=== PATIENT | female | born 1955 | race Hispanic/Latino ===

== ENCOUNTER 2018-05-09 08:03 | Inpatient (IN) | payer OTHER ==
[2018-05-03 10:22] LABS: Potassium 4.2 mmol/L (3.5-5.1)
[2018-05-03 10:31] LABS: Absolute Lymphocytes (CBC) 1.8 K/uL (0.7-4.9); Absolute Monocytes 0.5 K/uL (0.1-1.3); Absolute Neutrophil 4.8 K/uL (1.8-8.0); Basophils % 0.3 % (0-1.3); Eosinophils % 1.6 % (0-4.4); Hematocrit 31.9 % (36.0-45.0); Lymphocytes % 25.1 % (15.3-44.8); MPV 8.4 fL (7.6-11.3); Monocytes % 6.6 % (3.3-12.3); RBC Red Blood Cell Count 4.03 M/uL (3.86-4.86)
[2018-05-03 10:35] LABS: Protime INR 0.99
[2018-05-09] MEDS ORDERED: BUPIVACA 0.5%/EPI 0.0005%/PF 10 ML VIAL ONE ×2 (08:31→08:32)
[2018-05-09] MEDS ORDERED: CEFAZOLIN/SWI 2gm 2 GM/20 ML SYR ONE (08:40)
[2018-05-09] MEDS ORDERED: NA CHLORIDE 0.9% 1,000 ML ONE ×2 (08:40→10:52)
[2018-05-09] MEDS ORDERED: MIDAZOLAM HCL 2 MG/2 ML INJ ONE (09:44)
[2018-05-09] MEDS ORDERED: DEXAMETHASONE 4 MG/ML VIAL ONE (09:44)
[2018-05-09] MEDS ORDERED: ROPLVACAINE HCL 20 ML ONE (09:45)
[2018-05-09] MEDS ORDERED: FENTANYL CITR 250 MCG/5 ML ONE (09:45)
[2018-05-09] MEDS ORDERED: TRANEXAMIC ACID 1,000 MG in NA CHLORIDE 0.9% 50 ML IV ONE (10:00)
[2018-05-09] MEDS ORDERED: PROPOFOL 200 MG/20 ML VIAL IV ONE (10:31)
[2018-05-09] MEDS ORDERED: LIDOCAINE 2% MPF 5 ML VIAL ONE (10:32)
[2018-05-09] MEDS ORDERED: GLYCOPYRROLATE 0.2 MG/ML SYR ONE (11:45)
[2018-05-09] MEDS ORDERED: HOME MED 1 EA UNK (Meclizine Hcl [Meclizine Hcl] 25 MG) PO PRN (13:15)
--- NOTE | 2018-05-09 13:15 | P.BOP ---
Preoperative diagnosis: left knee osteoarthritis Postoperative diagnosis: same Primary procedure: left total knee arthroplasty [employer]: NONE,NONE Estimated blood loss: 20 cc Specimen: left knee bone remnants Findings: see dictation Anesthesia: General Complications: None Drain(s): Urinary catheter Implants: Biomet 62.5 CR femur, 71 Tibia, 10 mm CR E-poly, 34 patella Fluids & blood products: per anesthesia; TT: 71 mins @ 300 mmHg Transferred to: Recovery Room Condition: Good
[2018-05-09] MEDS ORDERED: HYDROCODONE/APAP 7.5/325 MG TAB PO PRN (13:21)
[2018-05-09] MEDS ORDERED: DOCUSATE NA 100 MG CAP PO PRN (13:21)
[2018-05-09] MEDS: HYDROMORPHONE HCL 1 MG/ML INJ ONE ×2 (13:39→13:54)
[2018-05-09 13:45] LABS: Hematocrit 30.9 % (36.0-45.0)
[2018-05-09] MEDS ORDERED: PROMETHAZINE 25 MG/ML VIAL ONE ×2 (13:50→13:52)
[2018-05-09] MEDS ORDERED: HYDROMORPHONE HCL 1 MG/ML INJ ONE (14:10)
[2018-05-09] MEDS ORDERED: ESZOPICLONE 1 MG TAB PO PRN (14:18)
--- NOTE | 2018-05-09 14:22 | RAD REPORT ---
EXAM DESCRIPTION: RAD - Knee Left 2 View - 05/09/2018 2:09 pm CLINICAL HISTORY: Post Op Left knee TKA COMPARISON: Knee Left 3 View dated 12/12/2017 FINDINGS: Left total knee arthroplasty has been performed. Hardware is in expected positioning and a lignment. No unexpected finding. No joint effusion is evident.
[2018-05-09] MEDS ORDERED: CEFAZOLIN/SWI 1gm 1 GM/10 ML SYR IVP SCH (17:00)
[2018-05-09] MEDS ORDERED: CEFAZOLIN 1GM (PREMIX IV) 1 GM/50 ML BAG IV SCH (17:00)
[2018-05-09] MEDS ORDERED: ALBUTEROL INHALER 60 PUFF/8 GM IH SCH (17:00)
[2018-05-09] MEDS: MORPHINE 4 MG/ML SYR IV PRN (17:13)
[2018-05-09] MEDS ORDERED: DIPHENHYDRAMINE 50 MG/ML VIAL IV ONE (17:41)
[2018-05-09 20:11] VITALS: BMI 34.7
--- NOTE | 2018-05-09 20:26 | P.OP ---
Preoperative diagnosis: left knee osteoarthritis Postoperative diagnosis: same Primary procedure: left total knee arthroplasty Secondary procedure: none Anesthesia: General Estimated blood loss: 20 cc Specimen: left knee bone remnants Findings: see dictation Operative Technique: Indication For Procedure: Rosangela is a 63-year-old female, who presented to my clinic with left knee pain due to left knee osteoarthritis. The patient failed conservative treatment measures including home exercises, corticosteroid injections and viscosupplementation injections. She reported continued pain that affect his activities of daily living. She was recommended total knee arthoplasty. Description Of Procedure: After informed consent was obtained, the patient was identified in preop holding area. The left lower extremity was marked. The patient underwent a femoral nerve block performed by Anesthesia. She was then taken back to the operative room and transferred to the operating table in supine fashion and placed under general LMA anesthesia. The left lower extremity was then prepped and draped in usual sterile fashion. A time-out was initiated. Correct patient and procedure were confirmed and identified. The patient had received preoperative prophylactic antibiotics. The left lower extremity was exsanguinated and the tourniquet was inflated to 300 mmHg. Approximately, a 15 cm longitudinal incision was made over the anterior aspect of the knee centered over the patella. A standard median parapatellar approach was taken. The dissection was taken to the extensor mechanism. A median parapatellar arthrotomy was then performed. The patella was then everted and the fat pad and medial and lateral meniscus were excised. A lateral release was performed of the patella and osteophytes were removed using a rongeur. There was significant cartilage wear on the undersurface of the patella and it was decided to resurface the patella. Next, attention was taken to the femur, retractors were placed within the knee and the knee was held in flexion. A partial synovectomy was performed over the anterior aspect of the distal femur. A cutting block has been created preoperatively using MRI imaging and the block was then placed over the distal femur and then positioned and was stacked into place and pins were placed within the guide hole in the block. The distal femoral cutting guide was then placed over the pre-placed guide pin and the distal femur was cut after proper confirming using an Zeke wing. After this was performed, the anterior-posterior distal femoral cuts were made as well as the chamfer cut without complication. MCL and lateral remnants were resected as well as patellar tendon with knee retractors. Both remnants were then removed and sent to Pathology. Next attention was taken to the proximal tibia. The soft tissue medially was then elevated off the proximal tibia directly off bone using Bovie electrocautery. Pre-made cutting block was placed over the proximal tibia and once locked into position, pin were placed as well as the alignment migdalia was used to ensure proper placement of the cutting guide. There was overall good alignment and position of the cutting guide. Pins were then placed. The cutting block was removed. The cutting guide was placed on the proximal tibia and again the zeke wing was then used to ensure proper depth of the cut. An osteotome then used to make cuts around the PCL and the saw was used to cut the proximal tibia and the proximal tibial cut was then removed with the meniscal grasper. Bone fragments were then removed and meniscectomies were completed. Next, the knee was held in 90 degrees of flexion and forward extension and a 10-mm guide was then selected and there was good overall fit and stability in flexion and extension. Next, the trials were placed, size 62.5 CR femur was placed and a size 71 tibia with a 10 mm poly. The knee was then ranged and had good stability, both in forward flexion and extension and had full range of motion. The patella was then prepared. A size 34 patella was selected. A caliper was used to measure the thickness of the patella and a planar was then used to prepare the patella. It was drilled and a trial size 34 button was placed. There was good tracking of the patella with ROM. The knee was ranged and there was good stability of the patella as well as the rest of the knee. The tibia was marked with the Bovie electrocautery. The femur was drilled and once in proper position and the tibia was punched. Trial implants were then removed. The knee was then irrigated thoroughly with pulsed lavage normal saline. A 0.5% Marcaine with epinephrine was then used 20 cc for local anesthetic and to aid with postoperative pain control. The cement was prepared as well as the implant. Size 71 tibia was then placed followed by the size 62.5 CR femur. Excess cement was then removed using Lacrosse elevator. A 10-mm trial poly was then placed and the knee was held in full extension as the cement hardened. Cement was placed on the undersurface of the patella and the final patella button was placed. Excess cement was removed. Once the cement was completely hardened, the knee was ranged with good overall stability as well as good flexion and extension. Trial poly ethylene liner was removed and a final 10 mm CR-E poly was placed and locked in position. The knee was again irrigated thoroughly with normal saline. The tourniquet was let down. Hemostasis was achieved with Bovie electrocautery. The extensor mechanism was closed with #1 Vicryl in an interrupted fashion followed by #1 Vicryl in a running fashion. Fascia was then approximated using 0 Vicryl. Subcutaneous tissue was approximated used 2- 0 Vicryl and the skin was approximated using 3-0 nylon. Sterile dressings were applied. The patient was awakened and transferred to PACU in stable condition. Postoperative Plan: She will be weightbearing as tolerated. Physical therapy will aide with mobilization and pain management. CPM machine will be placed in the PACU postoperatively. She has history of hypertension and diabetes mellitus. She will admitted as an inpatient for pain management and medical monitoring. She will be in the hospital for at least 2 midnights. Complications: None Drain(s): Urinary catheter Implants: Biomet 62.5 CR femur, 71 Tibia, 10 mm CR E-poly, 34 pateall Fluids & blood products: per anesthesia; TT: 71 mins @ 300 mmHg Transferred to: Recovery Room Condition: Good
[2018-05-09] MEDS ORDERED: METFORMIN HCL PO SCH (21:00)
[2018-05-09] MEDS ORDERED: SITAGLIPTIN PHOS PO SCH (21:00)
[2018-05-09] MEDS ORDERED: BIMATOPROST OPHTH DROPS/2.5 ML BTL OPTH SCH (21:00)
[2018-05-09] MEDS ORDERED: HOME MED 1 EA UNK (Eszopiclone [Lunesta] 3 MG) PO SCH (21:00)
[2018-05-09] MEDS: ATORVASTATIN 40 MG TAB PO SCH (21:03)
[2018-05-09] MEDS: OXYCODONE *CR* 10 MG TAB PO SCH (21:03)
[2018-05-09] MEDS: ONDANSETRON 4 MG/2 ML VIAL IV PRN (23:08)
[2018-05-10] MEDS: CLINDAMYCIN INJ 600 MG in NA CHLORIDE 0.9% 50 ML IV SCH ×2 (00:13→08:23)
[2018-05-10] MEDS: MORPHINE 4 MG/ML SYR IV PRN (03:51)
[2018-05-10] MEDS: LOSARTAN/HCTZ 50-12.5 PO SCH (05:48)
[2018-05-10] MEDS: ENOXAPARIN 30 MG/0.3 ML SQ SCH ×3 (05:49→21:17)
[2018-05-10] MEDS ORDERED: HOME MED 1 EA UNK (Losartan/Hydrochlorothiazide [Losartan-Hctz 100-25 Mg Tab] 1 EACH) PO SCH (06:00)
[2018-05-10 06:01] LABS: Absolute Lymphocytes (CBC) 1.7 K/uL (0.7-4.9); Absolute Monocytes 1.2 K/uL (0.1-1.3); Absolute Neutrophil 11.7 K/uL (1.8-8.0); Basophils % 0.1 % (0-1.3); Eosinophils % 0.1 % (0-4.4); Hematocrit 31.2 % (36.0-45.0); Lymphocytes % 11.9 % (15.3-44.8); MPV 8.3 fL (7.6-11.3)
[2018-05-10 06:04] LABS: Potassium 3.7 mmol/L (3.5-5.1)
[2018-05-10] MEDS: ONDANSETRON 4 MG/2 ML VIAL IV PRN ×3 (06:48→20:43)
--- NOTE | 2018-05-10 07:53 | P.PN ---
Subjective Date of Service: 05/10/18 Chief Complaint: s/p L TKA pain controlled; some nausea with pain medication; improves with zofran Physical Examination - Vital Signs Temperature: 98.0 F Blood Pressure: 138/65 Pulse: 68 Respirations: 18 Pulse Ox (%): 96 - Physical Exam General: Alert, In no apparent distress Musculoskeletal: Other (LLE: dressing c/d/i; +EHL/FHL/GSC/TA; sensation grossly intact distally) - Studies Laboratory Data (last 24 hrs) 05/10/18 05:22: Sodium 135 L, Potassium 3.7, BUN 17, Creatinine 0.90, Glucose 120 H 05/10/18 05:22: WBC 14.6 H D, Hgb 10.2 L, Hct 31.2 L, Plt Count 350 05/09/18 13:33: Hgb 10.4 L, Hct 30.9 L Assessment And Plan - Plan Rosangela is a 63 yo female s/p L TKA -PT to mobilize; WBAT LLE -h/h stable -lovenox for dvt prophylaxis -d/c mandy
[2018-05-10] MEDS: MONTELUKAST 10 MG TAB PO SCH (08:21)
[2018-05-10] MEDS: PANTOPRAZOLE 40MG TABLET PO SCH (08:21)
[2018-05-10] MEDS: FERROUS SULFATE 325 MG TAB PO SCH (08:22)
[2018-05-10] MEDS: CELECOXIB 100 MG CAPSULE PO SCH (08:22)
[2018-05-10] MEDS: DULOXETINE 30 MG CAP PO SCH (08:22)
[2018-05-10] MEDS: OXYCODONE *CR* 10 MG TAB PO SCH ×2 (08:25→21:00)
[2018-05-10] MEDS ORDERED: HOME MED 1 EA UNK (Duloxetine Hcl [Duloxetine Hcl] 60 MG) PO SCH (09:00)
[2018-05-10] MEDS ORDERED: FLUTICASONE PROPIONATE IH SCH (09:00)
[2018-05-10] MEDS ORDERED: AZELASTINE NASAL SPRAY 30 ML NAS SCH (09:00)
[2018-05-10] MEDS ORDERED: HOME MED 1 EA UNK (Fluticasone/Vilanterol [Breo Ellipta 200-25 Mcg Inh] 1 EACH) IH SCH (09:00)
[2018-05-10] MEDS ORDERED: HOME MED 1 EA UNK (Brimonidine Tartrate/Timolol [Combigan 0.2%-0.5% Eye Drops] 1 GTT) EACH EYE SCH (09:00)
[2018-05-10] MEDS: MECLIZINE HCL 12.5 MG TAB PO PRN ×2 (11:04→21:17)
[2018-05-10] MEDS ORDERED: POTASSIUM CL SA 10 MEQ TAB PO ONE (15:00)
[2018-05-10] MEDS: TRAMADOL HCL 50 MG TAB PO PRN (18:21)
[2018-05-10] MEDS: ATORVASTATIN 40 MG TAB PO SCH (21:16)
[2018-05-10] MEDS ORDERED: HYDRALAZINE HCL 20 MG/ML VIAL IV PRN (21:55)
[2018-05-10] MEDS: METHOCARBAMOL 500 MG TAB PO PRN (22:31)
[2018-05-11] MEDS ORDERED: HYDROMORPHONE HCL 0.5 MG/0.5 ML INJ IV ONE (00:53)
[2018-05-11] MEDS ORDERED: OXYCODONE *CR* 10 MG TAB PO SCH (01:00)
[2018-05-11] MEDS: ONDANSETRON 4 MG/2 ML VIAL IV PRN ×2 (02:47→14:20)
[2018-05-11 06:08] LABS: Absolute Lymphocytes (CBC) 1.3 K/uL (0.7-4.9); Absolute Monocytes 1.8 K/uL (0.1-1.3); Basophils % 0.1 % (0-1.3); Hematocrit 30.3 % (36.0-45.0); MPV 8.2 fL (7.6-11.3); Monocytes % 10.9 % (3.3-12.3); RBC Red Blood Cell Count 3.99 M/uL (3.86-4.86)
[2018-05-11] MEDS: LOSARTAN/HCTZ 50-12.5 PO SCH (06:15)
[2018-05-11 06:37] LABS: Albumin 3.2 g/dL (3.4-5.0); Bilirubin Total 1.1 mg/dL (0.2-1.0); Magnesium 1.6 mg/dL (1.8-2.4); Potassium 3.6 mmol/L (3.5-5.1); Protein, Total 7.2 g/dL (6.4-8.2); Thyroid Stimulating Hormone 0.916 uIU/mL (0.360-3.740)
[2018-05-11] MEDS: FERROUS SULFATE 325 MG TAB PO SCH (09:14)
[2018-05-11] MEDS: CELECOXIB 100 MG CAPSULE PO SCH (09:14)
[2018-05-11] MEDS: MONTELUKAST 10 MG TAB PO SCH (09:14)
[2018-05-11] MEDS: DULOXETINE 30 MG CAP PO SCH (09:14)
[2018-05-11] MEDS: PANTOPRAZOLE 40MG TABLET PO SCH (09:15)
[2018-05-11] MEDS: ENOXAPARIN 30 MG/0.3 ML SQ SCH ×2 (09:15→21:30)
[2018-05-11 10:06] LABS: Potassium 3.8 mmol/L (3.5-5.1)
--- NOTE | 2018-05-11 10:08 | P.PN ---
Subjective Date of Service: 05/11/18 Chief Complaint: s/p L TKA Subjective: Working w/ PT pain controlled; nausea and dizziness yesterday; could not ambulate with PT secondary to her nausea; increased blood pressure last night; hospitalist consulted for medical management; nausea improved this AM Physical Examination - Vital Signs Temperature: 97.0 F Blood Pressure: 166/73 Pulse: 74 Respirations: 18 Pulse Ox (%): 96 - Physical Exam General: Alert, In no apparent distress Musculoskeletal: Other (LLE: dressing c/d/i; +EHL/FHL/GSC/TA; sensation grossly intact distally) - Studies Laboratory Data (last 24 hrs) 05/11/18 05:44: Sodium 125 L, Potassium 3.6, BUN 14, Creatinine 0.70, Glucose 140 H, Phosphorus 3.0, Magnesium 1.6 L, Total Bilirubin 1.1 H, AST 15, ALT 17, Alkaline Phosphatase 102 05/11/18 05:44: WBC 16.1 H, Hgb 10.4 L, Hct 30.3 L, Plt Count 357 Assessment And Plan - Plan Rosangela is a 63 yo female s/p L TKA -PT to mobilize; WBAT LLE -h/h stable -hyponatremia; will recheck BMP this AM; discussed with Dr. Champagne and she will follow -ricky for dvt prophylaxis -will continue to work with PT today and monitor BP and Na; possible d/c in AM if stable
--- NOTE | 2018-05-11 10:17 | P.CNS ---
Date of Consult: 05/11/18 Reason for Consult: Medical management/hypertension Requesting Physician: Mariano Feliciano Chief Complaint: s/p L TKA History of Present Illness: Patient is a 63-year-old female came into the hospital for a left total knee replacement. Patient has been doing well but her pain is been poorly controlled. She has not been participating with physical therapy since her surgery. Her blood pressure is also been elevated. She has been having some nausea but this is improving. Patient was given hydralazine and her blood pressure is improved. She has some hyponatremia which was related to the hydrochlorothiazide. Will give gentle fluids with saline and will hold off on the hydrochlorothiazide. Will reassess her labs in the morning. Monitor blood pressure closely. Patient will need further workup and strict blood pressure control. Recheck labs in the am. Allergies cefazolin [From Ancef] Allergy (Intermediate, Verified 05/09/18 17:40) Hives/Rash pregabalin [From Lyrica] Adverse Reaction (Verified 05/03/18 08:28) memory problems Home Medications: Albuterol Sulfate [Ventolin Hfa] 18 gm IH QID 05/03/18 Aspirin [Aspirin EC 81 MG] 81 mg PO DAILY 05/03/18 Atorvastatin Calcium [Lipitor] 40 mg PO BEDTIME 05/03/18 Azelastine HCl [Astepro] 2 sprays NS DAILY 05/03/18 Bimatoprost [Lumigan Opthalmic Drops] 1 gtt EACH EYE BEDTIME 05/03/18 Brimonidine Tartrate/Timolol [Combigan 0.2%-0.5% Eye Drops] 1 gtt EACH EYE DAILY 05/03/18 Cholecalciferol (Vitamin D3) [Vitamin D 5,000 Iu Cap] 5,000 unit PO DAILY Diclofenac Sodium [Voltaren] 100 gm TP BID 05/03/18 Duloxetine HCl 60 mg PO DAILY 05/03/18 Eszopiclone [Lunesta] 3 mg PO BEDTIME 05/03/18 Ferrous Sulfate [Iron] 325 mg PO DAILY 05/03/18 Fluticasone Propionate [Flovent Hfa] 2 sprays IH DAILY 05/03/18 Fluticasone/Vilanterol [Breo Ellipta 200-25 Mcg INH] 1 each IH DAILY 05/03/18 LORazepam [Ativan] 0.5 mg PO DAILY 05/03/18 Losartan/Hydrochlorothiazide [Losartan-Hctz 100-25 mg Tab] 1 each PO [id number] Meclizine HCl 25 mg PO TIDP PRN 05/03/18 Meloxicam 15 mg PO DAILY 05/03/18 Montelukast [Singulair] 10 mg PO DAILY 05/03/18 Pantoprazole [Protonix Tab] 40 mg PO DAILY 05/03/18 Rifaximin [Xifaxan] 550 mg PO TIDP PRN 05/03/18 Sitagliptin Phos/Metformin HCl [Janumet 50-1,000 mg Tablet] 0.5 tab PO BID 05/03 Tramadol HCl [Ultram] 50 mg PO Q6HP PRN 05/03/18 - Past Medical/Surgical History Diabetic: Yes -: diabetes -: hypertension -: asthma -: tonsillectomy 1974 -: appy 1992 -: vein stripping right leg -: hysterectomy 1990 -: tubal ligation 1981 -: reversal of tubal 1987 -: vag repair 1991 -: cateract left 1996, right 1997 - Family History Mother Medical History: Heart disease, Hypertension, Diabetes - Social History Alcohol use: No CD- Drugs: No Caffeine use: Yes Place of Residence: Home Review of Systems 10-point ROS is otherwise unremarkable Physical Examination Temp Pulse Resp BP Pulse Ox 97.0 F 74 18 166/73 H 96 05/11/18 10:08 05/11/18 10:08 05/11/18 10:08 05/11/18 10:08 05/11/18 10:08 General: Alert, In no apparent distress, Oriented x3 HEENT: Atraumatic, PERRLA, Mucous membr. moist/pink, EOMI, Sclerae nonicteric Neck: Supple, 2+ carotid pulse no bruit, No LAD, Without JVD or thyroid abnormality Respiratory: Clear to auscultation bilaterally, Normal air movement Cardiovascular: Regular rate/rhythm, Normal S1 S2, No gallops Gastrointestinal: Normal bowel sounds, Soft and benign, Non-distended, No tenderness, No masses, No rebound, No guarding Musculoskeletal: No clubbing, No swelling, No tenderness Integumentary: No rashes Neurological: Normal gait, Normal speech, Normal strength at 5/5 x4 extr, Normal tone, Sensation intact, Cranial nerves 3-12 intact, Normal affect Lymphatics: No axilla or inguinal lymphadenopathy Laboratory Data (last 24 hrs) 05/11/18 08:53: Sodium 123 L, Potassium 3.8, BUN 14, Creatinine 0.76, Glucose 166 H 05/11/18 05:44: Sodium 125 L, Potassium 3.6, BUN 14, Creatinine 0.70, Glucose 140 H, Phosphorus 3.0, Magnesium 1.6 L, Total Bilirubin 1.1 H, AST 15, ALT 17, Alkaline Phosphatase 102 05/11/18 05:44: WBC 16.1 H, Hgb 10.4 L, Hct 30.3 L, Plt Count 357 - Problems (1) Hx of total knee arthroplasty Current Visit: Yes Status: Acute (2) Hypertension Current Visit: Yes Status: Acute (3) BONIFACIO (acute kidney injury) Current Visit: Yes Status: Acute (4) Hyponatremia Current Visit: Yes Status: Acute Conclusions/ Impression: Plan: 1. IV hydration with saline gently 2. Dc hydrochlorothiazide and any additional diuretic 3. Recheck electrolytes in the morning 4. Physical therapy evaluation 5. Strict blood pressure control-continue losartan and hydralazine daily 6. GI and DVT prophylax Critical Care: No Time Spent Managing Pts care (In Minutes): 50
[2018-05-11] MEDS ORDERED: NA CHLORIDE 0.9% 1,000 ML IV SCH (11:00)
[2018-05-11 11:47] LABS: Urine Appearance CLEAR; Urine Bilirubin NEGATIVE (NEG); Urine Blood NEGATIVE (NEG); Urine Color YELLOW; Urine Glucose NEGATIVE (NEG); Urine Protein TRACE (NEG); Urine Specific Gravity 1.025 (1.005-1.030); Urine pH 6.5 (5.0-7.0)
[2018-05-11] MEDS ORDERED: POTASSIUM CL SA 10 MEQ TAB PO ONE (12:00)
[2018-05-11] MEDS ORDERED: MAGNESIUM SULFATE 1 gm IVPB 1 GM/100 ML BAG IV ONE (12:00)
[2018-05-11 12:13] LABS: Urine Bacteria <20 /HPF (<20); Urine Culture Reflex Order NOT NEEDED; Urine RBC NONE SEEN /HPF (NONE SEEN)
[2018-05-11] MEDS: TRAMADOL HCL 50 MG TAB PO PRN (21:29)
[2018-05-11] MEDS: ATORVASTATIN 40 MG TAB PO SCH (21:30)
[2018-05-12 06:29] LABS: Potassium 3.6 mmol/L (3.5-5.1)
[2018-05-12] MEDS: PANTOPRAZOLE 40MG TABLET PO SCH (07:45)
[2018-05-12] MEDS ORDERED: POTASSIUM CL SA 10 MEQ TAB PO ONE ×2 (08:00→09:00)
[2018-05-12] MEDS: ENOXAPARIN 30 MG/0.3 ML SQ SCH ×2 (09:39→21:39)
[2018-05-12] MEDS: DULOXETINE 30 MG CAP PO SCH (09:39)
[2018-05-12] MEDS: FERROUS SULFATE 325 MG TAB PO SCH (09:40)
[2018-05-12] MEDS: CELECOXIB 100 MG CAPSULE PO SCH (09:40)
[2018-05-12] MEDS: MONTELUKAST 10 MG TAB PO SCH (09:40)
[2018-05-12] MEDS: ONDANSETRON 4 MG/2 ML VIAL IV PRN (09:40)
[2018-05-12] MEDS: LOSARTAN POTASSIUM 50 MG TABLET PO SCH (09:40)
--- NOTE | 2018-05-12 10:35 | P.PN ---
Subjective Date of Service: 05/12/18 Chief Complaint: s/p L TKA Subjective: Working w/ PT pain improving; reports continued nausea; able to get out of bed to bedside commode; ambulated with PT yesterday Physical Examination - Vital Signs Temperature: 97.9 F Blood Pressure: 119/62 Pulse: 86 Respirations: 17 Pulse Ox (%): 97 - Physical Exam General: Alert, In no apparent distress Musculoskeletal: Other (LLE: incision with old sanguionous drainage over inferior aspect of incision; no active bleeding; mild ecchymoses around incision ; no erythema; NVI distally) - Studies Laboratory Data (last 24 hrs) 05/12/18 05:11: Sodium 125 L, Potassium 3.6, BUN 16, Creatinine 0.70, Glucose 126 H, Magnesium 2.0 Assessment And Plan - Plan Rosangela is a 63 yo female s/p L TKA POD #3 -PT to mobilize; WBAT LLE -hyponatremia; Na increased today; will recheck in AM -nausea; will increase zofran to 8 mg -lovenox for dvt prophylaxis -Dr. Champagne for medical management -will continue to work with PT today and monitor BP and Na
[2018-05-12] MEDS ORDERED: ONDANSETRON 4 MG/2 ML VIAL IV PRN (10:40)
[2018-05-12] MEDS: TRAMADOL HCL 50 MG TAB PO PRN ×2 (12:03→21:41)
[2018-05-12] MEDS: METHOCARBAMOL 500 MG TAB PO PRN (17:25)
--- NOTE | 2018-05-12 19:12 | P.PN ---
Subjective Date of Service: 05/13/18 Chief Complaint: s/p L TKA Subjective: No new changes, No C/O voiced, Improving Patient seen and examined at bedside. No family at bedside. Chart reviewed and case discussed with nursing staff. Review of Systems 10-point ROS is otherwise unremarkable Physical Examination - Vital Signs Temperature: 96.8 F Blood Pressure: 128/58 Pulse: 69 Respirations: 17 Pulse Ox (%): 97 - Physical Exam General: Alert, In no apparent distress, Oriented x3 HEENT: Atraumatic, PERRLA, EOMI Neck: Supple, JVD not distended Respiratory: Clear to auscultation bilaterally, Normal air movement Cardiovascular: Regular rate/rhythm, Normal S1 S2 Gastrointestinal: Normal bowel sounds, No tenderness Musculoskeletal: Tenderness Integumentary: No rashes Neurological: Normal speech, Normal tone, Normal affect - Studies Laboratory Data (last 24 hrs) 05/12/18 05:11: Sodium 125 L, Potassium 3.6, BUN 16, Creatinine 0.70, Glucose 126 H, Magnesium 2.0 Assessment And Plan - Plan (1) Hx of total knee arthroplasty Current Visit: Yes Status: Acute (2) Hypertension Current Visit: Yes Status: Acute (3) BONIFACIO (acute kidney injury) Current Visit: Yes Status: Acute (4) Hyponatremia Current Visit: Yes Status: Acute Conclusions/ Impression: Plan: 1. IV hydration with saline gently 2. Dc hydrochlorothiazide and any additional diuretic. Continue losartan and hydralazine 3. Recheck electrolytes in the morning 4. Physical therapy evaluation 5. Strict blood pressure control-continue losartan and hydralazine daily 6. GI and DVT prophylax
[2018-05-12] MEDS: ATORVASTATIN 40 MG TAB PO SCH (21:39)
[2018-05-13 00:54] VITALS: O2SAT 95
[2018-05-13] MEDS: TRAMADOL HCL 50 MG TAB PO PRN (04:15)
[2018-05-13 05:34] LABS: Potassium 4.3 mmol/L (3.5-5.1)
[2018-05-13] MEDS: METHOCARBAMOL 500 MG TAB PO PRN (06:21)
[2018-05-13] MEDS: PANTOPRAZOLE 40MG TABLET PO SCH (08:38)
[2018-05-13] MEDS: CELECOXIB 100 MG CAPSULE PO SCH (08:38)
[2018-05-13] MEDS: FERROUS SULFATE 325 MG TAB PO SCH (08:39)
[2018-05-13] MEDS: DULOXETINE 30 MG CAP PO SCH (08:39)
[2018-05-13] MEDS: MONTELUKAST 10 MG TAB PO SCH (08:39)
[2018-05-13] MEDS: ENOXAPARIN 30 MG/0.3 ML SQ SCH (08:40)
[2018-05-13] MEDS: LOSARTAN POTASSIUM 50 MG TABLET PO SCH (09:00)
--- NOTE | 2018-05-13 10:06 | P.PN ---
Subjective Date of Service: 05/13/18 Chief Complaint: s/p L TKA Subjective: Improving, Working w/ PT pain improving; nausea improving; ambulated around nursing station this AM Physical Examination - Vital Signs Temperature: 96.5 F Blood Pressure: 114/53 Pulse: 71 Respirations: 18 Pulse Ox (%): 94 - Physical Exam General: Alert, In no apparent distress Musculoskeletal: Other (LLE: dressing with minimal sanguinous drainage over inferior aspect of the bandage; NVI distally) - Studies Laboratory Data (last 24 hrs) 05/13/18 05:00: Sodium 129 L, Potassium 4.3, BUN 25 H, Creatinine 0.90, Glucose 116 H Assessment And Plan - Plan Rosangela is a 63 yo female s/p L TKA POD #4 -PT to mobilize; WBAT LLE -hyponatremia; Na trending up; will recheck with PCP this week -nausea improved -lovenox for dvt prophylaxis; will take Xarelto at home -Dr. Champagne for medical management and will change BP med given hyponatremia -d/c home today
--- NOTE | 2018-05-13 10:10 | P.DS ---
Admission Date: 05/09/18 Discharge Date: 05/13/18 Disposition: DC HOME/HOME HEALTH CARE Discharge Condition: GOOD Reason for Admission: s/p L TKA Consultations: Internal Medicine Procedures: left total knee arthroplasty 05/09/2018 Brief History of Present Illness: Rosangela is a 63 yo female w/ h/o DM, HTN, and left knee osteoarthritis that underwent L TKA on 05/09 without complication. Hospital Course: Rosangela was admitted to the floor postop in stable condition. While on the floor she was noted to have elevated blood pressure and hyponatremia. Internal medicine was consulted to aid with medical management. Her blood pressure medication was changed and she was started on low rate normal saline. Her Na increased over the last 2 days of her hospital stay and her nausea and vomiting improved. She was discharged in stable condition on 05/13/2018. She will followup with her PCP to recheck her sodium and will followup with me for wound check on . Vital Signs/Physical Exam: Temp Pulse Resp BP Pulse Ox 96.5 F L 71 18 114/53 L 94 05/13/18 10:06 05/13/18 10:06 05/13/18 10:06 05/13/18 10:06 05/13/18 10:06 Laboratory Data at Discharge: WBC 16.1 K/uL (4.3-10.9) H 05/11/18 05:44 Hgb 10.4 g/dL (12.0-15.0) L 05/11/18 05:44 Hct 30.3 % (36.0-45.0) L 05/11/18 05:44 Plt Count 357 K/uL (152-406) 05/11/18 05:44 PT 11.7 SECONDS (9.5-12.5) 05/03/18 08:40 INR 0.99 05/03/18 08:40 APTT 32.9 SECONDS (24.3-36.9) 05/03/18 08:40 Sodium 129 mmol/L (136-145) L 05/13/18 05:00 Potassium 4.3 mmol/L (3.5-5.1) 05/13/18 05:00 BUN 25 mg/dL (7-18) H 05/13/18 05:00 Creatinine 0.90 mg/dL (0.55-1.3) 05/13/18 05:00 Glucose 116 mg/dL (74-106) H 05/13/18 05:00 Phosphorus 3.0 mg/dL (2.5-4.9) 05/11/18 05:44 Magnesium 2.0 mg/dL (1.8-2.4) 05/12/18 05:11 Total Bilirubin 1.1 mg/dL (0.2-1.0) H 05/11/18 05:44 AST 15 U/L (15-37) 05/11/18 05:44 ALT 17 U/L (12-78) 05/11/18 05:44 Alkaline Phosphatase 102 U/L (45-117) 05/11/18 05:44 Home Medications: Albuterol Sulfate [Ventolin Hfa] 18 gm IH QID 05/03/18 Aspirin [Aspirin EC 81 MG] 81 mg PO DAILY 05/03/18 Atorvastatin Calcium [Lipitor] 40 mg PO BEDTIME 05/03/18 Azelastine HCl [Astepro] 2 sprays NS DAILY 05/03/18 Bimatoprost [Lumigan Opthalmic Drops] 1 gtt EACH EYE BEDTIME 05/03/18 Brimonidine Tartrate/Timolol [Combigan 0.2%-0.5% Eye Drops] 1 gtt EACH EYE DAILY 05/03/18 Cholecalciferol (Vitamin D3) [Vitamin D 5,000 Iu Cap] 5,000 unit PO DAILY Diclofenac Sodium [Voltaren] 100 gm TP BID 05/03/18 Duloxetine HCl 60 mg PO DAILY 05/03/18 Eszopiclone [Lunesta] 3 mg PO BEDTIME 05/03/18 Ferrous Sulfate [Iron] 325 mg PO DAILY 05/03/18 Fluticasone Propionate [Flovent Hfa] 2 sprays IH DAILY 05/03/18 Fluticasone/Vilanterol [Breo Ellipta 200-25 Mcg INH] 1 each IH DAILY 05/03/18 LORazepam [Ativan] 0.5 mg PO DAILY 05/03/18 Losartan/Hydrochlorothiazide [Losartan-Hctz 100-25 mg Tab] 1 each PO [id number] Meclizine HCl 25 mg PO TIDP PRN 05/03/18 Meloxicam 15 mg PO DAILY 05/03/18 Montelukast [Singulair] 10 mg PO DAILY 05/03/18 Pantoprazole [Protonix Tab] 40 mg PO DAILY 05/03/18 Rifaximin [Xifaxan] 550 mg PO TIDP PRN 05/03/18 Sitagliptin Phos/Metformin HCl [Janumet 50-1,000 mg Tablet] 0.5 tab PO BID 05/03 Tramadol HCl [Ultram] 50 mg PO Q6HP PRN 05/03/18
--- NOTE | 2018-05-13 10:35 | P.PN ---
Subjective Date of Service: 05/13/18 Chief Complaint: s/p L TKA Subjective: No new changes, No C/O voiced, Improving, Working w/ PT Patient seen and examined at bedside. No family at bedside. Chart reviewed and case discussed with nursing staff. Review of Systems 10-point ROS is otherwise unremarkable Physical Examination - Vital Signs Temperature: 96.8 F Blood Pressure: 128/58 Pulse: 69 Respirations: 17 Pulse Ox (%): 97 - Physical Exam General: Alert, In no apparent distress, Oriented x3 HEENT: Atraumatic, PERRLA, EOMI Neck: Supple, JVD not distended Respiratory: Clear to auscultation bilaterally, Normal air movement Cardiovascular: Regular rate/rhythm, Normal S1 S2 Gastrointestinal: Normal bowel sounds, No tenderness Musculoskeletal: No tenderness Integumentary: No rashes Neurological: Normal speech, Normal tone, Normal affect Lymphatics: No axilla or inguinal lymphadenopathy - Studies Laboratory Data (last 24 hrs) 05/13/18 05:00: Sodium 129 L, Potassium 4.3, BUN 25 H, Creatinine 0.90, Glucose 116 H Assessment And Plan - Plan (1) Hx of total knee arthroplasty Current Visit: Yes Status: Acute (2) Hypertension Current Visit: Yes Status: Acute (3) BONIFACIO (acute kidney injury) Current Visit: Yes Status: Acute (4) Hyponatremia Current Visit: Yes Status: Acute Conclusions/ Impression: Plan: 1. IV hydration with saline gently 2. Dc hydrochlorothiazide and any additional diuretic. Continue losartan and hydralazine 3. Recheck electrolytes in the morning 4. Physical therapy evaluation 5. Strict blood pressure control-continue losartan and hydralazine daily 6. GI and DVT prophylax Cleared for discharge. Discontinue hydrochlorothiazide upon discharge, continue losartan and hydralazine. Follow up with primary care physician in a few days for blood work
[2018-05-13 13:01] VITALS: BP 114/56; TEMP 97.8
== END 2018-05-13 12:16 | disposition home health service (06) | DRG 470 ==
LOC: OR 08:03 → 2ND 13:22
PROVIDERS: ADMIT Orthopaedic Surgery Sports Medicine; ATTEND Orthopaedic Surgery Sports Medicine
PROC: 0SRD0J9 Replacement of Left Knee Joint with Synthetic Substitute, Cemented, Open Approach (ICD-10-PCS; principal; 2018-05-09 09:30)
DX: M17.12 Unilateral primary osteoarthritis, left knee (principal); E87.1 Hypo-osmolality and hyponatremia; N17.9 Acute kidney failure, unspecified; E78.00 Pure hypercholesterolemia, unspecified; I10 Essential (primary) hypertension; K21.9 Gastro-esophageal reflux disease without esophagitis; F32.9 Major depressive disorder, single episode, unspecified; F41.9 Anxiety disorder, unspecified; E11.9 Type 2 diabetes mellitus without complications; Z79.84 Long term (current) use of oral hypoglycemic drugs; R11.0 Nausea
CPT/HCPCS: 36415; 80048; 80053; 81001; 82962; 83735; 83880; 83930; 83935; 84100; 84439; 84443; 85014; 85018; 85025; 85610; 85730; 88304; 88305; 88311; 97116; 97139; 97163; 97530; J0360; J0690; J1170; J1650; J2250; J2405; J2550; J2704; J2795; J3010; J3475; J7030

== ENCOUNTER 2018-07-08 12:15 | Emergency (ER) | payer OTHER ==
--- OUTSIDE RECORDS SUMMARY | 2018-07-08 12:16 | XMS REPORT ---
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 Problem Reflux K21.9 Active Problem Presence of left artificial knee Z96.652 Active joint Problem Pain in left knee M25.562 Active Problem Asthma, unspecified asthma J45.909 Active severity, unspecified whether complicated, unspecified whether persistent Problem Primary osteoarthritis of left knee M17.12 Active Problem Pain in right knee M25.561 Active Problem Anxiety F41.9 Active Problem Diabetes E11.9 Active Problem Osteopenia M85.80 Active Problem Depression F32.9 Active Problem Other chronic pain G89.29 Active Problem Gastroesophageal reflux disease, K21.9 Active esophagitis presence not specified Problem High cholesterol E78.00 Active Problem High blood pressure I10 Active Problem Sinus problem J34.9 Active Problem Hyperlipidemia, unspecified E78.5 Active hyperlipidemia type Medications No Known Medications Results No Known Results Summary Purpose eClinicalWorks Submission
--- OUTSIDE RECORDS SUMMARY | 2018-07-08 12:17 | XMS REPORT ---
:1955 Author Organization [employer] Care Team Providers Name Role Phone Harmony De La O Provider Role Unavailable Allergies No Known Allergies [...]
--- OUTSIDE RECORDS SUMMARY | 2018-07-08 12:17 | XMS REPORT ---
:1955 [facility] Team Providers Name Role Phone Jaylyn Harmony Provider Role Unavailable Allergies, Adverse Reactions, Alerts Substance Reaction Event Type Lyrica memory loss Drug Allergy Problems Problem Type Condition Code Onset Dates Condition Status Assessment Depression with anxiety F41.8 Active Assessment Gastroesophageal reflux disease, K21.9 Active esophagitis presence not specified Assessment Allergic rhinitis, unspecified J30.9 Active seasonality, unspecified trigger Assessment Hyperlipidemia, unspecified E78.5 Active hyperlipidemia type Assessment Asthma, unspecified asthma J45.909 Active severity, unspecified whether complicated, unspecified whether persistent Assessment Uncontrolled type 2 diabetes E11.65 Active mellitus without complication, without long-term current use of insulin Assessment Presence of left artificial knee Z96.652 Active joint Assessment Other chronic pain G89.29 Active Problem High blood pressure I10 Active Assessment Pain in left knee M25.562 Active Problem Hyperlipidemia, unspecified E78.5 Active hyperlipidemia type Assessment Hypertension, unspecified type I10 Active Problem Hypertension, unspecified type I10 Active Problem Urinary incontinence, unspecified R32 Active type Problem Uncontrolled type 2 diabetes E11.65 Active mellitus without complication, without long-term current use of insulin Problem Allergic rhinitis, unspecified J30.9 Active seasonality, unspecified trigger Problem 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 Problem Depression with anxiety F41.8 Active Problem Reflux K21.9 Active Problem Presence of [...] specified Problem High cholesterol E78.00 Active Problem Sinus problem J34.9 Active Medications Medication Code Code Instructions Start End Status Dosage System Date Date Azelastine HCl [facility] 96473502973 137 MCG/SPRAY Active 2 squirts in Nasally Once a each nostril day Lorazepam ND 0 Orally as Active 1 tablet directed as needed for anxiety Losartan [facility] 44827638702 100-25 MG Active 1 tablet Potassium-HCTZ Orally Once a day Mirtazapine ND 37791293597 15 MG Orally Active 1 tablet at Once a day bedtime Meloxicam [facility] 95749245342 15 MG Orally October 04August Active / to 1 Once a day 2017, tablet as 2018 needed for pain Xarelto ND 15442846348 10 MG Orally May 01, Active 1 tablet Once a day 2017 with food Tramadol HCl ND 83981047305 50 MG Orally Active 1 tablet as every 6 hrs needed Breo Ellipta [facility] [address]-33 Inhalation Active 1 puff Once a day Ventolin HFA [facility] 72838581777 108 (90 Base) Active 2 puffs as MCG/ACT needed Inhalation every 4-6 hrs Diclofenac Sodium [facility] 93182693767 1 % Active not defined Transdermal One Touch Verio NDC 0 n/s finger Mar 19May Active one strip Flex prick once a 2017 One Touch Verio NDC 0 30 gauge Mar 19May Active one strip Flex lancets finger prick 2017, once a day 2019 One Touch Glucose NDC 0 N/S n/s n/s Mar 19, Active as advised Monitor 2017 One Touch Ultra [facility] 834746315714 1 In Vitro Mar 29Jun Active as directed Test Strips check BS twice 2017 daily 2019 Fluticasone [facility] 73794874708 50 MCG/ACT Active 1 spray in Propionate Nasally Once a each nostril day Atorvastatin ND 08239209215 40 MG Orally Active 1 tablet in Calcium Once a day evening Ranitidine HCl ND 45003086228 150 MG Orally Active 1 capsule at Once a day bedtime Cyclobenzaprine [facility] 70926300801 10 MG Active TAKE 1 HCl TABLET BY MOUTH 3 TIMES DAILY NEEDED FOR MUSCLE SPASMS OneTouch Ultra 2 [facility] 82024379066 w/Device Mar 29, Active as directed 2017 Duloxetine HCl [facility] 99116999131 60 MG Orally Active 1 capsule Once a day [facility] 08031942592 50-1000 MG November Active 1/2 tablet Orally Twice a 23, with meals day 2017 Ventolin HFA [facility] 91089536405 108 (90 Base) Active 2 puffs as MCG/ACT needed Inhalation every 4-6 hrs. as needed Lunesta [facility] [address]-20 Orally Once a Active 1 tablet day as needed immediately for sleep before bedtime Ranitidine NDC 0 Orally Once Active 150 mg--1 daily at tablet bedtime Latanoprost [facility] 98899271259 0.005 % Active 1 drop into Ophthalmic affected eye twice a day in the evening Singulair [facility] 57666488510 10 MG Orally Active 1 tablet Once a day Motrin IB [facility] 81795310296 200 MG Orally Active 1 tablet Three times a with food or day milk as needed Lidocaine NDC 0 2 % Externally Active not defined Aspirin Adult Low [facility] 35989394747 81 MG Orally Active 1 tablet Strength Once a day Antacid [facility] 08000486575 500 MG Orally Active 1 tablet PRN Results No Known Results Summary Purpose eClinicalWorks Submission
--- OUTSIDE RECORDS SUMMARY | 2018-07-08 12:17 | XMS REPORT ---
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 Problem Sinus problem J34.9 Active Problem Hyperlipidemia, unspecified E78.5 Active hyperlipidemia type Medications Medication Code Code Instructions Start End Status Dosage System Date Date OneTouch Ultra 2 [facility] 66484203256 w/Device Mar 29, Active as directed 2017 Cyclobenzaprine [facility] 95389377096 10 MG Active TAKE 1 HCl TABLET BY MOUTH 3 TIMES DAILY NEEDED FOR MUSCLE SPASMS Antacid ND 62981910598 500 MG Orally Active 1 tablet PRN Meloxicam [facility] 96110087001 15 MG Orally October 04August Active 1/2 to 1 Once a day 2017, tablet as 2019 needed for pain Duloxetine HCl ND 02516155611 60 MG Orally Active 1 capsule Once a day Ranitidine HCl ND 50976655935 150 MG Orally Active 1 capsule at Once a day bedtime Atorvastatin ND 63624904439 40 MG Orally Active 1 tablet in Calcium Once a day evening One Touch Ultra [facility] 039788997885 1 In Vitro Mar 29Jun Active as directed Test Strips check BS twice 2017 daily 2019 One Touch Verio NDC 0 30 gauge Mar 19May Active one strip Flex lancets finger prick 2017, once a day 2019 [place] [facility] 64766358651 7.5-325 MG Active 1 tablet as Orally every 6 needed hrs Mirtazapine ND 97922679247 15 MG Orally Active 1 tablet at Once a day bedtime Ventolin HFA [facility] 43248671561 108 (90 Base) Active 2 puffs as MCG/ACT needed Inhalation every 4-6 hrs Azelastine HCl [facility] 10529937663 137 MCG/SPRAY Active 2 squirts in Nasally Once a each nostril day Lorazepam ND 0 Orally as Active 1 tablet directed as needed for anxiety Latanoprost [facility] 20916549466 0.005 % Active 1 drop into Ophthalmic affected eye twice a day in the evening Tramadol HCl ND 99144157015 50 MG Orally Active 1 tablet as every 6 hrs needed Xarelto ND 79109464828 10 MG Orally May 01, Active 1 tablet Once a day 2017 with food Aspirin Adult Low ND 82447257597 81 MG Orally Active 1 tablet Strength Once a day Lunesta [facility] [address]-15 Orally Once a Active 1 tablet day as needed immediately for sleep before bedtime Breo Ellipta [facility] [address]-09 Inhalation Active 1 puff Once a day One Touch Glucose NDC 0 N/S n/s n/s Mar 19, Active as advised Monitor 2017 One Touch Verio NDC 0 n/s finger Mar 19May Active one strip Flex prick once a 2017 Lidocaine NDC 0 2 % Externally Active not defined Singulair ND 80867674766 10 MG Orally Active 1 tablet Once a day Diclofenac Sodium ND 62834900843 1 % Active not defined Transdermal Fluticasone ND 72571981678 50 MCG/ACT Active 1 spray in Propionate Nasally Once a each nostril day Motrin IB [facility] 70189395641 200 MG Orally Active 1 tablet Three times a with food or day milk as needed Losartan [facility] 55155366968 100-25 MG Active 1 tablet Potassium-HCTZ Orally Once a day Ventolin HFA [facility] 29159480601 108 (90 Base) Active 2 puffs as MCG/ACT needed Inhalation every 4-6 hrs. as needed Ranitidine ND 0 Orally Once Active 150 mg--1 daily at tablet bedtime [facility] 57973934797 50-1000 MG November Active 1/2 tablet Orally Twice a 23, with meals 2017 Results No Known Results Summary Purpose eClinicalWorks Submission
--- OUTSIDE RECORDS SUMMARY | 2018-07-08 12:17 | XMS REPORT ---
[...] K21.9 Active esophagitis presence not specified Assessment Primary osteoarthritis of left knee M17.12 Active Problem High cholesterol E78.00 Active Problem High blood pressure I10 Active Assessment Pain, joint, knee, left M25.562 Active Problem Sinus problem J34.9 Active Problem Hyperlipidemia, unspecified E78.5 Active hyperlipidemia type Medications Medication Code Code Instructions Start End Date Status Dosage System Date Latanoprost ND 82767408840 0.005 % Active 1 drop Ophthalmic into twice a day affected eye in the evening Motrin IB ND 62877581875 200 MG Orally Active 1 tablet Three times a with food day or milk as needed [place] ND 06442248696 7.5-325 MG May 01, May 11, Active 1-2 tablet Orally every 2017 as needed hrs Atorvastatin ND 90482624050 40 MG Orally Active 1 tablet Calcium Once a day in evening Meloxicam [facility] 31466442924 15 MG Orally October 04August Active 1/2 to 1 Once a day 2017 tablet as needed for pain One Touch Verio NDC 0 30 gauge finger Mar 19Jun 12, Active one strip Flex lancets prick once a 2017 2019 day Mirtazapine ND 79259729998 15 MG Orally Active 1 tablet Once a day at bedtime Diclofenac [facility] 05599024716 1 % Transdermal Active not Sodium defined Lidocaine NDC 0 2 % Externally Active not defined One Touch Verio NDC 0 n/s finger Mar 19Jun 12, Active one strip Flex prick once a 20172019 Losartan [facility] 98972656954 100-25 MG Active 1 tablet Potassium-HCTZ Orally Once a day One Touch Ultra [facility] 636856091159 1 In Vitro Mar 29, Jun 22, Active as Test Strips check BS twice 2017 2019 directed daily One Touch NDC 0 N/S n/s n/s Mar 19, Active as advised Glucose Monitor [address] [facility] 79602979604 60 MG Orally Active 1 capsule Once a day Tramadol HCl [facility] 67799097638 50 MG Orally Active 1 tablet every 6 hrs as needed Xarelto [facility] 97761297771 10 MG Orally May 01, Active 1 tablet Once a day 2017 with food Aspirin Adult [facility] 94577172573 81 MG Orally Active 1 tablet Low Strength Once a day Azelastine HCl [facility] 25425729282 137 MCG/SPRAY Active 2 squirts Nasally Once a in each day nostril OneTouch Ultra [facility] 83956939491 w/Device Mar 29, Active as 2 2017 directed Antacid ND 92441212352 500 MG Orally Active 1 tablet PRN Fluticasone ND 91669295263 50 MCG/ACT Active 1 spray in Propionate Nasally Once a each day nostril Janumet ND 12254111370 50-1000 MG December 11, Active 1/2 tablet Orally Twice a 2017 with meals day Singulair ND 89012288320 10 MG Orally Active 1 tablet Once a day Results No Known Results Summary Purpose eClinicalWorks Submission
--- OUTSIDE RECORDS SUMMARY | 2018-07-08 12:18 | XMS REPORT ---
[...] Start End Status Dosage System Date Date Lidocaine NDC 0 2 % Externally Active not defined Diclofenac Sodium ND 48290442606 1 % Active not defined Transdermal Jan[place] ND 26122635340 50-1000 MG November Active 1/2 tablet Orally Twice a 23, with meals day 2017 Azelastine HCl ND 68661605683 137 MCG/SPRAY Active 2 squirts in Nasally Once a each nostril day One Touch Ultra ND 953325178789 1 In Vitro Mar 29Jun Active as directed Test Strips check BS twice 2017 05, daily 2019 Cyclobenzaprine [facility] 94982700546 10 MG Active TAKE 1 HCl TABLET BY MOUTH 3 TIMES DAILY NEEDED FOR MUSCLE SPASMS Ventolin HFA ND 30679387778 108 (90 Base) Active 2 puffs as MCG/ACT needed Inhalation every 4-6 hrs. as needed Latanoprost [facility] 22900905870 0.005 % Active 1 drop into Ophthalmic affected eye twice a day in the evening Atorvastatin ND 15280595737 40 MG Orally Active 1 tablet in Calcium Once a day evening Motrin IB ND 70974968771 200 MG Orally Active 1 tablet Three times a with food or day milk as needed One Touch Verio NDC 0 30 gauge Mar 19May one strip Flex lancets finger prick 2017, once a day 2019 OneTouch Ultra 2 [facility] 46594006707 w/Device Mar 29, Active as directed 2017 Tramadol HCl ND 66812344663 50 MG Orally Active 1 tablet as every 6 hrs needed Tramadol HCl ND 46660684724 50 MG Orally Jun 07, Active 1 tablet as every 6 hrs 2018 needed Losartan [facility] 29483992699 100-25 MG Active 1 tablet Potassium-HCTZ Orally Once a day Lorazepam ND 0 Orally as Active 1 tablet directed as needed for anxiety Lunesta [facility] [address]-96 Orally Once a Active 1 tablet day as needed immediately for sleep before bedtime Singulair [facility] 12203893315 10 MG Orally Active 1 tablet Once a day Fluticasone ND 86181080645 50 MCG/ACT Active 1 spray in Propionate Nasally Once a each nostril day Ranitidine NDC 0 Orally Once Active 150 mg--1 daily at tablet bedtime Breo Ellipta [facility] [address]-87 Inhalation Active 1 puff Once a day Ranitidine HCl [facility] 36274354144 150 MG Orally Active 1 capsule at Once a day bedtime Cyclobenzaprine ND 67083573874 5 MG Orally Jun 07, Active 1 tablet as HCl Three times a 2019 needed day Ventolin HFA [facility] 54868427472 108 (90 Base) Active 2 puffs as MCG/ACT needed Inhalation every 4-6 hrs Antacid ND 50353361261 500 MG Orally Active 1 tablet PRN Mirtazapine ND 46387641556 15 MG Orally Active 1 tablet at Once a day bedtime Aspirin Adult Low [facility] 78729378544 81 MG Orally Active 1 tablet Strength Once a day [place] [facility] 97643937161 7.5-325 MG Active 1 tablet as Orally every 6 needed hrs Duloxetine HCl [facility] 30641150800 60 MG Orally Active 1 capsule Once a day Xarelto [facility] 70729348503 10 MG Orally May 01, Active 1 tablet Once a day 2017 with food Meloxicam [facility] 89867287333 15 MG Orally October 04August Active /2 to 1 Once a day 2017 19, tablet as 2019 needed for pain One Touch Verio NDC 0 n/s finger Mar 19May Active one strip Flex prick once a 2017 One Touch Glucose NDC 0 N/S n/s n/s Mar 19, Active as advised Monitor 2018 Results Name Result Date Reference Range Unit Abnormality Flag Physical Therapy Summary Purpose eClinicalWorks Submission
--- OUTSIDE RECORDS SUMMARY | 2018-07-08 12:18 | XMS REPORT ---
:1955 Author Organization eClinicalWorks Care Team Providers Name Role Phone Mariano Feliciano Provider Role Unavailable Allergies, Adverse Reactions, Alerts Substance Reaction Event Type Pregabalin Info Not Available Drug Allergy Lyrica memory loss Drug Allergy Cefazolin Sodium Info Not Available Drug Allergy Problems Problem Type Condition Code Onset Dates Condition Status Assessment Pain, joint, knee, left M25.562 Active Problem High blood pressure I10 Active Assessment Primary osteoarthritis of left knee M17.12 Active Problem Hyperlipidemia, unspecified E78.5 Active hyperlipidemia type Assessment 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 Problem Hypertension, unspecified type I10 Active Problem [...] Instructions Start End Status [place] [address]-94 Orally Once a Active 1 tablet day as needed immediately for sleep before bedtime Lorazepam NDC 0 Orally as Active 1 tablet directed as needed for anxiety Losartan ND 74401866090 100-25 MG Active 1 tablet Potassium-HCTZ Orally Once a day Ranitidine HCl ND 47952722411 150 MG Orally Active 1 capsule at Once a day bedtime Cyclobenzaprine [facility] 61123684908 10 MG Active TAKE 1 HCl TABLET BY MOUTH 3 TIMES DAILY NEEDED FOR MUSCLE SPASMS Cyclobenzaprine ND 52742385860 5 MG Orally Jun 26, Active 1 tablet as HCl Three times a 2018 needed day Singulair ND 27863013604 10 MG Orally Active 1 tablet Once a day Latanoprost ND 24696882104 0.005 % Active 1 drop into Ophthalmic affected eye twice a day in the evening Breo Ellipta [facility] [address]-96 Inhalation Active 1 puff Once a day One Touch Glucose ND 0 N/S n/s n/s Mar 19, Active as advised Monitor 2017 Funky Moves Ultra 2 [facility] 76821650788 w/Device Mar 29, Active as directed 2017 Ranitidine ND 0 Orally Once Active 150 mg--1 daily at tablet bedtime Tramadol HCl ND 94225901533 50 MG Orally Jun 07, Active 1 tablet as every 6 hrs 2018 needed Xarelto ND 68856425720 10 MG Orally May 01, Active 1 tablet Once a day 2017 with food Aspirin Adult Low ND 32959898251 81 MG Orally Active 1 tablet Strength Once a day Azelastine HCl [facility] 42670253481 137 MCG/SPRAY Active 2 squirts in Nasally Once a each nostril day Mirtazapine ND 34082910359 15 MG Orally Active 1 tablet at Once a day bedtime Fluticasone ND 80416795045 50 MCG/ACT Active 1 spray in Propionate Nasally Once a each nostril day ND 27308132466 50-1000 MG November Active 1/2 tablet Orally Twice a 23, with meals day 2017 Atorvastatin ND 88246332594 40 MG Orally Active 1 tablet in Calcium Once a day evening Duloxetine HCl ND 80179849904 60 MG Orally Active 1 capsule Once a day Motrin IB ND 79365338516 200 MG Orally Active 1 tablet Three times a with food or day milk as needed One Touch Verio NDC 0 30 gauge Mar 19May Active one strip Flex lancets finger prick 2017, once a day 2019 Ventolin HFA ND 80463916539 108 (90 Base) Active 2 puffs as MCG/ACT needed Inhalation every 4-6 hrs Ventolin HFA NDC 82063758251 108 (90 Base) Active 2 puffs as MCG/ACT needed Inhalation every 4-6 hrs. as needed Antacid NDC 46151050302 500 MG Orally Active 1 tablet PRN One Touch Verio NDC 0 n/s finger Mar 19May Active one strip Flex prick once a 2017 day 2019 One Touch Ultra [facility] 304061691495 1 In Vitro Mar 29Jun Active as directed Test Strips check BS twice 2017 05, daily 2019 Results No Known Results Summary Purpose eClinicalWorks Submission
--- NOTE | 2018-07-08 14:37 | RAD REPORT ---
EXAM DESCRIPTION: USExtrem Venous W Compress Bil07/08/2018 2:10 pm CLINICAL HISTORY: Bilateral leg pain COMPARISON: none FINDINGS: The common femoral, superficial femoral, popliteal and posterior tibial veins bilaterally are compressible and demonstrate augmentation. Doppler demonstrates good flow. IMPRESSION: No evidence of deep venous thrombosis involving either lower extremity.
--- NOTE | 2018-07-08 15:48 | RAD REPORT ---
EXAM DESCRIPTION: RAD - Knee Left 3 View - 07/08/2018 2:50 pm CLINICAL HISTORY: Left knee pain FINDINGS: A left knee arthroplasty There is no evidence of loosening of the prosthesis. No fracture or dislocation noted. No bony destructive lesions seen
--- NOTE | 2018-07-08 16:17 | ER ---
Nurse's Notes [facility] Name: Rosangela Whaley Age: 63 yrs Sex: Female : 1955 Arrival Date: 07/08/2018 Time: 12:19 Bed 24 Private MD: Harmony De La O Diagnosis: Pain in left leg;Pain in left lower leg;Pain in right lower leg Presentation: 07/08 12:25 Presenting complaint: Patient states: I had total knee sx on the left knee 8 weeks [address] Feliciano, I started having left calf pain since Monday and right calf pain since Monday evening. Presenting complaint:. Transition of care: patient was not received from another setting of care. Onset of symptoms was July 08, 2018. Risk Assessment: Do you want to hurt yourself or someone else? Patient reports no desire to harm self or others. Initial Sepsis Screen: Does the patient meet any 2 criteria? No. Patient's initial sepsis screen is negative. Does the patient have a suspected source of infection? No. Patient's initial sepsis screen is negative. Care prior to arrival: None. 12:25 Method Of Arrival: Ambulatory la1 12:25 Acuity: ALBA 3 la1 Historical: - Allergies: 12:24 Lyrica; la1 12:24 Cefazolin; la1 - PMHx: 12:24 Diabetes - NIDDM; Hypertension; OA; Glaucoma; GERD; la1 - Immunization history:: Adult Immunizations up to date. - Social history:: Smoking status: Patient/guardian denies using tobacco. - Ebola Screening: : No symptoms or risks identified at this time. Screenin:30 Abuse screen: Denies threats or abuse. Nutritional screening: No deficits noted. tl3 Tuberculosis screening: No symptoms or risk factors identified. Fall Risk Ambulatory Aid- Crutches/Cane/Walker (15 pts). Assessment: 13:30 General: Appears uncomfortable, well groomed, well developed, well nourished, Behavior tl3 is calm, cooperative, appropriate for age. Pain: Complains of pain in bilateral lower leg pain. Neuro: Level of Consciousness is awake, alert, obeys commands, Oriented to person, place, time, situation, Appropriate for age. Cardiovascular: Patient's skin is warm and dry. Respiratory: Airway is patent Respiratory effort is even, unlabored, Respiratory pattern is regular, symmetrical. GI: No signs and/or symptoms were reported involving the gastrointestinal system. : No signs and/or symptoms were reported regarding the genitourinary system. EENT: No signs and/or symptoms were reported regarding the EENT system. Derm: No signs and/or symptoms reported regarding the dermatologic system. Musculoskeletal: Swelling present in bilateral lower legs mild swelling noted. 14:45 Reassessment: Patient appears in no apparent distress at this time. No changes from tl3 previously documented assessment. Patient and/or family updated on plan of care and expected duration. Pain level reassessed. Patient is alert, oriented x 3, equal unlabored respirations, skin warm/dry/pink. no needs at this time, coffee given. 15:52 Reassessment: Patient appears in no apparent distress at this time. No changes from tl3 previously documented assessment. Patient and/or family updated on plan of care and expected duration. Pain level reassessed. Patient is alert, oriented x 3, equal unlabored respirations, skin warm/dry/pink. no needs at this time, friend at bedside. 16:24 Reassessment: pt being discharged. tl3 Vital Signs: 12:26 Pulse 61; Resp 16; Temp 98.0; Pulse Ox 100% on R/A; Weight 95.25 kg; Height 5 ft. 4 in. la1 (162.56 cm); 12:28 BP 167 / 62; la1 13:30 BP 160 / 82; Pulse 59; Resp 18; Pulse Ox 100% on R/A; tl3 14:45 BP 159 / 76; Pulse 62; Resp 18; Pulse Ox 100% on R/A; tl3 15:52 BP 165 / 84; Pulse 60; Resp 18; Pulse Ox 97% on R/A; tl3 12:26 Body Mass Index 36.05 (95.25 kg, 162.56 cm) la1 ED Course: 12:19 Patient arrived in ED. mr 12:19 Harmony De La O MD is Private Physician. mr 12:26 Triage completed. la1 12:26 Arm band placed on left wrist. la1 12:57 William Riley PA is PHCP. jmm 12:58 Kayden Banegas MD is Attending Physician. jmm 13:00 [place], Sangeetha, RN is Primary Nurse. tl3 13:30 Patient has correct armband on for positive identification. Bed in low position. Call tl3 light in reach. Side rails up X 1. Pulse ox on. NIBP on. 13:30 No provider procedures requiring assistance completed. tl3 14:11 US Extremity Venous W Compression Yuan In Process Unspecified. EDMS 14:50 Knee Left 3 View XRAY In Process Unspecified. EDMS 16:17 Mariano Feliciano MD is Referral Physician. jmm 16:24 Patient did not have IV access during this emergency room visit. tl3 Administered Medications: No medications were administered Outcome: 16:17 Discharge ordered by . jmm 16:24 Discharged to home ambulatory. tl3 16:24 Condition: stable 16:24 Discharge instructions given to patient, Instructed on discharge instructions, follow up and referral plans. Demonstrated understanding of instructions, follow-up care. 16:25 Patient left the ED. tl3 Signatures: Dispatcher [employer] EDIA William Riley PA PA jmm Rivera, Mary mr Waqar Pop, RN RN la1 Sangeetha Goyal, SLIME RN tl3
--- NOTE | 2018-07-08 16:17 | EDPHYS ---
Physician Documentation [facility] Name: Rosangela Whaley Age: 63 yrs Sex: Female : 1955 Arrival Date: 07/08/2018 Time: 12:19 Bed 24 Private MD: Harmony De La O ED Physician Kayden Banegas HPI: 07/08 13:14 This 63 yrs old Female presents to ER via Ambulatory with complaints of Leg jmm Pain. 13:14 The patient presents with pain. Onset: The symptoms/episode began/occurred gradually. jmm Patient complains of lower extremely pain beginning 4 days ago. beginning in the left lower leg. patient also complains of ongoing anterior and medial left knee pain since tkr in April. Denies fever, chills. . 13:14 Modifying factors: The symptoms are alleviated by nothing. the symptoms are aggravated jmm by nothing. Historical: - Allergies: 12:24 Lyrica; la1 12:24 Cefazolin; la1 - PMHx: 12:24 Diabetes - NIDDM; Hypertension; OA; Glaucoma; GERD; la1 - Immunization history:: Adult Immunizations up to date. - Social history:: Smoking status: Patient/guardian denies using tobacco. - Ebola Screening: : No symptoms or risks identified at this time. ROS: 13:14 Constitutional: Negative for fever, chills, and weight loss, Eyes: Negative for injury, jmm pain, redness, and discharge, Cardiovascular: Negative for chest pain, palpitations, and edema, Respiratory: Negative for shortness of breath, cough, wheezing, and pleuritic chest pain. 13:14 MS/extremity: Positive for pain. 13:14 All other systems are negative. Exam: 13:14 Constitutional: This is a well developed, well nourished patient who is awake, alert, jmm and in no acute distress. Head/Face: atraumatic. Eyes: EOMI, no conjunctival erythema appreciated ENT: Moist Mucus Membranes Neck: Trachea midline, Supple Chest/axilla: Normal chest wall appearance and motion. Cardiovascular: Regular rate and rhythm. No edema appreciated Respiratory: Normal respirations, no respiratory distress appreciated Abdomen/GI: Non distended, soft Skin: General appearance color normal 13:14 Musculoskeletal/extremity: FROM appreciated to the left knee. pain on palpation of the anterior knee and medial knee, compartments are soft nvi. 13:14 Skin: Appearance: Color: normal in color. 13:14 Neuro: Orientation: is normal, Mentation: is normal, Memory: is normal. 13:14 Psych: Behavior/mood is pleasant, cooperative. Vital Signs: 12:26 Pulse 61; Resp 16; Temp 98.0; Pulse Ox 100% on R/A; Weight 95.25 kg; Height 5 ft. 4 in. la1 (162.56 cm); 12:28 BP 167 / 62; la1 13:30 BP 160 / 82; Pulse 59; Resp 18; Pulse Ox 100% on R/A; tl3 14:45 BP 159 / 76; Pulse 62; Resp 18; Pulse Ox 100% on R/A; tl3 15:52 BP 165 / 84; Pulse 60; Resp 18; Pulse Ox 97% on R/A; tl3 12:26 Body Mass Index 36.05 (95.25 kg, 162.56 cm) la1 MDM: 13:09 Patient medically screened. [facility] 16:16 Data reviewed: vital signs, nurses notes. Counseling: I had a detailed discussion with jonh the patient and/or guardian regarding: the historical points, exam findings, and any diagnostic results supporting the discharge/admit diagnosis, radiology results, the need for outpatient follow up, to return to the emergency department if symptoms worsen or persist or if there are any questions or concerns that arise at home. ED course: Patient has full ROM of the left knee, no erythema is appreciated, patient is afebrile, i do not suspect septic joint. I discussed the patient with Dr. Feliciano whom will follow up with the patient in clinic next week. Patient is otherwise given strict return precautions. Patient understood and agrees with the plan of care. . 07/08 13:09 Order name: US Extremity Venous W Compression Yuan; Complete Time: 14:40 [facility] 07/08 13:13 Order name: Knee Left 3 View XRAY; Complete Time: 16:01 [facility] Administered Medications: No medications were administered Disposition: 17:48 Co-signature as Attending Physician, Kayden Banegas MD. Disposition: 07/08/18 16:17 Discharged to Home. Impression: Pain in left leg, Pain in left lower leg, Pain in right lower leg. - Condition is Stable. - Discharge Instructions: Musculoskeletal Pain. - Medication Reconciliation Form, Thank You Letter, Antibiotic Education, Prescription Opioid Use form. - Follow up: Mariano Feliciano MD; When: 1 - 2 days; Reason: Recheck today's complaints, Continuance of care, Re-evaluation by your physician. Signatures: Dispatcher [employer] EDWilliam Flores PA PA jmm Attema, Lee RN RN la1 Kayden Banegas MD MD Sangeetha Goyal RN RN tl3 Corrections: (The following items were deleted from the chart) 16:25 16:17 07/08/2018 16:17 Discharged to Home. Impression: Pain in left leg; Pain in left tl3 lower leg; Pain in right lower leg. Condition is Stable. Forms are Medication Reconciliation Form, Thank You Letter, Antibiotic Education, Prescription Opioid Use. Follow up: Dr. Mariano Feliciano; When: 1 - 2 days; Reason: Recheck today's complaints, Continuance of care, Re-evaluation by your physician. jonh
[2018-07-08 16:31] VITALS: TEMP 98
[2018-07-08 16:35] VITALS: BP 165/84; O2SAT 97
== END 2018-07-08 16:25 | disposition home or self-care (01) ==
LOC: ER 12:15
DX: M79.662 Pain in left lower leg (principal); M79.661 Pain in right lower leg; I10 Essential (primary) hypertension; Z88.8 Allergy status to other drugs, medicaments and biological substances
CPT/HCPCS: 93970; 99283

== ENCOUNTER 2020-05-08 06:38 | Day surgery (SDC) | payer OTHER ==
[2020-05-04 13:09] LABS: Absolute Lymphocytes (CBC) 1.7 K/uL (0.7-4.9); Basophils % 0.4 % (0-1.3); Hematocrit 37.2 % (36.0-45.0); Lymphocytes % 19.5 % (15.3-44.8); MPV 8.3 fL (7.6-11.3); RBC Red Blood Cell Count 4.59 M/uL (3.86-4.86)
[2020-05-04 13:18] LABS: Protime INR 1.04
--- NOTE | 2020-05-05 19:35 | EKG ---
Test Date: 2020-05-04 Test Time: 12:40:46 Hand Striper: TG MEASUREMENT RESULTS: Intervals: Rate: 55 AK: 138 QRSD: 76 QT: 444 QTc: 424 [place]: P: 19 AK: 138 QRS: 31 T: 52 INTERPRETIVE STATEMENTS: Sinus bradycardia Otherwise normal ECG Compared to ECG 01/17/2020 14:37:56 Sinus rhythm no longer present Electronically Signed On 05-05-20 19:32:36 [employer] by Al Gilbert
--- OUTSIDE RECORDS SUMMARY | 2020-05-08 06:40 | XMS REPORT ---
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 systemic Z79.52 Active steroids Assessment Osteopenia M85.80 Active Problem Seronegative rheumatoid arthritis M06.00 Active Problem Other spondylosis, lumbar region M47.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 Active Problem Osteopenia M85.80 Active Problem Benign essential hypertension I10 Active Problem CRP elevated R79.82 Active Problem Age related osteoporosis M81.0 Act pham Assessment Other rheumatoid arthritis with M05.89 Active rheumatoid factor of multiple sites Assessment Other spondylosis, lumbar region M47.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 04046213854 100 MG Active DOCTOR WILL ADMINISTER THROUGH IV INFUSION IN OFFICE AT WEEK 0, WEEK 2, WEEK 6, THEN EVERY 8 WEEKS. Myrbetriq ND 36032182188 50 MG Orally Active 1 tab let Once a day Aspir-Low ND 88908046546 81 MG Orally Active 1 tab let Once a day Dicyclomine HCl ND 52521013572 20 MG Orally Active 1 tablet Three times a day Methocarbamol ND 52938206144 500 mg Orally Active 1 tablet twice a day (bid) Ondansetron HCl [facility] 20502291871 4 MG Orally Active 1 tablet Once a day Diclofenac [facility] 16277056475 1 % Externally Active 1 application Sodium Once a day Xifaxan [facility] 69888541064 550 MG Orally Active 1 tabl et Twice a day Pravastatin [facility] 94414014565 10 MG Orally Active 1 t ablet Sodium Once a day Janumet [facility] 66912146342 50-1000 MG Active 1 tablet with Orally Twice a meals day Folic Acid [facility] 06161907539 1 MG Orally July Active 1 tab let Once a day [address] [facility] 79531286621 2.5 MG orally July Active 6 tablets weekly [address] [facility] 03885616454 100-25 MG Active 1 tablet Potassium-HCTZ Orally Once a day Lumigan [facility] [place] [address]-46 Active not define d Montelukast [facility] 06754693897 10 MG Orally Active 1 t ablet Sodium Once a day Solifenacin [facility] 42601857556 5 MG Orally Active 1 ta blet Succinate Once a day Restasis [facility] [address]-00 Active not defin ed Combigan [facility] 39729619558 0.2-0.5 % Active 1 drop in to Ophthalmic affected eye Twice a day Albuterol [facility] 69266371579 108 (90 Base) Active 1 pu ff as Sulfate HFA MCG/ACT needed Inhalation every [address] [facility] 13378942393 22503 UNIT Active 1 capsu le (Ergocalciferol Orally once a ) week Pantoprazole [facility] 75000585904 40 MG Orally Active 1 tablet Sodium Once a day Gabapentin [facility] 33080592017 600 MG Orally Active 1 t ablet at daily bedtime Azelastine HCl [facility] 27389827002 137 MCG/SPRAY Active 1 puff in Nasally Twice each nostr il a day Atorvastatin [facility] 20208283126 40 MG Orally Active 1 tablet Calcium Once a day Multivitamin [facility] 13247-[address]18 Active not def ined Duloxetine HCl [facility] 56909395600 30 MG Orally Inactive 1 capsule Once a day Quetiapine [facility] 46765690568 25 MG Orally Active 1 ta blet at Fumarate Once a day bedtime Ventolin HFA [facility] [address]-11 Active not d efined Duloxetine HCl [facility] 68419665614 60 MG Orally Active 1 capsule Twice a day Results No Known Results Summary Purpose eClinicalWorks Submission
--- OUTSIDE RECORDS SUMMARY | 2020-05-08 06:40 | XMS REPORT | Continuity of Care Document ---
:1955 Author Organization [facility] Care Team Providers Name Role Phone [facility] Unavailable Un available Problems Problem Status Onset Classification Date Comments Sourc e Date Reported Vitamin D deficiency Active Problem 02/19/2020 [facility] Encounter for Active Problem 02/19/[facility] immunization [facility] [place] Encounter for Active Problem 02/19/[facility] therapeutic drug of [place] level monitoring Benign essential Active Problem 02/19/2020 [facility] hypertension of [place] Age related Active Problem 02/19/[address] [facility] osteoporosis [facility] [place] Osteopenia Active Diagnosis 02/19/[address] [facility] [place] Other rheumatoid Active Diagnosis 02/19/2020 [facility] arthritis with of [facility] rheumatoid factor of multiple sites Fibromyalgia Active Problem 02/19/2020 [facility] [place] CRP elevated Active Problem 02/19/2020 [facility] Asymptomatic Active Problem 02/19/2020 [facility] age-related of [place] postmenopausal state Osteoporosis Active Problem 01/03/2019 [facility] [place] Seronegative Active Problem 02/19/2020 [facility] rheumatoid arthritis 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 Problem 02/19/2020 [facility] use of systemic of H ou steroids Pain in joint Active Diagnosis 02/19/2020 [facility] involving multiple o f [place] sites residential current Active Diagnosis 02/19/2020 [facility] use of of [place] immunosuppressive drug Other spondylosis, Active Problem 02/19/2020 [facility] lumbar region [facility] [place] Myalgia Active Diagnosis 02/19/2020 [facility] [place] Medications Medication Details Route Status Patient Ordering Order Source Instructions Provider Date Methocarbamol 1 tablet Orally Active 500 MG Orally [place] 01/16/ R heum twice a day [facility] [place] Ergocalciferol 1 capsule Orally Active 94632 UNIT [place] 08/05/ Rh eum Orally 2019 [facility] QWEEKLY [place] PredniSONE 4 tablets Orally Active 2.5 MG Orally [place] 08/04/ Rhe um Once a day 2019 [facility] [place] Folic Acid 1 tablet Orally Active 1 MG Orally [place] 08/04/ Rheum Once a day 2019 [facility] [place] Methotrexate 6 tablets orally Active 2.5 MG orally [place] 08/04/ R heum weekly 2019 [facility] [place] Alendronate 1 tablet 30 Orally Active 70 MG Orally Luda 08/04/ Rhe um Sodium minutes Once a week 2019 [facility] before the [place] first food, beverage or medicine of the day with plain water PredniSONE 1 tablet Orally Active 10 mg Orally Luda 06/24/ Rheum Once a day 2019 [facility] [place] Plaquenil 1 tablet with Orally Active 200 MG Orally [place] 01/11/ Rheum food or milk twice a day 2018 [facility] (bid) [place] Vitamin D 1 capsule Orally Active 69388 UNIT [facility] (Ergocalciferol) Orally once a C tr of week [place] Ventolin HFA not defined NA Active [facility] [place] Azelastine HCl 1 puff in Nasally Active 137 MCG/SPRAY [facility] each nostril Nasally Twice Ctr o f a day [place] Atorvastatin 1 tablet Orally Active 40 MG Orally [facility] Rhe um Calcium Once a day [facility] [place] Montelukast 1 tablet Orally Active 10 MG Orally [facility] Rhe[facility] m Sodium Once a day [facility] [place] Ranitidine HCl 1 capsule at Orally Active 150 MG Orally Vo Rheum bedtime Once a day [facility] [place] Aspir-81 not defined NA Active Vo [facility] [place] Breo Ellipta 1 puff Inhalation Active 200-25 Vo Rheum MCG/INH [facility]tr of Inhalation [place] Once a day Ondansetron HCl 1 tablet Orally Active 4 MG Orally [place] R heum Once a day [facility] [place] Losartan 1 tablet Orally Active 100-25 MG [facility] Rheum Potassium-HCTZ Orally Once a Ctr of day [place] Xifaxan 1 tablet Orally Active 550 MG Orally [facility] Twice a day [facility] [place] Linzess 1 capsule on Orally Active 72 MCG Orally Vo Rheum an empty Once a day Ctr of stomach [place] Iron 1 tablet Orally Active 325 (65 Fe) Vo Rheum MG Orally Ctr of Once a day [place] Pantoprazole 1 tablet Orally Active 40 MG Orally [facility] Rhe um Sodium Once a day [facility] [place] Duloxetine HCl 1 capsule Orally Active 60 MG Orally [facility] Twice a day [facility] [place] Combigan 1 drop into Ophthalmic Active 0.2-0.5 % [facility] Rheu m affected eye Ophthalmic [facility]tr of Twice a day [place] Systane not defined NA Active Vo [facility] [place] Gabapentin 1 tablet at Orally Active 600 MG Orally [facility] R heum bedtime daily [facility] [place] Janumet 1 tablet with Orally Active 50-1000 MG [facility] Rhe[facility] meals Orally Twice Ctr of a day [place] Duloxetine HCl 1 capsule Orally Active 30 MG Orally Vo Rh eum Twice a day [facility] [place] Multivitamin not defined NA Active Luda [facility] [place] Lumigan not defined NA Active [facility] [place] Restasis not defined NA Active [facility] [place] Quetiapine 1 tablet at Orally Active 25 MG Orally [facility] Rh eum Fumarate bedtime Once a day [facility] [place] Dicyclomine HCl 1 tablet Orally Active 20 MG Orally [facility] Three times a [facility]tr of day [place] Remicade DOCTOR WILL NA Active 100 MG [facility] Rheum ADMINISTER Ctr of THROUGH IV [place] INFUSION IN OFFICE AT WEEK 0, WEEK 2, WEEK 6, THEN EVERY 8 WEEKS. Multivitamin not defined NA Active [facility] [place] Myrbetriq 1 tablet Orally Active 50 MG Orally [facility] Once a day [facility] [place] Aspir-Low 1 tablet Orally Active 81 MG Orally [facility] Rhe[facility] Once a day [facility] [place] Methocarbamol 1 tablet Orally Active 500 mg Orally [facility] R heum twice a day [facility] of (bid) [place] Diclofenac 1 application Externally Active 1 % [facility] Rh eum Sodium Externally [facility]tr of Once a day [place] Pravastatin 1 tablet Orally Active 10 MG Orally [facility] Rheu m Sodium Once a day [facility] [place] Solifenacin 1 tablet Orally Active 5 MG Orally [facility] Succinate Once a day [facility] [place] Albuterol 1 puff as Inhalation Active 108 (90 Base) [facility] R heum Sulfate HFA needed MCG/ACT [facility]tr of Inhalation [place] every 4 hrs Duloxetine HCl 1 capsule Orally Active 30 MG Orally [facility] Once a day [facility] [place] Ibuprofen 4 tablet with Orally Active 200 MG Orally [facility] food or milk daily Ctr of in evening [place] Allergies, Adverse Reactions, Alerts Substance Category Reaction Severity Reaction Status Date Comments S ource type Reported Pregabalin Adverse hives Adverse Active Rhe um Reaction Reaction 0 [facility] [place] Lyrica Adverse memory Adverse Active Rheum Reaction loss Reaction 0 [facility] [place] Cefazolin Adverse hives Adverse Active Rheu m Sodium Reaction Reaction 0 [facility] [place] Immunizations No Data Provided for This Section Results No Data Provided for This Section Pathology Reports No Data Provided for This Section Diagnostic Reports No Data Provided for This Section Consultation Notes No Data Provided for This Section Discharge Summaries No Data Provided for This Section History and Physicals No Data Provided for This Section Vital Signs Vital Sign Value Date Comments Source Weight 208 01/17/2020 [facility] Height 64.0 01/17/2020 [facility] Temperature Oral (F) 97.0 F 01/17/2020 [facility] [place] Heart Rate 61 01/17/2020 [facility] Diastolic (mm Hg) 75 01/17/2020 [facility] [place] Systolic (mm Hg) 135 01/17/2020 [facility] [place] Weight 208 11/18/2019 [facility] Height 64.0 11/18/2019 [facility] Temperature Oral (F) 97.5 F 11/18/2019 [facility] [place] Heart Rate 63 11/18/2019 [facility] Diastolic (mm Hg) 73 11/18/2019 [facility] [place] Systolic (mm Hg) 130 11/18/2019 [facility] [place] Weight 214 10/21/2019 [facility] Height 64.0 10/21/2019 [facility] Temperature Oral (F) 96.3 F 10/21/2019 [facility] [place] Heart Rate 62 10/21/2019 [facility] Diastolic (mm Hg) 73 10/21/2019 [facility] [place] Systolic (mm Hg) 136 10/21/2019 [facility] [place] Weight 209 06/24/2019 [facility] Height 64.0 06/24/2019 [facility] Heart Rate 60 06/24/2019 [facility] Diastolic (mm Hg) 69 06/24/2019 [facility] [place] Systolic (mm Hg) 139 06/24/2019 [facility] o [facility] [place] Encounters No Data Provided for This Section Procedures No Data Provided for This Section Assessment and Plan No Data Provided for This Section Plan of Care No Data Provided for This Section Social History No Data Provided for This Section Family History No Data Provided for This Section Advance Directives No Data Provided for This Section Functional Status No Data Provided for This Section
--- OUTSIDE RECORDS SUMMARY | 2020-05-08 06:42 | XMS REPORT | Continuity of Care Document ---
:1955 Author Organization [facility] t Address [address] [place] [address] Care Team Providers Name Role Phone Unavailable Unavailable Unavailable Problems Condition Condition Condition Status Onset Resolution Last Treating Co mments Source Name Details Category Date Date Treatment Clinician Date Vitamin D Problem Active 2020-02-19 Me moria deficiency 02:45:31 l Vitamin Franklin D deficiency Active Problem 02/19/2020 [facility] Encounter Problem Active 2020-02-19 Me moria for 02:45:31 l immunizati Dwight n on Encounter for immunizati on Active Problem 0 [facility] Encounter Problem Active 2020-02-19 Me moria for 02:45:31 l therapeuti Dwight n c drug Encounter level for monitoring therapeuti c drug level monitoring Active Problem 02/19/2020 [facility] Benign Problem Active 2020-02-19 Memor ia essential 02:45:31 l hypertensi Benign Herm ximena on essential hypertensi on Active Problem 0 [facility] Age Problem Active 2020-02-19 Memor ia related 02:45:31 l osteoporos Age Dwight n is related osteoporos is Active Problem 0 [facility] Osteopenia Diagnosis Active 2020-02-19 Memoria 02:45:31 l [place] Osteopenia Active Diagnosis 02/19/2020 [facility] Other Diagnosis Active 2020-02-19 Mem oria rheumatoid 02:45:31 l arthritis Other Dwight n with rheumatoid rheumatoid arthritis factor of with multiple rheumatoid sites factor of multiple sites Active Diagnosis 02/19/2020 [facility] Fibromyalg Problem Active 2020-02-19 M emoria ia 02:45:31 l [place] Fibromyalg ia Active Problem 0 [facility] CRP Problem Active 2020-02-19 Memor ia elevated 02:45:31 l CRP Franklin elevated Active Problem 02/19/2020 [facility] Asymptomat Problem Active 2020-02-19 M emoria ic 02:45:31 l age-relate Dwight n d Asymptomat postmenopa ic usal state age-relate d postmenopa usal state Active Problem 02/19/2020 [facility] Seronegati Problem Active 2020-02-19 M emoria ve 02:45:31 l rheumatoid Dwight n arthritis Seronegati ve rheumatoid arthritis Active Problem 02/19/2020 [facility] superintendent terminal Problem Active 2020-02-19 Me moria (current) 02:45:31 l use of Long Franklin systemic term steroids (current) use of systemic steroids Active Problem 02/19/2020 [facility] Pain in Diagnosis Active 2020-02-19 Me moria joint 02:45:31 l involving Pain in Herm ximena multiple joint sites involving multiple sites Active Diagnosis 02/19/2020 [facility] superintendent terminal Diagnosis Active 2020-02-19 Memoria current 02:45:31 l use of Long Bruno immunosupp term ressive current drug use of immunosupp ressive drug Active Diagnosis 02/19/2020 [facility] Other Problem Active 2020-02-19 Memor ia spondylosi 02:45:31 l s, lumbar Other Dwight n region spondylosi s, lumbar region Active Problem 02/19/2020 [facility] Myalgia Diagnosis Active 2020-02-19 Me moria 02:45:31 l Myalgia Franklin Active Diagnosis 02/19/2020 [facility] Allergies, Adverse Reactions, Alerts Allergy Allergy Status Severity Reaction(s) Onset Inactive Treating Comm ents Source Name Type Date Date Clinician Pregabal Pregabal Active hives Memori a in in 02-17 l 00:00: [place] 00 Lyrica Lyrica Active memory loss Memor ia 02-17 l 00:00: Bruno 00 Cefazoli Cefazoli Active hives 2019-0 Memori a n Sodium n Sodium 02-17 l 00:00: Lyrica Adverse Active memory loss [facility] Cefazoli Adverse Active Info Not [facility] Sodium Reaction Available [facility] Pregabal Adverse Active Info Not [facility] Reaction Available [facility] Medications Ordered Filled Start Stop Current Ordering Indication Dosage Frequency Signature Comments Components Source Medication Medication Date Date Medication? Clinician (SIG) Name Name Vitamin D 2019-0 Yes Isrrael 1 capsule Memoria (Ergocalcif 02-18 Duran l osvaldo) 02:45: Ventolin 0 Yes Isrrael not Memor ia HFA 02-18 Duran defined l 02:45: Azelastine 0 Yes Isrrael 1 puff in Memoria HCl 02-18 Duran each l 02:45: nostril Atorvastati 0 Yes Isrrael 1 tablet Memoria n Calcium 02-18 Duran l 02:45: Montelukast 0 Yes Isrrael 1 tablet Memoria Sodium 02-18 Duran l 02:45: Ondansetron 0 Yes Isrrael 1 tablet Memoria HCl 02-18 Duran l 02:45: Losartan 2019-0 Yes Isrrael 1 tablet M emoria Potassium-H 02-18 Duran l CTZ 02:45: Xifaxan 2019-0 Yes Isrrael 1 tablet Me moria 02-18 Duran l 02:45: Pantoprazol 2019-0 Yes Isrrael 1 tablet Memoria e Sodium 02-18 Duran l 02:45: Duloxetine 2019-0 Yes Isrrael 1 capsule Memoria HCl 02-18 Duran l 02:45: Combigan 2019-0 Yes Isrrael 1 drop Mem oria 02-18 Duran into l 02:45: affected eye Gabapentin 2019-0 Yes Isrrael 1 tablet Memoria 30 Duran at bedtime l 02:45: Bruno 31 Janumet 2019-0 Yes Isrrael 1 tablet Me moria 9-30 Duran with meals l 02:45: Lumigan 2020-0 Yes Isrrael not Memori a 02-18 Duran defined l 02:45: Restasis 2020-0 Yes Isrrael not Memor ia 02-18 Duran defined l 02:45: Quetiapine 2020-0 Yes Isrrael 1 tablet Memoria Fumarate 02-18 Duran at bedtime l 02:45: Dicyclomine 2020-0 Yes Isrrael 1 tablet Memoria HCl 02-18 Duran l 02:45: Remicade 2020-0 Yes Isrrael DOCTOR Mem oria 02-18 Duran WILL l 02:45: ADMINISTER THROUGH IV INFUSION IN OFFICE AT WEEK 0, WEEK 2, WEEK 6, THEN EVERY 8 WEEKS. Multivitami 2020-0 Yes Isrrael not Me moria n 02-18 Duran defined l 02:45: Myrbetriq 2020-0 Yes Isrrael 1 tablet Memoria 02-18 Duran l 02:45: Aspir-Low 2020-0 Yes Isrrael 1 tablet Memoria 02-18 Duran l 02:45: Methocarbam 2020-0 Yes Isrrael 1 tablet Memoria ol 02-18 Duran l 02:45: Diclofenac 2020-0 Yes Isrrael 1 Mem oria Sodium 02-18 Duran applicatio l 02:45: n Pravastatin 2020-0 Yes Isrrael 1 tablet Memoria Sodium 02-18 Duran l 02:45: Solifenacin 2020-0 Yes Isrrael 1 tablet Memoria Succinate 02-18 Duran l 02:45: Albuterol 2020-0 Yes Isrrael 1 puff as Memoria Sulfate HFA 02-18 Duran needed l 02:45: Duloxetine 2020-0 Yes Isrrael 1 capsule Memoria HCl 02-18 Duran l 02:45: Ibuprofen 2020-0 Yes Isrrael 4 tablet Memoria 01-18 Duran with food l 02:45: or milk in evening Methocarbam 2020-0 Yes Isrrael 1 tablet Memoria ol 01-16 Duran l 00:00: Ranitidine 2020-0 Yes Josette 1 capsule Memoria HCl 6-30 Vo at bedtime l 02:45: Bruno 43 Aspir-81 2020-0 Yes Josette not Mem oria 6-30 Vo defined l 02:45: Bruno 43 Breo 2020-0 Yes Josette 1 puff Memor ia Ellipta 6-30 Vo l 02:45: Bruno 43 Linzess 2020-0 Yes Josette 1 capsule Memoria 6-30 Vo on an l 02:45: empty Bruno 43 stomach Iron 2020-0 Yes Josette 1 tablet Mem oria 6-30 Vo l 02:45: Bruno 43 Systane 2020-0 Yes Josette not Gordon alex 6-30 Vo defined l 02:45: Bruno 43 Duloxetine 2020-0 Yes Josette 1 capsule Memoria HCl 6-30 Vo l 02:45: Bruno 43 Methotrexat Methotrexat 2020-0 Yes Harmony as [facility] 5-14 [facility] directed [facility] PredniSONE PredniSONE 2020-0 Yes Harmony as [facility]14 [facility] directed [facility] Multivitami 2020-0 Yes Nilanjana not M emoria n 4-14 Luda defined l 02:45: Bruno 39 Pravastatin Pravastatin 2020-0 Yes Harmony [address] [facility] Sodium Sodium 4-10 Millender in evening [facility] - 00[facility] Ergocalcife 2020-0 Yes Isrrael 1 capsule Memoria rol 3-17 Duran l 00:00: PredniSONE 2020-0 Yes Isrrael 4 tablets Memoria 3-16 Duran l 00:00: Folic Acid 2020-0 Yes Isrrael 1 tablet Memoria 3-16 Duran l 00:00: Methotrexat 2020-0 Yes Isrrael 6 tablets Memoria e 3-16 Duran l 00:00: Alendronate 2020-0 Yes Nilanjana 1 tablet Memoria Sodium 3-16 Luda 30 minutes l 00:00: before the first food, beverage or medicine of the day with plain water PredniSONE 2020-0 Yes Nilanjana 1 tablet Memoria 2-03 Luda l 00:00: [place] 00 Gabapentin Gabapentin Yes Harmony [address] [facility] 1-06 [facility]ender [facility] Estradiol Estradiol 2018-05 Yes Harmony as [facility] Millender directed [facility] One Touch One Touch 2018-05 Yes Harmony one strip [facility] test strips test strips 0-28 Millender [facility] Plaquenil Yes Isrrael 1 tablet Memoria 8- Duran with food l 00:00: or milk Glucometer Glucometer 2019- No Harmony Check BS [facility] Kit Kit 6-05 08-28 Millender once a day Eulalio es - 00:00: 00:00 Memoria 00 :00 l Outpati ent Clinics Xarelto Xarelto 2017-05 Yes Harmony [address] 2[facility]11 Millender with food [facility] One Touch One Touch 2017-05 Yes Harmony as advised [facility] Glucose Glucose 0-29 Millender Luke [facility] - Monitor Monitor 00:00: Memoria 00 l [facility] ent Clinics Ventolin Ventolin Yes Harmony [address] [facility] HFA HFA Millender needed [facility] Lorazepam Lorazepam Yes Harmony [address] [facility] Millender [facility] Hydroxychlo Hydroxychlo Yes Harmony not [facility] roquine roquine Millender defined L ukes - Sulfate Sulfate Memoria l Outpati ent Clinics Xifaxan Xifaxan Yes Harmony not [facility] Millender defined [facility] Aspirin Aspirin Yes Harmony [address] [facility] Adult Low Adult Low Millender [facility] Strength Strength [facility] l [facility] ent Clinics Myrbetriq Myrbetriq Yes Harmony [address] [facility] Millender [facility] Gabapentin Gabapentin Yes Harmony [address] [facility] Millender [facility] Lumigan Lumigan Yes Harmony [address] [facility] Millender into [facility] - affected Memoria eye in the l evening Outpati ent Clinics Cyclobenzap Cyclobenzap Yes Harmony TAKE [address] [facility] rine HCl rine HCl Millender TABLET BY [facility] - MOUTH 3 Memoria TIMES A l DAY Outpati NEEDED FOR ent 10 DAYS Clinics FreeStyle FreeStyle Yes Harmony not [facility] Lite Test Lite Test Millender defined [facility] Restasis Restasis Yes Harmony [address] [facility] Millender into [facility] - affected Memoria eye l [facility]pati ent Clinics Lunesta Lunesta Yes Harmony [address] [facility] Millender immediatel Luke s - y before Memoria bedtime l Outpati ent Clinics Sulfamethox Sulfamethox Yes Harmony not [facility] azole-Trime azole-Trime Millender defined [facility] - thoprim thoprim [facility] l [facility]ics Solifenacin Solifenacin Yes Harmony [address] [facility] Succinate Succinate Millender [facility] Breo Breo Yes Harmony [address] [facility] Ellipta Ellipta Millender Luke [facility] - [facility] FreeStyle FreeStyle Yes Harmony not [facility] Lancets Lancets Millender defined L [facility]kes - [facility]oria [facility] ent Clinics Mirtazapine Mirtazapine Yes Harmony [address] [facility] Millender at bedtime Luke [facility] - [facility]oria l [facility] ent [facility]ics Ranitidine Ranitidine Yes Harmony [address] [facility] HCl HCl Millender at bedtime Luke s - [facility]oria l [facility] ent Clinics Hydrocodone Hydrocodone Yes Harmony not [facility] -Acetaminop -Acetaminop Millender defined [facility] - hen hen [facility] l [facility] ent [facility]ics Fluticasone Fluticasone Yes Harmony [address] [facility] Propionate Propionate Millender each [facility] - nostril [facility] ent Clinics Yes Harmony [address] [facility] Millender with meals Luke s - [facility]oria l [facility]pat[facility] ent Clinics Amitriptyli Amitriptyli Yes Harmony not [facility] ne HCl ne HCl Millender defined Eulalio es - Memoria l [facility]pati ent Clinics Azelastine Azelastine Yes Harmony [address] HCl HCl Millender in each [facility] - nostril [facility] ent [facility] Chlorhexidi Chlorhexidi Yes Harmony not [facility] ne ne Millender defined [facility] - Gluconate Gluconate Memor ia l Outpati ent Clinics Ciprofloxac Ciprofloxac Yes Harmony not [facility] in HCl in HCl Millender defined Eulalio es - Memoria l Outpati ent Clinics Singulair Singulair Yes Harmony [address] [facility] Millender [facility] Losartan Losartan Yes Harmony [address] Potassium-H Potassium-H Millender [facility] - CTZ CTZ Memoria l [facility]pati ent Clinics Gabapentin Gabapentin Yes Harmony [address] [facility] Millender [facility] Diclofenac Diclofenac Yes Harmony not [facility] Sodium Sodium Millender defined Eulalio es - Memoria l Outpat[facility] ent Clinics Duloxetine Duloxetine Yes Harmony [address] [facility] HCl HCl Millender (take with Luke s - duloxetine Memoria 30 mg) l Outpati ent Clinics Quetiapine Quetiapine Yes Harmony [address] [facility] Fumarate Fumarate Millender at bedtime [facility] Acetaminoph Acetaminoph Yes Harmony not [facility] en-Codeine en-Codeine Millender defined [facility] - #3 #3 [facility] l [facility] ent Clinics Denta 5000 Denta 5000 Yes Harmony not [facility] Plus Plus Millender defined [facility] Combigan Combigan Yes Harmony [address] [facility] Millender into [facility] affected [facility]oria eye l [facility] ent Clinics Latanoprost Latanoprost Yes Harmony [address] [facility] Millender into [facility] - affected Memoria eye in the l evening Outpati ent Clinics Duloxetine Duloxetine Yes Harmony [address] [facility] HCl HCl Millender (take with Luke s - duloxetine Memoria 60 mg) l Outpati ent Clinics Trelegy Trelegy Yes Harmony [address] [facility] Ellipta Ellipta Millender [facility] - [facility] ent Clinics Dicyclomine Dicyclomine Yes Harmony not [facility] HCl HCl Millender defined [facility] Immunizations Ordered Filled Immunization Date Status Comments [facility] e Immunization Name Name Flucelvax - single Flucelvax - single 2019-02-[address] [facility] - dose syringe dose syringe 00:00:00 [facility] Vital Signs Vital Name Observation Time Observation Value Comments Source Weight 2020-01-17 15:15:00 [facility] 2020-01-17 15:15:00 [facility] Temperature Oral (F) 2020-01-17 15:15:00 97.0 F [facility] Heart Rate 2020-01-17 15:15:00 [facility] [place] Diastolic (mm Hg) 2020-01-17 15:15:00 Mem orial Bruno Systolic (mm Hg) 2020-01-17 15:15:00 Gordon rial [place] Weight 2019-11-18 16:30:00 [facility] Height 2019-11-18 16:30:00 [facility] Temperature Oral (F) 2019-11-18 16:30:00 97.5 F [facility] Heart Rate 2019-11-18 16:30:00 [facility] Diastolic (mm Hg) 2019-11-18 16:30:00 Mem orial Bruno Systolic (mm Hg) 2019-11-18 16:30:00 Gordon rial Bruno Weight 2019-10-21 13:45:00 [facility] [place] Height 2019-10-21 13:45:00 [facility] Temperature Oral (F) 2019-10-21 13:45:00 96.3 F [facility] [place] Heart Rate 2019-10-21 13:45:00 [facility] [place] Diastolic (mm Hg) 2019-10-21 13:45:00 Mem orial Bruno Systolic (mm Hg) 2019-10-21 13:45:00 Gordon rial [place] Weight 2019-06-24 16:30:00 [facility] Height 2019-06-24 16:30:00 [facility] Heart Rate 2019-06-24 16:30:00 [facility] Diastolic (mm Hg) 2019-06-24 16:30:00 Mem orial [place] Systolic (mm Hg) 2019-06-24 16:30:00 Gordon rial [place] Procedures This patient has no known procedures. Encounters Start End Encounter Admission Attending Care Care Encounter Source Date/Time Date/Time Type Type Clinicians Facility Department ID 2020-04-03 2020-04-03 Outpatient [facility] [id number] [facility] 2020-04-03 2020-04-03 [facility] [id number] 2020-03-26 2020-03-26 Outpatient [facility] [id number] [facility] 20:41:00 [facility] [facility]-03-20 2020-03-20 Outpatient [facility] [id number] [facility] 09:45:00 09:45:[address] [facility] [facility] 2020-03-16 2020-03-16 [facility] [id number] [facility] 2020-03-13 2020-03-13 [facility] [id number] [facility] 2020-03-06 2020-03-06 [facility] [id number] [facility] 2020-02-18 2020-02-18 Outpatient RAHUL - RAHUL - [id number] eClinic 14:00:00 14:00:00 Rheumatol Rheumatolog alWorks ogy y [facility] 2020-01-28 2020-01-28 [facility] [id number] 08:47:00 08:47:00 [facility] 2020-01-24 2020-01-24 [facility] [id number] 08:11:00 08:11:00 [facility] ent [facility] 2020-01-21 2020-01-21 [facility] [id number] [address] 12:02:00 12:02:00 [facility] ent [facility] 2020-01-21 2020-01-21 [facility] [id number] 11:22:00 11:22:00 t [facility] 2020-01-21 2020-01-21 [facility] [id number] 08:48:00 08:48:00 [facility] 2020-01-17 2020-01-17 Outpatient RAHUL - RAHUL - [id number] eClinic 10:15:00 10:15:00 Rheumatol [facility]umatolog alWorks ogy y [facility] 2020-01-17 2020-01-17 [facility] [id number] 09:06:00 09:06:00 [facility] 2020-01-03 2020-01-03 [facility] [id number] 13:40:00 13:40:00 [facility] 2020-01-03 2020-01-03 Outpatient RAHUL - RAHUL - [id number] eClinic 11:19:00 11:19:00 Rheumatol [facility]umatolog [facility]Works ogy y [facility] 2019-12-25 2019-12-25 Outpatient RAHUL - RAHUL - [id number] eClinic 14:27:00 14:27:00 Rheumatol [facility]umatolog alWorks ogy y [facility] 2019-12-22 2019-12-22 Outpatient PRL - PRL - [id number] eClinic 23:19:00 23:19:00 Rheumatol Rheumatolog [facility]Works ogy y [facility] 2019-12-20 2019-12-20 [facility] [id number] 08:00:00 08:00:00 [facility] 2019-12-09 2019-12-09 [facility] [id number] 16:45:00 16:45:00 [facility] 2019-12-02 2019-12-02 [facility] [id number] 14:30:00 14:30:00 [facility] 2019-11-18 2019-11-18 Outpatient RAHUL KAY - [id number] eClinic 11:30:00 11:30:00 Rheumatol Rheumatolog alWorks ogy y [facility] 2019-11-15 2019-11-15 [facility] [id number] 09:48:00 09:48:00 [facility] 2019-11-14 2019-11-14 Outpatient RAHUL SOLOMONU - [id number] eClinic 10:49:00 10:49:00 Rheumatol [facility]umatolog alWorks ogy y [facility] 2019-10-21 2019-10-21 Outpatient Rheumatol Rheumatolog [id number] eClinic 08:45:00 08:45:00 ogy y [facility] 2019-10-20 2019-10-20 Outpatient RAHUL KAY - [id number] eClinic 10:18:00 10:18:00 Rheumatol [facility]umatolog [facility]Works ogy y [facility] 2019-10-06 2019-10-06 Outpatient PRL - PRL - [id number] eClinic 15:17:00 15:17:00 Rheumatol [facility]umat[facility]Works ogy y [facility] 2019-10-03 2019-10-03 [facility] [id number] [address] 10:30:00 10:30:00 [facility] ent Clinics 2019-09-25 2019-09-25 Outpatient RAHUL KAY - [id number] eClinic 16:29:00 16:29:00 Rheumatol Rheumatolog alWorks ogy y [facility] 2019-09-09 2019-09-09 [facility] [id number] 09:42:00 09:42:00 [facility] ent Clinics 2019-09-04 2019-09-04 Outpatient RAHUL KAY - [id number] eClinic 08:51:00 08:51:00 Rheumatol Rheumatolog alWorks ogy y [facility] 2019-09-02 2019-09-02 Outpatient PRL - PRL - [id number] eClinic 08:30:00 08:30:00 Rheumatol [facility]umatolog [facility]Works ogy y [facility] 2019-08-30 2019-08-30 [facility] [id number] 11:00:00 11:00:[address] [facility] [address] [facility] 2019-08-30 2019-08-30 [facility] [id number] 09:15:00 09:15:00 [facility] 2019-08-13 2019-08-13 [facility] [id number] 08:38:00 08:38:00 [facility] 2019-08-07 2019-08-07 Outpatient PRL - PRL - [id number] eClinic 10:47:00 10:47:00 Rheumatol [facility]Works ogy y [facility] 2019-08-06 2019-08-06 Outpatient RAHUL - RAHUL - [id number] eClinic 06:53:00 06:53:00 Rheumatol [facility]umatolog alWorks ogy y [facility] 2019-08-05 2019-08-05 Outpatient PRL - PRL - [id number] eClinic 10:42:00 10:42:00 Rheumatol [facility]umatolog alWorks ogy y [facility] 2019-07-22 2019-07-22 [facility] [id number] 09:01:00 09:01:00 [facility] 2019-07-08 2019-07-08 [facility] [id number] 10:15:00 10:15:00 [facility] Clinics 2019-06-24 2019-06-24 Outpatient PRL - PRL - [id number] eClinic 10:30:00 10:30:00 Rheumatol Rheumatolog alWorks ogy y [facility] 2019-06-04 2019-06-04 [facility] [id number] 10:52:00 10:52:00 [facility] 2019-05-27 2019-05-27 [facility] [id number] 11:15:00 11:15:00 t [facility] ent [facility] 2019-05-09 2019-05-09 Outpatient PRL - PRL - [id number] eClinic 22:10:00 22:10:00 Rheumatol Rheumatolog alWorks ogy y [facility] 2019-05-04 2019-05-04 Outpatient RAHUL - RAHUL - [id number] eClinic 06:53:00 06:53:00 Rheumatol Rheumatolog alWorks ogy y [facility] 2019-04-22 2019-04-22 [facility] [id number] 13:00:00 13:00:00 t Specialty/U Lesvia kes - [facility] 2019-04-17 2019-04-17 Outpatient PRL - PRL - [id number] eClinic 10:55:00 10:55:00 Rheumatol Rheumatolog alWorks ogy y [facility] 2019-03-21 2019-03-21 [facility] [id number] 12:11:00 12:11:00 [facility] Clinics 2019-03-18 2019-03-18 [facility] [id number] 10:01:00 10:01:00 t [facility] ent [facility] 2019-03-08 2019-03-08 [facility] [id number] 11:26:00 11:26:00 [facility] Clinics 2019-03-07 2019-03-07 [facility] [id number] 09:10:00 09:10:00 t [facility] 2019-03-04 2019-03-04 [facility] [id number] 10:00:00 10:00:00 [facility] ent Clinics 2019-02-25 2019-02-25 [facility] [id number] 10:20:00 10:20:00 t [facility] ent Clinics 2019-02-20 2019-02-20 [facility] [id number] 08:57:00 08:57:00 t [facility] ent Clinics 2019-01-28 2019-01-28 Out[facility] [id number] 11:10:00 11:10:00 t [facility] ent Clinics 2019-01-25 2019-01-25 Outpatient PRL - PRL - [id number] eClinic 17:14:00 17:14:00 Rheumatol Rheumatolog alWorks ogy y [facility] 2019-01-25 2019-01-25 Outpatient Larry [place] [id number] [facility] 11:00:00 11:00:00 t Specialty/U Lesvia kes - Specialty rology [facility] a /Urology Clinic l [facility] 2019-01-14 2019-01-14 Outpatient PRL - PRL - [id number] [facility] 14:51:00 14:51:00 Rheumatol Rheumatolog alWorks ogy y [facility] 2019-01-02 2019-01-02 Outpatient RAHUL SOLOMONU - [id number] [facility] 11:50:00 11:50:00 Rheumatol Rheumatolog alWorks ogy y [facility] 2018-12-27 2018-12-27 Out[place] [id number] 09:55:00 09:55:00 [facility] ent Clinics 2018-12-24 2018-12-24 [place] [facility] [place] [id number] [address] 13:08:00 13:08:00 t [facility] ent Clinics 2018-12-20 2018-12-20 [place] [place] [id number] 13:30:00 13:30:00 t Specialty/U Lesvia kes - Specialty rology Memori a /Urology Clinic l [facility] ent [facility] 2018-11-29 2018-11-29 [place] [place] [id number] 08:00:00 08:00:00 t [facility] ent [facility] 2018-11-26 2018-11-26 [place] [place] [id number] [address] 14:14:00 14:14:00 t [facility] 2018-11-23 2018-11-23 [place] [id number] 13:20:00 13:20:00 t [facility] 2018-11-08 2018-11-08 [place] [id number] 10:10:00 10:10:00 t [facility] ent [facility] 2018-11-01 2018-11-01 [place] [id number] 10:23:00 10:23:00 t [facility] ent [facility] 2018-10-23 2018-10-23 [place] [place] [id number] 15:48:00 15:48:00 t [facility] 2018-10-01 2018-10-01 [place] [place] [place] [id number] 10:30:00 10:30:00 t [facility] ent Clinics 2018-08-31 2018-08-31 [place] [id number] 08:30:00 08:30:00 t [facility] ent Clinics 2018-08-23 2018-08-23 [place] [place] [id number] 12:29:00 12:29:00 t [facility] ent Clinics 2018-08-21 2018-08-21 [place] [place] [id number] 11:38:00 11:38:00 t [facility] ent Clinics 2018-08-17 2018-08-17 [place] [place] [id number] [address] 10:00:00 10:00:00 t [facility] ent [facility] 2018-08-09 2018-08-09 [place] [place] [place] [id number] 14:30:00 14:30:00 t [facility] ent Clinics 2018-07-30 2018-07-30 [place] [place] [id number] 07:19:00 07:19:00 t [facility] ent Clinics 2018-07-24 2018-07-24 [place] [place] [id number] 11:15:00 11:15:00 t [facility] 2018-07-19 2018-07-19 [place] [id number] 14:35:00 14:35:00 t [facility] ent Clinics 2018-07-18 2018-07-18 [place] [id number] 11:30:00 11:30:00 t [facility] of [facility] ent Clinics 2018-07-17 2018-07-17 [place] [id number] 10:45:00 10:45:00 t [facility] ent Clinics 2018-07-16 2018-07-16 [place] [id number] 14:54:00 14:54:00 t [facility] ent Clinics 2018-07-10 2018-07-10 [place] [id number] 10:17:00 10:17:00 t [facility] ent [facility] 2018-07-10 2018-07-10 [place] [place] [id number] 09:30:00 09:30:00 t [facility] ent [facility] 2018-07-09 2018-07-09 [place] [place] [id number] 09:30:00 09:30:00 t [facility] ent [facility] 2018-06-26 2018-06-26 [place] [place] [id number] 11:00:00 11:00:00 t [facility] ent [facility] 2018-06-07 2018-06-07 [place] [place] [id number] 17:14:00 17:14:00 t [facility] ent [facility] 2018-06-07 2018-06-07 [place] [id number] 11:00:00 11:00:00 t [facility] ent [facility] 2018-05-31 2018-05-31 [place] [id number] 11:56:00 11:56:00 t [facility] ent Clinics 2018-05-30 2018-05-30 [place] [id number] 10:38:00 10:38:00 [facility] 2018-05-28 2018-05-28 [place] [id number] 15:54:00 15:54:00 t [facility] ent [facility] 2018-05-24 2018-05-24 [place] [id number] 15:37:00 15:37:00 t [facility] 2018-05-24 2018-05-24 [place] [id number] 10:30:00 10:30:00 t [facility] ent Clinics 2018-05-21 2018-05-21 [place] [id number] 11:30:00 11:30:00 t [facility] 2018-05-21 2018-05-21 [place] [id number] 11:08:00 11:08:00 [facility] ent [facility] 2018-05-16 2018-05-16 [place] [id number] 08:47:00 08:47:00 [facility] ent [facility] 2018-05-01 2018-05-01 [place] [id number] 15:00:00 15:00:00 [facility] ent Clinics 2018-03-01 2018-03-01 [place] [id number] 01:38:00 01:38:00 t [facility] Medicine Outpati ent Clinics 2018-02-28 2018-02-28 [place] [id number] [facility] 10:30:00 10:30:00 t [facility] Medicine Outpati ent Clinics 2018-02-26 2018-02-26 [place] [id number] 17:15:00 17:15:00 [facility] ent Clinics 2018-02-26 2018-02-26 [place] [id number] 09:09:00 09:09:00 t [facility] ent Clinics 2018-01-09 2018-01-09 [place] [id number] 15:30:00 15:30:00 [facility] ent Clinics 2017-12-13 2017-12-13 [place] [place] [id number] 12:21:00 12:21:00 t [facility] Medicine [facility] 2017-12-11 2017-12-11 [place] [id number] 11:00:00 11:00:00 t [facility] Medicine Outpati ent Clinics 2017-10-27 2017-10-27 [place] [id number] 14:19:00 14:19:00 t [facility] Medicine Outpati ent Clinics 2017-10-25 2017-10-25 [place] [id number] 16:20:00 16:20:00 [facility] Medicine Outpati ent Clinics 2017-10-23 2017-10-23 [place] [id number] 08:43:00 08:43:00 t [facility] 2017-10-11 2017-10-11 Outpatient Larry Juarezt [id number] 11:41:00 11:41:00 t [facility] 2017-10-04 2017-10-04 Outpatient Larry Krishnamurthy [id number] 10:30:00 10:30:00 t [facility] ent Clinics Results This patient has no known results.
--- OUTSIDE RECORDS SUMMARY | 2020-05-08 06:43 | XMS REPORT ---
:1955 Author Organization [facility] Address [address] [place] [address] Care Team Providers Name Role Phone Jaylyn Unavailable [phone] PROBLEMS Type Condition ICD9-CM [id number] Onset Condition SNOMED Code Notes Code Code Dates Status Problem Depression with F41.8 Active 45254261 anxiety Problem Hyperlipidemia, E78.5 Active 39375252 unspecified hyperlipidemia type Problem Other chronic pain G89.29 Active 00800135 Problem Sinus problem J34.9 Active Problem Gastroesophageal K21.9 Active 228226729 reflux disease, esophagitis presence not specified Problem Uncontrolled type 2 E11.65 Active 502660113 diabetes mellitus without complication, without long-term current use of insulin Problem Incontinence in R32 Active 80940357 female Problem Ingrown right L60.0 Active 145782141 S/p greater toenail removal of portion of right great toenail on 01/08/19. 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 3838769983112 left knee replacement Problem Aftercare following Z47.1 Active 105947023 joint replacement surgery Problem Presence of left Z96.652 Active 517619342 artificial knee joint Problem Urinary frequency R35.0 Active 076071618 Problem Hematuria, R31.9 Active 04394349 unspecified type Problem Urinary R32 Active 863645663 incontinence, unspecified type Problem Chronic pain G89.4 Active 321086454 syndrome Problem Hypercholesterolemia E78.00 Active 96482997 Problem Irritable bowel K58.0 Active 646212659 syndrome with diarrhea Problem Pain in right knee M25.561 Active 76894693 Problem Polyarthralgia M25.50 Active 96758989 Problem Pain in left knee M25.562 Active 20884829775052 2 Problem Asthma, unspecified J45.909 Active 571570434 asthma severity, unspecified whether complicated, unspecified whether persistent Problem Non-intractable R11.2 Active 69414598 vomiting with nausea, unspecified vomiting type Problem Diarrhea, R19.7 Active 78851960 unspecified type Problem Abdominal pain, R10.9 Active 51781652 unspecified abdominal location Problem 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 Active 588369499722537 pain syndrome type 1 of left lower extremity ALLERGIES Allergen (clinical Drug/Non Drug Reaction Allergy Type Onset Date S tatus drug ingredient) Allergy documented on EMR pregabalin Pregabalin([facility] Unknown Drug Allergy Active Code:[address]-48) pregabalin Lyrica([facility] memory loss Drug Allergy Active Code:[address]-76) cefazolin Cefazolin Sodium([facility] Unknown Drug Allergy Ac tive Code:[address]-67) ENCOUNTERS from 1955 to 2020-03-06 Encounter Location Date Provider Diagnosis [address] Feb, 2020 [place] [address] IMMUNIZATIONS Vaccine Route Administration Date Status Flucelvax - multidose vial IM Intramuscular Mar 09, 2018 Admi nistered Bupivicaine [place] Unknown August 30, 2019 Administered Flucelvax - single dose syringe IM Intramuscular Feb 25, 2019 Administered Solumedrol 40mg/1ml IM Intramuscular December 11, 2017 Administere d SOCIAL HISTORY Tobacco Use: Social History Observation Description Date Details (start date - stop date) Never Smoker Sex Assigned At : Social History Observation Description Sex Assigned At Unknown PHQ9 Question Answer Notes Little interest or pleasure in doing things Several days Feeling down, depressed, or hopeless Several days Trouble falling or staying asleep or sleeping too much More than half the days Feeling tired or having little energy Several days Poor appetite or overeating More than half the days Feeling bad about yourself, or that you are a failure, Sever al days or have let yourself or your family down Trouble concentrating on things, such as reading the Not at all newspaper or watching television Moving or speaking so slowly that other people could Not at all have noticed; or the opposite, being so fidgety or restless that you have been moving around a lot more than usual Total Score 8 Interpretation Mild Depression Thoughts that you would be better off or of Not at all hurting yourself in some way Alcohol Screen Question Answer Notes Did you have a drink containing alcohol in the past year? No Points 0 Interpretation Negative Tobacco Use/Smoking Question Answer Notes Are you a never smoker Additional Findings: Tobacco Non-User Current non-smoker REASON FOR REFERRAL No Information VITAL SIGNS No information MEDICATIONS Medication SIG (Take, Route, Start Date End Date Status Frequency, Duration) FreeStyle Lancets Active Methotrexate as directed Orally as September, Active directed One Touch Glucose Monitor N/S as advised n/s n/s Feb, Active Estradiol 0.1 MG/GM as directed Vaginal Apr, A ctive Two times a Week for 90 days Hydrocodone-Acetaminophen No t-Taking Janumet 50-1000 MG 1 tablet with meals Ac tive Orally Twice a day for 90 days Xifaxan Active Chlorhexidine Gluconate Acti ve Mirtazapine 15 MG 1 tablet at bedtime Not -Taking Orally Once a day Breo Ellipta 1 puff Inhalation Once Not-T aking a day Ventolin HFA 108 (90 Base) 2 puffs as needed Active MCG/ACT Inhalation every 4-6 hrs Diclofenac Sodium Not-Taking Hydroxychloroquine Sulfate A ctive Xarelto 10 MG 1 tablet with food Apr, Not-Taki ng Orally Once a day for 11 day(s) Latanoprost 0.005 % 1 drop into affected Active eye in the evening Ophthalmic twice a day Dicyclomine HCl Active One Touch test strips test one strip finger prick Feb, Active strips check bs bid for 90 days Gabapentin 600 MG 1 tablet Orally Three A ctive times daily for 30 Gabapentin 300 MG 1 capsule Orally three Not-Taking times daily for 30 Losartan Potassium-HCTZ 100-25 1 tablet Orally Once a Active MG day for 90 days Denta 5000 Plus Not-Taking Fluticasone Propionate 50 1 spray in each Active MCG/ACT nostril Nasally Once a day Solifenacin Succinate 5 MG 1 tablet Orally Once a Active day for 90 days Lorazepam 1 tablet Orally as Not-Takin g directed as needed for anxiety Myrbetriq 50 MG 1 tablet Orally Once a Ac tive day for 90 days Restasis 0.05 % 1 drop into affected Acti ve eye Ophthalmic Twice a day Ranitidine HCl 150 MG 1 capsule at bedtime Not-Taking Orally Once a day for 90 days Azelastine HCl 137 MCG/SPRAY 2 squirts in each Active nostril Nasally Once a day for 90 days Acetaminophen-Codeine #3 Not -Taking Trelegy Ellipta 100-62.5-25 1 puff Inhalation Once Active MCG/INH a day FreeStyle Lite Test Active Lunesta 1 tablet immediately Not-Juliocesar ing before bedtime Orally Once a day as needed for sleep Ciprofloxacin HCl Not-Taking Gabapentin 600 MG 1 tablet Orally Once a Active day in evening for 90 days Cyclobenzaprine HCl 5 MG TAKE 1 TABLET BY MOUTH Not-Taking 3 TIMES A DAY NEEDED FOR 10 DAYS for 10 Pravastatin Sodium 10 MG 1 tablet in evening Active Orally Once a day for high cholesterol for 90 days Singulair 10 MG 1 tablet Orally Once a Ac tive day for 90 days Amitriptyline HCl Active Sulfamethoxazole-Trimethoprim Not-Taking Aspirin Adult Low Strength 81 1 tablet Orally Once a Not-Taking MG day Duloxetine HCl 60 MG 1 capsule (take with Active duloxetine 30 mg) Orally Once a day for 90 days Duloxetine HCl 30 MG 1 capsule (take with Active duloxetine 60 mg) Orally Once a day for 90 days Quetiapine Fumarate 25 MG 1 tablet at bedtime Active Orally Once a day for 30 day(s) Lumigan 0.01 % 1 drop into affected Activ e eye in the evening Ophthalmic Once a day Combigan 0.2-0.5 % 1 drop into affected A ctive eye Ophthalmic Twice a day PredniSONE as directed Orally as September, Active directed Ventolin HFA 108 (90 Base) 2 puffs as needed Active MCG/ACT Inhalation every 4-6 hrs. as needed PROCEDURES No Information RESULTS No Results REASON FOR VISIT opthalmology referral MEDICAL (GENERAL) HISTORY Type Description Date Medical History Hypertension, unspecified type Medical History Hyperlipidemia, unspecified hyperlipidem ia type Medical History Asthma, unspecified asthma severity, uns pecified whether complicated, unspecified whether persistent Medical History Gastroesophageal reflux disease, esophag itis presence not specified Medical History Uncontrolled type 2 diabetes mellitus [facility] complication, without long-term current use of insulin Medical History Pain in left knee Medical History Status post total left knee replacement Medical History Presence of left artificial knee joint Medical History [facility] Pain in right knee Medical History Other chronic pain Medical History Primary osteoarthritis of left knee Medical History Urinary incontinence, unspecified type Medical History Allergic rhinitis, unspecified seasonali ty, unspecified trigger Medical History Sinus problem Medical History Depression with anxiety Medical History RA Surgical History Vein Stripping right leg 1974 Surgical History Tonsilectomy 1977 Surgical History Tubal Ligation 1981 Surgical History Cervical Cononization and Reversal of Tu bal Ligation 1985 Surgical History Hysterectomy 1990 Surgical History Appendectomy 1992 Surgical History A&P Vaginal Repair 1993 Surgical History Rectocele 1994 Surgical History RT Eye Cataract with Lens Implant 1996 Surgical History Left Eye Cataract with Lens Implant 1997 Surgical History Nasal Repair Surgical History 1st and 2nd Left Toe Repair and Bunionec hina Surgical History Right 1st and 2nd Toe Repair and Bunione ctomy Surgical History Bladder Repair Surgical History Rhinoplasty 1999 Surgical History Left total knee replacement 05/09/18 Hospitalization History slurred speech/facial drooping 08/08 17 Goals Section No Information Health Concerns No Information MEDICAL EQUIPMENT No Information MENTAL STATUS No Information FUNCTIONAL STATUS No Information ASSESSMENTS No Information PLAN OF TREATMENT Medication Medication Name Sig Start Date Stop Date PredniSONE as directed Orally as directed September, Ventolin HFA 108 (90 Base) 2 puffs as needed Inhalation MCG/ACT every 4-6 hrs. as needed Duloxetine HCl 30 MG 1 capsule (take with duloxetine 60 mg) Orally Once a day for 90 days Duloxetine HCl 60 MG 1 capsule (take with duloxetine 30 mg) Orally Once a day for 90 days Pravastatin Sodium 10 MG 1 tablet in evening Orally Once a day for high cholesterol for 90 days Losartan Potassium-HCTZ 100-25 1 tablet Orally Once a day for MG 90 days Gabapentin 600 MG 1 tablet Orally Once a day in evening for 90 days Trelegy Ellipta 100-62.5-25 1 puff Inhalation Once a day MCG/INH Methotrexate as directed Orally as directed September, Janumet 50-1000 MG 1 tablet with meals Orally Twice a day for 90 days Next Appt Details Provider Name:Harmony De La O, 2019-10-1 9 08:30:00 AM, [address], [place], [address], Provider Name:Harmony De La O, 2020-11-0 2 11:20:00 AM, [address], [place], [address], Insurance Providers Payer Name Payer Payer Insured Patient Coverage Coverage End Address Phone Name Relationship to Start Date Timi e Insured [employer] [phone] Sofía Whaley self [address] [facility] [id number] [place] Replace [id number]
--- OUTSIDE RECORDS SUMMARY | 2020-05-08 06:43 | XMS REPORT ---
:1955 Author Organization [facility] Address [address], [address] [place] [address] Care Team Providers Name Role Phone Tucker Unavailable [phone] PROBLEMS Type Condition ICD9-CM [id number] Onset Condition SNOMED Code Notes Code Code Dates Status Problem Hyperlipidemia, E78.5 Active 37914831 unspecified hyperlipidemia type Problem Other chronic pain G89.29 Active 04849542 Problem Sinus problem J34.9 Active Problem Uncontrolled type 2 E11.65 Active 027894803 diabetes mellitus without complication, without long-term current use of insulin Problem Depression with F41.8 Active 62702870 anxiety Problem Pain in right knee M25.561 Active 05812684 Problem Asthma, unspecified J45.909 Active 145189931 asthma severity, unspecified whether complicated, unspecified whether persistent Problem Chronic pain G89.4 Active 988271584 syndrome Problem Urinary R32 Active 669156522 incontinence, unspecified type Problem Gastroesophageal K21.9 Active 198148090 reflux disease, esophagitis presence not specified Problem Allergic rhinitis, J30.9 Active 19735445 unspecified seasonality, unspecified trigger Problem 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 Problem Hypercholesterolemia E78.00 Active 31983096 Problem Non-intractable R11.2 Active 81562880 vomiting with nausea, unspecified vomiting type Problem Diarrhea, R19.7 Active 22966649 unspecified type Problem Vitamin D deficiency E55.9 Active 64039254 Problem Primary M17.12 Active 939746757026568 osteoarthritis of left knee Problem Fibromyalgia M79.7 Active 720521698 Problem Pain in left knee M25.562 Active 65586478583337 2 Problem Essential I10 Active 75484500 hypertension Problem Abdominal pain, R10.9 Active 44371089 unspecified abdominal location Problem 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 Active 986935670099126 pain syndrome type 1 of left lower extremity Problem Irritable bowel K58.0 Active 600718538 syndrome with diarrhea Problem Polyarthralgia M25.50 Active 91430840 ALLERGIES Allergen (clinical Drug/Non Drug Reaction Allergy Type Onset Date S tatus drug ingredient) Allergy documented on EMR pregabalin Pregabalin([facility] Unknown Drug Allergy Active Code:[address]-08) pregabalin Lyrica([facility] memory loss Drug Allergy Active Code:[address]-35) cefazolin Cefazolin Sodium([facility] Unknown Drug Allergy Ac tive Code:[address]-19) ENCOUNTERS from 1955 to 2020-04-10 Encounter Location Date Provider Diagnosis [address] [facility] Mar, Leila Tucker [facility] ontrolled type 2 [facility] [address], [place] [address] without compli cation, without long-te rm current use of insulin E11.65 ; Essent ial hypertension I1 0 ; Hyperlipidemia, unspecified hyperlipidemia type E78.5 ; Asthma, unspecified ast hma severity, unspe cified whether complic ated, unspecified whe ther persistent J45. 909 ; Irritable bowel syndrome with diarrhea K 58.0 ; Chronic pain sy ndrome G89.4 ; Depress ion with anxiety F41.8 ; Vitamin D deficiency E5 5.9 ; Ingrown toenail of both feet L60.0 ; Fibromyalgia M7 9.7 ; Needs flu shot Z23 and Need for vaccin ation against Strepto coccus pneumoniae usin g pneumococcal co njugate vaccine 13 Z23 IMMUNIZATIONS Vaccine Route Administration Date Status Flucelvax - multidose vial IM Intramuscular Mar 09, 2018 Admi nistered FluAD IM Intramuscular Apr 03, 2020 Administered Bupivicaine [place] Unknown August 30, 2019 Administered Flucelvax - single dose syringe IM Intramuscular Feb 25, 2019 Administered Solumedrol 40mg/1ml IM Intramuscular December 11, 2017 Administere d Prevnar 13 (PCV13) IM Intramuscular Apr 03, 2020 Administered SOCIAL HISTORY Tobacco Use: Social History Observation [...] REASON FOR REFERRAL No Information VITAL SIGNS Height 63.75 in Mar, Weight 204.2 lbs Mar, Temperature 97.3 degrees Fahrenheit Mar, BMI 35.32 kg/m2 Mar, Oximetry 99 % Mar, Respiratory Rate 16 /min Mar, Blood pressure systolic 144 mm Hg Mar, Blood pressure diastolic 80 mm Hg Mar, MEDICATIONS Medication SIG (Take, Route, Notes Start Date End Date Status Frequency, Duration) Diclofenac Sodium Active PredniSONE as directed Orally Active as directed Janumet 50-1000 MG 1 tablet with meals Active Orally Twice a day for 90 days Aspirin Adult Low Strength 1 tablet Orally Active 81 MG Once a day Methotrexate as directed Orally Acti ve as directed Ventolin HFA 108 (90 Base) 2 puffs as needed Active MCG/ACT Inhalation every 4-6 hrs. as needed Ranitidine HCl 150 MG 1 capsule at U nknown bedtime Orally Once a day for 90 days Myrbetriq 50 MG 1 tablet Orally Acti ve Once a day for 90 days Ciprofloxacin HCl Unknown Lumigan 0.01 % 1 drop into Active affected eye in the evening Ophthalmic Once a day Restasis 0.05 % 1 drop into Active affected eye Ophthalmic Twice a day Methotrexate 2.5 MG as directed Orally Active 6 tablets weekly Trelegy Ellipta 100-62.5-25 1 puff Inhalation Active MCG/INH Once a day Acetaminophen-Codeine #3 Unknown Dicyclomine HCl 10 MG 1 tablet Orally Active twice a day Lorazepam 1 tablet Orally as Unknow n directed as needed for anxiety Diclofenac Sodium 1 % as directed Ac tive Transdermal Ergocalciferol 03024 UNIT 1 capsule Orally Mar, Jun, Active once a week for 90 days FreeStyle Lite Test Unkno wn Pantoprazole Sodium 40 MG 1 tablet Orally Active Once a day for 30 day(s) Duloxetine HCl 60 MG 1 capsule (take Active with duloxetine 30 mg) Orally Once a day for 90 days FreeStyle Lancets Unknown Chlorhexidine Gluconate U nknown Latanoprost 0.005 % 1 drop into Unkn own affected eye in the evening Ophthalmic twice a day Lunesta 1 tablet Unknown immediately before bedtime Orally Once a day as needed for sleep One Touch Glucose Monitor as advised n/s n/s Feb, Unknown N/S Mirtazapine 15 MG 1 tablet at bedtime Unknown Orally Once a day Duloxetine HCl 60 MG 1 capsule Orally Active Twice a day Duloxetine HCl 30 MG 1 capsule (take Unknown with duloxetine 60 mg) Orally Once a day for 90 days Dicyclomine HCl Unknown Breo Ellipta 1 puff Inhalation Unkno wn Once a day Xifaxan Unknown Pravastatin Sodium 40 MG 1 tablet Orally Active Once a day for 90 days Duloxetine HCl 30 MG 1 capsule Orally Active Once a day for 30 day(s) Azelastine HCl 137 2 squirts in each Active MCG/SPRAY nostril Nasally Once a day for 90 days Hydrocodone-Acetaminophen Unknown Losartan Potassium-HCTZ 1 tablet Orally Active 100-25 MG Once a day for 90 days Xifaxan 550 MG 1 tablet Orally Activ e Three times a day Singulair 10 MG 1 tablet Orally Acti ve Once a day for 90 days Combigan 0.2-0.5 % 1 drop into Activ e affected eye Ophthalmic Twice a day Folic Acid 1 MG 1 tablet Orally Acti ve Once a day for 30 day(s) Sulfamethoxazole-Trimethopr Unknown im Cyclobenzaprine HCl 5 MG TAKE 1 TABLET BY Unknown MOUTH 3 TIMES A DAY NEEDED FOR 10 DAYS for 10 Xarelto 10 MG 1 tablet with food Apr, U nknown Orally Once a day for 11 day(s) PredniSONE 2.5 MG 1 tablet Orally Ac tive Once a day for 30 day(s) Albuterol Sulfate HFA 108 1 puff as needed Active (90 Base) MCG/ACT Inhalation every 4 hrs Gabapentin 300 MG 1 capsule Orally U nknown three times daily for 30 Quetiapine Fumarate 25 MG 1 tablet at bedtime Unknown Orally Once a day for 30 day(s) Gabapentin 600 MG 1 tablet Orally Ac tive Once a day in evening for 90 days Cholestyramine 4 GM 1 packet mixed with Active water or non-carbonated drink Orally Once a day for 30 day(s) Methocarbamol 500 MG 1.5 tablets Orally Active every 4 hrs for 30 day(s) Denta 5000 Plus Unknown Trelegy Ellipta 100-62.5-25 1 puff Inhalation Active MCG/INH Once a day Hydroxychloroquine Sulfate Unknown Fluticasone Propionate 50 1 spray in each Unknown MCG/ACT nostril Nasally Once a day Ventolin HFA 108 (90 Base) 2 puffs as needed Unknown MCG/ACT Inhalation every 4-6 hrs Ondansetron HCl 4 MG 1 tablet Orally Active three times a day Gabapentin 600 MG 1 tablet Orally Feb, Active Once a day for 30 day(s) Thera Tears Eye drops 0.5 2 drops in both Active fl oz eyes eye drops every 6 hours for every day Gabapentin 600 MG 1 tablet Orally Un known Three times daily for 30 Solifenacin Succinate 5 MG 1 tablet Orally Unknown Once a day for 90 days Estradiol 0.1 MG/GM as directed Vaginal Apr, Unknown Two times a Week for 90 days Solifenacin Succinate 5 MG 1 tablet Orally Active Once a day for 30 day(s) One Touch test strips test one strip finger Feb, Unknown strips prick check bs bid for 90 days Amitriptyline HCl Unknown PROCEDURES No Information RESULTS No Results REASON FOR VISIT Re-est. care Dr. SCHMITT [phone], flu shot, need prevnar 13 pneumonia vaccine MEDICAL (GENERAL) HISTORY Type Description Date Medical History Hypertension, unspecified type Medical History Hyperlipidemia, unspecified hyperlipidem ia type Medical History Asthma, unspecified asthma severity, uns pecified whether complicated, unspecified whether persistent Medical History Gastroesophageal reflux disease, esophag itis presence not specified Medical History Uncontrolled type 2 diabetes mellitus wi thout complication, without long-term current use of insulin Medical History Pain in left knee Medical History Status post total left knee replacement Medical History Presence of left artificial knee joint Medical History Aftercare following joint replacement pelaez rgery Medical History Pain in right knee Medical [...] No Information FUNCTIONAL STATUS No Information ASSESSMENTS Encounter Date Diagnosis Assessment Notes Treatment Notes Treatm ent Clinical Notes Mar, Uncontrolled type 2 diabetes mellitus without complication, without long-term current use of insulin (ICD-10 - E11.65) Mar, Essential hypertension (ICD-10 - I10) Mar, Hyperlipidemia, Tolerating unspecified Pravastatin; hyperlipidemia type refill as listed (ICD-10 - E78.5) above. Low fat/low cholesterol diet Mar, Asthma, unspecified F/u with asthma severity, pulmonary unspecified whether Alexia per complicated, current schedule unspecified whether persistent (ICD-10 - J45.909) Mar, Irritable bowel F/u with GI DrRosemarie syndrome with Kate per diarrhea (ICD-10 - current schedule K58.0) Mar, Chronic pain syndrome (ICD-10 - G89.4) Mar, Depression with Patient no longer anxiety (ICD-10 - seeing F41.8) psychiatry; she needs a refill on Duloxetine; she has been without Duloxetine 30 mg for 3 months; she is still taking Duloxetine 60 mg Mar, Vitamin D deficiency (ICD-10 - E55.9) Mar, Ingrown toenail of both feet (ICD-10 - L60.0) Mar, Fibromyalgia (ICD-10 - M79.7) Mar, Needs flu shot Influenza (ICD-10 - Z23) vaccination given no acute reaction while in clinic. advised to massage and move arm to prevent pain and swelling. Mar, Need for vaccination Prevnar 13 against Streptococcus vaccine given pneumoniae using today in office, pneumococcal no acute reaction conjugate vaccine 13 while in clinic. (ICD-10 - Z23) advised to massage and move arm to prevent pain and swelling. -- due for pneumovax 23 vaccine in 1 year Mar, Other Refills - what's due. HgbA1c today + Order fasting labwork; to be done 1 week prior to her next appt. Refer to pain mgmt. Dr. Cruz Alfonso Aware PLAN OF TREATMENT Medication Medication Name Sig Start Date Stop Date Gabapentin 600 MG 1 tablet Orally Once a day in evening for 90 days Ergocalciferol 51704 UNIT 1 capsule Orally once a Mar, Jun, week for 90 days Pravastatin Sodium 40 MG 1 tablet Orally Once a day for 90 days Trelegy Ellipta 100-62.5-25 1 puff Inhalation Once a MCG/INH day Ventolin HFA 108 (90 Base) 2 puffs as needed MCG/ACT Inhalation every 4-6 hrs. as needed Janumet 50-1000 MG 1 tablet with meals Orally Twice a day for 90 days Duloxetine HCl 60 MG 1 capsule (take with duloxetine 30 mg) Orally Once a day for 90 days Losartan Potassium-HCTZ 100-25 1 tablet Orally Once a day MG for 90 days Methotrexate as directed Orally as directed PredniSONE as directed Orally as directed Treatment Notes Assessment Notes Clinical Notes Hyperlipidemia, unspecified Tolerating Pravastatin; refill a s hyperlipidemia type listed above. Low fat/low cholesterol diet Asthma, unspecified asthma severity, F/u with pulmonary Dr. Hale unspecified whether complicated, per current schedule unspecified whether persistent Irritable bowel syndrome with F/u with GI Dr. Kate per diarrhea current schedule Depression with anxiety Patient no longer seeing psychiatry; she needs a refill on Duloxetine; she has been without Duloxetine 30 mg for 3 months; she is still taking Duloxetine 60 mg Needs flu shot Influenza vaccination given no acute reaction while in clinic. advised to massage and move arm to prevent pain and swelling. Need for vaccination against Prevnar 13 vaccine given today in Streptococcus pneumoniae using office, no acute reaction whi le pneumococcal conjugate vaccine 13 in clinic. advised to mass age and move arm to prevent pain and swelling.-- due for pneumovax 23 vaccine in 1 year Treatment Notes Test Name Order Date Lipid Panel w/ Chol/HDL Ratio 2020-04-10 Microalbumin/Creat Ratio, Random Ur 2020-04-10 Hemoglobin A1c 2020-04-10 Comp. Metabolic Panel (14) (CMP) 2020-04-10 CBC With Differential/Platelet 2020-04-10 Vitamin D, 25-Hydroxy 2020-04-10 Next Appt Details 3 Months labs 1 week prior Reason: Provider Name:Leila Tucker, 2020-06-26 08:1 5:00 AM, [address], [address], [place], [address], Provider Name:Leila Tucker 2020-07-03 09:4 0:00 AM, [address], [address], [place], [address], Insurance Providers Payer Name Payer Payer Insured Patient Coverage Coverage End Address Phone Name Relationship to Start Date Timi e Insured [employer] [phone] Sofía Whaley self 2019 [id number] [place] Replace [phone]
--- OUTSIDE RECORDS SUMMARY | 2020-05-08 06:43 | XMS REPORT ---
:1955 Author Organization [facility] Address [address], [address] [place] [address] Care Team Providers Name Role Phone Braden Unavailable [phone] PROBLEMS Type Condition ICD9-CM [id number] Onset Condition SNOMED Code Notes Code Code Dates Status Problem Depression with F41.8 Active 33201310 anxiety Problem Hyperlipidemia, E78.5 Active 54622072 unspecified hyperlipidemia type Problem Other chronic pain G89.29 Active 37412083 Problem Sinus problem J34.9 Active Problem Gastroesophageal K21.9 Active 899900780 reflux disease, esophagitis presence not specified Problem Uncontrolled type 2 E11.65 Active 338142804 diabetes mellitus without complication, without long-term current use of insulin Problem Incontinence in R32 Active 12221113 female Problem Ingrown right L60.0 Active 473011110 S/p greater toenail removal of portion of right great toenail on 01/08/19. Problem Essential I10 Active 51119920 hypertension Problem Primary M17.12 Active 772572816995621 osteoarthritis of left knee Problem Allergic rhinitis, J30.9 Active 92926750 unspecified seasonality, unspecified trigger Problem Status post total Z96.652 Active 4521460955397 left knee replacement Problem Aftercare following Z47.1 Active 731047611 joint replacement surgery Problem Presence of left Z96.652 Active 567497416 artificial knee joint Problem Urinary frequency R35.0 Active 922540667 Problem Hematuria, R31.9 Active 12337099 unspecified type Problem Urinary R32 Active 224983149 incontinence, unspecified type Problem Chronic pain G89.4 Active 320661507 syndrome Problem Hypercholesterolemia E78.00 Active 58997938 Problem Irritable bowel K58.0 Active 004841645 syndrome with diarrhea Problem Pain in right knee M25.561 Active 94110624 Problem Polyarthralgia M25.50 Active 50729787 Problem Pain in left knee M25.562 Active 97361632019802 2 Problem Asthma, unspecified J45.909 Active 695907951 asthma severity, unspecified whether complicated, unspecified whether persistent Problem Non-intractable R11.2 Active 59427243 vomiting with nausea, unspecified vomiting type Problem Diarrhea, R19.7 Active 20472591 unspecified type Problem Abdominal pain, R10.9 Active 67977037 unspecified abdominal location Problem 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 Active 345850272453765 pain syndrome type 1 of left lower extremity ALLERGIES Allergen (clinical Drug/Non Drug Reaction Allergy Type Onset Date S tatus drug ingredient) Allergy documented on EMR pregabalin Pregabalin([facility][NOTE 3] Unknown Drug Allergy Active Code:[address]-81) pregabalin Lyrica([facility][NOTE 3] memory loss Drug Allergy Active Code:[address]-89) cefazolin Cefazolin Sodium([facility][NOTE 3] Unknown Drug Allergy Ac tive Code:[address]-53) ENCOUNTERS from 1955 to 2020-03-13 Encounter Location Date Provider Diagnosis [facility] [address] [facility] [address], [place] [address] IMMUNIZATIONS Vaccine Route Administration Date Status Flucelvax - multidose vial IM Intramuscular Mar 09, 2018 Admi nistered Bupivicaine [place] Unknown August 30, 2019 Administered Flucelvax - [...] Start Date End Date Status Frequency, Duration) Cyclobenzaprine HCl 5 MG TAKE 1 TABLET BY MOUTH 3 Unknown TIMES A DAY NEEDED FOR 10 DAYS for 10 Azelastine HCl 137 MCG/SPRAY 2 squirts in each Unknown nostril Nasally Once a day for 90 days Duloxetine HCl 30 MG 1 capsule (take with Unknown duloxetine 60 mg) Orally Once a day for 90 days Latanoprost 0.005 % 1 drop into affected eye Unknown in the evening Ophthalmic twice a day FreeStyle Lite Test Unknown Gabapentin 600 MG 1 tablet Orally Once a Feb, Active day for 30 day(s) Breo Ellipta 1 puff Inhalation Once a Unk nown day Gabapentin 300 MG 1 capsule Orally three Unknown times daily for 30 Singulair 10 MG 1 tablet Orally Once a Un known day for 90 days Restasis 0.05 % 1 drop into affected eye Unknown Ophthalmic Twice a day Quetiapine Fumarate 25 MG 1 tablet at bedtime Unknown Orally Once a day for 30 day(s) Chlorhexidine Gluconate Unkn own Ranitidine HCl 150 MG 1 capsule at bedtime Unknown Orally Once a day for 90 days Duloxetine HCl 60 MG 1 capsule (take with Unknown duloxetine 30 mg) Orally Once a day for 90 days Gabapentin 600 MG 1 tablet Orally Once a Unknown day in evening for 90 days Lumigan 0.01 % 1 drop into affected eye U nknown in the evening Ophthalmic Once a day Fluticasone Propionate 50 1 spray in each nostril Unknown MCG/ACT Nasally Once a day Pravastatin Sodium 10 MG 1 tablet in evening Unknown Orally Once a day for high cholesterol for 90 days FreeStyle Lancets Unknown Lunesta 1 tablet immediately Unknown before bedtime Orally Once a day as needed for sleep Gabapentin 600 MG 1 tablet Orally Three U nknown times daily for 30 Trelegy Ellipta 100-62.5-25 1 puff Inhalation Once a Unknown MCG/INH day Ventolin HFA 108 (90 Base) 2 puffs as needed Unknown MCG/ACT Inhalation every 4-6 hrs Aspirin Adult Low Strength 81 1 tablet Orally Once a Unknown MG day PredniSONE as directed Orally as September, Unknow n directed Estradiol 0.1 MG/GM as directed Vaginal Two Apr, Unknown times a Week for 90 days Lorazepam 1 tablet Orally as Unknown directed as needed for anxiety Xarelto 10 MG 1 tablet with food Apr, Unknown Orally Once a day for 11 day(s) Acetaminophen-Codeine #3 Unk nown Dicyclomine HCl Unknown Amitriptyline HCl Unknown Denta 5000 Plus Unknown Mirtazapine 15 MG 1 tablet at bedtime Unk nown Orally Once a day Diclofenac Sodium Unknown Hydrocodone-Acetaminophen Un known Combigan 0.2-0.5 % 1 drop into affected eye Unknown Ophthalmic Twice a day One Touch Glucose Monitor N/S as advised n/s n/s Feb, Unknown Hydroxychloroquine Sulfate U nknown Xifaxan Unknown One Touch test strips test one strip finger prick Feb, Unknown strips check bs bid for 90 days Sulfamethoxazole-Trimethoprim Unknown Ventolin HFA 108 (90 Base) 2 puffs as needed Unknown MCG/ACT Inhalation every 4-6 hrs. as needed Methotrexate as directed Orally as September, Unknow n directed Solifenacin Succinate 5 MG 1 tablet Orally Once a Unknown day for 90 days Losartan Potassium-HCTZ 100-25 1 tablet Orally Once a Unknown MG day for 90 days Myrbetriq 50 MG 1 tablet Orally Once a Un known day for 90 days Ciprofloxacin HCl Unknown Janumet 50-1000 MG 1 tablet with meals Un known Orally Twice a day for 90 days PROCEDURES No Information RESULTS No Results REASON FOR VISIT rx refill MEDICAL (GENERAL) HISTORY Type Description Date Medical [...] 1 tablet Orally Once a day for 30 day(s) 23 Oc t, 2019 Next Appt Details Provider Name:Harmony Jaylyn, 2020-11-0 2 11:20:00 AM, [address], [address], [place], [address], Insurance Providers Payer Name Payer Payer Insured Patient Coverage Coverage End Address Phone Name Relationship to Start Date Timi e Insured [employer] [phone] JuddSofía self 2019 [id number] [place] Replace [phone]
--- OUTSIDE RECORDS SUMMARY | 2020-05-08 06:43 | XMS REPORT ---
:1955 Author Organization [facility] Address [address] [place] [address] Care Team Providers Name Role Phone Tucker Unavailable [phone] PROBLEMS Type Condition ICD9-CM [id number] Onset Condition SNOMED Code Notes Code Code Dates Status Problem Hyperlipidemia, E78.5 Active 07968164 unspecified hyperlipidemia type Problem Other chronic pain G89.29 Active 21914490 Problem Sinus problem J34.9 Active Problem Uncontrolled type 2 E11.65 Active 401268161 diabetes mellitus without complication, without long-term current use of insulin Problem Depression with F41.8 Active 84440438 anxiety Problem Pain in right knee M25.561 Active 80881402 Problem Asthma, unspecified J45.909 Active 786856520 asthma severity, unspecified whether complicated, unspecified whether persistent Problem Chronic pain G89.4 Active 444764006 syndrome Problem Urinary R32 Active 513613576 incontinence, unspecified type Problem Gastroesophageal K21.9 Active 835374527 reflux disease, esophagitis presence not specified Problem Allergic rhinitis, J30.9 Active 58699976 unspecified seasonality, unspecified trigger Problem 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 Problem Hypercholesterolemia E78.00 Active 31920572 Problem Non-intractable R11.2 Active 70524371 vomiting with nausea, unspecified vomiting type Problem Diarrhea, R19.7 Active 79409750 unspecified type Problem Vitamin D deficiency E55.9 Active 18279783 Problem Primary M17.12 Active 134260855085997 osteoarthritis of left knee Problem Fibromyalgia M79.7 Active 340937098 Problem Pain in left knee M25.562 Active 30795518539151 2 Problem Essential I10 Active 91200393 hypertension Problem Abdominal pain, R10.9 Active 87381808 unspecified abdominal location Problem 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 Active 698846258797953 pain syndrome type 1 of left lower extremity Problem Irritable bowel K58.0 Active 786071372 syndrome with diarrhea Problem Polyarthralgia M25.50 Active 52708224 ALLERGIES Allergen (clinical Drug/Non Drug Reaction Allergy Type Onset Date S tatus drug ingredient) Allergy documented on EMR pregabalin Pregabalin([facility] Unknown Drug Allergy Active Code:[address]-43) pregabalin Lyrica([facility] memory loss Drug Allergy Active Code:[address]-75) cefazolin Cefazolin Sodium([facility] Unknown Drug Allergy Ac tive Code:[address]-63) ENCOUNTERS from 1955 to 2020-04-06 Encounter Location Date Provider Diagnosis [facility] [address] [facility] [address] Mar, 2020 [place] [address] IMMUNIZATIONS Vaccine Route Administration Date Status Flucelvax - multidose vial IM Intramuscular Mar 09, 2018 Admi nistered FluAD IM Intramuscular Apr 03, [address] [facility] Unknown August 30, 2019 Administered Flucelvax - [...] No information MEDICATIONS Medication SIG (Take, Route, Notes Start [...] % as directed Ac tive Transdermal Ergocalciferol 62610 UNIT 1 capsule Orally Mar, Jun, Active [...] Information RESULTS No Results REASON FOR VISIT pt called MEDICAL (GENERAL) HISTORY Type Description Date Medical History Hypertension, unspecified type Medical History Hyperlipidemia, unspecified hyperlipidem ia type Medical History Asthma, unspecified asthma severity, uns pecified whether complicated, unspecified whether persistent Medical History Gastroesophageal reflux disease, esophag itis presence not specified Medical History Uncontrolled type 2 diabetes mellitus wi [facility] complication, without long-term current use of insulin Medical History Pain in left knee Medical History Status post total left knee replacement Medical History Presence of left artificial knee joint Medical History Aftercare following joint replacement [facility] Medical History Pain in right [...] day in evening for 90 days Ergocalciferol 07239 UNIT 1 capsule Orally once a 13 Mar, 2020 Jun, week for 90 days Pravastatin Sodium [...] directed PredniSONE as directed Orally as directed Next Appt Details Provider Name:Leila Tucker, 2020-06-26 08:1 5:00 AM, [address], [place], [address], Provider Name:Leila Tucker 2020-07-03 09:4 0:00 AM, [address], [place], [address], Insurance Providers Payer Name Payer Payer Insured Patient Coverage Coverage End Address Phone Name Relationship to Start Date Timi e Insured [employer] [phone] Sofía Whaley self 2019 [id number] [place] Replace [phone]
--- OUTSIDE RECORDS SUMMARY | 2020-05-08 06:43 | XMS REPORT ---
:[address] [facility] Address [address] [facility] [place] [address] Care Team Providers Name Role Phone Jaylyn Unavailable [phone] PROBLEMS Type Condition ICD9-CM [id number] Onset Condition SNOMED Code Notes Code Code Dates Status Problem Depression with F41.8 Active 57987158 anxiety Problem Hyperlipidemia, E78.5 Active 63795155 unspecified hyperlipidemia type Problem Other chronic pain G89.29 Active 00552932 Problem Sinus problem J34.9 Active Problem Gastroesophageal K21.9 Active 485438786 reflux disease, esophagitis presence not specified Problem Uncontrolled type 2 E11.65 Active 985961998 diabetes mellitus without complication, without long-term current use of insulin Problem Incontinence in R32 Active 78461209 female Problem Ingrown right L60.0 Active 785641191 S/p greater toenail removal of portion of right great toenail on 01/08/19. Problem Essential I10 Active 62313342 hypertension Problem Primary M17.12 Active 976082785032808 osteoarthritis of left knee Problem Allergic rhinitis, J30.9 Active 95233136 unspecified seasonality, unspecified trigger Problem Status post total Z96.652 Active 4012409118373 left knee replacement Problem Aftercare following Z47.1 Active 278190049 joint replacement surgery Problem Presence of left Z96.652 Active 032962330 artificial knee joint Problem Urinary frequency R35.0 Active 458215327 Problem Hematuria, R31.9 Active 16117781 unspecified type Problem Urinary R32 Active 089937707 incontinence, unspecified type Problem Chronic pain G89.4 Active 474558623 syndrome Problem Hypercholesterolemia E78.00 Active 43458317 Problem Irritable bowel K58.0 Active 819137425 syndrome with diarrhea Problem Pain in right knee M25.561 Active 05369936 Problem Polyarthralgia M25.50 Active 62022902 Problem Pain in left knee M25.562 Active 91482867927637 2 Problem Asthma, unspecified J45.909 Active 100409638 asthma severity, unspecified whether complicated, unspecified whether persistent Problem Non-intractable R11.2 Active 14873338 vomiting with nausea, unspecified vomiting type Problem Diarrhea, R19.7 Active 41274704 unspecified type Problem Abdominal pain, R10.9 Active 96770277 unspecified abdominal location Problem 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 Active 546457452653701 pain syndrome type 1 of left lower extremity ALLERGIES Allergen (clinical Drug/Non Drug Reaction Allergy Type Onset Date S tatus drug ingredient) Allergy documented on EMR pregabalin Pregabalin([facility] Unknown Drug Allergy Active Code:[address]-59) pregabalin Lyrica([facility] memory loss Drug Allergy Active Code:[address]-65) cefazolin Cefazolin Sodium([facility] Unknown Drug Allergy Ac tive Code:[address]-09) ENCOUNTERS from 1955 to 2020-03-20 Encounter Location Date Provider Diagnosis [address], [facility] [place] [address] IMMUNIZATIONS Vaccine Route Administration Date Status Flucelvax - multidose vial IM Intramuscular Mar 09, 2018 Admi nistered Bupivicaine [place] Unknown August 30, 2019 Administered Flucelvax - [...] Information RESULTS No Results REASON FOR VISIT Labs ---> APPT MEDICAL (GENERAL) HISTORY Type Description Date Medical [...] Orally Once a day for 30 day(s) Oc t, 2019 Next Appt Details Provider Name:Leila Tucker 2020-04-03 09:0 0:00 AM, [address], [place], [address], Insurance Providers Payer Name Payer Payer Insured Patient Coverage Coverage End Address Phone Name Relationship to Start Date Timi e Insured [employer] [phone] Sofía Whaley self 2019 [address] [id number] [address] Medicare [place] Replace [phone]
[2020-05-08] MEDS ORDERED: HEPA 1000U/500MLS 1,000 UNIT/500 ML BAG IV ONE (06:52)
[2020-05-08] MEDS ORDERED: LIDOCAINE 1% MPF 30 ML VIAL ONE (06:52)
[2020-05-08] MEDS ORDERED: NA CHLORIDE 0.9% 500 ML ONE (07:03)
[2020-05-08] MEDS ORDERED: MIDAZOLAM HCL 2 MG/2 ML INJ ONE (07:40)
[2020-05-08] MEDS ORDERED: FENTANYL CITR 100 MCG/2 ML ONE (07:40)
--- NOTE | 2020-05-08 08:19 | OP ---
Date of Procedure: 05/08/2020 Surgeon: Al Gilbert MD Executive Chairman Of The Board: Hilario Patterson. Reason For Admission: History of cerebrovascular disease by carotid Doppler, positive carotid Dopple r. Description Of Procedure: The patient was brought to the laborer construction or leak gang today, was prepped and draped in t he routine sterile fashion. She was given Versed for sedation. She had a 6-Israeli sheath introduced in the right common femoral artery successfully. Angiography there was normal. Angio-Seal was used to close the case. The Seldinger technique was used. 10 cc of xylocaine were used. A JR4 catheter 6-Israeli was used to cannulate the right common carotid and then selectively the left common carotid . She was found to have a normal right common carotid, external carotid artery, and internal carotid artery on the left side. The ostium of the left internal carotid had about a 50% to 60% stenosis. The left ECA and CCA were normal. Complications: There were no complications. Estimated Blood Loss: 5 mL. Postoperative Diagnosis: Moderate cerebrovascular disease with 50% to 60% stenosis in the ostium of the left internal carotid artery. We will continue medical therapy. Anesthesia: Total conscious sedation was 30 minutes. Plan: The patient will increase her pravastatin from 10 mg to 40 mg daily. We will keep an eye on h er carotid Doppler with yearly carotid Dopplers. She will have bedrest for 2 hours today and then she will go home and see me in the office in the next couple of weeks. SARAH/MATT Voice ID: [id number] Report ID: [id number]
[2020-05-08 10:09] VITALS: O2SAT 96
[2020-05-08 10:53] VITALS: BP 120/62
[2020-05-08 11:58] VITALS: TEMP 97
== END 2020-05-08 10:58 | disposition home or self-care (01) ==
LOC: CCL 06:38
DX: I65.22 Occlusion and stenosis of left carotid artery (principal); I10 Essential (primary) hypertension; E78.5 Hyperlipidemia, unspecified; E11.9 Type 2 diabetes mellitus without complications; M06.9 Rheumatoid arthritis, unspecified; K21.9 Gastro-esophageal reflux disease without esophagitis; J45.909 Unspecified asthma, uncomplicated; F32.9 Major depressive disorder, single episode, unspecified; F41.9 Anxiety disorder, unspecified; Z79.4 Long term (current) use of insulin; Z88.6 Allergy status to analgesic agent; Z88.1 Allergy status to other antibiotic agents; Z20.828 Contact with and (suspected) exposure to other viral communicable diseases; Z82.49 Family history of ischemic heart disease and other diseases of the circulatory system
CPT/HCPCS: 93005; 85025; 80048; 36415; 85610; 82947; 85730; 36222; U0002; C1893; C1760; J2250; J3010; J7040; J1644

== ENCOUNTER 2020-07-31 06:38 | Day surgery (SDC) | payer OTHER ==
[2020-07-27 11:44] LABS: Absolute Lymphocytes (CBC) 1.3 K/uL (0.7-4.9); Basophils % 0.5 % (0-1.3); Hematocrit 36.4 % (36.0-45.0); Lymphocytes % 16.2 % (15.3-44.8); MPV 8.3 fL (7.6-11.3); RBC Red Blood Cell Count 4.38 M/uL (3.86-4.86)
[2020-07-27 11:54] LABS: Protime INR 0.97
--- NOTE | 2020-07-27 12:03 | RAD REPORT ---
EXAM DESCRIPTION: RAD - Chest Pa And Lat (2 Views) - 07/27/2020 11:26 am CLINICAL HISTORY: PREOP, patient pending knee surgery COMPARISON: Two view chest December 2019 TECHNIQUE: Frontal and lateral views of the chest were obtained. FINDINGS: The lungs are fibrotic but clear of a mass, consolidation or failure finding. Interstitia l pattern matches comparison. Heart size is normal and central vasculature is within normal limits. No pleural effusion or pneumothorax seen. No acute bony finding noted. No aortic abnormality. IMPRESSION: No acute cardiopulmonary process. No significant change from comparison study.
[2020-07-27 12:10] LABS: BUN Blood Urea Nitrogen 14 mg/dL (7-18); Bicarbonate 29 mmol/L (21-32); Glucose Level 112 mg/dL (74-106); Potassium 4.1 mmol/L (3.5-5.1); Sodium Level 143 mmol/L (136-145)
[2020-07-31] MEDS ORDERED: CLINDAMYCIN INJ 600 MG in NA CHLORIDE 0.9% 50 ML IV SCH (07:00)
[2020-07-31] MEDS ORDERED: NA CHLORIDE 0.9% 1,000 ML ONE (07:09)
[2020-07-31] MEDS ORDERED: propofoL 200 MG/20 ML VIAL IV ONE (07:18)
[2020-07-31] MEDS ORDERED: FENTANYL CITR 100 MCG/2 ML ONE (07:19)
[2020-07-31] MEDS ORDERED: MIDAZOLAM HCL 2 MG/2 ML INJ ONE (07:19)
[2020-07-31] MEDS ORDERED: dexAMETHasone 10 MG/ML VIAL ONE (07:23)
[2020-07-31] MEDS ORDERED: ONDANSETRON 4 MG/2 ML VIAL ONE ×2 (07:24→08:54)
[2020-07-31] MEDS ORDERED: LIDOCAINE 2% MPF 5 ML VIAL ONE (07:24)
[2020-07-31] MEDS ORDERED: KETOROLAC 30 MG/ML INJ ONE (07:24)
[2020-07-31] MEDS ORDERED: BUPIVACAINE 0.25% PF 30 ML VIAL ONE (07:34)
--- NOTE | 2020-07-31 08:25 | P.BOP ---
Preoperative diagnosis: left anterior knee calcification Postoperative diagnosis: same Primary procedure: left anterior knee debridement Secondary procedure: none Examination Supervisor: NONE,NONE Estimated blood loss: 3 cc Specimen: none Findings: see dictation Anesthesia: General Complications: None Implants: none Fluids & blood products: per anesthesia record Transferred to: Recovery Room Condition: Good
[2020-07-31] MEDS: HYDROMORPHONE HCL 1 MG/ML INJ ONE ×2 (08:35→08:40)
[2020-07-31 08:45] VITALS: O2SAT 97
[2020-07-31] MEDS ORDERED: HYDROCODONE/APAP 5/325 MG TAB ONE (09:47)
[2020-07-31 09:57] VITALS: BP 122/55; TEMP 96.5
--- NOTE | 2020-08-02 01:17 | OP ---
Date of Procedure: 07/31/2020 Surgeon: Mariano Feliciano MD Preoperative Diagnosis: Left anterior patellar osteophyte. Procedure Performed: Left anterior knee debridement to bone. Anesthesia: General LMA. Fluids: Per Anesthesia record. Estimated Blood Loss: Less than 5 cc. Complications: None. Implants: None. Indication For Procedure: Rosangela is a 65-year-old female, who presented to my clinic after undergoin g a left total knee arthroplasty with some irritation and tenderness over the anterior knee and small osteophyte over the anterior patella. The patient underwent conservative treatment measures includi ng corticosteroid injections as well as evaluation and pain management with symptoms consistent with CRPS. The patient failed conservative treatment measures including pain. I discussed with the patie nt at length risks and benefits associated with operative and nonoperative treatment including contin ued pain after debridement. She expressed understanding and elected to proceed with operative treatm ent. Description Of Procedure: After informed consent was obtained, the patient was identified in the pre operative holding area. The left knee was marked as well as the area of tenderness. She was then ta ayo back to the operating room, transferred to the operating table in supine fashion, placed under ge neral LMA anesthesia. The left lower extremity was then prepped and draped in usual sterile fashion. A time-out was initiated. The correct patient and procedure were confirmed and identified. The darleen arreola did receive preoperative prophylactic antibiotics. Left lower extremity was then exsanguinated using an Esmarch and tourniquet was inflated to 300 mmHg. Approximately, a 2 cm incision was made o grant the anterolateral aspect of the patella. Dissection was then taken down to the area of tendernes s as well as osteophyte, which could be palpated through the skin, was identified and excised using a 15 blade as well as rongeurs and a rasp was then used to smooth down the anterior aspect of the marte lla. There was no longer any evidence of an osteophyte by palpation or any rough surfaces noted over the anterior patella. The wound was then irrigated thoroughly with normal saline. Skin was approxi mated using a 3-0 Monocryl. Sterile dressings applied. Tourniquet was let down. The patient was aw akened and transferred to PACU in stable condition. Postoperative Plan: The patient will be weightbearing as tolerated. She will follow up in my clinic in 1 week for wound check. CV/MODL Voice ID: [id number] Report ID: [id number]
== END 2020-07-31 09:46 | disposition home health service (06) ==
LOC: OR 06:38
PROVIDERS: ATTEND Orthopaedic Surgery Sports Medicine
PROC: 0QBF0ZZ Excision of Left Patella, Open Approach (ICD-10-PCS; principal; 2020-07-31 07:30)
DX: M25.762 Osteophyte, left knee (principal); Z20.822 Contact with and (suspected) exposure to COVID-19
CPT/HCPCS: 27599; 85025; 80048; 36415; 85610; 82947; 85730; 71046; U0002; J2704; J2250; J3010; J1100; J1170; J7030; J2405 ×2

== ENCOUNTER 2020-12-20 06:49 | Emergency (ER) | payer OTHER ==
--- OUTSIDE RECORDS SUMMARY | 2020-12-20 06:53 | XMS REPORT | Continuity of Care Document ---
:1955 Author Organization [facility] t Address [address] [place] [address] Care Team Providers Name Role Phone Unavailable Unavailable Unavailable Problems Condition Condition Condition Status Onset Resolution Last Treating Co mments Source Name Details Category Date Date Treatment Clinician Date Vitamin D Problem Active 2020-02-19 Me moria deficiency 02:45:31 l Vitamin [place] D deficiency Active Problem 02/19/2020 [facility] Fibromyalg Problem Active 2020-02-19 M emoria ia 02:45:31 l [place] Fibromyalg ia Active Problem 0 [facility] Encounter Problem Active 2020-02-19 Me moria for 02:45:31 l immunizati Dwight n on Encounter for immunizati on Active Problem 0 [facility] CRP Problem Active 2020-02-19 Memor ia elevated 02:45:31 l CRP [place] elevated Active Problem 02/19/2020 [facility] Osteopenia Diagnosis Active 2020-02-19 Memoria 02:45:31 l [place] Osteopenia Active Diagnosis 02/19/2020 [facility] Seronegati Problem [...] Active Problem 0 [facility] retirement Problem Active 2020-02-19 Me moria (current) 02:45:31 l use of Long Bruno systemic term steroids (current) use of systemic steroids Active Problem 02/19/2020 [facility] retirement Diagnosis Active 2020-02-19 Memoria current 02:45:31 l use of Long [place] immunosupp term ressive current drug use of immunosupp ressive drug Active Diagnosis 02/19/2020 [facility] Myalgia Diagnosis Active 2020-02-19 Me moria 02:45:31 l Myalgia [place] Active Diagnosis 02/19/2020 [facility] Pain in [...] Active Problem 02/19/2020 [facility] Other Diagnosis Active 2020-02-19 Mem oria rheumatoid 02:45:31 l arthritis Other Diwght n with rheumatoid rheumatoid arthritis factor of with multiple rheumatoid sites factor of multiple sites Active Diagnosis 02/19/2020 [facility] Encounter Problem Active 2020-02-19 Me moria for 02:45:31 l therapeuti Dwight n c drug Encounter level for monitoring therapeuti c drug level monitoring Active Problem 02/19/2020 [facility] Allergies, Adverse Reactions, Alerts Allergy Allergy Status Severity Reaction(s) Onset Inactive Treating Comm ents Source Name Type Date Date Clinician Pregabal Pregabal Active hives Memori a in in 02-17 l 00:00: Bruno 00 Lyrica Lyrica Active memory loss 2019-0 Memor ia 02-17 l 00:00: Cefazoli Cefazoli Active hives 2019-0 Memori a n Sodium n Sodium 02-17 l 00:00: Lyrica Adverse Active memory loss [facility] Cefazoli Adverse Active Info Not [facility] Sodium Reaction Available [facility] Pregabal Adverse Active Info Not [facility] Reaction Available [facility] Medications Ordered Filled Start Stop Current Ordering Indication Dosage Frequency Signature Comments Components Source Medication Medication Date Date Medication? Clinician (SIG) Name Name Vitamin D Yes Isrrael 1 capsule Memoria (Ergocalcif 02-18 Duran l osvaldo) 02:45: Losartan 2019-0 Yes Isrrael 1 tablet M emoria Potassium-H 02-18 Duran l CTZ 02:45: Montelukast 2019-0 Yes Isrrael 1 tablet Memoria Sodium 02-18 Duran l 02:45: Ventolin 0 Yes Isrrael not Memor ia HFA 02-18 Duran defined l 02:45: Janumet 0 Yes Isrrael 1 tablet Me moria 02-18 Duran with meals l 02:45: Xifaxan 2019-0 Yes Isrrael 1 tablet Me moria 02-18 Duran l 02:45: Remicade 2019-0 Yes Isrrael DOCTOR Mem oria 02-18 Duran WILL l 02:45: ADMINISTER THROUGH IV INFUSION IN OFFICE AT WEEK 0, WEEK 2, WEEK 6, THEN EVERY 8 WEEKS. Lumigan 2019-0 Yes Isrrael not Memori a 02-18 Duran defined l 02:45: Quetiapine 2019-0 Yes Isrrael 1 tablet Memoria Fumarate 02-18 Duran at bedtime l 02:45: Ondansetron 2019-0 Yes Isrrael 1 tablet Memoria HCl 30 Duran l 02:45: Dicyclomine 2019-0 Yes Isrrael 1 tablet Memoria HCl -30 Duran l 02:45: Restasis 2020-0 Yes Isrrael not Memor ia 02-18 Duran defined l 02:45: Diclofenac 2019-0 Yes Isrrael 1 Mem oria Sodium 02-18 Duran applicatio l 02:45: n Combigan 2019-0 Yes Isrrael 1 drop Mem oria 02-18 Duran into l 02:45: affected eye Myrbetriq 2019-0 Yes Isrrael 1 tablet Memoria 02-18 Duran l 02:45: Pravastatin 2019-0 Yes Isrrael 1 tablet Memoria Sodium 02-18 Duran l 02:45: Aspir-Low 2019-0 Yes Isrrael 1 tablet Memoria 02-18 Duran l 02:45: Atorvastati 0 Yes Isrrael 1 tablet Memoria n Calcium 02-18 Duran l 02:45: Albuterol 2019-0 Yes Isrrael 1 puff as Memoria Sulfate HFA 02-18 Duran needed l 02:45: Solifenacin 2019-0 Yes Isrrael 1 tablet Memoria Succinate 02-18 Duran l 02:45: Multivitami 2019-0 Yes Isrrael not Me moria n 02-18 Duran defined l 02:45: Pantoprazol 2019-0 Yes Isrrael 1 tablet Memoria e Sodium 02-18 Duran l 02:45: Duloxetine 2019-0 Yes Isrrael 1 capsule Memoria HCl 02-18 Duran l 02:45: Azelastine 2019-0 Yes Isrrael 1 puff in Memoria HCl 02-18 Duran each l 02:45: nostril Gabapentin 2020-0 Yes Isrrael 1 tablet Memoria 30 Duran at bedtime l 02:45: Methocarbam 2019-0 Yes Isrrael 1 tablet Memoria ol 02-18 Duran l 02:45: Duloxetine 2019-0 Yes Isrrael 1 capsule Memoria HCl 02-18 Duran l 02:45: Ibuprofen 2020-0 Yes Isrrael 4 tablet Memoria 01-18 Duran with food l 02:45: or milk in evening Methocarbam 2020-0 Yes Isrrael 1 tablet Memoria ol 8-28 Duran l 00:00: Ranitidine 2020-0 Yes Josette [...] Gordon alex 6-30 Vo defined l 02:45: [place] 43 Duloxetine 2020-0 Yes Josette 1 capsule [...] evening [facility] Ergocalcife 2020-0 Yes Isrrael 1 capsule Memoria rol 3-17 Duran l 00:00: Methotrexat 2020-0 Yes Isrrael 6 tablets Memoria e 3-16 Duran l 00:00: PredniSONE 2020-0 Yes Isrrael 4 tablets Memoria 3-16 Duran l 00:00: Folic Acid 2020-0 Yes Isrrael 1 tablet Memoria 3-16 Duran l 00:00: Alendronate 2020-0 Yes Nilanjana 1 tablet Memoria Sodium 3-16 Luda 30 minutes l 00:00: before the first food, beverage or medicine of the day with plain water PredniSONE 2020-0 Yes Nilanjana 1 tablet Memoria 2-03 Luda l 00:00: [place] 00 Gabapentin Gabapentin Yes Harmony 1 tablet [...] Duran with food l 00:00: or milk 00 Glucometer Glucometer 2019- No Harmony Check BS [...] - nostril Memoria l Outpat[facility] ent Clinics Janumet Mayumet Yes Harmony [address] [facility] [...] Immunizations Ordered Filled Immunization Date Status Comments [facility] e Immunization Name Name Flucelvax - single Flucelvax - single 2019-02-[address] [facility] - dose syringe dose syringe 00:00:00 [facility] Vital Signs Vital Name Observation Time Observation Value Comments Source Weight 2020-01-17 15:15:00 [facility] [place] Height 2020-01-17 15:15:00 [facility] [place] Temperature Oral (F) 2020-01-17 15:15:00 97.0 F [facility] [place] Heart Rate 2020-01-17 15:15:00 [facility] [place] Diastolic (mm Hg) 2020-01-17 15:15:00 Mem orial [place] Systolic (mm Hg) 2020-01-17 15:15:00 Gordon rial [place] Weight 2019-11-18 16:30:00 [facility] [place] Height 2019-11-18 16:30:00 [facility] [place] Temperature Oral (F) 2019-11-18 16:30:00 97.5 F [facility] Heart Rate 2019-11-18 16:30:00 [facility] [place] Diastolic (mm Hg) 2019-11-18 16:30:00 Mem orial [place] Systolic (mm Hg) 2019-11-18 16:30:00 Gordon rial [place] Weight 2019-10-21 13:45:00 [facility] [place] Height 2019-10-21 13:45:00 [facility] [place] Temperature Oral (F) 2019-10-21 13:45:00 96.3 F [facility] [place] Heart Rate 2019-10-21 13:45:00 [facility] [place] Diastolic (mm Hg) 2019-10-21 13:45:00 Mem orial [place] Systolic (mm Hg) 2019-10-21 13:45:00 Gordon rial [place] Weight 2019-06-24 16:30:00 [facility] [place] Height 2019-06-24 16:30:00 [facility] [place] Heart Rate 2019-06-24 16:30:00 [facility] [place] Diastolic (mm Hg) 2019-06-24 16:30:00 Mem orial [place] Systolic (mm Hg) 2019-06-24 16:30:00 Gordon rial [place] Procedures This patient has no known procedures. Encounters Start End Encounter Admission Attending Care Care Encounter Source Date/Time Date/Time Type Type Clinicians Facility Department ID 2020-12-07 2020-12-07 [id number] 2020-12-07 2020-12-07 [facility] [id number] [facility] 2020-10-09 2020-10-09 Out[facility] [id number] [facility] 2020-10-05 2020-10-05 Outpatient [facility] [id number] [facility] 2020-09-14 2020-09-14 Out[facility] [id number] [facility] 2020-08-28 2020-08-28 Outpatient [facility] [id number] [facility] 2020-08-26 2020-08-26 Outpatient [facility] [id number] [facility] 2020-08-17 2020-08-17 Outpatient [facility] [id number] [facility] 2020-08-17 2020-08-17 Out[facility] [id number] [facility] 2020-08-14 2020-08-14 Outpatient [facility] [id number] [facility] 2020-08-10 2020-08-10 Outpatient [facility] [id number] [facility] 2020-08-03 2020-08-03 Outpatient [facility] [id number] [facility] 2020-07-21 2020-07-21 Outpatient [facility] [id number] [facility] 2020-07-14 2020-07-14 Outpatient [facility] [id number] [facility] 2020-07-13 2020-07-13 Outpatient [facility] [id number] [facility] 2020-07-01 2020-07-01 Outpatient [facility] [id number] [facility] 2020-06-12 2020-06-12 Outpatient [facility] [id number] [facility] 2020-04-03 2020-04-03 Outpatient [facility] [id number] [facility] 2020-04-03 2020-04-03 Outpatient [facility] [id number] [facility] 2020-03-26 2020-03-26 Outpatient MHSE MHSE [id number] [facility] 20:41:00 20:41:[address] [facility] [facility]-03-20 2020-03-20 Outpatient MHSE MHSE [id number] [facility] 09:45:00 09:45:[address] [facility] 2020-03-16 2020-03-16 Outpatient [facility] [id number] [facility] 2020-03-13 2020-03-13 Outpatient [facility] [id number] [facility] 2020-03-06 2020-03-06 Outpatient [facility] [id number] [facility] 2020-02-18 2020-02-18 Outpatient RAHUL - RAHUL - [id number] [facility]Clinic 14:00:00 14:00:00 Rheumatol Rheumatolog alWorks ogy y [facility] 2020-01-28 2020-01-28 [facility] [id number] [address] 08:47:00 08:47:00 [facility] 2020-01-24 2020-01-24 [facility] [id number] 08:11:00 08:11:00 [facility] 2020-01-21 2020-01-21 [facility] [id number] 12:02:00 12:02:00 [facility] 2020-01-21 2020-01-21 [facility] [id number] 11:22:00 11:22:00 [facility] 2020-01-21 2020-01-21 [facility] [id number] 08:48:00 08:48:00 [facility] 2020-01-17 2020-01-17 Outpatient RAHUL - RAHUL - [id number] eClinic 10:15:00 10:15:00 Rheumatol Rheumatolog alWorks ogy y [facility] 2020-01-17 2020-01-17 [facility] [id number] 09:06:00 09:06:00 [facility] 2020-01-03 2020-01-03 [facility] [id number] 13:40:00 13:40:00 [facility] 2020-01-03 2020-01-03 Outpatient RAHUL - RAHUL - [id number] eClinic 11:19:00 11:19:00 Rheumatol Rheumatolog alWorks ogy y [facility] 2019-12-25 2019-12-25 Outpatient RAHUL - RAHUL - [id number] eClinic 14:27:00 14:27:00 Rheumatol Rheumatolog alWorks ogy y [facility] 2019-12-22 2019-12-22 Outpatient PRL - PRL - [id number] eClinic 23:19:00 23:19:00 Rheumatol Rheumatolog alWorks ogy y [facility] 2019-12-20 2019-12-20 [facility] [id number] 08:00:00 08:00:00 t [facility] 2019-12-09 2019-12-09 [facility] [id number] 16:45:00 16:45:00 [facility] 2019-12-02 2019-12-02 [facility] [id number] 14:30:00 14:30:00 [facility]ics 2019-11-18 2019-11-18 Outpatient RAHUL - RAHUL - [id number] eClinic 11:30:00 11:30:00 Rheumatol Rheumatolog alWorks ogy y [facility] 2019-11-15 2019-11-15 [facility] [id number] 09:48:00 09:48:00 [facility] 2019-11-14 2019-11-14 Outpatient RAHUL - RAHUL - [id number] eClinic 10:49:00 10:49:00 Rheumatol Rheumatolog alWorks ogy y [facility] 2019-10-21 2019-10-21 Outpatient Rheumatol Rheumatolog [id number] eClinic 08:45:00 08:45:00 ogy y [facility] 2019-10-20 2019-10-20 Outpatient RAHUL - RAHUL - [id number] eClinic 10:18:00 10:18:00 Rheumatol Rheumatolog alWorks ogy y [facility] 2019-10-06 2019-10-06 Outpatient PRL - PRL - [id number] eClinic 15:17:00 15:17:00 Rheumatol Rheumatolog alWorks ogy y [facility] 2019-10-03 2019-10-03 [facility] [id number] 10:30:00 10:30:00 [facility] 2019-09-25 2019-09-25 Outpatient RAHUL KAY - [id number] eClinic 16:29:00 16:29:00 Rheumatol Rheumatolog alWorks ogy y [facility] 2019-09-09 2019-09-09 [facility] [id number] 09:42:00 09:42:00 [facility] 2019-09-04 2019-09-04 Outpatient RAHUL KAY - [id number] eClinic 08:51:00 08:51:00 Rheumatol [facility]umatolog alWorks ogy y [facility] 2019-09-02 2019-09-02 Outpatient PRL - PRL - [id number] eClinic 08:30:00 08:30:00 Rheumatol Rheumatolog alWorks ogy y [facility] 2019-08-30 2019-08-30 [facility] [id number] 11:00:00 11:00:00 [facility] 2019-08-30 2019-08-30 [facility] [id number] 09:15:00 09:15:00 [facility] 2019-08-13 2019-08-13 [facility] [id number] 08:38:00 08:38:00 [facility] 2019-08-07 2019-08-07 Outpatient PRL - PRL - [id number] eClinic 10:47:00 10:47:00 Rheumatol [facility]umatolog [facility]Works ogy y [facility] 2019-08-06 2019-08-06 Outpatient RAHUL KAY - [id number] eClinic 06:53:00 06:53:00 Rheumatol [facility]umatolog alWorks ogy y [facility] 2019-08-05 2019-08-05 Outpatient PRL - PRL - [id number] eClinic 10:42:00 10:42:00 Rheumatol [facility]umatolog alWorks ogy y [facility] 2019-07-22 2019-07-22 [facility] [id number] 09:01:00 09:01:00 [facility] 2019-07-08 2019-07-08 [facility] [id number] 10:15:00 10:15:00 [facility] 2019-06-24 2019-06-24 Outpatient PRL - PRL - [id number] eClinic 10:30:00 10:30:00 Rheumatol Rheumatolog alWorks ogy y [facility] 2019-06-04 2019-06-04 [facility] [id number] 10:52:00 10:52:00 [facility] 2019-05-27 2019-05-27 [facility] [id number] 11:15:00 11:15:00 [facility] 2019-05-09 2019-05-09 Outpatient PRL - PRL - [id number] eClinic 22:10:00 22:10:00 Rheumatol Rheumatolog alWorks ogy y [facility] 2019-05-04 2019-05-04 Outpatient RAHUL SOLOMONU - [id number] eClinic 06:53:00 06:53:00 Rheumatol [facility]umatolog [facility]Works ogy y [facility] 2019-04-22 2019-04-22 [facility] [id number] 13:00:00 13:00:00 t Specialty/U Lesvia kes - Specialty rology [facility] a /Urology Clinic [facility] ent [facility] 2019-04-17 2019-04-17 Outpatient PRL - PRL - [id number] eClinic 10:55:00 10:55:00 Rheumatol Rheumatolog alWorks ogy y [facility] 2019-03-21 2019-03-21 [facility] [id number] 12:11:00 12:11:00 [facility] ent Clinics 2019-03-18 2019-03-18 [facility] [id number] 10:01:00 10:01:00 t [facility] 2019-03-08 2019-03-08 [facility] [id number] 11:26:00 11:26:00 [facility] of [facility] ent Clinics 2019-03-07 2019-03-07 [facility] [id number] 09:10:00 09:10:00 t [facility] 2019-03-04 2019-03-04 [facility] [id number] 10:00:00 10:00:00 [facility] ent Clinics 2019-02-25 2019-02-25 [facility] [id number] 10:20:00 10:20:00 t [facility] ent Clinics 2019-02-20 2019-02-20 [facility] [id number] 08:57:00 08:57:00 t [facility] ent Clinics 2019-01-28 2019-01-28 [facility] [id number] 11:10:00 11:10:00 t [facility] s - Road [facility] Medicine [facility] ent [facility] 2019-01-25 2019-01-25 Outpatient PRL - PRL - [id number] eClinic 17:14:00 17:14:00 Rheumatol Rheumatolog alWorks ogy y [facility] 2019-01-25 2019-01-25 [facility] [id number] 11:00:00 11:00:00 t Specialty/U Lesvia kes - Specialty rology Memori a /Urology Clinic l [facility] 2019-01-14 2019-01-14 Outpatient PRL - PRL - [id number] eClinic 14:51:00 14:51:00 Rheumatol Rheumatolog alWorks ogy y [facility] 2019-01-02 2019-01-02 Outpatient RAHUL - RAHUL - [id number] eClinic 11:50:00 11:50:00 Rheumatol Rheumatolog alWorks ogy y [facility] 2018-12-27 2018-12-27 [facility] [id number] 09:55:00 09:55:00 [facility] ent Clinics 2018-12-24 2018-12-24 [facility] [id number] 13:08:00 13:08:00 [facility] ent Clinics 2018-12-20 2018-12-20 [facility] [id number] 13:30:00 13:30:00 t Specialty/U Lesvia kes - Specialty rology Memori a /Urology Clinic l [facility] 2018-11-29 2018-11-29 [facility] [id number] 08:00:00 08:00:00 [facility] ent Clinics 2018-11-26 2018-11-26 [facility] [id number] 14:14:00 14:14:00 t [facility] 2018-11-23 2018-11-23 [facility] [id number] 13:20:00 13:20:00 t [facility] 2018-11-08 2018-11-08 [facility] [id number] 10:10:00 10:10:00 [facility] 2018-11-01 2018-11-01 [facility] [id number] 10:23:00 10:23:00 [facility] 2018-10-23 2018-10-23 [facility] [id number] 15:48:00 15:48:00 [facility] 2018-10-01 2018-10-01 [facility] [id number] 10:30:00 10:30:00 [facility] ent Clinics 2018-08-31 2018-08-31 [facility] [id number] 08:30:00 08:30:00 [facility] ent Clinics 2018-08-23 2018-08-23 [facility] [id number] 12:29:00 12:29:00 [facility] 2018-08-21 2018-08-21 [facility] [id number] 11:38:00 11:38:00 [facility] of [facility] ent Clinics 2018-08-17 2018-08-17 [facility] [id number] 10:00:00 10:00:00 t [facility] 2018-08-09 2018-08-09 [facility] [id number] [facility] 14:30:00 14:30:00 [facility] 2018-07-30 2018-07-30 [facility] [id number] 07:19:00 07:19:00 [facility] 2018-07-24 2018-07-24 [facility] [id number] 11:15:00 11:15:00 t [facility] 2018-07-19 2018-07-19 [facility] [id number] 14:35:00 14:35:00 [facility] 2018-07-18 2018-07-18 [facility] [id number] 11:30:00 11:30:00 [facility] 2018-07-17 2018-07-17 [facility] [id number] 10:45:00 10:45:00 [facility] ent Clinics 2018-07-16 2018-07-16 [facility] [id number] [facility] 14:54:00 14:54:00 [facility] 2018-07-10 2018-07-10 [facility] [id number] 10:17:00 10:17:00 [facility] ent Clinics 2018-07-10 2018-07-10 [facility] [id number] 09:30:00 09:30:00 t [facility] ent Clinics 2018-07-09 2018-07-09 [facility] [id number] 09:30:00 09:30:00 [facility] ent Clinics 2018-06-26 2018-06-26 [facility] [id number] 11:00:00 11:00:00 t [facility] [facility] 2018-06-07 2018-06-07 [facility] [id number] [facility] 17:14:00 17:14:00 [facility] 2018-06-07 2018-06-07 [facility] [id number] [facility] 11:00:00 11:00:00 [facility] 2018-05-31 2018-05-31 [facility] [id number] [address] 11:56:00 11:56:00 [facility] 2018-05-30 2018-05-30 [facility] [id number] [address] 10:38:00 10:38:00 [facility] ent Clinics 2018-05-28 2018-05-28 [facility] [id number] 15:54:00 15:54:00 [facility] 2018-05-24 2018-05-24 [facility] [id number] [address] 15:37:00 15:37:00 [facility] 2018-05-24 2018-05-24 [facility] [id number] [address] 10[facility]30:00 10:30:00 [facility] 2018-05-21 2018-05-21 [facility] [id number] [facility] 11:30:00 11:30:00 t [facility] 2018-05-21 2018-05-21 [facility] [id number] [address] 11:08:00 11:08:00 [facility] ent Clinics 2018-05-16 2018-05-16 [facility] [id number] 08:47:00 08:47:00 [facility] 2018-05-01 2018-05-01 [facility] [id number] [facility] 15[facility]00:00 15:00:00 [facility] ent Clinics 2018-03-01 2018-03-01 [facility] [id number] [facility] 01:38:00 01:38:00 t [facility] 2018-02-28 2018-02-28 [facility] [id number] [address] 10:30:00 10:30:00 t [facility] ent Clinics 2018-02-26 2018-02-26 [facility] [id number] 17:15:00 17:15:00 [facility] 2018-02-26 2018-02-26 [facility] [id number] 09:09:00 09:09:00 [facility] ent Clinics 2018-01-09 2018-01-09 [facility] [id number] [facility] [address] 15:30:00 15:30:00 [facility] ent Clinics 2017-12-13 2017-12-13 [facility] [id number] 12:21:00 12:21:00 t [facility] 2017-12-11 2017-12-11 [facility] [id number] 11:00:00 11:00:00 t [facility] 2017-10-27 2017-10-27 [facility] [id number] 14:19:00 14:19:00 t [facility] ent Clinics 2017-10-25 2017-10-25 [facility] [id number] 16:20:00 16:20:00 t [facility] ent Clinics 2017-10-23 2017-10-23 [facility] [id number] 08:43:00 08:43:00 t [facility] ent Clinics 2017-10-11 2017-10-11 [facility] [id number] 11:41:00 11:41:00 [facility] 2017-10-04 2017-10-04 [facility] [id number] 10:30:00 10:30:00 [facility] Results This patient has no known results.
--- NOTE | 2020-12-20 09:07 | ER ---
Nurse's Notes [facility] Name: Rosangela Whaley Age: 65 yrs Sex: Female : 1955 Arrival Date: 12/20/2020 Time: 06:51 Bed 8 Private MD: Diagnosis: Influenza due to other identified influenza virus with other respiratory manifestations;SARS-associated coronavirus as the cause of diseases classified elsewhere;Fever, unspecified Presentation: 12/20 07:27 Chief complaint: Patient states: fever, cough, sore throat, and headache for a few em days. pt states she was COVID swabbed yesterday but has not received results yet. Coronavirus screen: At this time, unable to obtain information related to travel outside the [place] Ebola Screen: No symptoms or risks identified at this time. Initial Sepsis Screen: Does the patient meet any 2 criteria? Temp <36.0*C (96.8*F)) or > 38.3*C (100.9*F). No. Patient's initial sepsis screen is negative. Does the patient have a suspected source of infection? No. Patient's initial sepsis screen is negative. Risk Assessment: Do you want to hurt yourself or someone else? Patient reports no desire to harm self or others. Onset of symptoms is unknown. 07:27 Method Of Arrival: Ambulatory em 07:27 Acuity: ALBA 3 em Triage Assessment: 07:27 Headache History: Denies prior headaches. General: Appears in no apparent distress. em comfortable, Behavior is calm, cooperative, appropriate for age. Pain: Complains of pain in throat Pain currently is 3 out of 10 on a pain scale. Pain began 2-3 days ago. Also complains of no other associated symptoms. EENT: No deficits noted. Neuro: No deficits noted. Cardiovascular: No deficits noted. Respiratory: No deficits noted. GI: No deficits noted. : No deficits noted. Derm: No deficits noted. Musculoskeletal: No deficits noted. Historical: - Allergies: 07:14 Lyrica; ll1 07:52 Cefazolin; tr6 - Home Meds: 07:52 Janumet 50-1,000 mg oral tab 2 times per day [Active]; losartan-hydrochlorothiazide tr6 100-25 mg oral tab 1 tab once daily [Active]; Pepcid 40 mg Oral tab 1 tab once daily [Active]; montelukast 10 mg oral tab 1 tab once daily [Active]; duloxetine 60 mg oral cpDR 1 cap once daily [Active]; cetirizine 10 mg oral tab 1 tab once daily [Active]; folic acid 1 mg Oral tab 1 tab once daily [Active]; meloxicam 15 mg oral TbDi 1 tab once daily [Active]; Lipitor 40 mg Oral tab 1 tab once daily [Active]; aspirin 81 mg oral tab [Active]; pantoprazole 40 mg oral TbEC 1 tab once daily [Active]; Vitamin D Oral 50,000 unit weekly [Active]; Percocet 10-325 mg Oral tab as needed [Active]; ellipta [Active]; Cholestyramine Light 4 gram oral pwpk 1 packet 2 times per day [Active]; - PMHx: 07:14 Diabetes - NIDDM; GERD; Glaucoma; Hypertension; OA; ll1 - PSHx: 07:52 Tonsillectomy; rectocele; cataract; rhinoplasty; tubal ligation; Appendectomy; tr6 hysterectomy; - Immunization history:: Adult Immunizations unknown. - Social history:: Smoking status: unknown. - Family history:: not pertinent. - Hospitalizations: : No recent hospitalization is reported. Screenin:33 Abuse screen: Denies threats or abuse. Denies injuries from another. Nutritional em screening: No deficits noted. Tuberculosis screening: No symptoms or risk factors identified. Fall Risk None identified. Assessment: 09:23 Reassessment: see triage assessment. tr6 Vital Signs: 07:27 BP 139 / 57; Pulse 69; Resp 18; Temp 101.7(O); Pulse Ox 100% on R/A; em ED Course: 06:51 Patient arrived in ED. wm 07:03 Pierre Lopez MD is Attending Physician. rn 07:14 Arm band placed on Patient placed in an exam room, on a stretcher. ll1 07:27 Ant Gurrola, SLIME is Primary Nurse. em 07:31 Triage completed. em 07:33 Patient has correct armband on for positive identification. Bed in low position. Call em light in reach. Side rails up X 1. Pulse ox on. NIBP on. Door closed. Noise minimized. Visitors limited. Lights dimmed. Moved to private room. 07:33 No provider procedures requiring assistance completed. em 07:40 XRAY Chest (1 view) In Process Unspecified. EDMS 09:24 Patient did not have IV access during this emergency room visit. tr6 Administered Medications: : Drug: Tylenol 650 mg Route: PO; tr6 :23 Drug: Tamiflu (oseltamivir) 75 mg Route: PO; tr6 Outcome: :07 Discharge ordered by . rn :23 Discharged to home ambulatory. tr6 : Condition: stable :23 Discharge instructions given to patient, Instructed on discharge instructions, follow up and referral plans. medication usage, safety practices, Demonstrated understanding of instructions, follow-up care, medications, Prescriptions given X 1. 09:24 Patient left the ED. tr6 Signatures: Dispatcher [employer] Ant Delarosa RN SLIME em Pierre Lopez MD MD rn Lewis, Lynsay, RN RN ll1 Denisha Malin RN RN tr6 Kim Jensen Corrections: (The following items were deleted from the chart) 08:02 07:14 Allergies: Cefazolin; ll1 tr6
--- NOTE | 2020-12-20 09:08 | EDPHYS ---
Physician Documentation [facility] Name: Rosangela Whaley Age: 65 yrs Sex: Female : 1955 Arrival Date: 12/20/2020 Time: 06:51 Bed 8 Private MD: ED Physician Pierre Lopez HPI: 12/20 07:25 This 65 yrs old Female presents to ER via Unassigned with complaints of Fever, rn Headache. 07:25 The patient reports fever, that was measured at 102 degrees Fahrenheit. Onset: The rn symptoms/episode began/occurred 2 day(s) ago. Modifying factors: there are no obvious modifying factors. Associated signs and symptoms: Pertinent positives: chills, cough, myalgias, runny nose, sinus congestion, sore throat, vomiting. Severity of symptoms: At their worst the symptoms were mild in the emergency department the symptoms are unchanged. The patient has not experienced similar symptoms in the past. The patient has not recently seen a physician. Patient reports 2 or 3 days of fever, T-max 102, associated with cough congestion, runny nose, vomiting x1. Reports associated with muscle aches and fatigue. Denies shortness of breath. Reports family member tested positive for Covid 2 weeks ago.. Historical: - Allergies: 07:14 Lyrica; ll1 07:52 Cefazolin; tr6 - Home Meds: 07:52 Janumet 50-1,000 mg oral tab 2 times per day [Active]; losartan-hydrochlorothiazide tr6 100-25 mg oral tab 1 tab once daily [Active]; Pepcid 40 mg Oral tab 1 tab once daily [Active]; montelukast 10 mg oral tab 1 tab once daily [Active]; duloxetine 60 mg oral cpDR 1 cap once daily [Active]; cetirizine 10 mg oral tab 1 tab once daily [Active]; folic acid 1 mg Oral tab 1 tab once daily [Active]; meloxicam 15 mg oral TbDi 1 tab once daily [Active]; Lipitor 40 mg Oral tab 1 tab once daily [Active]; aspirin 81 mg oral tab [Active]; pantoprazole 40 mg oral TbEC 1 tab once daily [Active]; Vitamin D Oral 50,000 unit weekly [Active]; Percocet 10-325 mg Oral tab as needed [Active]; ellipta [Active]; Cholestyramine Light 4 gram oral pwpk 1 packet 2 times per day [Active]; - PMHx: 07:14 Diabetes - NIDDM; GERD; Glaucoma; Hypertension; OA; ll1 - PSHx: 07:52 Tonsillectomy; rectocele; cataract; rhinoplasty; tubal ligation; Appendectomy; tr6 hysterectomy; - Immunization history:: Adult Immunizations unknown. - Social history:: Smoking status: unknown. - Family history:: not pertinent. - Hospitalizations: : No recent hospitalization is reported. ROS: 07:25 Constitutional: Positive for fever and chills Eyes: Negative for injury, pain, redness, rn and discharge, ENT: Positive for nasal congestion and sore throat. Neck: Negative for injury, pain, and swelling, Cardiovascular: Negative for chest pain, palpitations, and edema, Respiratory: Positive for cough, negative for shortness of breath Abdomen/GI: Negative for abdominal pain, positive for nausea and vomiting x1. : Negative for injury, bleeding, discharge, and swelling, MS/Extremity: Negative for injury and deformity, Skin: Negative for injury, rash, and discoloration, Neuro: Positive for headache and generalized weakness 07:28 All other systems are negative. rn Exam: 07:25 Constitutional: This is a well developed, well nourished patient who is awake, alert, rn and in no acute distress. Ambulatory to room without assistance or difficulty. Head/Face: Normocephalic, atraumatic. Eyes: Pupils equal round and reactive to light, extra-ocular motions intact. Lids and lashes normal. Conjunctiva and sclera are non-icteric and not injected. Cornea within normal limits. Periorbital areas with no swelling, redness, or edema. ENT: Moist mucous membranes, no oral swelling, no exudate, no stridor. Neck: Trachea midline, no thyromegaly or masses palpated, and no cervical lymphadenopathy. Supple, full range of motion without nuchal rigidity, or vertebral point tenderness. No Meningismus. Cardiovascular: Regular rate and rhythm . No pulse deficits. Respiratory: No increased work of breathing, no retractions or nasal flaring. Abdomen/GI: Soft, non-tender Skin: Warm, dry MS/ Extremity: Pulses equal, no cyanosis. Neuro: Awake and alert, GCS 15, oriented to person, place, time, and situation. Cranial nerves II-XII grossly intact. Motor strength 5/5 in all extremities. Sensory grossly intact. Cerebellar exam normal. Normal gait. Vital Signs: 07:27 BP 139 / 57; Pulse 69; Resp 18; Temp 101.7(O); Pulse Ox 100% on R/A; em MDM: 07:08 Patient medically screened. rn 09:04 Differential diagnosis: viral Infection, bacterial infection, URI, pneumonia. Data rn reviewed: vital signs, nurses notes, lab test result(s), radiologic studies, plain films. Data interpreted: Pulse oximetry: on room air is 100 %. Interpretation: normal. Test interpretation: by ED physician or midlevel provider: plain radiologic studies, X-ray without focal infiltrate or evidence of pneumonia.. Counseling: I had a detailed discussion with the patient and/or guardian regarding: the historical points, exam findings, and any diagnostic results supporting the discharge/admit diagnosis, lab results, radiology results, the need for outpatient follow up, to return to the emergency department if symptoms worsen or persist or if there are any questions or concerns that arise at home. Response to treatment: the patient's symptoms have mildly improved after treatment, and as a result, I will discharge patient. Special discussion: I discussed with the patient/guardian in detail that at this point there is no indication for admission to the hospital. It is understood, however, that if the symptoms persist or worsen the patient needs to return immediately for re-evaluation. Based on the history and exam findings, there is no indication for further emergent testing or inpatient evaluation. I discussed with the patient/guardian the need to see the primary care provider for further evaluation of the symptoms. ED course: Patient with both flu B and Covid. No evidence of pneumonia. No oxygen requirement. Will DC home with PCP follow-up and return precautions. Will prescribe Tamiflu for flu.. 12/20 07:15 Order name: Flu; Complete Time: 08:13 rn 12/20 07:15 Order name: XRAY Chest (1 view) rn 12/20 07:15 Order name: Strep; Complete Time: 08:13 rn 12/20 07:57 Order name: Throat Culture EDMS 12/20 08:42 Order name: SARS-COV-2 RT PCR EDMS Administered Medications: 09:23 Drug: Tylenol 650 mg Route: PO; tr6 09:23 Drug: Tamiflu (oseltamivir) 75 mg Route: PO; tr6 Disposition Summary: 12/20/20 09:07 Discharge Ordered Location: Home rn Problem: new rn Symptoms: have improved rn Condition: Stable rn Diagnosis - Influenza due to other identified influenza virus with other respiratory rn manifestations - SARS-associated coronavirus as the cause of diseases classified elsewhere rn - Fever, unspecified rn Followup: rn - With: Private Physician - When: As needed - Reason: Recheck today's complaints, Re-evaluation by your physician Discharge Instructions: - Discharge Summary Sheet rn - Fever, Adult rn - Influenza, Adult rn - COVID-19 rn Forms: - Medication Reconciliation Form rn - Thank You Letter rn - 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 Denisha Malin RN RN tr6 Corrections: (The following items were deleted from the chart) 07:47 07:15 CORONAVIRUS+MR.LAB.BRZ ordered. [facility] EDME 08:02 07:14 Allergies: Cefazolin; ll1 tr6
[2020-12-20 09:32] VITALS: BP 139/57; TEMP 101.7; O2SAT 100
[2020-12-20] MEDS ORDERED: ACETAMINOPHEN 325 MG TABLET ONE (09:35)
[2020-12-20] MEDS ORDERED: OSELTAMIVIR 75 MG CAP ONE (09:35)
--- NOTE | 2020-12-20 10:00 | RAD REPORT ---
EXAM DESCRIPTION: RAD - Chest Single View - 12/20/2020 7:40 am CLINICAL HISTORY: COUGH Chest pain. COMPARISON: Chest Pa And Lat (2 Views) dated 07/27/2020; Chest Pa And Lat (2 Views) dated 01/17/2020; C hest Pa And Lat (2 Views) dated 03/09/2018 FINDINGS: Portable technique limits examination quality. The lungs are grossly clear. The heart is upper limit of normal in size. No displaced fractures. IMPRESSION: No acute intrathoracic process suspected.
== END 2020-12-20 09:24 | disposition home or self-care (01) ==
LOC: ER 06:49
DX: U07.1 COVID-19 (principal); I10 Essential (primary) hypertension; E11.9 Type 2 diabetes mellitus without complications; Z79.82 Long term (current) use of aspirin; Z88.8 Allergy status to other drugs, medicaments and biological substances
CPT/HCPCS: 87070; 87081; 87804 ×2; 71045; 99284; U0003

== ENCOUNTER 2022-07-31 16:57 | Emergency (ER) | payer OTHER ==
--- OUTSIDE RECORDS SUMMARY | 2022-07-31 17:07 | XMS REPORT | Continuity of Care Document ---
:1955 Author Organization [facility] t Address [address] [facility] [address] [place] [address] Care Team Providers Name Role Phone Harmony De La O Primary Care Physician Keily Simeon Attending Clinician Unavailable Leila Tucker Attending Clinician Unavailable Harmony De La O Attending Clinician Unavailable Jackson Verdugo Attending Clinician Unavailable LAN TATE Attending Clinician Unavailable KWAME SIMEON Attending Clinician Unavailable Doctor Unassigned, [place] Attending Clinician Unavailable Jeff Baird Attending Clinician Unavailable Physician, No Primary or Family Admitting Clinician Unavaila ble Leila Tucker Admitting Clinician Unavailable Payers Payer Name Policy Type Policy Number Effective Date Expiration Date Lucrecia rubio [facility] C1 [id number] 2018 Common Sp kamar ing Medicare 00:00:00 - [facility] C1 [id number] 2018 Common Sp kamar ing Medicare 00:00:00 - [place] [id number] 2018 Common Sp kamar ing Medicare 00:00:00 [place] [id number] 2018 Common Sp kamar ing Medicare 00:00:00 [facility] Problems Condition Condition Condition Status Onset Resolution Last Treating Co mments Source Name Details Category Date Date Treatment Clinician Date Sinus Sinus Problem Common problem problem [facility] [id number] Depression Problem Com mon with [facility] anxiety [facility] [id number] Other Problem Common chronic [facility] pain [facility] [id number] Pain in Problem Comm on left knee [facility] [id number] Pain in Problem Common right knee [facility] [id number] Primary Problem Comm on osteoarthr [facility] itis of [facility] left knee [facility] [id number] Asthma, Problem Commo n unspecifie Spirit d asthma - [facility] whether Medical complicate Center d, unspecifie d whether persistent [id number] Non-intrac Problem Com mon table Spirit vomiting - [facility] with [facility] nausea, [facility] unspecifie Medica [facility] d vomiting Center type [id number] Uncontroll Problem Co mmon ed type 2 Spirit diabetes - [facility] mellitus without [facility] complicati Medica l on, Center without long-term current use of insulin [id number] Hyperchole Problem Com mon sterolemia [facility] [id number] Gastroesop Problem Co mmon hageal Spirit reflux - [facility] disease, St esophagiti [facility] s presence Medica l not Center specified [id number] Hyperlipid Problem Com mon emia, Spirit unspecifie - CHI d [facility] hyperlipid [facility] emia type Medical Center History of Aftercare Problem Co mmon musculoske following Spi rit letal joint - CHI operation replacemen [facility] [id number] Presence Problem Comm on of left Spirit artificial - [facility]I knee joint [facility] [id number] Urinary Problem Commo n frequency Spirit - [facility] [id number] Hematuria, Problem Com mon unspecifie Spirit d type [facility] Incontinen Incontinen Problem C ommon ce ce in Spirit female - CHI [facility] [id number] Ingrown Problem Commo n right Spirit greater - [facility]I toenail 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 [id number] Status Problem Commo n 105 post total [facility] [id number] Neuropathy Problem Co mmon [facility] [id number] Essential Problem Comm on hypertensi Spirit on [facility] [id number] Allergic Problem Commo n rhinitis, Spirit unspecifie - CHI d [facility] y, Medical unspecifie Center d trigger [id number] Irritable Problem Com mon bowel Spirit syndrome - [facility] with [facility] [id number] Polyarthra Problem Com mon lgia Spirit [facility] [id number] Fibromyalg Problem Co mmon ia Spirit [facility] Vitamin D Vitamin D Problem Com mon deficiency deficiency Sp kamra [facility] [id number] Atheroscle Problem C ommon 08[address] rosis of Spirit left - CHI carotid [facility] Vitamin D Vitamin D Problem Active 2021-08-28 Memoria deficiency deficiency 02:45:37 l Active [place] Problem 08/28/2021 [facility] Fibromyalg Fibromyal Problem Active 2021-08-28 Memoria ia colby Active 02:45:37 l Problem [place] 08/28/2021 [facility] Encounter Encounter Problem Active 2021-08-28 Memoria for for 02:45:37 l immunizati immunizati He rmann on on Active Problem 08/28/2021 [facility] Benign Benign Problem Active 2021-08-28 [place] alex essential essential 02:45:37 l hypertensi hypertensi He rmann on on Active Problem 08/28/2021 [facility] Age Age Problem Active 2021-08-28 Memor ia related related 02:45:37 l osteoporos osteoporos He rmann is is Active Problem 08/28/2021 [facility] Osteopenia Osteopeni Problem Active 2021-08-28 Memoria a Active 02:45:37 l Problem [place] 08/28/2021 [facility] CRP CRP Problem Active 2021-08-28 Memor ia elevated elevated 02:45:37 l Active [place] Problem 08/28/2021 [facility] Seronegati Seronegat Problem Active 2021-08-28 Memoria ve pham 02:45:37 l rheumatoid rheumatoid He rmann arthritis arthritis Active Problem 08/28/2021 [facility] oil heaterman [facility] Problem Active 2021-08-28 Memoria (current) (current) 02:45:37 l use of use of [place] systemic systemic steroids steroids Active Problem 08/28/2021 [facility] MCFP oil heaterman Diagnosis Active 2020-02-19 Memoria current current 02:45:31 l use of use of [place] immunosupp immunosupp ressive ressive drug drug Active Diagnosis 02/19/2020 [facility] Myalgia Myalgia Diagnosis Active 2020-02-19 Memoria Active 02:45:31 l Diagnosis [place] 02/19/2020 [facility] Pain in Pain in Diagnosis Active 2020-02-19 Memoria joint joint 02:45:31 l involving involving Herm ximena multiple multiple sites sites Active Diagnosis 02/19/2020 [facility] Other Other Problem Active 2021-08-28 Memor ia spondylosi spondylosi 02:45:37 l s, lumbar s, lumbar Herm ximena region region Active Problem 08/28/2021 [facility] Asymptomat Asymptoma Problem Active 2021-08-28 Memoria ic tic 02:45:37 l age-relate age-relate He rmann d d postmenopa postmenopa usal state usal state Active Problem 08/28/2021 [facility] Other Other Problem Active 2021-08-28 Memor ia rheumatoid rheumatoid 02:45:37 l arthritis arthritis Herm ximena with with rheumatoid rheumatoid factor of factor of multiple multiple sites sites Active Problem 08/28/2021 [facility] Encounter Encounter Problem Active 2021-08-28 Memoria for for 02:45:37 l therapeuti therapeuti He rmann c drug c drug level level monitoring monitoring Active Problem 08/28/2021 [facility] Allergies, Adverse Reactions, Alerts Allergy Allergy Status Severity Reaction(s) Onset Inactive Treating Comm ents Source Name Type Date Date Clinician cefazoli DA Active U UNKNOWN [facility] n 1-10 Clear 00:00: Maher [facility] latex DA Active U RASH [facility] 1-10 Clear 00:00: Maher [facility] pregabal DA Active U UNKNOWN [facility] in 1-10 Clear 00:00: Maher [facility] Pregabal Pregabal Active hives 2019-0 Memori a in in 02-17 l 00:00: Lyrica Lyrica Active memory loss 2019-0 Memor ia 02-17 l 00:00: Cefazoli Cefazoli Active hives 0 Memori a n Sodium n Sodium 02-17 l 00:00: Pregabal Propensi Active Hives 2019-0 Univer s in ty to 5-03 ity of adverse 00:00: [place] reaction 00 Medical s Branch No Known DA Active U [facility] Allergie 3-14 Clear s 00:00: Maher 00 [facility] cefazoli cefazoli Active rash/itching Common n n [facility] Latex Latex Active rash Common [facility] pregabal pregabal Active rash/itching Common in in [facility] Social History Social Habit Start Date Stop Date Quantity Comments Source History of Tobacco Use Co mmon [facility] Sex Assigned At Com mon [facility] Smoking Status Start Date Stop Date Source Tobacco smoking consumption [facility] Never Smoker Common Spirit - [facility] Medications Ordered Filled Start Stop Current Ordering Indication Dosage Frequency Signature Comments Components Source Medication Medication Date Date Medication? Clinician (SIG) Name Name Ergocalcife Ergocalcife 2021-05- No 1{capsu Ergocalcif rol 70933 rol 07990 06-05 le} osvaldo [id number] UNIT UNIT 00:00: 00:00 UNIT 00 :00 Ergocalcife Ergocalcife 2021- 2023- No 1{capsu Ergocalcif rol 47318 rol 58880 06-05 le} osvaldo [id number] UNIT UNIT 00:00: 00:00 UNIT 00 :00 Ergocalcife Ergocalcife 2021-3- No 1{capsu Ergocalcif rol 59619 rol 00639 06-05 le} osvaldo [id number] UNIT UNIT 00:00: 00:00 UNIT 00 :00 Ergocalcife Ergocalcife 2021- 2023- No 1{capsu Ergocalcif rol 52988 rol 02944 06-05 le} osvaldo [id number] UNIT UNIT 00:00: 00:00 UNIT 00 :00 Ergocalcife Ergocalcife 2021- 2023- No 1{capsu Ergocalcif rol 78970 rol 58631 06-05 le} osvaldo [id number] UNIT UNIT 00:00: 00:00 UNIT 00 :00 Ergocalcife Ergocalcife 2021- 2023- No 1{capsu Ergocalcif rol 08197 rol 08361 06-05 le} osvaldo [id number] UNIT UNIT 00:00: 00:00 UNIT 00 :00 Ergocalcife Ergocalcife 2021-3- No 1{capsu Ergocalcif rol 70828 rol 08956 06-05 le} osvaldo 13675 UNIT UNIT 00:00: 00:00 UNIT 00 :00 Triamcinolo Triamcinolo 2021-05 No 1{appli BID Triamcinol ne ne 1-11 cation_ one Acetonide Acetonide 00:00: to_affe Acetonide 0.1 % 0.1 % 00 cted_ar 0.1 % ea} Triamcinolo Triamcinolo 2021-05 No 1{appli BID Triamcinol ne ne 1-11 cation_ one Acetonide Acetonide 00:00: to_affe Acetonide 0.1 % 0.1 % 00 cted_ar 0.1 % ea} Triamcinolo Triamcinolo 2021-05 No 1{appli BID Triamcinol ne ne 1-11 cation_ one Acetonide Acetonide 00:00: to_affe Acetonide 0.1 % 0.1 % 00 cted_ar 0.1 % ea} Triamcinolo Triamcinolo 2021-05 No 1{appli BID Triamcinol ne ne 1-11 cation_ one Acetonide Acetonide 00:00: to_affe Acetonide 0.1 % 0.1 % 00 cted_ar 0.1 % ea} Triamcinolo Triamcinolo 2021-05 No 1{appli BID Triamcinol ne ne 1-11 cation_ one Acetonide Acetonide 00:00: to_affe Acetonide 0.1 % 0.1 % 00 cted_ar 0.1 % ea} Triamcinolo Triamcinolo 2021-05 No 1{appli BID Triamcinol ne ne 1-11 cation_ one Acetonide Acetonide 00:00: to_affe Acetonide 0.1 % 0.1 % 00 cted_ar 0.1 % ea} Triamcinolo Triamcinolo 2021-05 No 1{appli BID Triamcinol ne ne 1-11 cation_ one Acetonide Acetonide 00:00: to_affe Acetonide 0.1 % 0.1 % 00 cted_ar 0.1 % ea} Nystatin Nystatin 2021-05- No 1{appli BID Nystatin 325994 890352 06-01 cation_ [id number] UNIT/GM UNIT/GM 00:00: 00:00 to_affe UNIT/GM 00 :00 cted_ar ea} Nystatin Nystatin 2021-05- No 1{appli BID Nystatin 996260 170242 06-01 cation_ [id number] UNIT/GM UNIT/GM 00:00: 00:00 to_affe UNIT/GM 00 :00 cted_ar ea} Benzonatate Benzonatate 2021- No TID Benzonatat 200 MG 200 MG 01-11 e 200 MG 00:00: 00:00 00 :00 Benzonatate Benzonatate 2021- No TID Benzonatat 200 MG 200 MG 01-11 e 200 MG 00:00: 00:00 00 :00 Nystatin Nystatin 2021- No 1{appli BID Nystatin 123631 900470 06-28 cation_ [id number] UNIT/GM UNIT/GM 00:00: 00:00 to_affe UNIT/GM 00 :00 cted_ar ea} Nystatin Nystatin 2021- No 1{appli BID Nystatin 486272 340665 06-28 cation_ [id number] UNIT/GM UNIT/GM 00:00: 00:00 to_affe UNIT/GM 00 :00 cted_ar ea} Nystatin Nystatin 2021- No 1{appli BID Nystatin 706711 445227 06-28 cation_ [id number] UNIT/GM UNIT/GM 00:00: 00:00 to_affe UNIT/GM 00 :00 cted_ar ea} Losartan 2019-0 Yes [place] 1 tablet M emoria Potassium-H 02-18 Duran l CTZ 02:45: Montelukast 2019-0 Yes [place] 1 tablet Memoria Sodium 02-18 Duran l 02:45: Ventolin 0 Yes [place] not Memor ia HFA 02-18 [place] defined l 02:45: Janumet 2019-0 Yes [place] 1 tablet Me moria 02-18 Duran with meals l 02:45: Xifaxan 2019-0 Yes [place] 1 tablet Me moria 02-18 Duran l 02:45: Vitamin D 2019-0 Yes [place] 1 capsule Memoria (Ergocalcif 02-18 Duran l osvaldo) 02:45: [place] 31 Remicade 2019-0 Yes [place] DOCTOR Mem oria 02-18 Duran WILL l 02:45: ADMINISTER [place] 31 THROUGH IV INFUSION IN OFFICE AT WEEK 0, WEEK 2, WEEK 6, THEN EVERY 8 WEEKS. Lumigan 2020-0 Yes [place] not Memori a -30 Duran defined l 02:45: Quetiapine 2020-0 Yes [place] 1 tablet Memoria Fumarate 02-18 Duran at bedtime l 02:45: Ondansetron 2020-0 Yes [place] 1 tablet Memoria HCl -30 Duran l 02:45: Dicyclomine 2019-0 Yes [place] 1 tablet Memoria HCl 02-18 Duran l 02:45: Restasis 2020-0 Yes [place] not Memor ia 02-18 Dur[place] defined l 02:45: Diclofenac 2019-0 Yes [place] 1 Mem oria Sodium 02-18 Duran applicatio l 02:45: n Combigan 2019-0 Yes [place] 1 drop Mem oria 02-18 Dur[place] into l 02:45: affected eye Myrbetriq 2019-0 Yes [place] 1 tablet Memoria 30 Duran l 02:45: Pravastatin 2020-0 Yes [place] 1 tablet Memoria Sodium 02-18 Duran l 02:45: Aspir-Low 2019-0 Yes [place] 1 tablet Memoria 30 Duran l 02:45: Atorvastati 2019-0 Yes [place] 1 tablet Memoria n Calcium -30 Duran l 02:45: Albuterol 2019-0 Yes [place] 1 puff as Memoria Sulfate HFA 02-18 Duran needed l 02:45: Solifenacin 2019-0 Yes [place] 1 tablet Memoria Succinate -30 Duran l 02:45: Multivitami 2020-0 Yes [place] not Me moria n -30 Duran defined l 02:45: Pantoprazol 2019-0 Yes [place] 1 tablet Memoria e Sodium -30 Duran l 02:45: Duloxetine 2019-0 Yes [place] 1 capsule Memoria HCl -30 Duran l 02:45: Azelastine 2020-0 Yes [place] 1 puff in Memoria HCl -30 Duran each l 02:45: nostril Gabapentin 2020-0 Yes [place] 1 tablet Memoria 9-30 Duran at bedtime l 02:45: [place] Methocarbam 2020-0 Yes [place] 1 tablet Memoria ol 9-30 Duran l 02:45: [place] Duloxetine 2020-0 Yes [place] 1 capsule Memoria HCl 9-30 Duran l 02:45: [place] Ibuprofen 2020-0 Yes [place] 4 tablet Memoria 8-30 Duran with food l 02:45: or milk in 06 evening Methocarbam 2020-0 Yes [place] 1 tablet Memoria ol 8-28 Duran l 00:00: [place] Aspir-81 2020-0 Yes Josette not Mem oria 6-30 Vo defined l 02:45: [place] 43 Linzess 2020-0 Yes Josette 1 capsule Memoria 6-30 Vo on an l 02:45: empty [place] 43 stomach Systane 2020-0 Yes Josette not Gordon alex 6-30 Vo defined l 02:45: [place] 43 Breo 2020-0 Yes Josette 1 puff Memor ia Ellipta 6-30 Vo l 02:45: [place] 43 Iron 2020-0 Yes Josette 1 tablet Mem oria 6-30 Vo l 02:45: [place] 43 Ranitidine 2020-0 Yes Josette 1 capsule Memoria HCl 6-30 Vo at bedtime l 02:45: [place] 43 Duloxetine 2020-0 Yes Josette 1 capsule Memoria HCl 6-30 Vo l 02:45: [place] 43 Methotrexat Methotrexat 2020-0 Yes Harmony as Common e e 5-14 Millender directed Spirit 00:00: - CHI [facility] PredniSONE PredniSONE 2020-0 Yes Harmony as Common 5-14 Mill[place] directed Spirit 00:00: - CHI [facility] Multivitami 2020-0 Yes Nilanjana not M emoria n 4-14 Luda defined l 02:45: [place] 39 Pravastatin Pravastatin 2020-0 Yes Harmony 1 tablet Common Sodium Sodium 4-10 Millender in evening Spirit 00:00: - CHI [facility] Bupivicaine Bupivicaine 2020-0 No 1mL Common [place] 4-10 Spirit 00:00: - CHI 00 [facility] Bupivicaine Bupivicaine 2020-0 No 1mL Common [place] 4-10 Spirit 00:00: - CHI 00 [facility] Bupivicaine Bupivicaine 2020-0 No 1mL Common [place] 4-10 Spirit 00:00: - CHI 00 [facility] Bupivicaine Bupivicaine 2020-0 No 1mL Common [place] 4-10 Spirit 00:00: - CHI 00 [facility] Bupivicaine Bupivicaine 2020-0 No 1mL Common [place] 4-10 Spirit 00:00: - CHI 00 [facility] Bupivicaine Bupivicaine 2020-0 No 1mL Common [place] 4-10 Spirit 00:00: - CHI 00 [facility] Bupivicaine Bupivicaine 2020-0 No 1mL Common [place] 4-10 Spirit 00:00: - CHI 00 [facility] Bupivicaine Bupivicaine 2020-0 No 1mL Common [place] 4-10 Spirit 00:00: - CHI 00 [facility] Bupivicaine Bupivicaine 2020-0 No 1mL Common [place] 4-10 Spirit 00:00: - CHI 00 [facility] Bupivicaine Bupivicaine 2020-0 No 1mL Common [place] 4-10 Spirit 00:00: - CHI 00 [facility] Bupivicaine Bupivicaine 2020-0 No 1mL Common [place] 4-10 Spirit 00:00: - CHI 00 [facility] Bupivicaine Bupivicaine 2020-0 No 1mL Common [place] 4-10 Spirit 00:00: - CHI 00 [facility] Bupivicaine Bupivicaine 2020-0 No 1mL Common [place] 4-10 Spirit 00:00: - CHI 00 [facility] Bupivicaine Bupivicaine 2020-0 No 1mL Common [place] 4-10 Spirit 00:00: - CHI 00 [facility] Bupivicaine Bupivicaine 2020-0 No 1mL Common [place] 4-10 Spirit 00:00: - CHI 00 [facility] Bupivicaine Bupivicaine 2020-0 No 1mL Common [place] 4-10 Spirit 00:00: - CHI 00 [facility] Bupivicaine Bupivicaine 2020-0 No 1mL Common [place] 4-10 Spirit 00:00: - [facility] Bupivicaine Bupivicaine 2020-0 No 1mL Common [place] 4-10 Spirit 00:00: - [facility] Bupivicaine Bupivicaine 2020-0 No 1mL Common [place] 4-10 Spirit 00:00: [facility] Ergocalcife 2020-0 Yes [place] 1 capsule Memoria [...] 1 tablet Memoria 2-03 Luda l 00:00: Gabapentin Gabapentin 2020-0 Yes Harmony 1 tablet Common 1-06 Millender Spirit 00:00: - [facility] Estradiol Estradiol 2019-1 Yes Harmony as Co mmon 2-02 Mill[place] directed Spirit 00:00: [facility] One Touch One Touch 2019-1 Yes Harmony one strip Common test strips test strips 0-28 Millender Spirit 00:00: - [facility] Plaquenil 2019-0 Yes [place] 1 tablet Memoria 8-23 Duran with food l 00:00: or milk Glucometer Glucometer 2019-0 2020- No Harmony Check BS Common Kit Kit 6-05 08-28 Millender once a day Spi rit 00:00: 00:00 - CHI 00 :00 [facility] eszopiclone 2019-0 Yes Take by Uni vers 1 mg tablet 5-03 mouth. ity of 09:52: [address] LORazepam 2019-0 Yes .5mg Take 0.5 Univ ers 0.5 mg 5-03 mg by ity of tablet 09:52: mouth. [place] [address] Medical Branch aspirin 81 2019-0 Yes 81mg Take 81 mg U nivers mg chewable 5-03 by mouth. ity of tablet 09:52: [place] [address] Medical Branch ranitidine 2019-0 Yes TAKE 1 Unive rs 150 mg 4-14 CAPSULE BY ity of capsule 00:00: MOUTH 00 EVERYDAY Medical AT BEDTIME Branch DULoxetine 2019-0 Yes TAKE 1 Unive rs 20 mg 4-12 CAPSULE BY ity of capsule 00:00: MOUTH [place] EVERY DAY Medical IN THE Branch MORNING traMADOL 50 2018-0 Yes TAKE 1 Univ ers mg tablet 4-05 TABLET BY ity o f 00:00: MOUTH [place] EVERY 6 Medical HOURS Branch NEEDED FOR PAIN DULoxetine 2018- Yes TAKE 1 Unive rs 60 mg 4-03 CAPSULE BY ity of capsule 00:00: MOUTH [place] EVERY DAY Medical Branch LINZESS 72 2018-0 Yes TAKE 1 Unive rs mcg Cap 4-03 CAPSULE(S) ity of 00:00: DAILY ORAL [place] [facility] VENTOLIN 2019-0 Yes INHALE 2 Unive rs HFA 90 4-03 PUFFS BY ity of mcg/actuati 00:00: MOUTH 4 Fan as on inhaler 00 TIMES A Medica l DAY Branch NEEDED BREO 2019-0 Yes USE ONE Univers ELLIPTA 3-21 PUFF ONCE ity of 200-25 00:00: A DAY [place] mcg/dose 00 Medical DsDv Branch pantoprazol 2019-0 Yes 40mg Take 40 mg Univers e 40 mg EC 3-09 by mouth ity o f tablet 00:00: daily. [place] [address] Medical Branch Xarelto Xarelto 2018- Yes Harmony 1 tablet Co mmon 2-11 Millender with food Spiri t 00:00: - [facility] One Touch One Touch 2017- Yes Harmony as advised Common Glucose Glucose 0-29 Millender Spir it Monitor Monitor 00:00: - [facility] Solumedrol Solumedrol 2017-0 No 40mg C ommon 40mg/1ml 40mg/1ml 12-11 Spirit 00:00: - [facility] Solumedrol Solumedrol 2017-0 No 40mg C ommon 40mg/1ml 40mg/1ml 12-11 Spirit 00:00: - CHI 00 [facility] Solumedrol Solumedrol 2018-0 No 40mg C ommon 40mg/1ml 40mg/1ml 12-11 Spirit 00:00: - [facility] Solumedrol Solumedrol 2018-0 No 40mg C ommon 40mg/1ml 40mg/1ml 12-11 Spirit 00:00: - CHI 00 [facility] Solumedrol Solumedrol 2018-0 No 40mg C ommon 40mg/1ml 40mg/1ml 12-11 Spirit 00:00: - [facility] Solumedrol Solumedrol 2018-0 No 40mg C ommon 40mg/1ml 40mg/1ml 12-11 Spirit 00:00: - CHI 00 [facility] Solumedrol Solumedrol 2018-0 No 40mg C ommon 40mg/1ml 40mg/1ml 12-11 Spirit 00:00: - [facility] Solumedrol Solumedrol 2018-0 No 40mg C ommon 40mg/1ml 40mg/1ml 12-11 Spirit 00:00: - [facility] Solumedrol Solumedrol 2018-0 No 40mg C ommon 40mg/1ml 40mg/1ml 12-11 Spirit 00:00: - [facility] Solumedrol Solumedrol 2018-0 No 40mg C ommon 40mg/1ml 40mg/1ml 12-11 Spirit 00:00: - [facility] Solumedrol Solumedrol 2018-0 No 40mg C ommon 40mg/1ml 40mg/1ml 12-11 Spirit 00:00: - CHI 00 [facility] Solumedrol Solumedrol 2018-0 No 40mg C ommon 40mg/1ml 40mg/1ml 12-11 Spirit 00:00: - CHI 00 [facility] Solumedrol Solumedrol 2018-0 No 40mg C ommon 40mg/1ml 40mg/1ml 12-11 Spirit 00:00: - CHI 00 [facility] Solumedrol Solumedrol 2018-0 No 40mg C ommon 40mg/1ml 40mg/1ml 12-11 Spirit 00:00: - [facility] Solumedrol Solumedrol 2018-0 No 40mg C ommon 40mg/1ml 40mg/1ml 12-11 Spirit 00:00: - [facility] Solumedrol Solumedrol 2018-0 No 40mg C ommon 40mg/1ml 40mg/1ml 12-11 Spirit 00:00: - [facility] Solumedrol Solumedrol 2018-0 No 40mg C ommon 40mg/1ml 40mg/1ml 12-11 Spirit 00:00: - [facility] Solumedrol Solumedrol 2018-0 No 40mg C ommon 40mg/1ml 40mg/1ml 12-11 Spirit 00:00: - [facility] Solumedrol Solumedrol 2018-0 No 40mg C ommon 40mg/1ml 40mg/1ml 12-11 Spirit 00:00: - [facility] montelukast 2018-0 Yes TAKE 1 Univ ers 10 mg 5-31 TABLET BY ity of tablet 00:00: MOUTH [place] 00 EVERY DAY Medical Branch atorvastati 2018-0 Yes 40mg Take 40 mg Univers n 40 mg 1-12 by mouth. ity of tablet 00:00: [place] [facility] fluticasone 2017-0 Yes 2{spray 2 Sprays. Univers 50 1-30 } ity of mcg/actuati 00:00: [place] on nasal 00 Medical spray Branch Atorvastati Atorvastati No Atorvastat n Calcium n Calcium in Calcium Losartan Losartan No 1{table QD Losartan Potassium-H Potassium-H t} Potassium- CTZ 100-25 CTZ 100-25 HCTZ MG MG 100-25 MG Montelukast Montelukast No Montelukas Sodium Sodium t Sodium Vitamin D Vitamin D No Vitamin D (Ergocalcif (Ergocalcif (Ergocalci osvaldo) osvaldo) ferol) Cetirizine Cetirizine No Cetirizine HCl HCl HCl Dicyclomine Dicyclomine No 1{table BID Dicyclomin HCl 10 MG HCl 10 MG t} e HCl 10 MG FreeStyle FreeStyle No FreeStyle Lite Test - Lite Test - Lite Test - [place] No [place] Combigan Combigan No 1{drop_ BID Combigan 0.2-0.5 % 0.2-0.5 % into_af 0.2-0.5 % fected_ eye} Meloxicam Meloxicam No Meloxicam Folic Acid Folic Acid No 1{table QD Folic Acid 1 MG 1 MG t} 1 MG Pantoprazol Pantoprazol No 1{table QD Pantoprazo e Sodium 40 e Sodium 40 t} le Sodium MG MG 40 MG Cholestyram Cholestyram No 1{packe QD Cholestyra ine 4 GM ine 4 GM t_mixed mine 4 GM _with_w ater_or _non-ca rbonate d_drink } Methocarbam Methocarbam No 1.5{tab 6xD Methocarba ol 500 MG ol 500 MG lets} mol 500 MG Ondansetron Ondansetron No 1{table TID Ondansetro HCl 4 MG HCl 4 MG t} n HCl 4 MG Famotidine Famotidine No Famotidine Azelastine Azelastine No QD Azelastine HCl 137 HCl 137 HCl 137 MCG/SPRAY MCG/SPRAY MCG/SPRAY Trelegy Trelegy No 1{puff} QD Trelegy Ellipta Ellipta Ellipta 100-62.5-25 100-62.5-25 100-62.5-2 MCG/INH MCG/INH 5 MCG/INH Diclofenac Diclofenac No Diclofenac Sodium 1 % Sodium 1 % Sodium 1 % Aspirin Aspirin No 1{table QD Aspirin Adult Low Adult Low t} Adult Low Strength 81 Strength 81 Strength MG MG 81 MG Restasis Restasis No 1{drop_ BID Restasis 0.05 % 0.05 % into_af 0.05 % fected_ eye} Lumigan Lumigan No 1{drop_ QD Lumigan 0.01 % 0.01 % into_af 0.01 % fected_ eye_in_ the_eve shayna} DULoxetine DULoxetine No QD DULoxetine HCl 60 MG HCl 60 MG HCl 60 MG Ventolin Ventolin No 2{puffs Ventolin HFA 108 (90 HFA 108 (90 _as_nee HFA 108 Base) Base) ded} (90 Base) MCG/ACT MCG/ACT MCG/ACT Gralise Gralise No Gralise predniSONE predniSONE No predniSONE Gabapentin Gabapentin No 1{table Gabapentin 600 MG 600 MG t} 600 MG Trelegy Trelegy No 1{puff} QD Trelegy Ellipta Ellipta Ellipta 100-62.5-25 100-62.5-25 100-62.5-2 MCG/INH MCG/INH 5 MCG/INH Albuterol Albuterol No 1{puff_ 6xD Albuterol Sulfate HFA Sulfate HFA as_need Sulfate 108 (90 108 (90 ed} HFA 108 Base) Base) (90 Base) MCG/ACT MCG/ACT MCG/ACT Montelukast Montelukast No Montelukas Sodium 10 Sodium 10 t Sodium MG MG 10 MG Methotrexat Methotrexat No Methotrexa e e te Sucralfate Sucralfate No Sucralfate Janumet Janumet No 1{table BID Janumet 50-1000 MG 50-1000 MG t_with_ 50-1000 MG meals} Pravastatin Pravastatin No 1{table QD Pravastati Sodium 40 Sodium 40 t} n Sodium MG MG 40 MG Janumet Janumet No 1{table BID Janumet 50-1000 MG 50-1000 MG t_with_ 50-1000 MG meals} Atorvastati Atorvastati No Atorvastat n Calcium n Calcium in Calcium Losartan Losartan No 1{table QD Losartan Potassium-H Potassium-H t} Potassium- CTZ 100-25 CTZ 100-25 HCTZ MG MG 100-25 MG Montelukast Montelukast No Montelukas Sodium Sodium t Sodium Vitamin D Vitamin D No Vitamin D (Ergocalcif (Ergocalcif (Ergocalci osvaldo) osvaldo) ferol) Janumet Janumet No 1{table BID Janumet 50-1000 MG 50-1000 MG t_with_ 50-1000 MG meals} Montelukast Montelukast No Montelukas Sodium Sodium t Sodium Methocarbam Methocarbam No 1.5{tab 6xD Methocarba ol 500 MG ol 500 MG lets} mol 500 MG Pravastatin Pravastatin No 1{table QD Pravastati Sodium 40 Sodium 40 t} n Sodium MG MG 40 MG Atorvastati Atorvastati No Atorvastat n Calcium n Calcium in Calcium Aspirin Aspirin No 1{table QD Aspirin Adult Low Adult Low t} Adult Low Strength 81 Strength 81 Strength MG MG 81 MG predniSONE predniSONE No QD predniSONE 20 MG 20 MG 20 MG Ondansetron Ondansetron No 1{table TID Ondansetro HCl 4 MG HCl 4 MG t} n HCl 4 MG Albuterol Albuterol No 1{puff_ 6xD Albuterol Sulfate HFA Sulfate HFA as_need Sulfate 108 (90 108 (90 ed} HFA 108 Base) Base) (90 Base) MCG/ACT MCG/ACT MCG/ACT FreeStyle FreeStyle No FreeStyle Lite Test - Lite Test - Lite Test - Restasis Restasis No 1{drop_ BID Restasis 0.05 % 0.05 % into_af 0.05 % fected_ eye} predniSONE predniSONE No predniSONE Dicyclomine Dicyclomine No 1{table BID Dicyclomin HCl 10 MG HCl 10 MG t} e HCl 10 MG Trelegy Trelegy No 1{puff} QD Trelegy Ellipta Ellipta Ellipta 100-62.5-25 100-62.5-25 100-62.5-2 MCG/INH MCG/INH 5 MCG/INH DULoxetine DULoxetine No QD DULoxetine HCl 60 MG HCl 60 MG HCl 60 MG Lumigan Lumigan No 1{drop_ QD Lumigan 0.01 % 0.01 % into_af 0.01 % fected_ eye_in_ the_eve shayna} Diclofenac Diclofenac No Diclofenac Sodium 1 % Sodium 1 % Sodium 1 % Methotrexat Methotrexat No Methotrexa e e te Azelastine Azelastine No QD Azelastine HCl 137 HCl 137 HCl 137 MCG/SPRAY MCG/SPRAY MCG/SPRAY Folic Acid Folic Acid No 1{table QD Folic Acid 1 MG 1 MG t} 1 MG Cetirizine Cetirizine No Cetirizine HCl HCl HCl Meloxicam Meloxicam No Meloxicam Janumet Janumet No 1{table BID Janumet 50-1000 MG 50-1000 MG t_with_ 50-1000 MG meals} Gralise Gralise No Gralise Gabapentin Gabapentin No 1{table Gabapentin 600 MG 600 MG t} 600 MG Azithromyci Azithromyci No QD Azithromyc n 250 MG n 250 MG in 250 MG [place] No [place] Benzonatate Benzonatate No 1{capsu TID Benzonatat 200 MG 200 MG le_as_n e 200 MG eeded} Vitamin D Vitamin D No Vitamin D (Ergocalcif (Ergocalcif (Ergocalci osvaldo) osvaldo) ferol) Combigan Combigan No 1{drop_ BID Combigan 0.2-0.5 % 0.2-0.5 % into_af 0.2-0.5 % fected_ eye} Losartan Losartan No 1{table QD Losartan Potassium-H Potassium-H t} Potassium- CTZ 100-25 CTZ 100-25 HCTZ MG MG 100-25 MG Montelukast Montelukast No Montelukas Sodium 10 Sodium 10 t Sodium MG MG 10 MG Trelegy Trelegy No 1{puff} QD Trelegy Ellipta Ellipta Ellipta 100-62.5-25 100-62.5-25 100-62.5-2 MCG/INH MCG/INH 5 MCG/INH Ventolin Ventolin No 2{puffs Ventolin HFA 108 (90 HFA 108 (90 _as_nee HFA 108 Base) Base) ded} (90 Base) MCG/ACT MCG/ACT MCG/ACT Cholestyram Cholestyram No 1{packe QD Cholestyra ine 4 GM ine 4 GM t_mixed mine 4 GM _with_w ater_or _non-ca rbonate d_drink } Famotidine Famotidine No Famotidine Sucralfate Sucralfate No Sucralfate Pantoprazol Pantoprazol No 1{table QD Pantoprazo e Sodium 40 e Sodium 40 t} le Sodium MG MG 40 MG Janumet Janumet No 1{table BID Janumet 50-1000 MG 50-1000 MG t_with_ 50-1000 MG meals} Montelukast Montelukast No Montelukas Sodium Sodium t Sodium Methocarbam Methocarbam No 1.5{tab 6xD Methocarba ol 500 MG ol 500 MG lets} mol 500 MG Pravastatin Pravastatin No 1{table QD Pravastati Sodium 40 Sodium 40 t} n Sodium MG MG 40 MG Atorvastati Atorvastati No Atorvastat n Calcium n Calcium in Calcium Aspirin Aspirin No 1{table QD Aspirin Adult Low Adult Low t} Adult Low Strength 81 Strength 81 Strength MG MG 81 MG predniSONE predniSONE No QD predniSONE 20 MG 20 MG 20 MG Ondansetron Ondansetron No 1{table TID Ondansetro HCl 4 MG HCl 4 MG t} n HCl 4 MG Albuterol Albuterol No 1{puff_ 6xD Albuterol Sulfate HFA Sulfate HFA as_need Sulfate 108 (90 108 (90 ed} HFA 108 Base) Base) (90 Base) MCG/ACT MCG/ACT MCG/ACT FreeStyle FreeStyle No FreeStyle Lite Test - Lite Test - Lite Test - Restasis Restasis No 1{drop_ BID Restasis 0.05 % 0.05 % into_af 0.05 % fected_ eye} predniSONE predniSONE No predniSONE Dicyclomine Dicyclomine No 1{table BID Dicyclomin HCl 10 MG HCl 10 MG t} e HCl 10 MG Trelegy Trelegy No 1{puff} QD Trelegy Ellipta Ellipta Ellipta 100-62.5-25 100-62.5-25 100-62.5-2 MCG/INH MCG/INH 5 MCG/INH DULoxetine DULoxetine No QD DULoxetine HCl 60 MG HCl 60 MG HCl 60 MG Lumigan Lumigan No 1{drop_ QD Lumigan 0.01 % 0.01 % into_af 0.01 % fected_ eye_in_ the_eve shayna} Diclofenac Diclofenac No Diclofenac Sodium 1 % Sodium 1 % Sodium 1 % Methotrexat Methotrexat No Methotrexa e e te Azelastine Azelastine No QD Azelastine HCl 137 HCl 137 HCl 137 MCG/SPRAY MCG/SPRAY MCG/SPRAY Folic Acid Folic Acid No 1{table QD Folic Acid 1 MG 1 MG t} 1 MG Cetirizine Cetirizine No Cetirizine HCl HCl HCl Meloxicam Meloxicam No Meloxicam Janumet Janumet No 1{table BID Janumet 50-1000 MG 50-1000 MG t_with_ 50-1000 MG meals} Gralise Gralise No Gralise Gabapentin Gabapentin No 1{table Gabapentin 600 MG 600 MG t} 600 MG Azithromyci Azithromyci No QD Azithromyc n 250 MG n 250 MG in 250 MG [place] No [place] Benzonatate Benzonatate No 1{capsu TID Benzonatat 200 MG 200 MG le_as_n e 200 MG eeded} Vitamin D Vitamin D No Vitamin D (Ergocalcif (Ergocalcif (Ergocalci osvaldo) osvaldo) ferol) Combigan Combigan No 1{drop_ BID Combigan 0.2-0.5 % 0.2-0.5 % into_af 0.2-0.5 % fected_ eye} Losartan Losartan No 1{table QD Losartan Potassium-H Potassium-H t} Potassium- CTZ 100-25 CTZ 100-25 HCTZ MG MG 100-25 MG Montelukast Montelukast No Montelukas Sodium 10 Sodium 10 t Sodium MG MG 10 MG Trelegy Trelegy No 1{puff} QD Trelegy Ellipta Ellipta Ellipta 100-62.5-25 100-62.5-25 100-62.5-2 MCG/INH MCG/INH 5 MCG/INH Ventolin Ventolin No 2{puffs Ventolin HFA 108 (90 HFA 108 (90 _as_nee HFA 108 Base) Base) ded} (90 Base) MCG/ACT MCG/ACT MCG/ACT Cholestyram Cholestyram No 1{packe QD Cholestyra ine 4 GM ine 4 GM t_mixed mine 4 GM _with_w ater_or _non-ca rbonate d_drink } Famotidine Famotidine No Famotidine Sucralfate Sucralfate No Sucralfate Pantoprazol Pantoprazol No 1{table QD Pantoprazo e Sodium 40 e Sodium 40 t} le Sodium MG MG 40 MG Janumet Janumet No 1{table BID Janumet 50-1000 MG 50-1000 MG t_with_ 50-1000 MG meals} Montelukast Montelukast No Montelukas Sodium Sodium t Sodium Methocarbam Methocarbam No 1.5{tab 6xD Methocarba ol 500 MG ol 500 MG lets} mol 500 MG Pravastatin Pravastatin No 1{table QD Pravastati Sodium 40 Sodium 40 t} n Sodium MG MG 40 MG Atorvastati Atorvastati No Atorvastat n Calcium n Calcium in Calcium Aspirin Aspirin No 1{table QD Aspirin Adult Low Adult Low t} Adult Low Strength 81 Strength 81 Strength MG MG 81 MG predniSONE predniSONE No QD predniSONE 20 MG 20 MG 20 MG Ondansetron Ondansetron No 1{table TID Ondansetro HCl 4 MG HCl 4 MG t} n HCl 4 MG Albuterol Albuterol No 1{puff_ 6xD Albuterol Sulfate HFA Sulfate HFA as_need Sulfate 108 (90 108 (90 ed} HFA 108 Base) Base) (90 Base) MCG/ACT MCG/ACT MCG/ACT FreeStyle FreeStyle No FreeStyle Lite Test - Lite Test - Lite Test - Restasis Restasis No 1{drop_ BID Restasis 0.05 % 0.05 % into_af 0.05 % fected_ eye} predniSONE predniSONE No predniSONE Dicyclomine Dicyclomine No 1{table BID Dicyclomin HCl 10 MG HCl 10 MG t} e HCl 10 MG Trelegy Trelegy No 1{puff} QD Trelegy Ellipta Ellipta Ellipta 100-62.5-25 100-62.5-25 100-62.5-2 MCG/INH MCG/INH 5 MCG/INH DULoxetine DULoxetine No QD DULoxetine HCl 60 MG HCl 60 MG HCl 60 MG Lumigan Lumigan No 1{drop_ QD Lumigan 0.01 % 0.01 % into_af 0.01 % fected_ eye_in_ the_eve shayna} Diclofenac Diclofenac No Diclofenac Sodium 1 % Sodium 1 % Sodium 1 % Methotrexat Methotrexat No Methotrexa e e te Azelastine Azelastine No QD Azelastine HCl 137 HCl 137 HCl 137 MCG/SPRAY MCG/SPRAY MCG/SPRAY Folic Acid Folic Acid No 1{table QD Folic Acid 1 MG 1 MG t} 1 MG Cetirizine Cetirizine No Cetirizine HCl HCl HCl Meloxicam Meloxicam No Meloxicam Janumet Janumet No 1{table BID Janumet 50-1000 MG 50-1000 MG t_with_ 50-1000 MG meals} Gralise Gralise No Gralise Gabapentin Gabapentin No 1{table Gabapentin 600 MG 600 MG t} 600 MG Azithromyci Azithromyci No QD Azithromyc n 250 MG n 250 MG in 250 MG [place] No [place] Benzonatate Benzonatate No 1{capsu TID Benzonatat 200 MG 200 MG le_as_n e 200 MG eeded} Vitamin D Vitamin D No Vitamin D (Ergocalcif (Ergocalcif (Ergocalci osvaldo) osvaldo) ferol) Combigan Combigan No 1{drop_ BID Combigan 0.2-0.5 % 0.2-0.5 % into_af 0.2-0.5 % fected_ eye} Losartan Losartan No 1{table QD Losartan Potassium-H Potassium-H t} Potassium- CTZ 100-25 CTZ 100-25 HCTZ MG MG 100-25 MG Montelukast Montelukast No Montelukas Sodium 10 Sodium 10 t Sodium MG MG 10 MG Trelegy Trelegy No 1{puff} QD Trelegy Ellipta Ellipta Ellipta 100-62.5-25 100-62.5-25 100-62.5-2 MCG/INH MCG/INH 5 MCG/INH Ventolin Ventolin No 2{puffs Ventolin HFA 108 (90 HFA 108 (90 _as_nee HFA 108 Base) Base) ded} (90 Base) MCG/ACT MCG/ACT MCG/ACT Cholestyram Cholestyram No 1{packe QD Cholestyra ine 4 GM ine 4 GM t_mixed mine 4 GM _with_w ater_or _non-ca rbonate d_drink } Famotidine Famotidine No Famotidine Sucralfate Sucralfate No Sucralfate Pantoprazol Pantoprazol No 1{table QD Pantoprazo e Sodium 40 e Sodium 40 t} le Sodium MG MG 40 MG Janumet Janumet No 1{table BID Janumet 50-1000 MG 50-1000 MG t_with_ 50-1000 MG meals} Montelukast Montelukast No Montelukas Sodium Sodium t Sodium Methocarbam Methocarbam No 1.5{tab 6xD Methocarba ol 500 MG ol 500 MG lets} mol 500 MG Pravastatin Pravastatin No 1{table QD Pravastati Sodium 40 Sodium 40 t} n Sodium MG MG 40 MG Atorvastati Atorvastati No Atorvastat n Calcium n Calcium in Calcium Aspirin Aspirin No 1{table QD Aspirin Adult Low Adult Low t} Adult Low Strength 81 Strength 81 Strength MG MG 81 MG predniSONE predniSONE No QD predniSONE 20 MG 20 MG 20 MG Ondansetron Ondansetron No 1{table TID Ondansetro HCl 4 MG HCl 4 MG t} n HCl 4 MG Albuterol Albuterol No 1{puff_ 6xD Albuterol Sulfate HFA Sulfate HFA as_need Sulfate 108 (90 108 (90 ed} HFA 108 Base) Base) (90 Base) MCG/ACT MCG/ACT MCG/ACT FreeStyle FreeStyle No FreeStyle Lite Test - Lite Test - Lite Test - Restasis Restasis No 1{drop_ BID Restasis 0.05 % 0.05 % into_af 0.05 % fected_ eye} predniSONE predniSONE No predniSONE Dicyclomine Dicyclomine No 1{table BID Dicyclomin HCl 10 MG HCl 10 MG t} e HCl 10 MG Trelegy Trelegy No 1{puff} QD Trelegy Ellipta Ellipta Ellipta 100-62.5-25 100-62.5-25 100-62.5-2 MCG/INH MCG/INH 5 MCG/INH DULoxetine DULoxetine No QD DULoxetine HCl 60 MG HCl 60 MG HCl 60 MG Lumigan Lumigan No 1{drop_ QD Lumigan 0.01 % 0.01 % into_af 0.01 % fected_ eye_in_ the_eve shayna} Diclofenac Diclofenac No Diclofenac Sodium 1 % Sodium 1 % Sodium 1 % Methotrexat Methotrexat No Methotrexa e e te Azelastine Azelastine No QD Azelastine HCl 137 HCl 137 HCl 137 MCG/SPRAY MCG/SPRAY MCG/SPRAY Folic Acid Folic Acid No 1{table QD Folic Acid 1 MG 1 MG t} 1 MG Cetirizine Cetirizine No Cetirizine HCl HCl HCl Meloxicam Meloxicam No Meloxicam Janumet Janumet No 1{table BID Janumet 50-1000 MG 50-1000 MG t_with_ 50-1000 MG meals} Gralise Gralise No Gralise Gabapentin Gabapentin No 1{table Gabapentin 600 MG 600 MG t} 600 MG Azithromyci Azithromyci No QD Azithromyc n 250 MG n 250 MG in 250 MG [place] No [place] Benzonatate Benzonatate No 1{capsu TID Benzonatat 200 MG 200 MG le_as_n e 200 MG eeded} Vitamin D Vitamin D No Vitamin D (Ergocalcif (Ergocalcif (Ergocalci osvaldo) osvaldo) ferol) Combigan Combigan No 1{drop_ BID Combigan 0.2-0.5 % 0.2-0.5 % into_af 0.2-0.5 % fected_ eye} Losartan Losartan No 1{table QD Losartan Potassium-H Potassium-H t} Potassium- CTZ 100-25 CTZ 100-25 HCTZ MG MG 100-25 MG Montelukast Montelukast No Montelukas Sodium 10 Sodium 10 t Sodium MG MG 10 MG Trelegy Trelegy No 1{puff} QD Trelegy Ellipta Ellipta Ellipta 100-62.5-25 100-62.5-25 100-62.5-2 MCG/INH MCG/INH 5 MCG/INH Ventolin Ventolin No 2{puffs Ventolin HFA 108 (90 HFA 108 (90 _as_nee HFA 108 Base) Base) ded} (90 Base) MCG/ACT MCG/ACT MCG/ACT Cholestyram Cholestyram No 1{packe QD Cholestyra ine 4 GM ine 4 GM t_mixed mine 4 GM _with_w ater_or _non-ca rbonate d_drink } Famotidine Famotidine No Famotidine Sucralfate Sucralfate No Sucralfate Pantoprazol Pantoprazol No 1{table QD Pantoprazo e Sodium 40 e Sodium 40 t} le Sodium MG MG 40 MG Janumet Janumet No 1{table BID Janumet 50-1000 MG 50-1000 MG t_with_ 50-1000 MG meals} Montelukast Montelukast No Montelukas Sodium Sodium t Sodium Methocarbam Methocarbam No 1.5{tab 6xD Methocarba ol 500 MG ol 500 MG lets} mol 500 MG Montelukast Montelukast No Montelukas Sodium 10 Sodium 10 t Sodium MG MG 10 MG Atorvastati Atorvastati No Atorvastat n Calcium n Calcium in Calcium Aspirin Aspirin No 1{table QD Aspirin Adult Low Adult Low t} Adult Low Strength 81 Strength 81 Strength MG MG 81 MG predniSONE predniSONE No QD predniSONE 20 MG 20 MG 20 MG Ondansetron Ondansetron No 1{table TID Ondansetro HCl 4 MG HCl 4 MG t} n HCl 4 MG Albuterol Albuterol No 1{puff_ 6xD Albuterol Sulfate HFA Sulfate HFA as_need Sulfate 108 (90 108 (90 ed} HFA 108 Base) Base) (90 Base) MCG/ACT MCG/ACT MCG/ACT FreeStyle FreeStyle No FreeStyle Lite Test - Lite Test - Lite Test - Restasis Restasis No 1{drop_ BID Restasis 0.05 % 0.05 % into_af 0.05 % fected_ eye} predniSONE predniSONE No predniSONE Dicyclomine Dicyclomine No 1{table BID Dicyclomin HCl 10 MG HCl 10 MG t} e HCl 10 MG Trelegy Trelegy No 1{puff} QD Trelegy Ellipta Ellipta Ellipta 100-62.5-25 100-62.5-25 100-62.5-2 MCG/INH MCG/INH 5 MCG/INH DULoxetine DULoxetine No QD DULoxetine HCl 60 MG HCl 60 MG HCl 60 MG Lumigan Lumigan No 1{drop_ QD Lumigan 0.01 % 0.01 % into_af 0.01 % fected_ eye_in_ the_eve shayna} Diclofenac Diclofenac No Diclofenac Sodium 1 % Sodium 1 % Sodium 1 % Methotrexat Methotrexat No Methotrexa e e te Azelastine Azelastine No QD Azelastine HCl 137 HCl 137 HCl 137 MCG/SPRAY MCG/SPRAY MCG/SPRAY Folic Acid Folic Acid No 1{table QD Folic Acid 1 MG 1 MG t} 1 MG Meloxicam Meloxicam No Meloxicam Trelegy Trelegy No 1{puff} QD Trelegy Ellipta Ellipta Ellipta 100-62.5-25 100-62.5-25 100-62.5-2 MCG/INH MCG/INH 5 MCG/INH Ventolin Ventolin No 2{puffs Ventolin HFA 108 (90 HFA 108 (90 _as_nee HFA 108 Base) Base) ded} (90 Base) MCG/ACT MCG/ACT MCG/ACT [place] No [place] Gabapentin Gabapentin No 1{table Gabapentin 600 MG 600 MG t} 600 MG Losartan Losartan No 1{table QD Losartan Potassium-H Potassium-H t} Potassium- CTZ 100-25 CTZ 100-25 HCTZ MG MG 100-25 MG Cetirizine Cetirizine No Cetirizine HCl HCl HCl Benzonatate Benzonatate No 1{capsu TID Benzonatat 200 MG 200 MG le_as_n e 200 MG eeded} Vitamin D Vitamin D No Vitamin D (Ergocalcif (Ergocalcif (Ergocalci osvaldo) osvaldo) ferol) Combigan Combigan No 1{drop_ BID Combigan 0.2-0.5 % 0.2-0.5 % into_af 0.2-0.5 % fected_ eye} Janumet Janumet No 1{table BID Janumet 50-1000 MG 50-1000 MG t_with_ 50-1000 MG meals} Gralise Gralise No Gralise Azithromyci Azithromyci No QD Azithromyc n 250 MG n 250 MG in 250 MG Famotidine Famotidine No Famotidine Sucralfate Sucralfate No Sucralfate Cholestyram Cholestyram No 1{packe QD Cholestyra ine 4 GM ine 4 GM t_mixed mine 4 GM _with_w ater_or _non-ca rbonate d_drink } Pantoprazol Pantoprazol No 1{table QD Pantoprazo e Sodium 40 e Sodium 40 t} le Sodium MG MG 40 MG Pravastatin Pravastatin No Pravastati Sodium 40 Sodium 40 n Sodium MG MG 40 MG Janumet Janumet No 1{table BID Janumet 50-1000 MG 50-1000 MG t_with_ 50-1000 MG meals} Benzonatate Benzonatate No 1{capsu TID Benzonatat 200 MG 200 MG le_as_n e 200 MG eeded} Pravastatin Pravastatin No 1{table QD Pravastati Sodium 40 Sodium 40 t} n Sodium MG MG 40 MG [place] No [place] Losartan Losartan No 1{table QD Losartan Potassium-H Potassium-H t} Potassium- CTZ 100-25 CTZ 100-25 HCTZ MG MG 100-25 MG predniSONE predniSONE No predniSONE FreeStyle FreeStyle No FreeStyle Lite Test - Lite Test - Lite Test - DULoxetine DULoxetine No QD DULoxetine HCl 60 MG HCl 60 MG HCl 60 MG Diclofenac Diclofenac No Diclofenac Sodium 1 % Sodium 1 % Sodium 1 % Gralise Gralise No Gralise Trelegy Trelegy No 1{puff} QD Trelegy Ellipta Ellipta Ellipta 100-62.5-25 100-62.5-25 100-62.5-2 MCG/INH MCG/INH 5 MCG/INH Albuterol Albuterol No 1{puff_ 6xD Albuterol Sulfate HFA Sulfate HFA as_need Sulfate 108 (90 108 (90 ed} HFA 108 Base) Base) (90 Base) MCG/ACT MCG/ACT MCG/ACT Cholestyram Cholestyram No 1{packe QD Cholestyra ine 4 GM ine 4 GM t_mixed mine 4 GM _with_w ater_or _non-ca rbonate d_drink } Ondansetron Ondansetron No 1{table TID Ondansetro HCl 4 MG HCl 4 MG t} n HCl 4 MG Ventolin Ventolin No 2{puffs Ventolin HFA 108 (90 HFA 108 (90 _as_nee HFA 108 Base) Base) ded} (90 Base) MCG/ACT MCG/ACT MCG/ACT Sucralfate Sucralfate No Sucralfate Folic Acid Folic Acid No 1{table QD Folic Acid 1 MG 1 MG t} 1 MG Combigan Combigan No 1{drop_ BID Combigan 0.2-0.5 % 0.2-0.5 % into_af 0.2-0.5 % fected_ eye} Gabapentin Gabapentin No 1{table Gabapentin 600 MG 600 MG t} 600 MG Dicyclomine Dicyclomine No 1{table BID Dicyclomin HCl 10 MG HCl 10 MG t} e HCl 10 MG Meloxicam Meloxicam No Meloxicam Atorvastati Atorvastati No Atorvastat n Calcium n Calcium in Calcium Pravastatin Pravastatin No Pravastati Sodium 40 Sodium 40 n Sodium MG MG 40 MG Cetirizine Cetirizine No Cetirizine HCl HCl HCl Janumet Janumet No 1{table BID Janumet 50-1000 MG 50-1000 MG t_with_ 50-1000 MG meals} Vitamin D Vitamin D No Vitamin D (Ergocalcif (Ergocalcif (Ergocalci osvaldo) osvaldo) ferol) Montelukast Montelukast No Montelukas Sodium Sodium t Sodium Azithromyci Azithromyci No QD Azithromyc n 250 MG n 250 MG in 250 MG predniSONE predniSONE No QD predniSONE 20 MG 20 MG 20 MG Methotrexat Methotrexat No Methotrexa e e te Pantoprazol Pantoprazol No 1{table QD Pantoprazo e Sodium 40 e Sodium 40 t} le Sodium MG MG 40 MG Montelukast Montelukast No Montelukas Sodium 10 Sodium 10 t Sodium MG MG 10 MG Famotidine Famotidine No Famotidine Aspirin Aspirin No 1{table QD Aspirin Adult Low Adult Low t} Adult Low Strength 81 Strength 81 Strength MG MG 81 MG Lumigan Lumigan No 1{drop_ QD Lumigan 0.01 % 0.01 % into_af 0.01 % fected_ eye_in_ the_eve shayna} Azelastine Azelastine No QD Azelastine HCl 137 HCl 137 HCl 137 MCG/SPRAY MCG/SPRAY MCG/SPRAY Methocarbam Methocarbam No 1.5{tab 6xD Methocarba ol 500 MG ol 500 MG lets} mol 500 MG Restasis Restasis No 1{drop_ BID Restasis 0.05 % 0.05 % into_af 0.05 % fected_ eye} Trelegy Trelegy No 1{puff} QD Trelegy Ellipta Ellipta Ellipta 100-62.5-25 100-62.5-25 100-62.5-2 MCG/INH MCG/INH 5 MCG/INH Montelukast Montelukast No Montelukas Sodium Sodium t Sodium Janumet Janumet No 1{table BID Janumet 50-1000 MG 50-1000 MG t_with_ 50-1000 MG meals} Pravastatin Pravastatin No 1{table QD Pravastati Sodium 40 Sodium 40 t} n Sodium MG MG 40 MG Meloxicam Meloxicam No Meloxicam Ventolin Ventolin No 2{puffs Ventolin HFA 108 (90 HFA 108 (90 _as_nee HFA 108 Base) Base) ded} (90 Base) MCG/ACT MCG/ACT MCG/ACT DULoxetine DULoxetine No QD DULoxetine HCl 60 MG HCl 60 MG HCl 60 MG Montelukast Montelukast No Montelukas Sodium 10 Sodium 10 t Sodium MG MG 10 MG predniSONE predniSONE No QD predniSONE 20 MG 20 MG 20 MG Methotrexat Methotrexat No Methotrexa e e te Cetirizine Cetirizine No Cetirizine HCl HCl HCl Azithromyci Azithromyci No QD Azithromyc n 250 MG n 250 MG in 250 MG Gabapentin Gabapentin No 1{table Gabapentin 600 MG 600 MG t} 600 MG Benzonatate Benzonatate No 1{capsu TID Benzonatat 200 MG 200 MG le_as_n e 200 MG eeded} Albuterol Albuterol No 1{puff_ 6xD Albuterol Sulfate HFA Sulfate HFA as_need Sulfate 108 (90 108 (90 ed} HFA 108 Base) Base) (90 Base) MCG/ACT MCG/ACT MCG/ACT [place] No [place] Losartan Losartan No 1{table QD Losartan Potassium-H Potassium-H t} Potassium- CTZ 100-25 CTZ 100-25 HCTZ MG MG 100-25 MG predniSONE predniSONE No predniSONE Trelegy Trelegy No 1{puff} QD Trelegy Ellipta Ellipta Ellipta 100-62.5-25 100-62.5-25 100-62.5-2 MCG/INH MCG/INH 5 MCG/INH Trelegy Trelegy No 1{puff} QD Trelegy Ellipta Ellipta Ellipta 100-62.5-25 100-62.5-25 100-62.5-2 MCG/INH MCG/INH 5 MCG/INH Diclofenac Diclofenac No Diclofenac Sodium 1 % Sodium 1 % Sodium 1 % Cholestyram Cholestyram No 1{packe QD Cholestyra ine 4 GM ine 4 GM t_mixed mine 4 GM _with_w ater_or _non-ca rbonate d_drink } Sucralfate Sucralfate No Sucralfate Combigan Combigan No 1{drop_ BID Combigan 0.2-0.5 % 0.2-0.5 % into_af 0.2-0.5 % fected_ eye} Famotidine Famotidine No Famotidine Gralise Gralise No Gralise Methocarbam Methocarbam No 1.5{tab 6xD Methocarba ol 500 MG ol 500 MG lets} mol 500 MG Vitamin D Vitamin D No Vitamin D (Ergocalcif (Ergocalcif (Ergocalci osvaldo) osvaldo) ferol) Janumet Janumet No 1{table BID Janumet 50-1000 MG 50-1000 MG t_with_ 50-1000 MG meals} FreeStyle FreeStyle No FreeStyle Lite Test - Lite Test - Lite Test - Pravastatin Pravastatin No Pravastati Sodium 40 Sodium 40 n Sodium MG MG 40 MG Aspirin Aspirin No 1{table QD Aspirin Adult Low Adult Low t} Adult Low Strength 81 Strength 81 Strength MG MG 81 MG Atorvastati Atorvastati No Atorvastat n Calcium n Calcium in Calcium Pantoprazol Pantoprazol No 1{table QD Pantoprazo e Sodium 40 e Sodium 40 t} le Sodium MG MG 40 MG Dicyclomine Dicyclomine No 1{table BID Dicyclomin HCl 10 MG HCl 10 MG t} e HCl 10 MG Lumigan Lumigan No 1{drop_ QD Lumigan 0.01 % 0.01 % into_af 0.01 % fected_ eye_in_ the_eve shayna} Azelastine Azelastine No QD Azelastine HCl 137 HCl 137 HCl 137 MCG/SPRAY MCG/SPRAY MCG/SPRAY Folic Acid Folic Acid No 1{table QD Folic Acid 1 MG 1 MG t} 1 MG Ondansetron Ondansetron No 1{table TID Ondansetro HCl 4 MG HCl 4 MG t} n HCl 4 MG Restasis Restasis No 1{drop_ BID Restasis 0.05 % 0.05 % into_af 0.05 % fected_ eye} Pravastatin Pravastatin No Pravastati Sodium 40 Sodium 40 n Sodium MG MG 40 MG Restasis Restasis No 1{drop_ BID Restasis 0.05 % 0.05 % into_af 0.05 % fected_ eye} predniSONE predniSONE No predniSONE Sucralfate Sucralfate No Sucralfate Trelegy Trelegy No 1{puff} QD Trelegy Ellipta Ellipta Ellipta 100-62.5-25 100-62.5-25 100-62.5-2 MCG/INH MCG/INH 5 MCG/INH Aspirin Aspirin No 1{table QD Aspirin Adult Low Adult Low t} Adult Low Strength 81 Strength 81 Strength MG MG 81 MG Folic Acid Folic Acid No 1{table QD Folic Acid 1 MG 1 MG t} 1 MG Pravastatin Pravastatin No 1{table QD Pravastati Sodium 40 Sodium 40 t} n Sodium MG MG 40 MG Lumigan Lumigan No 1{drop_ QD Lumigan 0.01 % 0.01 % into_af 0.01 % fected_ eye_in_ the_eve shayna} Cholestyram Cholestyram No 1{packe QD Cholestyra ine 4 GM ine 4 GM t_mixed mine 4 GM _with_w ater_or _non-ca rbonate d_drink } DULoxetine DULoxetine No QD DULoxetine HCl 60 MG HCl 60 MG HCl 60 MG Ondansetron Ondansetron No 1{table TID Ondansetro HCl 4 MG HCl 4 MG t} n HCl 4 MG Albuterol Albuterol No 1{puff_ 6xD Albuterol Sulfate HFA Sulfate HFA as_need Sulfate 108 (90 108 (90 ed} HFA 108 Base) Base) (90 Base) MCG/ACT MCG/ACT MCG/ACT Combigan Combigan No 1{drop_ BID Combigan 0.2-0.5 % 0.2-0.5 % into_af 0.2-0.5 % fected_ eye} Diclofenac Diclofenac No Diclofenac Sodium 1 % Sodium 1 % Sodium 1 % Famotidine Famotidine No Famotidine predniSONE predniSONE No QD predniSONE 20 MG 20 MG 20 MG Dicyclomine Dicyclomine No 1{table BID Dicyclomin HCl 10 MG HCl 10 MG t} e HCl 10 MG Vitamin D Vitamin D No Vitamin D (Ergocalcif (Ergocalcif (Ergocalci osvaldo) osvaldo) ferol) Methocarbam Methocarbam No 1.5{tab 6xD Methocarba ol 500 MG ol 500 MG lets} mol 500 MG Albuterol Albuterol No 2{puffs Albuterol Sulfate HFA Sulfate HFA } Sulfate 108 (90 108 (90 HFA 108 Base) Base) (90 Base) MCG/ACT MCG/ACT MCG/ACT Atorvastati Atorvastati No Atorvastat n Calcium n Calcium in Calcium Cetirizine Cetirizine No Cetirizine HCl HCl HCl Montelukast Montelukast No Montelukas Sodium Sodium t Sodium Janumet Janumet No 1{table BID Janumet 50-1000 MG 50-1000 MG t_with_ 50-1000 MG meals} Gabapentin Gabapentin No 1{table Gabapentin 600 MG 600 MG t} 600 MG FreeStyle FreeStyle No FreeStyle Lite Test - Lite Test - Lite Test - Montelukast Montelukast No Montelukas Sodium 10 Sodium 10 t Sodium MG MG 10 MG Benzonatate Benzonatate No 1{capsu TID Benzonatat 200 MG 200 MG le_as_n e 200 MG eeded} Azelastine Azelastine No QD Azelastine HCl 137 HCl 137 HCl 137 MCG/SPRAY MCG/SPRAY MCG/SPRAY Trelegy Trelegy No 1{puff} QD Trelegy Ellipta Ellipta Ellipta 100-62.5-25 100-62.5-25 100-62.5-2 MCG/INH MCG/INH 5 MCG/INH Gralise Gralise No Gralise Methotrexat Methotrexat No Methotrexa e e te Meloxicam Meloxicam No Meloxicam [place] No [place] Azithromyci Azithromyci No QD Azithromyc n 250 MG n 250 MG in 250 MG Janumet Janumet No 1{table BID Janumet 50-1000 MG 50-1000 MG t_with_ 50-1000 MG meals} Pantoprazol Pantoprazol No 1{table QD Pantoprazo e Sodium 40 e Sodium 40 t} le Sodium MG MG 40 MG Ventolin Ventolin No 2{puffs Ventolin HFA 108 (90 HFA 108 (90 _as_nee HFA 108 Base) Base) ded} (90 Base) MCG/ACT MCG/ACT MCG/ACT Losartan Losartan No 1{table QD Losartan Potassium-H Potassium-H t} Potassium- CTZ 100-25 CTZ 100-25 HCTZ MG MG 100-25 MG Pravastatin Pravastatin No Pravastati Sodium 40 Sodium 40 n Sodium MG MG 40 MG Restasis Restasis No 1{drop_ BID Restasis 0.05 % 0.05 % into_af 0.05 % fected_ eye} predniSONE predniSONE No predniSONE Sucralfate Sucralfate No Sucralfate Trelegy Trelegy No 1{puff} QD Trelegy Ellipta Ellipta Ellipta 100-62.5-25 100-62.5-25 100-62.5-2 MCG/INH MCG/INH 5 MCG/INH Aspirin Aspirin No 1{table QD Aspirin Adult Low Adult Low t} Adult Low Strength 81 Strength 81 Strength MG MG 81 MG Folic Acid Folic Acid No 1{table QD Folic Acid 1 MG 1 MG t} 1 MG Pravastatin Pravastatin No 1{table QD Pravastati Sodium 40 Sodium 40 t} n Sodium MG MG 40 MG Lumigan Lumigan No 1{drop_ QD Lumigan 0.01 % 0.01 % into_af 0.01 % fected_ eye_in_ the_eve shayna} Cholestyram Cholestyram No 1{packe QD Cholestyra ine 4 GM ine 4 GM t_mixed mine 4 GM _with_w ater_or _non-ca rbonate d_drink } DULoxetine DULoxetine No QD DULoxetine HCl 60 MG HCl 60 MG HCl 60 MG Ondansetron Ondansetron No 1{table TID Ondansetro HCl 4 MG HCl 4 MG t} n HCl 4 MG Albuterol Albuterol No 1{puff_ 6xD Albuterol Sulfate HFA Sulfate HFA as_need Sulfate 108 (90 108 (90 ed} HFA 108 Base) Base) (90 Base) MCG/ACT MCG/ACT MCG/ACT Combigan Combigan No 1{drop_ BID Combigan 0.2-0.5 % 0.2-0.5 % into_af 0.2-0.5 % fected_ eye} Diclofenac Diclofenac No Diclofenac Sodium 1 % Sodium 1 % Sodium 1 % Famotidine Famotidine No Famotidine predniSONE predniSONE No QD predniSONE 20 MG 20 MG 20 MG Dicyclomine Dicyclomine No 1{table BID Dicyclomin HCl 10 MG HCl 10 MG t} e HCl 10 MG Vitamin D Vitamin D No Vitamin D (Ergocalcif (Ergocalcif (Ergocalci osvaldo) osvaldo) ferol) Methocarbam Methocarbam No 1.5{tab 6xD Methocarba ol 500 MG ol 500 MG lets} mol 500 MG Albuterol Albuterol No 2{puffs Albuterol Sulfate HFA Sulfate HFA } Sulfate 108 (90 108 (90 HFA 108 Base) Base) (90 Base) MCG/ACT MCG/ACT MCG/ACT Atorvastati Atorvastati No Atorvastat n Calcium n Calcium in Calcium Cetirizine Cetirizine No Cetirizine HCl HCl HCl Montelukast Montelukast No Montelukas Sodium Sodium t Sodium Janumet Janumet No 1{table BID Janumet 50-1000 MG 50-1000 MG t_with_ 50-1000 MG meals} Gabapentin Gabapentin No 1{table Gabapentin 600 MG 600 MG t} 600 MG FreeStyle FreeStyle No FreeStyle Lite Test - Lite Test - Lite Test - Montelukast Montelukast No Montelukas Sodium 10 Sodium 10 t Sodium MG MG 10 MG Benzonatate Benzonatate No 1{capsu TID Benzonatat 200 MG 200 MG le_as_n e 200 MG eeded} Azelastine Azelastine No QD Azelastine HCl 137 HCl 137 HCl 137 MCG/SPRAY MCG/SPRAY MCG/SPRAY Trelegy Trelegy No 1{puff} QD Trelegy Ellipta Ellipta Ellipta 100-62.5-25 100-62.5-25 100-62.5-2 MCG/INH MCG/INH 5 MCG/INH Gralise Gralise No Gralise Methotrexat Methotrexat No Methotrexa e e te Meloxicam Meloxicam No Meloxicam [place] No [place] Azithromyci Azithromyci No QD Azithromyc n 250 MG n 250 MG in 250 MG Janumet Janumet No 1{table BID Janumet 50-1000 MG 50-1000 MG t_with_ 50-1000 MG meals} Pantoprazol Pantoprazol No 1{table QD Pantoprazo e Sodium 40 e Sodium 40 t} le Sodium MG MG 40 MG Ventolin Ventolin No 2{puffs Ventolin HFA 108 (90 HFA 108 (90 _as_nee HFA 108 Base) Base) ded} (90 Base) MCG/ACT MCG/ACT MCG/ACT Losartan Losartan No 1{table QD Losartan Potassium-H Potassium-H t} Potassium- CTZ 100-25 CTZ 100-25 HCTZ MG MG 100-25 MG [place] No [place] Pantoprazol Pantoprazol No 1{table QD Pantoprazo e Sodium 40 e Sodium 40 t} le Sodium MG MG 40 MG Trelegy Trelegy No 1{puff} QD Trelegy Ellipta Ellipta Ellipta 100-62.5-25 100-62.5-25 100-62.5-2 MCG/INH MCG/INH 5 MCG/INH Montelukast Montelukast No Montelukas Sodium 10 Sodium 10 t Sodium MG MG 10 MG Pravastatin Pravastatin No 1{table QD Pravastati Sodium 40 Sodium 40 t} n Sodium MG MG 40 MG FreeStyle FreeStyle No FreeStyle Lite Test - Lite Test - Lite Test - Combigan Combigan No 1{drop_ BID Combigan 0.2-0.5 % 0.2-0.5 % into_af 0.2-0.5 % fected_ eye} Janumet Janumet No Janumet 50-1000 MG 50-1000 MG 50-1000 MG Gabapentin Gabapentin No 1{table Gabapentin 600 MG 600 MG t} 600 MG Albuterol Albuterol No 1{puff_ 6xD Albuterol Sulfate HFA Sulfate HFA as_need Sulfate 108 (90 108 (90 ed} HFA 108 Base) Base) (90 Base) MCG/ACT MCG/ACT MCG/ACT amLODIPine amLODIPine No 1{table QD amLODIPine Besylate 5 Besylate 5 t} Besylate 5 MG MG MG Pravastatin Pravastatin No Pravastati Sodium 40 Sodium 40 n Sodium MG MG 40 MG Diclofenac Diclofenac No Diclofenac Sodium 1 % Sodium 1 % Sodium 1 % Combigan Combigan No 1{drop_ BID Combigan 0.2-0.5 % 0.2-0.5 % into_af 0.2-0.5 % fected_ eye} predniSONE predniSONE No predniSONE DULoxetine DULoxetine No QD DULoxetine HCl 60 MG HCl 60 MG HCl 60 MG Lumigan Lumigan No 1{drop_ QD Lumigan 0.01 % 0.01 % into_af 0.01 % fected_ eye_in_ the_eve shayna} Gralise Gralise No Gralise Losartan Losartan No 1{table QD Losartan Potassium-H Potassium-H t} Potassium- CTZ 100-25 CTZ 100-25 HCTZ MG MG 100-25 MG Atorvastati Atorvastati No 1{table QD Atorvastat n Calcium n Calcium t} in Calcium 40 MG 40 MG 40 MG Dicyclomine Dicyclomine No 1{table BID Dicyclomin HCl 10 MG HCl 10 MG t} e HCl 10 MG tiZANidine tiZANidine No 1{table QD tiZANidine HCl 4 MG HCl 4 MG t_as_ne HCl 4 MG eded} Ondansetron Ondansetron No 1{table TID Ondansetro HCl 4 MG HCl 4 MG t} n HCl 4 MG Restasis Restasis No 1{drop_ BID Restasis 0.05 % 0.05 % into_af 0.05 % fected_ eye} Atorvastati Atorvastati No Atorvastat n Calcium n Calcium in Calcium Cholestyram Cholestyram No 1{packe QD Cholestyra ine 4 GM ine 4 GM t_mixed mine 4 GM _with_w ater_or _non-ca rbonate d_drink } Sucralfate Sucralfate No Sucralfate Benzonatate Benzonatate No 1{capsu TID Benzonatat 200 MG 200 MG le_as_n e 200 MG eeded} Aspirin Aspirin No 1{table QD Aspirin Adult Low Adult Low t} Adult Low Strength 81 Strength 81 Strength MG MG 81 MG predniSONE predniSONE No QD predniSONE 20 MG 20 MG 20 MG Cetirizine Cetirizine No Cetirizine HCl HCl HCl Albuterol Albuterol No 2{puffs Albuterol Sulfate HFA Sulfate HFA } Sulfate 108 (90 108 (90 HFA 108 Base) Base) (90 Base) MCG/ACT MCG/ACT MCG/ACT Azelastine Azelastine No QD Azelastine HCl 137 HCl 137 HCl 137 MCG/SPRAY MCG/SPRAY MCG/SPRAY Methotrexat Methotrexat No Methotrexa e e te Famotidine Famotidine No Famotidine Meloxicam Meloxicam No Meloxicam Montelukast Montelukast No Montelukas Sodium Sodium t Sodium Vitamin D Vitamin D No Vitamin D (Ergocalcif (Ergocalcif (Ergocalci osvaldo) osvaldo) ferol) Methocarbam Methocarbam No 1.5{tab 6xD Methocarba ol 500 MG ol 500 MG lets} mol 500 MG Azithromyci Azithromyci No QD Azithromyc n 250 MG n 250 MG in 250 MG Folic Acid Folic Acid No 1{table QD Folic Acid 1 MG 1 MG t} 1 MG Pataday 0.2 Pataday 0.2 No 1{drop_ QD Pataday % % into_af 0.2 % fected_ eye} Ventolin Ventolin No 2{puffs Ventolin HFA 108 (90 HFA 108 (90 _as_nee HFA 108 Base) Base) ded} (90 Base) MCG/ACT MCG/ACT MCG/ACT predniSONE predniSONE No predniSONE Azelastine Azelastine No QD Azelastine HCl 137 HCl 137 HCl 137 MCG/SPRAY MCG/SPRAY MCG/SPRAY Pravastatin Pravastatin No Pravastati Sodium 40 Sodium 40 n Sodium MG MG 40 MG Montelukast Montelukast No Montelukas Sodium Sodium t Sodium Pantoprazol Pantoprazol No 1{table QD Pantoprazo e Sodium 40 e Sodium 40 t} le Sodium MG MG 40 MG Lumigan Lumigan No 1{drop_ QD Lumigan 0.01 % 0.01 % into_af 0.01 % fected_ eye_in_ the_eve shayna} Atorvastati Atorvastati No 1{table QD Atorvastat n Calcium n Calcium t} in Calcium 40 MG 40 MG 40 MG Albuterol Albuterol No 1{puff_ 6xD Albuterol Sulfate HFA Sulfate HFA as_need Sulfate 108 (90 108 (90 ed} HFA 108 Base) Base) (90 Base) MCG/ACT MCG/ACT MCG/ACT Pravastatin Pravastatin No 1{table QD Pravastati Sodium 40 Sodium 40 t} n Sodium MG MG 40 MG Azithromyci Azithromyci No QD Azithromyc n 250 MG n 250 MG in 250 MG FreeStyle FreeStyle No FreeStyle Lite Test - Lite Test - Lite Test - Cholestyram Cholestyram No 1{packe QD Cholestyra ine 4 GM ine 4 GM t_mixed mine 4 GM _with_w ater_or _non-ca rbonate d_drink } amLODIPine amLODIPine No 1{table QD amLODIPine Besylate 5 Besylate 5 t} Besylate 5 MG MG MG Pataday 0.2 Pataday 0.2 No 1{drop_ QD Pataday % % into_af 0.2 % fected_ eye} Albuterol Albuterol No 2{puffs Albuterol Sulfate HFA Sulfate HFA } Sulfate 108 (90 108 (90 HFA 108 Base) Base) (90 Base) MCG/ACT MCG/ACT MCG/ACT Vitamin D Vitamin D No Vitamin D (Ergocalcif (Ergocalcif (Ergocalci osvaldo) osvaldo) ferol) Gabapentin Gabapentin No 1{table Gabapentin 600 MG 600 MG t} 600 MG Restasis Restasis No 1{drop_ BID Restasis 0.05 % 0.05 % into_af 0.05 % fected_ eye} Trelegy Trelegy No 1{puff} QD Trelegy Ellipta Ellipta Ellipta 100-62.5-25 100-62.5-25 100-62.5-2 MCG/INH MCG/INH 5 MCG/INH predniSONE predniSONE No QD predniSONE 20 MG 20 MG 20 MG tiZANidine tiZANidine No 1{table QD tiZANidine HCl 4 MG HCl 4 MG t_as_ne HCl 4 MG eded} Combigan Combigan No 1{drop_ BID Combigan 0.2-0.5 % 0.2-0.5 % into_af 0.2-0.5 % fected_ eye} DULoxetine DULoxetine No QD DULoxetine HCl 60 MG HCl 60 MG HCl 60 MG Famotidine Famotidine No Famotidine Dicyclomine Dicyclomine No 1{table BID Dicyclomin HCl 10 MG HCl 10 MG t} e HCl 10 MG Ventolin Ventolin No 2{puffs Ventolin HFA 108 (90 HFA 108 (90 _as_nee HFA 108 Base) Base) ded} (90 Base) MCG/ACT MCG/ACT MCG/ACT Meloxicam Meloxicam No Meloxicam Methotrexat Methotrexat No Methotrexa e e te Ondansetron Ondansetron No 1{table TID Ondansetro HCl 4 MG HCl 4 MG t} n HCl 4 MG Diclofenac Diclofenac No Diclofenac Sodium 1 % Sodium 1 % Sodium 1 % Aspirin Aspirin No 1{table QD Aspirin Adult Low Adult Low t} Adult Low Strength 81 Strength 81 Strength MG MG 81 MG Janumet Janumet No Janumet 50-1000 MG 50-1000 MG 50-1000 MG Benzonatate Benzonatate No 1{capsu TID Benzonatat 200 MG 200 MG le_as_n e 200 MG eeded} Cetirizine Cetirizine No Cetirizine HCl HCl HCl Folic Acid Folic Acid No 1{table QD Folic Acid 1 MG 1 MG t} 1 MG [place] No [place] Combigan Combigan No 1{drop_ BID Combigan 0.2-0.5 % 0.2-0.5 % into_af 0.2-0.5 % fected_ eye} Losartan Losartan No 1{table QD Losartan Potassium-H Potassium-H t} Potassium- CTZ 100-25 CTZ 100-25 HCTZ MG MG 100-25 MG Gralise Gralise No Gralise Montelukast Montelukast No Montelukas Sodium 10 Sodium 10 t Sodium MG MG 10 MG Atorvastati Atorvastati No Atorvastat n Calcium n Calcium in Calcium Sucralfate Sucralfate No Sucralfate Methocarbam Methocarbam No 1.5{tab 6xD Methocarba ol 500 MG ol 500 MG lets} mol 500 MG predniSONE predniSONE No predniSONE Azelastine Azelastine No QD Azelastine HCl 137 HCl 137 HCl 137 MCG/SPRAY MCG/SPRAY MCG/SPRAY Pravastatin Pravastatin No Pravastati Sodium 40 Sodium 40 n Sodium MG MG 40 MG Montelukast Montelukast No Montelukas Sodium Sodium t Sodium Pantoprazol Pantoprazol No 1{table QD Pantoprazo e Sodium 40 e Sodium 40 t} le Sodium MG MG 40 MG Lumigan Lumigan No 1{drop_ QD Lumigan 0.01 % 0.01 % into_af 0.01 % fected_ eye_in_ the_eve shayna} Atorvastati Atorvastati No 1{table QD Atorvastat n Calcium n Calcium t} in Calcium 40 MG 40 MG 40 MG Albuterol Albuterol No 1{puff_ 6xD Albuterol Sulfate HFA Sulfate HFA as_need Sulfate 108 (90 108 (90 ed} HFA 108 Base) Base) (90 Base) MCG/ACT MCG/ACT MCG/ACT Pravastatin Pravastatin No 1{table QD Pravastati Sodium 40 Sodium 40 t} n Sodium MG MG 40 MG Azithromyci Azithromyci No QD Azithromyc n 250 MG n 250 MG in 250 MG Trelegy Trelegy No 1{puff} QD Trelegy Ellipta Ellipta Ellipta 100-62.5-25 100-62.5-25 100-62.5-2 MCG/INH MCG/INH 5 MCG/INH Ventolin Ventolin Yes Harmony 2 puffs as Common HFA HFA [facility] needed [facility] Lorazepam Lorazepam Yes Harmony 1 tablet Common [facility] Hydroxychlo Hydroxychlo Yes Harmony not Common roquine roquine Mill[facility] defined S pirit Sulfate Sulfate - [facility] Xifaxan Xifaxan Yes Harmony not Common [facility] defined Spirit [facility] Aspirin Aspirin Yes Harmony 1 tablet Comm on Adult Low Adult Low [facility] Spirit Strength Strength - [facility] Myrbetriq Myrbetriq Yes Harmony 1 tablet Common Millender [facility] Gabapentin Gabapentin Yes Harmony 1 capsule Common [facility] Lumigan Lumigan Yes Harmony 1 drop Common Millender into Spirit affected - [facility] Cyclobenzap Cyclobenzap Yes Harmony TAKE 1 Common rine HCl rine HCl [facility] TABLET BY Spirit MOUTH 3 - [facility] 10 [facility] FreeStyle FreeStyle Yes Harmony not Comm on Lite Test Lite Test [place] defined [facility] Restasis Restasis Yes Harmony 1 drop Comm on Millender into Spirit affected - [facility] eye [facility] Lunesta Lunesta Yes Harmony 1 tablet Comm on Millender immediatel Spir it y before - [facility] bedtime [facility] Sulfamethox Sulfamethox Yes Harmony not Common azole-Trime azole-Trime [place] defined Spirit thoprim thoprim - [facility] Solifenacin Solifenacin Yes Harmony 1 tablet Common Succinate Succinate [facility] Breo Breo Yes Harmony 1 puff Common Ellipta Ellipta [facility] Spir it - [facility] FreeStyle FreeStyle Yes Harmony not Comm on Lancets Lancets Millender defined S pirit - [facility] Mirtazapine Mirtazapine Yes Harmony 1 tablet Common Millender at bedtime Spir it [facility] Ranitidine Ranitidine Yes Harmony 1 capsule Common HCl HCl Millender at bedtime Spir it [facility] Hydrocodone Hydrocodone Yes Harmony not Common -Acetaminop -Acetaminop Millender defined Spirit hen hen - [facility] Fluticasone Fluticasone Yes Harmony 1 spray in Common Propionate Propionate [facility] each [facility] nostril [facility] Janumet Janumet Yes Harmony 1 tablet Comm on Millender with meals Spir it [facility] Amitriptyli Amitriptyli Yes Harmony not Common ne HCl ne HCl Millender defined Spi rit [facility] Azelastine Azelastine Yes Harmony 2 squirts Common HCl HCl Millender in each Spirit nostril - [facility] Chlorhexidi Chlorhexidi Yes Harmony not Common ne ne [place] defined Spirit Gluconate Gluconate - [facility] Ciprofloxac Ciprofloxac Yes Harmony not Common in HCl in HCl Millender defined [facility] rit [facility] Singulair Singulair Yes Harmony 1 tablet Common Millender [facility] Losartan Losartan Yes Harmony 1 tablet Co mmon Potassium-H Potassium-H [facility] Spirit CTZ CTZ - [facility] Gabapentin Gabapentin Yes Harmony 1 tablet Common Millender [facility] Diclofenac Diclofenac Yes Harmony not Co mmon Sodium Sodium [facility] defined [facility] rit - [facility] Duloxetine Duloxetine Yes Harmony 1 capsule Common HCl HCl Millender (take with Spir it duloxetine - [facility] 30 mg) [facility] Quetiapine Quetiapine Yes Harmony 1 tablet Common Fumarate Fumarate [facility] at bedtime [facility] Acetaminoph Acetaminoph Yes Harmony not Common en-Codeine en-Codeine [place] defined Spirit #3 #3 - [facility] Denta 5000 Denta 5000 Yes Harmony not Co mmon Plus Plus [facility] defined [facility] Combigan Combigan Yes Harmony 1 drop Comm on Millender into Spirit affected - [facility] eye [facility] Latanoprost Latanoprost Yes Harmony 1 drop Common Millender into Spirit affected - [facility] the [facility] Duloxetine Duloxetine Yes Harmony 1 capsule Common HCl HCl Millender (take with Spir it duloxetine - [facility] 60 mg) [facility] Trelegy Trelegy Yes Harmony 1 puff Common Ellipta Ellipta Mill[facility] Spir it - [facility] Dicyclomine Dicyclomine Yes Harmony not Common HCl HCl [facility] defined Spirit - [facility] Cholestyram Cholestyram No 1{packe QD Cholestyra ine 4 GM ine 4 GM t_mixed mine 4 GM _with_w ater_or _non-ca rbonate d_drink } amLODIPine amLODIPine No 1{table QD amLODIPine Besylate 5 Besylate 5 t} Besylate 5 MG MG MG Pataday 0.2 Pataday 0.2 No 1{drop_ QD Pataday % % into_af 0.2 % fected_ eye} FreeStyle FreeStyle No FreeStyle Lite Test - Lite Test - Lite Test - Albuterol Albuterol No 2{puffs Albuterol Sulfate HFA Sulfate HFA } Sulfate 108 (90 108 (90 HFA 108 Base) Base) (90 Base) MCG/ACT MCG/ACT MCG/ACT DULoxetine DULoxetine No QD DULoxetine HCl 60 MG HCl 60 MG HCl 60 MG Gabapentin Gabapentin No 1{table Gabapentin 600 MG 600 MG t} 600 MG Restasis Restasis No 1{drop_ BID Restasis 0.05 % 0.05 % into_af 0.05 % fected_ eye} Vitamin D Vitamin D No Vitamin D (Ergocalcif (Ergocalcif (Ergocalci osvaldo) osvaldo) ferol) predniSONE predniSONE No QD predniSONE 20 MG 20 MG 20 MG tiZANidine tiZANidine No 1{table QD tiZANidine HCl 4 MG HCl 4 MG t_as_ne HCl 4 MG eded} Combigan Combigan No 1{drop_ BID Combigan 0.2-0.5 % 0.2-0.5 % into_af 0.2-0.5 % fected_ eye} Atorvastati Atorvastati No Atorvastat n Calcium n Calcium in Calcium Famotidine Famotidine No Famotidine Dicyclomine Dicyclomine No 1{table BID Dicyclomin HCl 10 MG HCl 10 MG t} e HCl 10 MG Ventolin Ventolin No 2{puffs Ventolin HFA 108 (90 HFA 108 (90 _as_nee HFA 108 Base) Base) ded} (90 Base) MCG/ACT MCG/ACT MCG/ACT Meloxicam Meloxicam No Meloxicam Methotrexat Methotrexat No Methotrexa e e te Ondansetron Ondansetron No 1{table TID Ondansetro HCl 4 MG HCl 4 MG t} n HCl 4 MG Diclofenac Diclofenac No Diclofenac Sodium 1 % Sodium 1 % Sodium 1 % Aspirin Aspirin No 1{table QD Aspirin Adult Low Adult Low t} Adult Low Strength 81 Strength 81 Strength MG MG 81 MG Janumet Janumet No Janumet 50-1000 MG 50-1000 MG 50-1000 MG Benzonatate Benzonatate No 1{capsu TID Benzonatat 200 MG 200 MG le_as_n e 200 MG eeded} Cetirizine Cetirizine No Cetirizine HCl HCl HCl Folic Acid Folic Acid No 1{table QD Folic Acid 1 MG 1 MG t} 1 MG [place] No [place] Combigan Combigan No 1{drop_ BID Combigan 0.2-0.5 % 0.2-0.5 % into_af 0.2-0.5 % fected_ eye} Losartan Losartan No 1{table QD Losartan Potassium-H Potassium-H t} Potassium- CTZ 100-25 CTZ 100-25 HCTZ MG MG 100-25 MG Gralise Gralise No Gralise Montelukast Montelukast No Montelukas Sodium 10 Sodium 10 t Sodium MG MG 10 MG Sucralfate Sucralfate No Sucralfate Methocarbam Methocarbam No 1.5{tab 6xD Methocarba ol 500 MG ol 500 MG lets} mol 500 MG predniSONE predniSONE No predniSONE Azelastine Azelastine No QD Azelastine HCl 137 HCl 137 HCl 137 MCG/SPRAY MCG/SPRAY MCG/SPRAY Pravastatin Pravastatin No Pravastati Sodium 40 Sodium 40 n Sodium MG MG 40 MG Montelukast Montelukast No Montelukas Sodium Sodium t Sodium Pantoprazol Pantoprazol No 1{table QD Pantoprazo e Sodium 40 e Sodium 40 t} le Sodium MG MG 40 MG Lumigan Lumigan No 1{drop_ QD Lumigan 0.01 % 0.01 % into_af 0.01 % fected_ eye_in_ the_eve shayna} Atorvastati Atorvastati No 1{table QD Atorvastat n Calcium n Calcium t} in Calcium 40 MG 40 MG 40 MG Albuterol Albuterol No 1{puff_ 6xD Albuterol Sulfate HFA Sulfate HFA as_need Sulfate 108 (90 108 (90 ed} HFA 108 Base) Base) (90 Base) MCG/ACT MCG/ACT MCG/ACT Pravastatin Pravastatin No 1{table QD Pravastati Sodium 40 Sodium 40 t} n Sodium MG MG 40 MG Azithromyci Azithromyci No QD Azithromyc n 250 MG n 250 MG in 250 MG Trelegy Trelegy No 1{puff} QD Trelegy Ellipta Ellipta Ellipta 100-62.5-25 100-62.5-25 100-62.5-2 MCG/INH MCG/INH 5 MCG/INH Cholestyram Cholestyram No 1{packe QD Cholestyra ine 4 GM ine 4 GM t_mixed mine 4 GM _with_w ater_or _non-ca rbonate d_drink } amLODIPine amLODIPine No 1{table QD amLODIPine Besylate 5 Besylate 5 t} Besylate 5 MG MG MG Pataday 0.2 Pataday 0.2 No 1{drop_ QD Pataday % % into_af 0.2 % fected_ eye} FreeStyle FreeStyle No FreeStyle Lite Test - Lite Test - Lite Test - Albuterol Albuterol No 2{puffs Albuterol Sulfate HFA Sulfate HFA } Sulfate 108 (90 108 (90 HFA 108 Base) Base) (90 Base) MCG/ACT MCG/ACT MCG/ACT DULoxetine DULoxetine No QD DULoxetine HCl 60 MG HCl 60 MG HCl 60 MG Gabapentin Gabapentin No 1{table Gabapentin 600 MG 600 MG t} 600 MG Restasis Restasis No 1{drop_ BID Restasis 0.05 % 0.05 % into_af 0.05 % fected_ eye} Vitamin D Vitamin D No Vitamin D (Ergocalcif (Ergocalcif (Ergocalci osvaldo) osvaldo) ferol) predniSONE predniSONE No QD predniSONE 20 MG 20 MG 20 MG tiZANidine tiZANidine No 1{table QD tiZANidine HCl 4 MG HCl 4 MG t_as_ne HCl 4 MG eded} Combigan Combigan No 1{drop_ BID Combigan 0.2-0.5 % 0.2-0.5 % into_af 0.2-0.5 % fected_ eye} Atorvastati Atorvastati No Atorvastat n Calcium n Calcium in Calcium Famotidine Famotidine No Famotidine Dicyclomine Dicyclomine No 1{table BID Dicyclomin HCl 10 MG HCl 10 MG t} e HCl 10 MG Ventolin Ventolin No 2{puffs Ventolin HFA 108 (90 HFA 108 (90 _as_nee HFA 108 Base) Base) ded} (90 Base) MCG/ACT MCG/ACT MCG/ACT Meloxicam Meloxicam No Meloxicam Methotrexat Methotrexat No Methotrexa e e te Ondansetron Ondansetron No 1{table TID Ondansetro HCl 4 MG HCl 4 MG t} n HCl 4 MG Diclofenac Diclofenac No Diclofenac Sodium 1 % Sodium 1 % Sodium 1 % Aspirin Aspirin No 1{table QD Aspirin Adult Low Adult Low t} Adult Low Strength 81 Strength 81 Strength MG MG 81 MG Janumet Janumet No Janumet 50-1000 MG 50-1000 MG 50-1000 MG Benzonatate Benzonatate No 1{capsu TID Benzonatat 200 MG 200 MG le_as_n e 200 MG eeded} Cetirizine Cetirizine No Cetirizine HCl HCl HCl Folic Acid Folic Acid No 1{table QD Folic Acid 1 MG 1 MG t} 1 MG [place] [place] Combigan Combigan No 1{drop_ BID Combigan 0.2-0.5 % 0.2-0.5 % into_af 0.2-0.5 % fected_ eye} Losartan Losartan No 1{table QD Losartan Potassium-H Potassium-H t} Potassium- CTZ 100-25 CTZ 100-25 HCTZ MG MG 100-25 MG Gralise Gralise No Gralise Montelukast Montelukast No Montelukas Sodium 10 Sodium 10 t Sodium MG MG 10 MG Sucralfate Sucralfate No Sucralfate Methocarbam Methocarbam No 1.5{tab 6xD Methocarba ol 500 MG ol 500 MG lets} mol 500 MG predniSONE predniSONE No predniSONE Azelastine Azelastine No QD Azelastine HCl 137 HCl 137 HCl 137 MCG/SPRAY MCG/SPRAY MCG/SPRAY Pravastatin Pravastatin No Pravastati Sodium 40 Sodium 40 n Sodium MG MG 40 MG Montelukast Montelukast No Montelukas Sodium Sodium t Sodium Pantoprazol Pantoprazol No 1{table QD Pantoprazo e Sodium 40 e Sodium 40 t} le Sodium MG MG 40 MG Lumigan Lumigan No 1{drop_ QD Lumigan 0.01 % 0.01 % into_af 0.01 % fected_ eye_in_ the_eve shay[place]} Atorvastati Atorvastati No 1{table QD Atorvastat n Calcium n Calcium t} in Calcium 40 MG 40 MG 40 MG Albuterol Albuterol No 1{puff_ 6xD Albuterol Sulfate HFA Sulfate HFA as_need Sulfate 108 (90 108 (90 ed} HFA 108 Base) Base) (90 Base) MCG/ACT MCG/ACT MCG/ACT Pravastatin Pravastatin No 1{table QD Pravastati Sodium 40 Sodium 40 t} n Sodium MG MG 40 MG Azithromyci Azithromyci No QD Azithromyc n 250 MG n 250 MG in 250 MG Trelegy Trelegy No 1{puff} QD Trelegy Ellipta Ellipta Ellipta 100-62.5-25 100-62.5-25 100-62.5-2 MCG/INH MCG/INH 5 MCG/INH Cholestyram Cholestyram No 1{packe QD Cholestyra ine 4 GM ine 4 GM t_mixed mine 4 GM _with_w ater_or _non-ca rbonate d_drink } amLODIPine amLODIPine No 1{table QD amLODIPine Besylate 5 Besylate 5 t} Besylate 5 MG MG MG Pataday 0.2 Pataday 0.2 No 1{drop_ QD Pataday % % into_af 0.2 % fected_ eye} FreeStyle FreeStyle No FreeStyle Lite Test - Lite Test - Lite Test - Albuterol Albuterol No 2{puffs Albuterol Sulfate HFA Sulfate HFA } Sulfate 108 (90 108 (90 HFA 108 Base) Base) (90 Base) MCG/ACT MCG/ACT MCG/ACT DULoxetine DULoxetine No QD DULoxetine HCl 60 MG HCl 60 MG HCl 60 MG Gabapentin Gabapentin No 1{table Gabapentin 600 MG 600 MG t} 600 MG Restasis Restasis No 1{drop_ BID Restasis 0.05 % 0.05 % into_af 0.05 % fected_ eye} Vitamin D Vitamin D No Vitamin D (Ergocalcif (Ergocalcif (Ergocalci osvaldo) osvaldo) ferol) predniSONE predniSONE No QD predniSONE 20 MG 20 MG 20 MG tiZANidine tiZANidine No 1{table QD tiZANidine HCl 4 MG HCl 4 MG t_as_ne HCl 4 MG eded} Combigan Combigan No 1{drop_ BID Combigan 0.2-0.5 % 0.2-0.5 % into_af 0.2-0.5 % fected_ eye} Atorvastati Atorvastati No Atorvastat n Calcium n Calcium in Calcium Famotidine Famotidine No Famotidine Dicyclomine Dicyclomine No 1{table BID Dicyclomin HCl 10 MG HCl 10 MG t} e HCl 10 MG Ventolin Ventolin No 2{puffs Ventolin HFA 108 (90 HFA 108 (90 _as_nee HFA 108 Base) Base) ded} (90 Base) MCG/ACT MCG/ACT MCG/ACT Meloxicam Meloxicam No Meloxicam Methotrexat Methotrexat No Methotrexa e e te Ondansetron Ondansetron No 1{table TID Ondansetro HCl 4 MG HCl 4 MG t} n HCl 4 MG Diclofenac Diclofenac No Diclofenac Sodium 1 % Sodium 1 % Sodium 1 % Aspirin Aspirin No 1{table QD Aspirin Adult Low Adult Low t} Adult Low Strength 81 Strength 81 Strength MG MG 81 MG Janumet Janumet No Janumet 50-1000 MG 50-1000 MG 50-1000 MG Benzonatate Benzonatate No 1{capsu TID Benzonatat 200 MG 200 MG le_as_n e 200 MG eeded} Cetirizine Cetirizine No Cetirizine HCl HCl HCl Folic Acid Folic Acid No 1{table QD Folic Acid 1 MG 1 MG t} 1 MG [place] Combigan Combigan No 1{drop_ BID Combigan 0.2-0.5 % 0.2-0.5 % into_af 0.2-0.5 % fected_ eye} Losartan Losartan No 1{table QD Losartan Potassium-H Potassium-H t} Potassium- CTZ 100-25 CTZ 100-25 HCTZ MG MG 100-25 MG Gralise Gralise No Gralise Montelukast Montelukast No Montelukas Sodium 10 Sodium 10 t Sodium MG MG 10 MG Sucralfate Sucralfate No Sucralfate Methocarbam Methocarbam No 1.5{tab 6xD Methocarba ol 500 MG ol 500 MG lets} mol 500 MG predniSONE predniSONE No predniSONE Azelastine Azelastine No QD Azelastine HCl 137 HCl 137 HCl 137 MCG/SPRAY MCG/SPRAY MCG/SPRAY Pravastatin Pravastatin No Pravastati Sodium 40 Sodium 40 n Sodium MG MG 40 MG Montelukast Montelukast No Montelukas Sodium Sodium t Sodium Pantoprazol Pantoprazol No 1{table QD Pantoprazo e Sodium 40 e Sodium 40 t} le Sodium MG MG 40 MG Lumigan Lumigan No 1{drop_ QD Lumigan 0.01 % 0.01 % into_af 0.01 % fected_ eye_in_ the_eve [place]} Atorvastati Atorvastati No 1{table QD Atorvastat n Calcium n Calcium t} in Calcium 40 MG 40 MG 40 MG Albuterol Albuterol No 1{puff_ 6xD Albuterol Sulfate HFA Sulfate HFA as_need Sulfate 108 (90 108 (90 ed} HFA 108 Base) Base) (90 Base) MCG/ACT MCG/ACT MCG/ACT Pravastatin Pravastatin No 1{table QD Pravastati Sodium 40 Sodium 40 t} n Sodium MG MG 40 MG Azithromyci Azithromyci No QD Azithromyc n 250 MG n 250 MG in 250 MG Trelegy Trelegy No 1{puff} QD Trelegy Ellipta Ellipta Ellipta 100-62.5-25 100-62.5-25 100-62.5-2 MCG/INH MCG/INH 5 MCG/INH Cholestyram Cholestyram No 1{packe QD Cholestyra ine 4 GM ine 4 GM t_mixed mine 4 GM _with_w ater_or _non-ca rbonate d_drink } amLODIPine amLODIPine No 1{table QD amLODIPine Besylate 5 Besylate 5 t} Besylate 5 MG MG MG Pataday 0.2 Pataday 0.2 No 1{drop_ QD Pataday % % into_af 0.2 % fected_ eye} FreeStyle FreeStyle No FreeStyle Lite Test - Lite Test - Lite Test - Albuterol Albuterol No 2{puffs Albuterol Sulfate HFA Sulfate HFA } Sulfate 108 (90 108 (90 HFA 108 Base) Base) (90 Base) MCG/ACT MCG/ACT MCG/ACT DULoxetine DULoxetine No QD DULoxetine HCl 60 MG HCl 60 MG HCl 60 MG Gabapentin Gabapentin No 1{table Gabapentin 600 MG 600 MG t} 600 MG Restasis Restasis No 1{drop_ BID Restasis 0.05 % 0.05 % into_af 0.05 % fected_ eye} Vitamin D Vitamin D No Vitamin D (Ergocalcif (Ergocalcif (Ergocalci osvaldo) osvaldo) ferol) predniSONE predniSONE No QD predniSONE 20 MG 20 MG 20 MG tiZANidine tiZANidine No 1{table QD tiZANidine HCl 4 MG HCl 4 MG t_as_ne HCl 4 MG eded} Combigan Combigan No 1{drop_ BID Combigan 0.2-0.5 % 0.2-0.5 % into_af 0.2-0.5 % fected_ eye} Atorvastati Atorvastati No Atorvastat n Calcium n Calcium in Calcium Famotidine Famotidine No Famotidine Dicyclomine Dicyclomine No 1{table BID Dicyclomin HCl 10 MG HCl 10 MG t} e HCl 10 MG Ventolin Ventolin No 2{puffs Ventolin HFA 108 (90 HFA 108 (90 _as_nee HFA 108 Base) Base) ded} (90 Base) MCG/ACT MCG/ACT MCG/ACT Meloxicam Meloxicam No Meloxicam Methotrexat Methotrexat No Methotrexa e e te Ondansetron Ondansetron No 1{table TID Ondansetro HCl 4 MG HCl 4 MG t} n HCl 4 MG Diclofenac Diclofenac No Diclofenac Sodium 1 % Sodium 1 % Sodium 1 % Aspirin Aspirin No 1{table QD Aspirin Adult Low Adult Low t} Adult Low Strength 81 Strength 81 Strength MG MG 81 MG Janumet Janumet No Janumet 50-1000 MG 50-1000 MG 50-1000 MG Benzonatate Benzonatate No 1{capsu TID Benzonatat 200 MG 200 MG le_as_n e 200 MG eeded} Cetirizine Cetirizine No Cetirizine HCl HCl HCl Folic Acid Folic Acid No 1{table QD Folic Acid 1 MG 1 MG t} 1 MG [place] Combigan Combigan No 1{drop_ BID Combigan 0.2-0.5 % 0.2-0.5 % into_af 0.2-0.5 % fected_ eye} Losartan Losartan No 1{table QD Losartan Potassium-H Potassium-H t} Potassium- CTZ 100-25 CTZ 100-25 HCTZ MG MG 100-25 MG Gralise Gralise No Gralise Montelukast Montelukast No Montelukas Sodium 10 Sodium 10 t Sodium MG MG 10 MG Sucralfate Sucralfate No Sucralfate Methocarbam Methocarbam No 1.5{tab 6xD Methocarba ol 500 MG ol 500 MG lets} mol 500 MG predniSONE predniSONE No predniSONE Azelastine Azelastine No QD Azelastine HCl 137 HCl 137 HCl 137 MCG/SPRAY MCG/SPRAY MCG/SPRAY Pravastatin Pravastatin No Pravastati Sodium 40 Sodium 40 n Sodium MG MG 40 MG Montelukast Montelukast No Montelukas Sodium Sodium t Sodium Pantoprazol Pantoprazol No 1{table QD Pantoprazo e Sodium 40 e Sodium 40 t} le Sodium MG MG 40 MG Lumigan Lumigan No 1{drop_ QD Lumigan 0.01 % 0.01 % into_af 0.01 % fected_ eye_in_ the_eve [place]} Atorvastati Atorvastati No 1{table QD Atorvastat n Calcium n Calcium t} in Calcium 40 MG 40 MG 40 MG Albuterol Albuterol No 1{puff_ 6xD Albuterol Sulfate HFA Sulfate HFA as_need Sulfate 108 (90 108 (90 ed} HFA 108 Base) Base) (90 Base) MCG/ACT MCG/ACT MCG/ACT Pravastatin Pravastatin No 1{table QD Pravastati Sodium 40 Sodium 40 t} n Sodium MG MG 40 MG Azithromyci Azithromyci No QD Azithromyc n 250 MG n 250 MG in 250 MG Trelegy Trelegy No 1{puff} QD Trelegy Ellipta Ellipta Ellipta 100-62.5-25 100-62.5-25 100-62.5-2 MCG/INH MCG/INH 5 MCG/INH Cholestyram Cholestyram No 1{packe QD Cholestyra ine 4 GM ine 4 GM t_mixed mine 4 GM _with_w ater_or _non-ca rbonate d_drink } amLODIPine amLODIPine No 1{table QD amLODIPine Besylate 5 Besylate 5 t} Besylate 5 MG MG MG Pataday 0.2 Pataday 0.2 No 1{drop_ QD Pataday % % into_af 0.2 % fected_ eye} FreeStyle FreeStyle No FreeStyle Lite Test - Lite Test - Lite Test - Albuterol Albuterol No 2{puffs Albuterol Sulfate HFA Sulfate HFA } Sulfate 108 (90 108 (90 HFA 108 Base) Base) (90 Base) MCG/ACT MCG/ACT MCG/ACT DULoxetine DULoxetine No QD DULoxetine HCl 60 MG HCl 60 MG HCl 60 MG Gabapentin Gabapentin No 1{table Gabapentin 600 MG 600 MG t} 600 MG Restasis Restasis No 1{drop_ BID Restasis 0.05 % 0.05 % into_af 0.05 % fected_ eye} Vitamin D Vitamin D No Vitamin D (Ergocalcif (Ergocalcif (Ergocalci osvaldo) osvaldo) ferol) predniSONE predniSONE No QD predniSONE 20 MG 20 MG 20 MG tiZANidine tiZANidine No 1{table QD tiZANidine HCl 4 MG HCl 4 MG t_as_ne HCl 4 MG eded} Combigan Combigan No 1{drop_ BID Combigan 0.2-0.5 % 0.2-0.5 % into_af 0.2-0.5 % fected_ eye} Atorvastati Atorvastati No Atorvastat n Calcium n Calcium in Calcium Famotidine Famotidine No Famotidine Dicyclomine Dicyclomine No 1{table BID Dicyclomin HCl 10 MG HCl 10 MG t} e HCl 10 MG Ventolin Ventolin No 2{puffs Ventolin HFA 108 (90 HFA 108 (90 _as_nee HFA 108 Base) Base) ded} (90 Base) MCG/ACT MCG/ACT MCG/ACT Meloxicam Meloxicam No Meloxicam Methotrexat Methotrexat No Methotrexa e e te Ondansetron Ondansetron No 1{table TID Ondansetro HCl 4 MG HCl 4 MG t} n HCl 4 MG Diclofenac Diclofenac No Diclofenac Sodium 1 % Sodium 1 % Sodium 1 % Aspirin Aspirin No 1{table QD Aspirin Adult Low Adult Low t} Adult Low Strength 81 Strength 81 Strength MG MG 81 MG Janumet Janumet No Janumet 50-1000 MG 50-1000 MG 50-1000 MG Benzonatate Benzonatate No 1{capsu TID Benzonatat 200 MG 200 MG le_as_n e 200 MG eeded} Cetirizine Cetirizine No Cetirizine HCl HCl HCl Folic Acid Folic Acid No 1{table QD Folic Acid 1 MG 1 MG t} 1 MG [place] Combigan Combigan No 1{drop_ BID Combigan 0.2-0.5 % 0.2-0.5 % into_af 0.2-0.5 % fected_ eye} Losartan Losartan No 1{table QD Losartan Potassium-H Potassium-H t} Potassium- CTZ 100-25 CTZ 100-25 HCTZ MG MG 100-25 MG Gralise Gralise No Gralise Montelukast Montelukast No Montelukas Sodium 10 Sodium 10 t Sodium MG MG 10 MG Sucralfate Sucralfate No Sucralfate Methocarbam Methocarbam No 1.5{tab 6xD Methocarba ol 500 MG ol 500 MG lets} mol 500 MG Trelegy Trelegy No 1{puff} QD Trelegy Ellipta Ellipta Ellipta 100-62.5-25 100-62.5-25 100-62.5-2 MCG/INH MCG/INH 5 MCG/INH Atorvastati Atorvastati No 1{table QD Atorvastat n Calcium n Calcium t} in Calcium 40 MG 40 MG 40 MG DULoxetine DULoxetine No 1{capsu QD DULoxetine HCl 60 MG HCl 60 MG le} HCl 60 MG Azelastine Azelastine No 2{spray BID Azelastine HCl 137 HCl 137 s_in_ea HCl 137 MCG/SPRAY MCG/SPRAY ch_nost MCG/SPRAY ril} amLODIPine amLODIPine No 1{table QD amLODIPine Besylate 5 Besylate 5 t} Besylate 5 MG MG MG Ventolin Ventolin No 1{puff_ QID Ventolin HFA 108 (90 HFA 108 (90 as_need HFA 108 Base) Base) ed} (90 Base) MCG/ACT MCG/ACT MCG/ACT Restasis Restasis No BID Restasis 0.05 % 0.05 % 0.05 % Cetirizine Cetirizine No 1{table QD Cetirizine HCl 10 MG HCl 10 MG t_as_ne HCl 10 MG eded} Combigan Combigan No BID Combigan 0.2-0.5 % 0.2-0.5 % 0.2-0.5 % Pataday 0.2 Pataday 0.2 No BID Pataday % % 0.2 % Pantoprazol Pantoprazol No 1{table QD Pantoprazo e Sodium 40 e Sodium 40 t} le Sodium MG MG 40 MG Janumet Janumet No 1{table BID Janumet 50-1000 MG 50-1000 MG t_with_ 50-1000 MG meals} tiZANidine tiZANidine No QD tiZANidine HCl 4 MG HCl 4 MG HCl 4 MG Cholestyram Cholestyram No 1{packe Cholestyra ine 4 GM ine 4 GM t_as_ne mine 4 GM eded} FreeStyle FreeStyle No FreeStyle Lite Test - Lite Test - Lite Test - Dicyclomine Dicyclomine No 1{table TID Dicyclomin HCl 10 MG HCl 10 MG t_as_ne e HCl 10 eded} MG Montelukast Montelukast No 1{table QD Montelukas Sodium 10 Sodium 10 t} t Sodium MG MG 10 MG Aspirin Aspirin No 1{table QD Aspirin Adult Low Adult Low t} Adult Low Strength 81 Strength 81 Strength MG MG 81 MG Famotidine Famotidine No 1{table QD Famotidine 40 MG 40 MG t_at_be 40 MG dtime_a s_neede d} Lumigan Lumigan No QD Lumigan 0.01 % 0.01 % 0.01 % Losartan Losartan No 1{table QD Losartan Potassium-H Potassium-H t} Potassium- CTZ 100-25 CTZ 100-25 HCTZ MG MG 100-25 MG Cholestyram Cholestyram No 1{packe QD Cholestyra ine 4 GM ine 4 GM t_mixed mine 4 GM _with_w ater_or _non-ca rbonate d_drink } Cetirizine Cetirizine No Cetirizine HCl HCl HCl Aspirin Aspirin No 1{table QD Aspirin Adult Low Adult Low t} Adult Low Strength 81 Strength 81 Strength MG MG 81 MG Janumet Janumet No 1{table BID Janumet 50-1000 MG 50-1000 MG t_with_ 50-1000 MG meals} Methocarbam Methocarbam No 1.5{tab 6xD Methocarba ol 500 MG ol 500 MG lets} mol 500 MG Albuterol Albuterol No 1{puff_ 6xD Albuterol Sulfate HFA Sulfate HFA as_need Sulfate 108 (90 108 (90 ed} HFA 108 Base) Base) (90 Base) MCG/ACT MCG/ACT MCG/ACT Pantoprazol Pantoprazol No 1{table QD Pantoprazo e Sodium 40 e Sodium 40 t} le Sodium MG MG 40 MG Vitamin D Vitamin D No Vitamin D (Ergocalcif (Ergocalcif (Ergocalci osvaldo) osvaldo) ferol) Azelastine Azelastine No QD Azelastine HCl 137 HCl 137 HCl 137 MCG/SPRAY MCG/SPRAY MCG/SPRAY Combigan Combigan No 1{drop_ BID Combigan 0.2-0.5 % 0.2-0.5 % into_af 0.2-0.5 % fected_ eye} Janumet Janumet No Janumet Ondansetron Ondansetron No 1{table TID Ondansetro HCl 4 MG HCl 4 MG t} n HCl 4 MG predniSONE predniSONE No predniSONE Dicyclomine Dicyclomine No 1{table BID Dicyclomin HCl 10 MG HCl 10 MG t} e HCl 10 MG [place] Folic Acid Folic Acid No 1{table QD Folic Acid 1 MG 1 MG t} 1 MG Lumigan Lumigan No 1{drop_ QD Lumigan 0.01 % 0.01 % into_af 0.01 % fected_ eye_in_ the_eve shayna} Ventolin Ventolin No 2{puffs Ventolin HFA 108 (90 HFA 108 (90 _as_nee HFA 108 Base) Base) ded} (90 Base) MCG/ACT MCG/ACT MCG/ACT Atorvastati Atorvastati No Atorvastat n Calcium n Calcium in Calcium Gabapentin Gabapentin No 1{table Gabapentin 600 MG 600 MG t} 600 MG FreeStyle FreeStyle No FreeStyle Lite Test - Lite Test - Lite Test - Sucralfate Sucralfate No Sucralfate Trelegy Trelegy No 1{puff} QD Trelegy Ellipta Ellipta Ellipta 100-62.5-25 100-62.5-25 100-62.5-2 MCG/INH MCG/INH 5 MCG/INH Gralise Gralise No Gralise Meloxicam Meloxicam No Meloxicam Famotidine Famotidine No Famotidine Diclofenac Diclofenac No Diclofenac Sodium 1 % Sodium 1 % Sodium 1 % Restasis Restasis No 1{drop_ BID Restasis 0.05 % 0.05 % into_af 0.05 % fected_ eye} Losartan Losartan No 1{table QD Losartan Potassium-H Potassium-H t} Potassium- CTZ 100-25 CTZ 100-25 HCTZ MG MG 100-25 MG Montelukast Montelukast No Montelukas Sodium Sodium t Sodium Methotrexat Methotrexat No Methotrexa e e te Singulair Singulair No 1{table QD Singulair 10 MG 10 MG t} 10 MG DULoxetine DULoxetine No QD DULoxetine HCl 60 MG HCl 60 MG HCl 60 MG Pravastatin Pravastatin No 1{table QD Pravastati Sodium 40 Sodium 40 t} n Sodium MG MG 40 MG Trelegy Trelegy No 1{puff} QD Trelegy Ellipta Ellipta Ellipta 100-62.5-25 100-62.5-25 100-62.5-2 MCG/INH MCG/INH 5 MCG/INH Cholestyram Cholestyram No 1{packe QD Cholestyra ine 4 GM ine 4 GM t_mixed mine 4 GM _with_w ater_or _non-ca rbonate d_drink } Cetirizine Cetirizine No Cetirizine HCl HCl HCl Aspirin Aspirin No 1{table QD Aspirin Adult Low Adult Low t} Adult Low Strength 81 Strength 81 Strength MG MG 81 MG Janumet Janumet No 1{table BID Janumet 50-1000 MG 50-1000 MG t_with_ 50-1000 MG meals} Methocarbam Methocarbam No 1.5{tab 6xD Methocarba ol 500 MG ol 500 MG lets} mol 500 MG Albuterol Albuterol No 1{puff_ 6xD Albuterol Sulfate HFA Sulfate HFA as_need Sulfate 108 (90 108 (90 ed} HFA 108 Base) Base) (90 Base) MCG/ACT MCG/ACT MCG/ACT Pantoprazol Pantoprazol No 1{table QD Pantoprazo e Sodium 40 e Sodium 40 t} le Sodium MG MG 40 MG Vitamin D Vitamin D No Vitamin D (Ergocalcif (Ergocalcif (Ergocalci osvaldo) osvaldo) ferol) Azelastine Azelastine No QD Azelastine HCl 137 HCl 137 HCl 137 MCG/SPRAY MCG/SPRAY MCG/SPRAY Combigan Combigan No 1{drop_ BID Combigan 0.2-0.5 % 0.2-0.5 % into_af 0.2-0.5 % fected_ eye} Janumet Janumet No Janumet Ondansetron Ondansetron No 1{table TID Ondansetro HCl 4 MG HCl 4 MG t} n HCl 4 MG predniSONE predniSONE No predniSONE Dicyclomine Dicyclomine No 1{table BID Dicyclomin HCl 10 MG HCl 10 MG t} e HCl 10 MG [place] Folic Acid Folic Acid No 1{table QD Folic Acid 1 MG 1 MG t} 1 MG Lumigan Lumigan No 1{drop_ QD Lumigan 0.01 % 0.01 % into_af 0.01 % fected_ eye_in_ the_eve shayna} Ventolin Ventolin No 2{puffs Ventolin HFA 108 (90 HFA 108 (90 _as_nee HFA 108 Base) Base) ded} (90 Base) MCG/ACT MCG/ACT MCG/ACT Atorvastati Atorvastati No Atorvastat n Calcium n Calcium in Calcium Gabapentin Gabapentin No 1{table Gabapentin 600 MG 600 MG t} 600 MG FreeStyle FreeStyle No FreeStyle Lite Test - Lite Test - Lite Test - Sucralfate Sucralfate No Sucralfate Trelegy Trelegy No 1{puff} QD Trelegy Ellipta Ellipta Ellipta 100-62.5-25 100-62.5-25 100-62.5-2 MCG/INH MCG/INH 5 MCG/INH Gralise Gralise No Gralise Meloxicam Meloxicam No Meloxicam Famotidine Famotidine No Famotidine Diclofenac Diclofenac No Diclofenac Sodium 1 % Sodium 1 % Sodium 1 % Restasis Restasis No 1{drop_ BID Restasis 0.05 % 0.05 % into_af 0.05 % fected_ eye} Losartan Losartan No 1{table QD Losartan Potassium-H Potassium-H t} Potassium- CTZ 100-25 CTZ 100-25 HCTZ MG MG 100-25 MG Montelukast Montelukast No Montelukas Sodium Sodium t Sodium Methotrexat Methotrexat No Methotrexa e e te Singulair Singulair No 1{table QD Singulair 10 MG 10 MG t} 10 MG DULoxetine DULoxetine No QD DULoxetine HCl 60 MG HCl 60 MG HCl 60 MG Pravastatin Pravastatin No 1{table QD Pravastati Sodium 40 Sodium 40 t} n Sodium MG MG 40 MG Trelegy Trelegy No 1{puff} QD Trelegy Ellipta Ellipta Ellipta 100-62.5-25 100-62.5-25 100-62.5-2 MCG/INH MCG/INH 5 MCG/INH Cholestyram Cholestyram No 1{packe QD Cholestyra ine 4 GM ine 4 GM t_mixed mine 4 GM _with_w ater_or _non-ca rbonate d_drink } Cetirizine Cetirizine No Cetirizine HCl HCl HCl Aspirin Aspirin No 1{table QD Aspirin Adult Low Adult Low t} Adult Low Strength 81 Strength 81 Strength MG MG 81 MG Janumet Janumet No 1{table BID Janumet 50-1000 MG 50-1000 MG t_with_ 50-1000 MG meals} Methocarbam Methocarbam No 1.5{tab 6xD Methocarba ol 500 MG ol 500 MG lets} mol 500 MG Albuterol Albuterol No 1{puff_ 6xD Albuterol Sulfate HFA Sulfate HFA as_need Sulfate 108 (90 108 (90 ed} HFA 108 Base) Base) (90 Base) MCG/ACT MCG/ACT MCG/ACT Pantoprazol Pantoprazol No 1{table QD Pantoprazo e Sodium 40 e Sodium 40 t} le Sodium MG MG 40 MG Vitamin D Vitamin D No Vitamin D (Ergocalcif (Ergocalcif (Ergocalci osvaldo) osvaldo) ferol) Azelastine Azelastine No QD Azelastine HCl 137 HCl 137 HCl 137 MCG/SPRAY MCG/SPRAY MCG/SPRAY Combigan Combigan No 1{drop_ BID Combigan 0.2-0.5 % 0.2-0.5 % into_af 0.2-0.5 % fected_ eye} Janumet Janumet No Janumet Ondansetron Ondansetron No 1{table TID Ondansetro HCl 4 MG HCl 4 MG t} n HCl 4 MG predniSONE predniSONE No predniSONE Dicyclomine Dicyclomine No 1{table BID Dicyclomin HCl 10 MG HCl 10 MG t} e HCl 10 MG [place] No [place] Folic Acid Folic Acid No 1{table QD Folic Acid 1 MG 1 MG t} 1 MG Lumigan Lumigan No 1{drop_ QD Lumigan 0.01 % 0.01 % into_af 0.01 % fected_ eye_in_ the_eve shayna} Ventolin Ventolin No 2{puffs Ventolin HFA 108 (90 HFA 108 (90 _as_nee HFA 108 Base) Base) ded} (90 Base) MCG/ACT MCG/ACT MCG/ACT Atorvastati Atorvastati No Atorvastat n Calcium n Calcium in Calcium Gabapentin Gabapentin No 1{table Gabapentin 600 MG 600 MG t} 600 MG FreeStyle FreeStyle No FreeStyle Lite Test - Lite Test - Lite Test - Sucralfate Sucralfate No Sucralfate Trelegy Trelegy No 1{puff} QD Trelegy Ellipta Ellipta Ellipta 100-62.5-25 100-62.5-25 100-62.5-2 MCG/INH MCG/INH 5 MCG/INH Gralise Gralise No Gralise Meloxicam Meloxicam No Meloxicam Famotidine Famotidine No Famotidine Diclofenac Diclofenac No Diclofenac Sodium 1 % Sodium 1 % Sodium 1 % Restasis Restasis No 1{drop_ BID Restasis 0.05 % 0.05 % into_af 0.05 % fected_ eye} Losartan Losartan No 1{table QD Losartan Potassium-H Potassium-H t} Potassium- CTZ 100-25 CTZ 100-25 HCTZ MG MG 100-25 MG Montelukast Montelukast No Montelukas Sodium Sodium t Sodium Methotrexat Methotrexat No Methotrexa e e te Singulair Singulair No 1{table QD Singulair 10 MG 10 MG t} 10 MG DULoxetine DULoxetine No QD DULoxetine HCl 60 MG HCl 60 MG HCl 60 MG Pravastatin Pravastatin No 1{table QD Pravastati Sodium 40 Sodium 40 t} n Sodium MG MG 40 MG Trelegy Trelegy No 1{puff} QD Trelegy Ellipta Ellipta Ellipta 100-62.5-25 100-62.5-25 100-62.5-2 MCG/INH MCG/INH 5 MCG/INH Cholestyram Cholestyram No 1{packe QD Cholestyra ine 4 GM ine 4 GM t_mixed mine 4 GM _with_w ater_or _non-ca rbonate d_drink } Cetirizine Cetirizine No Cetirizine HCl HCl HCl Aspirin Aspirin No 1{table QD Aspirin Adult Low Adult Low t} Adult Low Strength 81 Strength 81 Strength MG MG 81 MG Janumet Janumet No 1{table BID Janumet 50-1000 MG 50-1000 MG t_with_ 50-1000 MG meals} Methocarbam Methocarbam No 1.5{tab 6xD Methocarba ol 500 MG ol 500 MG lets} mol 500 MG Albuterol Albuterol No 1{puff_ 6xD Albuterol Sulfate HFA Sulfate HFA as_need Sulfate 108 (90 108 (90 ed} HFA 108 Base) Base) (90 Base) MCG/ACT MCG/ACT MCG/ACT Pantoprazol Pantoprazol No 1{table QD Pantoprazo e Sodium 40 e Sodium 40 t} le Sodium MG MG 40 MG Vitamin D Vitamin D No Vitamin D (Ergocalcif (Ergocalcif (Ergocalci osvaldo) osvaldo) ferol) Azelastine Azelastine No QD Azelastine HCl 137 HCl 137 HCl 137 MCG/SPRAY MCG/SPRAY MCG/SPRAY Combigan Combigan No 1{drop_ BID Combigan 0.2-0.5 % 0.2-0.5 % into_af 0.2-0.5 % fected_ eye} Janumet Janumet No Janumet Ondansetron Ondansetron No 1{table TID Ondansetro HCl 4 MG HCl 4 MG t} n HCl 4 MG predniSONE predniSONE No predniSONE Dicyclomine Dicyclomine No 1{table BID Dicyclomin HCl 10 MG HCl 10 MG t} e HCl 10 MG [place] No [place] Folic Acid Folic Acid No 1{table QD Folic Acid 1 MG 1 MG t} 1 MG Lumigan Lumigan No 1{drop_ QD Lumigan 0.01 % 0.01 % into_af 0.01 % fected_ eye_in_ the_eve shayna} Ventolin Ventolin No 2{puffs Ventolin HFA 108 (90 HFA 108 (90 _as_nee HFA 108 Base) Base) ded} (90 Base) MCG/ACT MCG/ACT MCG/ACT Atorvastati Atorvastati No Atorvastat n Calcium n Calcium in Calcium Gabapentin Gabapentin No 1{table Gabapentin 600 MG 600 MG t} 600 MG FreeStyle FreeStyle No FreeStyle Lite Test - Lite Test - Lite Test - Sucralfate Sucralfate No Sucralfate Trelegy Trelegy No 1{puff} QD Trelegy Ellipta Ellipta Ellipta 100-62.5-25 100-62.5-25 100-62.5-2 MCG/INH MCG/INH 5 MCG/INH Gralise Gralise No Gralise Meloxicam Meloxicam No Meloxicam Famotidine Famotidine No Famotidine Diclofenac Diclofenac No Diclofenac Sodium 1 % Sodium 1 % Sodium 1 % Restasis Restasis No 1{drop_ BID Restasis 0.05 % 0.05 % into_af 0.05 % fected_ eye} Losartan Losartan No 1{table QD Losartan Potassium-H Potassium-H t} Potassium- CTZ 100-25 CTZ 100-25 HCTZ MG MG 100-25 MG Montelukast Montelukast No Montelukas Sodium Sodium t Sodium Methotrexat Methotrexat No Methotrexa e e te Singulair Singulair No 1{table QD Singulair 10 MG 10 MG t} 10 MG DULoxetine DULoxetine No QD DULoxetine HCl 60 MG HCl 60 MG HCl 60 MG Pravastatin Pravastatin No 1{table QD Pravastati Sodium 40 Sodium 40 t} n Sodium MG MG 40 MG Trelegy Trelegy No 1{puff} QD Trelegy Ellipta Ellipta Ellipta 100-62.5-25 100-62.5-25 100-62.5-2 MCG/INH MCG/INH 5 MCG/INH Methocarbam Methocarbam No 1.5{tab 6xD Methocarba ol 500 MG ol 500 MG lets} mol 500 MG Ondansetron Ondansetron No 1{table TID Ondansetro HCl 4 MG HCl 4 MG t} n HCl 4 MG FreeStyle FreeStyle No FreeStyle Lite Test - Lite Test - Lite Test - Cetirizine Cetirizine No Cetirizine HCl HCl HCl Dicyclomine Dicyclomine No 1{table BID Dicyclomin HCl 10 MG HCl 10 MG t} e HCl 10 MG Meloxicam Meloxicam No Meloxicam Diclofenac Diclofenac No Diclofenac Sodium 1 % Sodium 1 % Sodium 1 % Aspirin Aspirin No 1{table QD Aspirin Adult Low Adult Low t} Adult Low Strength 81 Strength 81 Strength MG MG 81 MG Cholestyram Cholestyram No 1{packe QD Cholestyra ine 4 GM ine 4 GM t_mixed mine 4 GM _with_w ater_or _non-ca rbonate d_drink } Folic Acid Folic Acid No 1{table QD Folic Acid 1 MG 1 MG t} 1 MG Pantoprazol Pantoprazol No 1{table QD Pantoprazo e Sodium 40 e Sodium 40 t} le Sodium MG MG 40 MG Famotidine Famotidine No Famotidine Lumigan Lumigan No 1{drop_ QD Lumigan 0.01 % 0.01 % into_af 0.01 % fected_ eye_in_ the_geri gascag} Trelegy Trelegy No 1{puff} QD Trelegy Ellipta Ellipta Ellipta 100-62.5-25 100-62.5-25 100-62.5-2 MCG/INH MCG/INH 5 MCG/INH Albuterol Albuterol No 1{puff_ 6xD Albuterol Sulfate HFA Sulfate HFA as_need Sulfate 108 (90 108 (90 ed} HFA 108 Base) Base) (90 Base) MCG/ACT MCG/ACT MCG/ACT Azelastine Azelastine No QD Azelastine HCl 137 HCl 137 HCl 137 MCG/SPRAY MCG/SPRAY MCG/SPRAY Restasis Restasis No 1{drop_ BID Restasis 0.05 % 0.05 % into_af 0.05 % fected_ eye} Janumet Janumet No Janumet DULoxetine DULoxetine No QD DULoxetine HCl 60 MG HCl 60 MG HCl 60 MG Ventolin Ventolin No 2{puffs Ventolin HFA 108 (90 HFA 108 (90 _as_nee HFA 108 Base) Base) ded} (90 Base) MCG/ACT MCG/ACT MCG/ACT Gralise Gralise No Gralise Montelukast Montelukast No Montelukas Sodium 10 Sodium 10 t Sodium MG MG 10 MG Gabapentin Gabapentin No 1{table Gabapentin 600 MG 600 MG t} 600 MG Trelegy Trelegy No 1{puff} QD Trelegy Ellipta Ellipta Ellipta 100-62.5-25 100-62.5-25 100-62.5-2 MCG/INH MCG/INH 5 MCG/INH predniSONE predniSONE No predniSONE Combigan Combigan No 1{drop_ BID Combigan 0.2-0.5 % 0.2-0.5 % into_af 0.2-0.5 % fected_ eye} Methotrexat Methotrexat No Methotrexa e e te Sucralfate Sucralfate No Sucralfate [place] No [place] Pravastatin Pravastatin No 1{table QD Pravastati Sodium 40 Sodium 40 t} n Sodium MG MG 40 MG Janumet Janumet No 1{table BID Janumet 50-1000 MG 50-1000 MG t_with_ 50-1000 MG meals} Atorvastati Atorvastati No Atorvastat n Calcium n Calcium in Calcium Losartan Losartan No 1{table QD Losartan Potassium-H Potassium-H t} Potassium- CTZ 100-25 CTZ 100-25 HCTZ MG MG 100-25 MG Montelukast Montelukast No Montelukas Sodium Sodium t Sodium Vitamin D Vitamin D No Vitamin D (Ergocalcif (Ergocalcif (Ergocalci osvaldo) osvaldo) ferol) Cetirizine Cetirizine No Cetirizine HCl HCl HCl Dicyclomine Dicyclomine No 1{table BID Dicyclomin HCl 10 MG HCl 10 MG t} e HCl 10 MG FreeStyle FreeStyle No FreeStyle Lite Test - Lite Test - Lite Test - [facility] No [place] Combigan Combigan No 1{drop_ BID Combigan 0.2-0.5 % 0.2-0.5 % into_af 0.2-0.5 % fected_ eye} Meloxicam Meloxicam No Meloxicam Folic Acid Folic Acid No 1{table QD Folic Acid 1 MG 1 MG t} 1 MG Pantoprazol Pantoprazol No 1{table QD Pantoprazo e Sodium 40 e Sodium 40 t} le Sodium MG MG 40 MG Cholestyram Cholestyram No 1{packe QD Cholestyra ine 4 GM ine 4 GM t_mixed mine 4 GM _with_w ater_or _non-ca rbonate d_drink } Methocarbam Methocarbam No 1.5{tab 6xD Methocarba ol 500 MG ol 500 MG lets} mol 500 MG Ondansetron Ondansetron No 1{table TID Ondansetro HCl 4 MG HCl 4 MG t} n HCl 4 MG Famotidine Famotidine No Famotidine Azelastine Azelastine No QD Azelastine HCl 137 HCl 137 HCl 137 MCG/SPRAY MCG/SPRAY MCG/SPRAY Trelegy Trelegy No 1{puff} QD Trelegy Ellipta Ellipta Ellipta 100-62.5-25 100-62.5-25 100-62.5-2 MCG/INH MCG/INH 5 MCG/INH Diclofenac Diclofenac No Diclofenac Sodium 1 % Sodium 1 % Sodium 1 % Aspirin Aspirin No 1{table QD Aspirin Adult Low Adult Low t} Adult Low Strength 81 Strength 81 Strength MG MG 81 MG Restasis Restasis No 1{drop_ BID Restasis 0.05 % 0.05 % into_af 0.05 % fected_ eye} Lumigan Lumigan No 1{drop_ QD Lumigan 0.01 % 0.01 % into_af 0.01 % fected_ eye_in_ the_eve shayna} DULoxetine DULoxetine No QD DULoxetine HCl 60 MG HCl 60 MG HCl 60 MG Ventolin Ventolin No 2{puffs Ventolin HFA 108 (90 HFA 108 (90 _as_nee HFA 108 Base) Base) ded} (90 Base) MCG/ACT MCG/ACT MCG/ACT Gralise Gralise No Gralise predniSONE predniSONE No predniSONE Gabapentin Gabapentin No 1{table Gabapentin 600 MG 600 MG t} 600 MG Trelegy Trelegy No 1{puff} QD Trelegy Ellipta Ellipta Ellipta 100-62.5-25 100-62.5-25 100-62.5-2 MCG/INH MCG/INH 5 MCG/INH Albuterol Albuterol No 1{puff_ 6xD Albuterol Sulfate HFA Sulfate HFA as_need Sulfate 108 (90 108 (90 ed} HFA 108 Base) Base) (90 Base) MCG/ACT MCG/ACT MCG/ACT Montelukast Montelukast No Montelukas Sodium 10 Sodium 10 t Sodium MG MG 10 MG Methotrexat Methotrexat No Methotrexa e e te Sucralfate Sucralfate No Sucralfate Janumet Janumet No 1{table BID Janumet 50-1000 MG 50-1000 MG t_with_ 50-1000 MG meals} Pravastatin Pravastatin No 1{table QD Pravastati Sodium 40 Sodium 40 t} n Sodium MG MG 40 MG Janumet Janumet No 1{table BID Janumet 50-1000 MG 50-1000 MG t_with_ 50-1000 MG meals} Immunizations Ordered Immunization Filled Immunization Date Status Commen ts Source Name Name [employer] 2020-04-03 [facility]pleted [facility] - [facility] FluAD FluAD 2020-04-03 [facility]pleted [facility] 11:06:00 - [facility] FluAD FluAD 2020-04-03 [facility]pleted [facility] 11:06:00 - [facility] FluAD FluAD 2020-04-03 Completed [facility] 11:06:00 - [facility] FluAD FluAD 2020-04-03 Completed [facility] 11:06:00 - [facility] FluAD FluAD 2020-04-03 Completed [facility] 11:06:00 - [facility] FluAD FluAD 2020-04-03 Completed [facility] 11:: - [facility] FluAD FluAD 2020-04-03 Completed [facility] 11::00 - [facility] FluAD FluAD 2020-04-03 Com[facility] 11:: - [facility] FluAD FluAD 2020-04-03 Completed [facility] 11:: - [facility] FluAD FluAD 2020-04-03 Completed [facility] 11:06: - [facility] FluAD FluAD 2020-04-03 Completed [facility] 11::00 - [facility] FluAD FluAD 2020-04-03 Com[facility] 11::00 - [facility] FluAD FluAD 2020-04-03 Completed [facility] 11:06:00 - [facility] FluAD FluAD 2020-04-03 Completed [facility] 11:06:00 - [facility] FluAD FluAD 2020-04-03 Completed [facility] 11:06:00 - [facility] FluAD FluAD 2020-04-03 Completed [facility] 11:06:00 - [facility] FluAD FluAD 2020-04-03 Com[facility] 11::00 - [facility] FluAD FluAD 2020-04-03 Com[facility] 11::00 - [facility] FluAD FluAD 2020-04-03 Completed [facility] 11:06:00 - [facility] FluAD FluAD 2020-04-03 [facility]pleted [facility] 11:06:00 - [facility] FluAD FluAD 2020-04-03 Completed [facility] 11:06:00 - [facility] FluAD FluAD 2020-04-03 [facility]pleted [facility] 11:06:00 - [facility] FluAD FluAD 2020-04-03 [facility] 11:06:00 [facility] Prevnar 13 (PCV13) Prevnar 13 (PCV13) 2020-04-03 Completed [facility] 11:05:00 - [facility] Prevnar 13 (PCV13) Prevnar 13 (PCV13) 2020-04-03 [facility]pleted [facility] 11:05:00 [facility] Prevnar 13 (PCV13) Prevnar 13 (PCV13) 2020-04-03 [facility]pleted [facility] 11:05:00 [facility] Prevnar 13 (PCV13) Prevnar 13 (PCV13) 2020-04-03 [facility]pleted [facility] 11:05:00 [facility] Prevnar 13 (PCV13) Prevnar 13 (PCV13) 2020-04-03 [facility]pleted [facility] 11:05:00 [facility] Prevnar 13 (PCV13) Prevnar 13 (PCV13) 2020-04-03 [facility]pleted [facility] 11:05:00 - [facility] Prevnar 13 (PCV13) Prevnar 13 (PCV13) 2020-04-03 [facility]pleted [facility] 11:05:00 [facility] Prevnar 13 (PCV13) Prevnar 13 (PCV13) 2020-04-03 [facility]pleted [facility] 11:05:00 - [facility] Prevnar 13 (PCV13) Prevnar 13 (PCV13) 2020-04-03 [facility]pleted [facility] 11:05:00 [facility] Prevnar 13 (PCV13) Prevnar 13 (PCV13) 2020-04-03 [facility]pleted [facility] 11:05:00 [facility] Prevnar 13 (PCV13) Prevnar 13 (PCV13) 2020-04-03 [facility] 11:05:00 [facility] Prevnar 13 (PCV13) Prevnar 13 (PCV13) 2020-04-03 [facility] 11:05:00 [facility] Prevnar 13 (PCV13) Prevnar 13 (PCV13) 2020-04-03 [facility]pleted [facility] 11:05:00 - [facility] Prevnar 13 (PCV13) Prevnar 13 (PCV13) 2020-04-03 [facility] 11:05:00 - [facility] Prevnar 13 (PCV13) Prevnar 13 (PCV13) 2020-04-03 [facility]pleted [facility] 11:05:00 - [facility] Prevnar 13 (PCV13) Prevnar 13 (PCV13) 2020-04-03 [facility] 11:05:00 - [facility] Prevnar 13 (PCV13) Prevnar 13 (PCV13) 2020-04-03 [facility]pleted [facility] 11:05:00 - [facility] Prevnar 13 (PCV13) Prevnar 13 (PCV13) 2020-04-03 [facility]pleted [facility] 11:05:00 - [facility] Prevnar 13 (PCV13) Prevnar 13 (PCV13) 2020-04-03 [facility]pleted [facility] 11:05:00 - [facility] Prevnar 13 (PCV13) Prevnar 13 (PCV13) 2020-04-03 [facility]pleted [facility] 11:05:00 - [facility] Prevnar 13 (PCV13) Prevnar 13 (PCV13) 2020-04-03 [facility]pleted [facility] 11:05:00 - [facility] Prevnar 13 (PCV13) Prevnar 13 (PCV13) 2020-04-03 [facility]pleted [facility] 11:05:00 - [facility] Prevnar 13 (PCV13) Prevnar 13 (PCV13) 2020-04-03 [facility]pleted [facility] 11:05:00 - [facility] Prevnar 13 (PCV13) Prevnar 13 (PCV13) 2020-04-03 Completed [facility] 11:05:00 - [facility] Bupivicaine [place] Bupivicaine [place] 2019-08-30 Completed [facility] 09:50:00 - [facility] Bupivicaine [place] Bupivicaine [place] 2019-08-30 Completed [facility] 09:50:00 - [facility] Bupivicaine [place] Bupivicaine [place] 2019-08-30 [facility]pleted [facility] 09:50:00 - [facility] Bupivicaine [place] Bupivicaine [place] 2019-08-30 Completed [facility] 09:50:00 - [facility] Flucelvax - single Flucelvax - single 2019-02-25 Completed [facility] dose syringe dose syringe 10:56:00 - [facility] Flucelvax - single Flucelvax - single 2019-02-25 Completed [facility] dose syringe dose syringe 10:56:00 - [facility] Flucelvax - single Flucelvax - single 2019-02-25 Completed [facility] dose syringe dose syringe 10:56:00 - [facility] Flucelvax - single Flucelvax - single 2019-02-25 Completed [facility] dose syringe dose syringe 10:56:00 - [facility] Flucelvax - single Flucelvax - single 2019-02-25 Completed [facility] dose syringe dose syringe 10:56:00 - [facility] Flucelvax - single Flucelvax - single 2019-02-25 Completed [facility] dose syringe dose syringe 10:56:00 - [facility] Flucelvax - single Flucelvax - single 2019-02-25 Completed [facility] dose syringe dose syringe 10:56:00 - [facility] Flucelvax - single Flucelvax - single 2019-02-25 Completed [facility] dose syringe dose syringe 10:56:00 - [facility] Flucelvax - single Flucelvax - single 2019-02-25 Completed [facility] dose syringe dose syringe 10:56:00 - [facility] Flucelvax - single Flucelvax - single 2019-02-25 Completed [facility] dose syringe dose syringe 10:56:00 - [facility] Flucelvax - single Flucelvax - single 2019-02-25 Completed [facility] dose syringe dose syringe 10:56:00 - [facility] Flucelvax - single Flucelvax - single 2019-02-25 Completed [facility] dose syringe dose syringe 10:56:00 - [facility] Flucelvax - single Flucelvax - single 2019-02-25 Completed [facility] dose syringe dose syringe 10:56:00 - [facility] Flucelvax - single Flucelvax - single 2019-02-25 Completed [facility] dose syringe dose syringe 10:56:00 - [facility] Flucelvax - single Flucelvax - single 2019-02-25 Completed [facility] dose syringe dose syringe 10:56:00 - [facility] Flucelvax - single Flucelvax - single 2019-02-25 Completed [facility] dose syringe dose syringe 10:56:00 - [facility] Flucelvax - single Flucelvax - single 2019-02-25 Completed [facility] dose syringe dose syringe 10:56:00 - [facility] Flucelvax - single Flucelvax - single 2019-02-25 Completed [facility] dose syringe dose syringe 10:56:00 - [facility] Flucelvax - single Flucelvax - single 2019-02-25 Completed [facility] dose syringe dose syringe 10:56:00 - [facility] Flucelvax - single Flucelvax - single 2019-02-25 Completed [facility] dose syringe dose syringe 10:56:00 - [facility] Flucelvax - single Flucelvax - single 2019-02-25 Completed [facility] dose syringe dose syringe 10:56:00 - [facility] Flucelvax - single Flucelvax - single 2019-02-25 Completed [facility] dose syringe dose syringe 10:56:00 - [facility] Flucelvax - single Flucelvax - single 2019-02-25 Completed [facility] dose syringe dose syringe 10:56:00 - [facility] Flucelvax - single Flucelvax - single 2019-02-25 Completed [facility] dose syringe dose syringe 10:56:00 - [facility] Flucelvax - single Flucelvax - single 2019-02-25 Completed [facility] dose syringe dose syringe 00:00:00 - [facility] Flucelvax - Flucelvax - 2018-03-09 [facility] multidose [facility]ial multidose vial 09:28:00 - [facility] Flucelvax - Flucelvax - 2018-03-09 [facility] multidose vial multidose vial 09:28:00 - [facility] Flucelvax - Flucelvax - 2018-03-09 [facility] multidose vial multidose vial 09:28:00 - [facility] Flucelvax - Flucelvax - 2018-03-09 [facility] multidose vial multidose vial 09:28:00 - [facility] Flucelvax - Flucelvax - 2018-03-09 [facility] multidose vial multidose vial 09:28:00 - [facility] Flucelvax - Flucelvax - 2018-03-09 [facility] multidose vial multidose vial 09:28:00 - [facility] Flucelvax - Flucelvax - 2018-03-09 [facility] multidose vial multidose vial 09:28:00 - [facility] Flucelvax - Flucelvax - 2018-03-09 [facility] multidose vial multidose vial 09:28:00 - [facility] Flucelvax - Flucelvax - 2018-03-09 [facility] multidose vial multidose vial 09:28:00 - [facility] Flucelvax - Flucelvax - 2018-03-09 [facility] multidose vial multidose vial 09:28:00 - [facility] Flucelvax - Flucelvax - 2018-03-09 [facility] multidose vial multidose vial 09:28:00 - [facility] Flucelvax - Flucelvax - 2018-03-09 [facility] multidose vial multidose vial 09:28:00 - [facility] Flucelvax - Flucelvax - 2018-03-09 [facility] multidose vial multidose vial 09:28:00 - [facility] Flucelvax - Flucelvax - 2018-03-09 [facility] multidose vial multidose vial 09:28:00 - [facility] Flucelvax - Flucelvax - 2018-03-09 [facility] multidose vial multidose vial 09:28:00 - [facility] Flucelvax - Flucelvax - 2018-03-09 [facility] multidose vial multidose vial 09:28:00 - [facility] Flucelvax - Flucelvax - 2018-03-09 [facility] multidose vial multidose vial 09:28:00 - [facility] Flucelvax - Flucelvax - 2018-03-09 [facility] multidose vial multidose vial 09:28:00 - [facility] Flucelvax - Flucelvax - 2018-03-09 [facility] multidose vial multidose vial 09:28:00 - [facility] Flucelvax - Flucelvax - 2018-03-09 [facility] multidose vial multidose vial 09:28:00 - [facility] Flucelvax - Flucelvax - 2018-03-09 [facility] multidose vial multidose vial 09:28:00 - [facility] Flucelvax - Flucelvax - 2018-03-09 [facility]pleted [facility] multidose vial multidose vial 09:28:00 - [facility] Flucelvax - Flucelvax - 2018-03-09 [facility] multidose vial multidose vial 09:28:00 - [facility] Flucelvax - Flucelvax - 2018-03-09 [facility] multidose vial multidose vial 09:28:00 - [facility] Solumedrol 40mg/1ml Solumedrol 40mg/1ml 2017-12-11 Completed [facility] 12:01:00 - [facility] Solumedrol 40mg/1ml Solumedrol 40mg/1ml 2017-12-11 Completed [facility] 12::00 - [facility] Solumedrol 40mg/1ml Solumedrol 40mg/1ml 2017-12-11 Completed [facility] 12:01:00 - [facility] Solumedrol 40mg/1ml Solumedrol 40mg/1ml 2017-12-11 Completed [facility] 12::00 - [facility] Vital Signs Vital Name Observation Time Observation Value Comments Source height 2022-03-31 10:40:00 63.75 [in_i] [facility] weight 2022-03-31 10:40:00 207.2 [lb_av] [facility] temperature 2022-03-31 10:40:00 97.0 [degF] [facility] bmi 2022-03-31 10:40:00 35.84 kg/m2 [facility] oximetry 2022-03-31 10:40:00 99 % [facility] respiratory rate 2022-03-31 10:40:00 18 /min Comm on [facility] blood pressure 2022-03-31 10:40:00 130 mm[Hg] [facility] - systolic [facility] blood pressure 2022-03-31 10:40:00 82 mm[Hg] [facility] diastolic [facility] height 2021-11-26 14:20:00 63.75 [in_i] [facility] weight 2021-11-26 14:20:00 210 [lb_av] [facility] 2021-11-26 14:20:00 36.33 kg/m2 [facility] height 2021-11-26 14:00:00 63.75 [in_i] [facility] weight 2021-11-26 14:00:00 210 [lb_av] [facility] bmi 2021-11-26 14:00:00 36.33 kg/m2 [facility] height 2021-01-15 11:00:00 63.75 [in_i] [facility] weight 2021-01-15 11:00:00 211 [lb_av] [facility] temperature 2021-01-15 11:00:00 97.1 [degF] [facility] bmi 2021-01-15 11:00:00 36.5 kg/m2 [facility] oximetry 2021-01-15 11:00:00 98 % [facility] respiratory rate 2021-01-15 11:00:00 21 /min [facility] blood pressure 2021-01-15 11:00:00 138 mm[Hg] [facility] - systolic [facility] blood pressure 2021-01-15 11:00:00 84 mm[Hg] [facility] - diastolic [facility] Weight 2020-01-17 15:15:00 [facility] Height 2020-01-17 15:15:00 [facility] Temperature Oral (F) 2020-01-17 15:15:00 97.0 F [facility] Heart Rate 2020-01-17 15:15:00 [facility] Diastolic (mm Hg) 2020-01-17 15:15:00 [facility] Systolic (mm Hg) 2020-01-17 15:15:00 [facility] Weight 2019-11-18 16:30:00 [facility] Height 2019-11-18 16:30:00 [facility] Temperature Oral (F) 2019-11-18 16:30:00 97.5 F [facility] Heart Rate 2019-11-18 16:30:00 [facility] Diastolic (mm Hg) 2019-11-18 16:30:00 [facility] Systolic (mm Hg) 2019-11-18 16:30:00 Gorodn [facility] Weight 2019-10-21 13:45:00 [facility] Height 2019-10-21 13:45:00 [facility] Temperature Oral (F) 2019-10-21 13:45:00 96.3 F [facility] Heart Rate 2019-10-21 13:45:00 [facility] Diastolic (mm Hg) 2019-10-21 13:45:00 [facility] Systolic (mm Hg) 2019-10-21 13:45:00 Gordon [facility] Weight 2019-06-24 16:30:00 [facility] Height 2019-06-24 16:30:00 [facility] Heart Rate 2019-06-24 16:30:00 [facility] Diastolic (mm Hg) 2019-06-24 16:30:00 [facility] Systolic (mm Hg) 2019-06-24 16:30:00 Gordon [facility] Procedures Procedure Date / Time Performing Clinician Source Performed [employer] 2021-12-14 05:01:00 Doctor Unassigned, [facility] Encounters Start End Encounter Admission Attending Care Care Encounter Source Date/Time Date/Time Type Type Clinicians Facility Department ID 2022-07-31 Outpatient [id number] Mem[facility] 16:59:02 [id number] 2022-07-19 Outpatient Simeon, STLMLC STLMLC [id number] [facility] 08:43:00 [facility] [id number] [facility] 2022-07-12 Outpatient Simeon, STLMLC STLMLC [id number] [facility] 14:50:02 Keily [address] [facility] 2022-06-15 Outpatient Simeon, STLMLC STLMLC [id number] [facility] 10:32:00 Keily [id number] [facility] 2022-03-29 Outpatient Tucker, Na STLMLC STLMLC [id number] 2 [facility] 08:10:00 [id number] [facility] 2022-03-09 Outpatient Tucker, Na STLMLC STLMLC [id number] 2 [facility] 10:07:00 [facility] 2022-01-10 Outpatient Tucker, Na STLMLC STLMLC [id number] 2 [facility] 15:50:00 [facility] 2021-11-24 Outpatient Tucker, Na STLMLC STLMLC [id number] 2 [facility] 09:42:01 [facility] 2021-06-24 Outpatient Tucker, Na STLMLC STLMLC [id number] 2 [facility] 10:27:01 [facility] 2021-06-16 Outpatient Tucker, Na STLMLC STLMLC [id number] 2 [facility] 14:04:27 [address] [facility] 2021-06-16 Outpatient Tucker, Na STLMLC STLMLC [id number] 2 [facility] 13:43:06 [address] [facility] 2021-06-16 Outpatient Tucker, Na STLMLC STLMLC [id number] 2 [facility] 13:37:57 [address] [facility] 2021-06-16 Outpatient Tucker, Na STLMLC STLMLC [id number] 2 [facility] 13:24:31 [id number] [facility] 2021-06-16 Outpatient Tucker, Na STLMLC STLMLC [id number] 2 [facility] 13:04:17 [id number] [facility] 2021-06-16 Outpatient Tucker, Na STLMLC STLMLC [id number] 2 [facility] 12:56:35 328[address] [facility] 2021-06-16 Outpatient Tucker, Na STLMLC STLMLC [id number] 2 [facility] 12:56:20 82376 [facility] 2021-06-16 Outpatient Tucker, Na STLMLC STLMLC [id number] 2 [facility] 12:50:26 188[address] [facility] 2021-06-16 Outpatient Tucker, Na STLMLC STLMLC [id number] 2 [facility] 12:36:40 [address]1239 [facility] 2021-06-16 Outpatient Tucker, Na STLMLC STLMLC [id number] 2 [facility] 12:31:41 [id number] [facility] 2021-06-16 Outpatient Tucker, Na STLMLC STLMLC [id number] 2 [facility] 12:31:35 246[address] [facility] 2021-06-16 Outpatient Tucker, Na STLMLC STLMLC [id number] 2 [facility] 12:05:30 63913 [facility] 2021-06-16 Outpatient Tucker, Na STLMLC STLMLC [id number] 2 [facility] 12:04:38 71477 [facility] 2021-06-16 Outpatient Tucker, Na STLMLC STLMLC [id number] 2 [facility] 12:04:03 82417 [facility] 2021-06-16 Outpatient Tucker, Na STLMLC STLMLC [id number] 2 [facility] 12:03:45 635[address] [facility] 2021-06-16 Outpatient Tucker, Na STLMLC STLMLC [id number] 2 [facility] 11:59:58 [id number] [facility] 2021-06-16 Outpatient Millender, STLMLC STLMLC [id number] [facility] 11:33:58 [place] [address] [facility] 2021-06-16 Outpatient Millender, STLMLC STLMLC [id number] [facility] 11:27:47 [place] [address] [facility] 2021-06-16 Outpatient Millender, STLMLC STLMLC [id number] [facility] 11:17:40 [place] [id number] [facility] 2021-06-16 Outpatient Millender, STLMLC STLMLC [id number] Common 11:17:20 [place]ony [id number] [facility] 2021-06-16 Outpatient Millender, STLMLC STLMLC [id number] Common 11:16:38 Harmony [id number] [facility] 2021-06-16 Outpatient Millender, STLMLC STLMLC [id number] Common 10:58:17 Harmony [id number] [facility] 2021-06-16 Outpatient Millender, STLMLC STLMLC [id number] Common 10:57:58 Harmony [id number] [facility] 2022-06-20 2022-06-20 (TEL) STLMLC STLMLC [id number] Co mmon 00:00:00 00:00:00 [facility] 2022-06-20 2022-06-20 (TEL) STLMLC STLMLC [id number] Co mmon 00:00:00 00:00:00 [facility] 2022-06-15 2022-06-15 (TEL) STLMLC STLMLC [id number] Co mmon 00:00:00 00:00:00 [facility] 2022-06-01 2022-06-01 Outpatient HAILEY Verdugo, OSWALDCL OUTD [id number] [facility] 05:27:00 05:27:00 Jackson 84 [facility] 2022-04-20 2022-04-20 (WEB) STLMLC STLMLC [id number] Co mmon 00:00:00 00:00:00 [facility] 2022-04-05 2022-04-05 (WEB) STLMLC STLMLC [id number] Co mmon 00:00:00 00:00:00 [facility] 2022-04-01 2022-04-01 (WEB) STLMLC STLMLC [id number] Co mmon 00:00:00 00:00:00 [facility] 2022-03-31 2022-03-31 OFFICE STLMLC STLMLC [id number] Co mmon 00:00:00 00:00:[address] [facility] LEVEL 4 [facility] 2022-03-31 2022-03-31 (TEL) STLMLC STLMLC [id number] Co mmon 00:00:00 00:00:00 [facility] 2022-03-06 2022-03-06 Outpatient SICKLER, MHSE MHSE [id number] MH 08:01:00 23:59:[address] [facility] 2022-02-11 2022-02-11 Outpatient SIMEON, MHSE MHSE [id number] MH 09:56:00 23:59:[address] [facility] 2022-01-11 2022-01-11 (TEL) STLMLC STLMLC [id number] Co mmon 00:00:00 00:00:00 [facility] 2022-01-11 2022-01-11 OL DIG E/M STLMLC STLMLC [id number] Common 00:00:00 00:00:00 [facility] 11-20 Spir it [facility] 2022-01-10 2022-01-10 (TEL) STLMLC STLMLC [id number] Co mmon 00:00:00 00:00:00 [facility] 2021-12-23 2021-12-23 OL DIG E/M STLMLC STLMLC [id number] Common 00:00:00 00:00:00 [facility] 04-10 Spir it MIN [facility] 2021-12-14 2021-12-14 Orders Doctor RODERICK [id number] Univers 00:00:00 00:00:00 Only Unassigned, LUISITO [id number] [facility] [place] [facility] [id number] Fan as [id number] [place] [id number] [facility] 2021-12-08 2021-12-08 (TEL) STLMLC STLMLC [id number] Co mmon 00:00:00 00:00:00 [facility] 2021-11-29 2021-11-29 (TEL) STLMLC STLMLC [id number] Co mmon 00:00:00 00:00:00 [facility] 2021-11-26 2021-11-26 OL DIG E/M STLMLC STLMLC [id number] Common 00:00:00 00:00:00 [facility] 04-10 Spir it [facility] 2021-11-26 2021-11-26 (TELEAUD) STLMLC STLMLC [id number] Common 00:00:00 00:00:00 [facility]MEDICI - [facility] 2021-11-25 2021-11-25 (TEL) STLMLC STLMLC [id number] Co mmon 00:00:00 00:00:00 [facility] 2021-08-25 2021-08-25 (TEL) STLMLC STLMLC [id number] Co mmon 00:00:00 00:00:00 [facility] 2021-08-03 2021-08-03 (TEL) STLMLC STLMLC [id number] Co mmon 00:00:00 00:00:00 [facility] 2021-06-28 2021-06-28 OL DIG E/M STLMLC STLMLC [id number] Common 00:00:00 00:00:00 [facility] 2021-06-27 2021-06-27 Outpatient RAHUL KAY - [id number] eClinic 00:10:00 00:10:00 Rheumatol Rheumatolog alWorks ogy y [facility] 2021-05-31 2021-05-31 Outpatient Baird, [facility] HCAPM [id number] [facility] 09:00:00 09:00:00 Jeff Roth [facility] [place] 2021-03-12 2021-03-12 (TEL) STLMLC STLMLC [id number] Co mmon 00:00:00 00:00:00 [facility] 2021-03-04 2021-03-04 (TEL) STLMLC STLMLC [id number] Co mmon 00:00:00 00:00:00 [facility] 2021-01-15 2021-01-15 Outpatient STLMLC STLMLC [id number] Common 00:00:00 00:00:00 [facility] 2021-01-15 2021-01-15 (TEL) STLMLC STLMLC [id number] Co mmon 00:00:00 00:00:00 [facility] 2021-01-15 2021-01-15 OFFICE STLMLC STLMLC [id number] Co mmon 00:00:00 00:00:00 VISIT [facility] PT [facility] LEVEL 4 [facility] 2021-01-05 2021-01-05 Outpatient STLMLC STLMLC [id number] Common 00:00:00 00:00:00 [facility] 2020-12-24 2020-12-24 Outpatient STLMLC STLMLC [id number] Common 00:00:00 00:00:00 [facility] 2020-12-07 2020-12-07 Outpatient STLMLC STLMLC [id number] Common 00:00:00 00:00:00 [facility] 2020-12-07 2020-12-07 Outpatient STLMLC STLMLC [id number] Common 00:00:00 00:00:00 [facility] 2020-10-09 2020-10-09 Outpatient STLMLC STLMLC [id number] Common 00:00:00 00:00:00 [facility] 2020-10-05 2020-10-05 Outpatient STLMLC STLMLC [id number] Common 00:00:00 00:00:00 [facility] 2020-09-14 2020-09-14 Outpatient STLMLC STLMLC [id number] Common 00:00:00 00:00:00 [facility] 2020-08-28 2020-08-28 Outpatient STLMLC STLMLC [id number] Common 00:00:00 00:00:00 [facility] 2020-08-26 2020-08-26 Outpatient STLMLC STLMLC [id number] Common 00:00:00 00:00:00 [facility] 2020-08-17 2020-08-17 Outpatient STLMLC STLMLC [id number] Common 00:00:00 00:00:00 [facility] 2020-08-17 2020-08-17 Outpatient STLMLC STLMLC [id number] Common 00:00:00 00:00:00 [facility] 2020-08-14 2020-08-14 Outpatient STLMLC STLMLC [id number] Common 00:00:00 00:00:00 [facility] 2020-08-10 2020-08-10 Outpatient STLMLC STLMLC [id number] Common 00:00:00 00:00:00 [facility] 2020-08-03 2020-08-03 Outpatient STLMLC STLMLC [id number] Common 00:00:00 00:00:00 [facility] 2020-07-21 2020-07-21 Outpatient STLMLC STLMLC [id number] Common 00:00:00 00:00:00 [facility] 2020-07-14 2020-07-14 Outpatient STLMLC STLMLC [id number] Common 00:00:00 00:00:00 [facility] 2020-07-13 2020-07-13 Outpatient STLMLC STLMLC [id number] Common 00:00:00 00:00:00 [facility] 2020-07-01 2020-07-01 Outpatient STLMLC STLMLC [id number] Common 00:00:00 00:00:00 [facility] 2020-06-12 2020-06-12 Outpatient STLMLC STLMLC [id number] Common 00:00:00 00:00:00 [facility] 2020-04-03 2020-04-03 Outpatient STLMLC STLMLC [id number] Common 00:00:00 00:00:00 [facility] 2020-04-03 2020-04-03 Outpatient STLMLC STLMLC [id number] Common 00:00:00 00:00:00 [facility] 2020-03-26 2020-03-26 Outpatient SICKLER, MHSE MHSE [id number] MH 20:41:00 23:59:[facility] 2020-03-20 2020-03-20 Outpatient SICKLER, MHSE MHSE [id number] MH 09:45:00 23:59:00 [facility] 2020-03-16 2020-03-16 Outpatient STLMLC STLMLC [id number] Common 00:00:00 00:00:00 [facility] 2020-03-13 2020-03-13 Outpatient STLMLC STLMLC [id number] Common 00:00:00 00:00:00 [facility] 2020-03-06 2020-03-06 Outpatient STLMLC STLMLC [id number] Common 00:00:00 00:00:00 [facility] 2020-02-18 2020-02-18 Outpatient RAHUL - RAHUL - [id number] eClinic 14:00:00 14:00:00 Rheumatol Rheumatolog alWorks ogy y [facility] 2020-01-28 2020-01-28 [facility] [id number] Common 08:47:00 08:47:00 [facility] 2020-01-24 2020-01-24 [facility] [id number] Common 08:11:00 08:11:00 [facility] 2020-01-21 2020-01-21 [facility] [id number] Common 12:02:00 12:02:00 [facility] 2020-01-21 2020-01-21 [facility] [id number] Common 11:22:00 11:22:00 [facility] it [facility] 2020-01-21 2020-01-21 [facility] [id number] Common 08:48:00 08:48:00 [facility] 2020-01-17 2020-01-17 Outpatient RAHUL - RAHUL - [id number] eClinic 10:15:00 10:15:00 Rheumatol Rheumatolog alWorks ogy y [facility] 2020-01-17 2020-01-17 [facility] [id number] Common 09:06:00 09:06:00 [facility] it [facility] 2020-01-03 2020-01-03 [facility] [id number] Common 13:40:00 13:40:00 [facility] it [facility] 2020-01-03 2020-01-03 Outpatient RAHUL - RAHUL - [id number] eClinic 11:19:00 11:19:00 Rheumatol Rheumatolog alWorks ogy y [facility] 2019-12-25 2019-12-25 Outpatient RAHUL - RAHUL - [id number] eClinic 14:27:00 14:27:00 Rheumatol Rheumatolog alWorks ogy y [facility] 2019-12-22 2019-12-22 Outpatient PRL - PRL - [id number] eClinic 23:19:00 23:19:00 Rheumatol Rheumatolog alWorks ogy y [facility] 2019-12-20 2019-12-20 [facility] [id number] Common 08:00:00 08:00:00 [facility] 2019-12-09 2019-12-09 [facility] [id number] Common 16:45:00 16:45:00 t [facility] 2019-12-02 2019-12-02 [facility] [id number] Common 14:30:00 14:30:00 t [facility] 2019-11-18 2019-11-18 Outpatient RAHUL - RAHUL - [id number] eClinic 11:30:00 11:30:00 Rheumatol Rheumatolog alWorks ogy y [facility] 2019-11-15 2019-11-15 [facility] [id number] Common 09:48:00 09:48:00 [facility] 2019-11-14 2019-11-14 Outpatient RAHUL - RAHUL - [id number] eClinic 10:49:00 10:49:00 Rheumatol Rheumatolog alWorks ogy y [facility] 2019-10-21 2019-10-21 Outpatient Rheumatol Rheumatolog [id number] eClinic 08:45:00 08:45:00 ogy y [facility] 2019-10-20 2019-10-20 Outpatient RAHUL - RAHUL - [id number] eClinic 10:18:00 10:18:00 Rheumatol Rheumatolog alWorks ogy y [facility] 2019-10-06 2019-10-06 Outpatient PRL - PRL - [id number] eClinic 15:17:00 15:17:00 Rheumatol Rheumatolog alWorks ogy y [facility] 2019-10-03 2019-10-03 [facility] [id number] Common 10:30:00 10:30:00 t [facility] 2019-09-25 2019-09-25 Outpatient RAHUL KAY - [id number] eClinic 16:29:00 16:29:00 Rheumatol Rheumatolog alWorks ogy y [facility] 2019-09-09 2019-09-09 [facility] [id number] Common 09:42:00 09:42:00 [facility] it [facility] 2019-09-04 2019-09-04 Outpatient RAHUL KAY - [id number] eClinic 08:51:00 08:51:00 Rheumatol Rheumatolog alWorks ogy y [facility] 2019-09-02 2019-09-02 Outpatient PRL - PRL - [id number] eClinic 08:30:00 08:30:00 Rheumatol Rheumatolog alWorks ogy y [facility] 2019-08-30 2019-08-30 [facility] [id number] Common 11:00:00 11:00:00 [facility] 2019-08-30 2019-08-30 [facility] [id number] Common 09:15:00 09:15:00 t [facility] Sp[facility] t [facility] - [facility] 2019-08-13 2019-08-13 [facility] [id number] Common 08:38:00 08:38:00 t [facility] 2019-08-07 2019-08-07 Outpatient PRL - PRL - [id number] eClinic 10:47:00 10:47:00 Rheumatol Rheumatolog alWorks ogy y [facility] 2019-08-06 2019-08-06 Outpatient RAHUL SOLOMONU - [id number] eClinic 06:53:00 06:53:00 Rheumatol Rheumatolog alWorks ogy y [facility] 2019-08-05 2019-08-05 Outpatient PRL - PRL - [id number] eClinic 10:42:00 10:42:00 Rheumatol Rheumatolog alWorks ogy y [facility] 2019-07-22 2019-07-22 [facility] [id number] Common 09:01:00 09:01:00 t [facility] 2019-07-08 2019-07-08 [facility] [id number] Common 10:15:00 10:15:00 t [facility] 2019-06-24 2019-06-24 Outpatient PRL - PRL - [id number] eClinic 10:30:00 10:30:00 Rheumatol Rheumatolog alWorks ogy y [facility] 2019-06-04 2019-06-04 [facility] [id number] Common 10:52:00 10:52:00 t [facility] - [facility] 2019-05-27 2019-05-27 [facility] [id number] Common 11:15:00 11:15:00 [facility] Family - [facility] Family Medicine [facility] 2019-05-09 2019-05-09 Outpatient PRL - PRL - [id number] eClinic 22:10:00 22:10:00 Rheumatol Rheumatolog alWorks ogy y [facility] 2019-05-04 2019-05-04 Outpatient RAHUL - RAHUL - [id number] eClinic 06:53:00 06:53:00 Rheumatol Rheumatolog alWorks ogy y [facility] 2019-04-22 2019-04-22 [facility] [id number] Common 13:00:00 13:00:00 t Specialty/U Sp kamar Specialty rology - [facility] 2019-04-17 2019-04-17 Outpatient PRL - PRL - [id number] eClinic 10:55:00 10:55:00 Rheumatol Rheumatolog alWorks ogy y [facility] 2019-03-21 2019-03-21 [facility] [id number] Common 12:11:00 12:11:00 t Bone Bone and Spiri t and Joint Joint - [facility] 2019-03-18 2019-03-18 Out[facility] [id number] Common 10:01:00 10:01:00 t [facility] Spir it [address] [facility] 2019-03-08 2019-03-08 Out[facility] [id number] Common 11:26:00 11:26:00 t Bone Bone and Spiri t and Joint Joint - [facility] 2019-03-07 2019-03-07 [facility] [id number] Common 09:10:00 09:10:00 t [facility] it [facility] 2019-03-04 2019-03-04 Out[facility] [id number] Common 10:00:00 10:00:00 t [facility] Sp[facility] t [facility] - [facility] 2019-02-25 2019-02-25 Out[facility] [id number] Common 10:20:00 10:20:00 t [facility] Spir [facility] [address] [facility] 2019-02-20 2019-02-20 Outpatient [facility] [id number] Common 08:57:00 08:57:00 t [facility] Spir [facility] [address] [facility] 2019-01-28 2019-01-28 Outpatient [facility] [id number] Common 11:10:00 11:10:00 t [facility] Spir [facility] [address] [facility] 2019-01-25 2019-01-25 Outpatient PRL - PRL - [id number] eClinic 17:14:00 17:14:00 Rheumatol Rheumatolog alWorks ogy y [facility] 2019-01-25 2019-01-25 Out[facility] [id number] Common 11:00:00 11:00:00 t Specialty/U Sp kamar Specialty rology - [facility] 2019-01-14 2019-01-14 Outpatient PRL - PRL - [id number] eClinic 14:51:00 14:51:00 Rheumatol Rheumatolog alWorks ogy y [facility] 2019-01-02 2019-01-02 Outpatient RAHUL Salma RAHUL - [id number] eClinic 11:50:00 11:50:00 Rheumatol Rheumatolog alWorks ogy y [facility] 2018-12-27 2018-12-27 [facility] [id number] Common 09:55:00 09:55:00 t [facility] 2018-12-24 2018-12-24 [facility] [id number] Common 13:08:00 13:08:00 t [facility] - [facility] 2018-12-20 2018-12-20 Out[facility] [id number] Common 13:30:00 13:30:00 t Specialty/U Sp kamar Specialty rology - [facility] 2018-11-29 2018-11-29 Out[facility] [id number] Common 08:00:00 08:00:00 t [facility] Bone and Sp[facility] t and Joint Joint - [facility] 2018-11-26 2018-11-26 Out[facility] [id number] Common 14:14:00 14:14:00 [facility] Spir it [address] [facility] 2018-11-23 2018-11-23 Outpatient [facility] [id number] Common 13:20:00 13:20:00 [facility] Spir [facility] [address] [facility] 2018-11-08 2018-11-08 Out[facility] [id number] Common 10:10:00 10:10:00 t [facility] - [facility] 2018-11-01 2018-11-01 Outpatient [facility] [id number] Common 10:23:00 10:23:00 t [facility] - [facility] 2018-10-23 2018-10-23 Out[facility] [id number] Common 15:48:00 15:48:00 [facility] Spir [facility] [address] [facility] 2018-10-01 2018-10-01 Out[facility] [id number] Common 10:30:00 10:30:00 t [facility] - [facility] 2018-08-31 2018-08-31 Out[facility] [id number] Common 08:30:00 08:30:00 t [facility] - [facility] 2018-08-23 2018-08-23 Out[facility] [id number] Common 12:29:00 12:29:00 t [facility] - [facility] 2018-08-21 2018-08-21 Out[facility] [id number] Common 11:38:00 11:38:00 t [facility] - [facility] 2018-08-17 2018-08-17 [facility] [id number] Common 10:00:00 10:00:00 [facility] 2018-08-09 2018-08-09 [facility] [id number] Common 14:30:00 14:30:00 t [facility] - [facility] 2018-07-30 2018-07-30 [facility] [id number] Common 07:19:00 07:19:00 t [facility] - [facility] 2018-07-24 2018-07-24 [facility] [id number] Common 11:15:00 11:15:[address] Family - [facility] Family Medicine [facility] 2018-07-19 2018-07-19 Out[facility] [id number] Common 14:35:00 14:35:00 t [facility] Bone [facility] Sp[facility] t and Joint [facility] - [facility] 2018-07-18 2018-07-18 Out[facility] [id number] Common 11:30:00 11:30:00 t [facility] Bone [facility] Sp[facility] t [facility] Joint - [facility] 2018-07-17 2018-07-17 [facility] [id number] Common 10:45:00 10:45:00 t [facility] Sp[facility] Joint Joint - [facility] 2018-07-16 2018-07-16 Out[facility] [id number] Common 14:54:00 14:54:00 t [facility] Sp[facility] Joint - [facility] 2018-07-10 2018-07-10 Out[facility] [id number] Common 10:17:00 10:17:00 t [facility] Joint - [facility] 2018-07-10 2018-07-10 Out[facility] [id number] Common 09:30:00 09:30:00 t [facility] Bone [facility] Sp[facility] Joint - [facility] 2018-07-09 2018-07-09 Out[facility] [id number] Common 09:30:00 09:30:00 t [facility] Bone [facility] Sp[facility] t [facility] Joint - [facility] 2018-06-26 2018-06-26 Out[facility] [id number] Common 11:00:00 11:00:00 t [facility] Bone and Sp[facility] t [facility] Joint Joint - [facility] 2018-06-07 2018-06-07 Out[facility] [id number] Common 17:14:00 17:14:00 t [facility] Bone [facility] Sp[facility] t [facility] Joint - [facility] 2018-06-07 2018-06-07 Out[facility] [id number] Common 11:00:00 11:00:00 t [facility] Bone [facility] Sp[facility] t [facility] Joint - [facility] 2018-05-31 2018-05-31 Out[facility] [id number] Common 11:56:00 11:56:00 t [facility] Bone [facility] Sp[facility] t [facility] Joint - [facility] 2018-05-30 2018-05-30 Out[facility] [id number] Common 10:38:00 10:38:00 [facility] 2018-05-28 2018-05-28 Out[facility] [id number] Common 15:54:00 15:54:00 [facility] it Road [facility] 2018-05-24 2018-05-24 Out[facility] [id number] Common 15:37:00 15:37:00 t [facility] Bone and Spiri t and Joint [facility] - [facility] 2018-05-24 2018-05-24 Out[facility] [id number] Common 10:30:00 10:30:00 t [facility] Bone [facility] Sp[facility] t [facility] - [facility] 2018-05-21 2018-05-21 Out[facility] [id number] Common 11:30:00 11:30:00 [facility] it Road [facility] 2018-05-21 2018-05-21 Out[facility] [id number] Common 11:08:00 11:08:00 t [facility] Bone and Sp[facility] t [facility] Joint [facility] - [facility] 2018-05-16 2018-05-16 Out[facility] [id number] Common 08:47:00 08:47:00 t [facility] Bone and Spiri t [facility] Joint [facility] - [facility] 2018-05-01 2018-05-01 Out[facility] [id number] Common 15:00:00 15:00:00 t [facility] 2018-03-01 2018-03-01 Out[facility] [id number] Common 01:38:00 01:38:[address] [facility] 2018-02-28 2018-02-28 Out[facility] [id number] Common 10:30:00 10:30:00 t [facility] Road Spir [facility] [address] [facility] 2018-02-26 2018-02-26 Out[facility] [id number] Common 17:15:00 17:15:00 t [facility] Bone and Spiri t and Joint [facility] - [facility] 2018-02-26 2018-02-26 Out[facility] [id number] Common 09:09:00 09:09:00 t [facility] Bone and Spiri t and Joint [facility] 2018-01-09 2018-01-09 Out[facility] [id number] Common 15:30:00 15:30:00 t [facility] 2017-12-13 2017-12-13 Out[facility] [id number] Common 12:21:00 12:21:00 t [facility] Road Spir [facility] [address] [facility] 2017-12-11 2017-12-11 Out[facility] [id number] Common 11:00:00 11:00:[address] [facility] 2017-10-27 2017-10-27 Out[facility] [id number] Common 14:19:00 14:19:[address] [facility] 2017-10-25 2017-10-25 Out[facility] [id number] Common 16:20:00 16:20:[address] Spir it [facility] 2017-10-23 2017-10-23 Outpatient Larry Krishnamurthy 14 [id number] Common 08:43:00 08:43:00 [facility] Spir it [facility] 2017-10-11 2017-10-11 Outpatient Larry Krishnamurthy [id number] Common 11:41:00 11:41:00 [facility] Spir [facility] 2017-10-04 2017-10-04 Outpatient Larry Krishnamurthy [id number] Common 10:30:00 10:30:00 [facility] Results Test Description Test Time Test Comments Results Result Comments Source COAGULATION TIME ACTIVATED 2022-06-01 15:13:00 Test Item Value Reference Range Interpretation Comme nts COAGULATION TIME ACTIVATED (test 203 SECONDS Performed by certified 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 Prophylax is of venous thrombos is 2.0 - 3.0 (orthoped ic surgery), Proph ylaxis of venous throm bosis (other than hig h-risk surgery), Treat ment of Deep Vein Thrombosis/Pulm onary Embolism, Preve ntion of systemic emb olism - Tissue heart va lves, Acute Myocardia l Infarction (to prevent systemic emboli sm), Valvular heart disease, Atrial Fibrillation, Bileaflet mecha nical valve in aortic position.2. Mec hanical prosthetic valv es (high risk), 2. 5 - 3.5 Presence of Lup us Anticoagulant o r Antiphospholipi d Antibodies, Pre vention of systemic emb olism - Acute Myocardia l Infarction (to prevent recurrent infar ct). BASIC METABOLIC [id number] 09:27:00 Test Item Value Reference Range Interpretation Comments SODIUM (test code = 142 mEq/L 134-147 N NA) POTASSIUM (test code 3.7 mEq/L 3.4-5.0 N = K) CHLORIDE (test code 104 mEq/L 100-108 N = CL) CARBON DIOXIDE (test 30 mEq/l 21-33 N code = CO2) ANION GAP (test code 12 0-20 N = GAP) GLUCOSE (test code = 120 mg/dL 70-110 H GLU) BLOOD UREA NITROGEN 15 mg/dL 7-18 N (test code = BUN) GLOMERULAR 80.2 80-90 N The Glomerular FILTRATION RATE Filtration R ate is a (test code = GFR) calculated parameterbased on serum Creatinine, pat ient age and sex. GFR va luesless than 60 mL/min/ 1.73 square meters a re indicative ofCh ronic Kidney Disease. Values less than 15 mL/min/1.73squa re meters indicate Kidney failure. The calculation forGFR is based on the CKD-EPI (2020) calculat ion. This formulais race indifferent and is the recommended for august for GFRby the Natformerly [facility] Found[facility] on for Adults.The GFR will not calculate if th e sex is unknown or if thepatient's ag e is <18 years. CREATININE (test 0.8 mg/dL 0.6-1.3 N code = CREAT) CALCIUM (test code = 9.5 mg/dL 8.0-10.5 N CA) CBC W/AUTO [id number] 09:12:00 Test Item Value Reference Range Interpretation Comments WHITE BLOOD CELL (test code = 7.4 x10 3/uL 4.5-11.0 N WBC) RED BLOOD CELL (test code = 4.31 x10 6/uL 3.54-5.02 N RBC) HEMOGLOBIN (test code = HGB) 11.3 g/dL 11.0-15.0 N HEMATOCRIT (test code = HCT) 36.0 % 33.0-45.0 N MEAN CELL VOLUME (test code = 83.5 fL 81.0-99.0 N MCV) MEAN CELL HGB (test code = MCH) 26.2 pg 27.0-33.0 L MEAN CELL HGB CONCETRATION 31.4 g/dL 33.0-37.0 L (test code = MCHC) RED CELL DISTRIBUTION WIDTH CV 14.6 % 11.5-14.5 H (test code = RDW) RED CELL DISTRIBUTION WIDTH SD 45.0 fL 37.0-54.0 N (test code = RDW-SD) PLATELET COUNT (test code = 360 x10 3/uL 150-400 N PLT) MEAN PLATELET VOLUME (test code 10.0 fL 7.0-9.0 H = MPV) NEUTROPHIL % (test code = NT%) 70.2 % 56.0-77.0 N IMMATURE GRANULOCYTE % (test 0.3 % 0.0-2.0 N code = IG%) LYMPHOCYTE % (test code = LY%) 19.9 % 14.0-32.0 N MONOCYTE % (test code = MO%) 7.9 % 4.8-9.0 N EOSINOPHIL % (test code = EO%) 1.4 % 0.3-3.7 N BASOPHIL % (test code = BA%) 0.3 % 0.0-2.0 N NUCLEATED RBC % (test code = 0.0 % 0-0 N NRBC%) NEUTROPHIL # (test code = NT#) 5.19 x10 3/uL 2.0-7.6 N IMMATURE GRANULOCYTE # (test 0.02 x10 3/uL 0.00-0.03 N code = IG#) LYMPHOCYTE # (test code = LY#) 1.47 x10 3/uL 1.0-3.8 N MONOCYTE # (test code = MO#) 0.58 x10 3/uL 0.1-0.8 N EOSINOPHIL # (test code = EO#) 0.10 x10 3/uL 0.0-0.2 N BASOPHIL # (test code = BA#) 0.02 x10 3/uL 0.0-0.2 N NUCLEATED RBC # (test code = 0.00 x10 3/uL 0.0-0.1 N NRBC#) MANUAL DIFF REQUIRED (test code NO = MDIFF) - XR CHEST 2 [id number] 00:00:00 [facility] 1955 Sex: F FAX: Jackson Watson MD [phone] [place]: St: PRE Name: ROSANGELA WHALEY [facility] : 1955 Age/S: 67/F [address] [place] [address] Unit #: [id number] Loc: [place] [address] Phys: Jackson Verdugo MD Acct: [id number] Dis Date: [place] [facility] [place] #: [phone] Exam Date: 05/31/2022 1018 FAX #: [phone] Reason: PREOP EXAMS: CPT CODE: [id number] XR CHEST 2 V [id number] PROCEDURE INFORMATION: Exam: XR Chest Exam date and time: 05/31/2022 9:35 AM Age: 67 years old Clinical indication: Screening exam; Pre-operativeexam; Cardiovascular screening; Additional info: Preop TECHNIQUE: Imaging protocol: Radiologic exam of the chest. Views: 2 views. PA and Lateral COMPARISON: CR XR CHEST 1V 08/02/2016 11:04 AM FINDINGS: Lungs: Appear free of acute disease. Pleural spaces: No pleural effusion. No pneumothorax. Heart/Mediastinum: Heart size is normal.Calcifications and tortuosity of the aorta is noted.. Bones/joints: Dege nerative changes with bridging osteophytes noted in the thoracic spine. IMPRESSION: No acute cardiopulmonary findings. at 1044 Reported and signed by: Dorene Chavez M.D. CC: Jackson Verdugo MD Technologist: RT Parker(David) Trnscrd Date/Time/By: 05/31/2022 (104) : By: MayCER Orig Print D/T: S: 05/31/2022 (1647) PAGE 1 Signed [id number](COVID19),[id number] 00:00:00 Test Item Value Reference Range Interpretation Comments SARS-CoV-2 INTERPRETATION (test NEGATIVE SEE NOTE code = 76787-9) SOURCE (test code = 49204-1) NOT SPECIFIED STREP A+ RAPIDSTREP A+ RAPID
--- NOTE | 2022-07-31 19:37 | RAD REPORT ---
EXAM DESCRIPTION: CT - Head Brain Wo Cont - 07/31/2022 7:32 pm CLINICAL HISTORY: HEADACHE COMPARISON: No comparisons TECHNIQUE: All CT scans are performed using dose optimization technique as appropriate and may inclu de automated exposure control or mA/KV adjustment according to patient size. FINDINGS: No intracranial hemorrhage, hydrocephalus or extra-axial fluid collection.No areas of brai n edema or evidence of midline shift. The paranasal sinuses and mastoids are clear. The calvarium is intact. IMPRESSION: No acute intracranial abnormality.
[2022-07-31] MEDS ORDERED: AMLODIPINE 5 MG TAB ONE (20:22)
[2022-07-31 20:44] LABS: Absolute Lymphocytes (CBC) 2.3 K/uL (0.7-4.9); Lymphocytes % 27.2 % (15.3-44.8); MCV 81.8 fL (80-100); MPV 7.5 fL (7.6-11.3); RBC Red Blood Cell Count 4.28 M/uL (3.86-4.86)
[2022-07-31 20:53] LABS: Protime INR 1.04
[2022-07-31 21:03] LABS: Bilirubin Direct 0.1 mg/dL (0-0.2); Bilirubin Total 0.3 mg/dL (0.2-1.0); Potassium 3.8 mmol/L (3.5-5.1); Protein, Total 8.1 g/dL (6.4-8.2); Troponin High Sensitivity 5.1 pg/mL (<58.9)
--- NOTE | 2022-07-31 21:53 | RAD REPORT ---
EXAM DESCRIPTION: RAD - Chest Single View - 07/31/2022 9:39 pm CLINICAL HISTORY: dizzy Chest pain. COMPARISON: Chest Single View dated 12/20/2020; Chest Pa And Lat (2 Views) dated 07/27/2020; Chest Pa An d Lat (2 Views) dated 01/17/2020; Chest Pa And Lat (2 Views) dated 03/09/2018 FINDINGS: Portable technique limits examination quality. The lungs are grossly clear. The heart is mildly enlarged in size. No displaced fractures.Aortic athe rosclerosis. IMPRESSION: No acute intrathoracic process suspected.
[2022-07-31 22:56] VITALS: TEMP 97.1; O2SAT 100
[2022-07-31 22:57] VITALS: BP 140/55
--- NOTE | 2022-08-01 13:02 | EKG ---
Test Date: 2022-07-31 Test Time: 19:25:34 Advocacy Director: RV MEASUREMENT RESULTS: Intervals: Rate: 51 GA: 146 QRSD: 80 QT: 460 QTc: 423 [place]: P: GA: 146 QRS: 143 T: 102 INTERPRETIVE STATEMENTS: Suspect arm lead reversal, interpretation assumes no reversal Sinus bradycardia Lateral infarct, age undetermined Abnormal ECG Compared to ECG 05/04/2020 12:40:46 Myocardial infarct finding now present Electronically Signed On 08-01-22 13:01:47 CDT by Jackson Verdugo
--- NOTE | 2022-08-01 13:02 | EKG ---
Test Date: 2022-07-31 Test Time: 19:26:58 Rubber Chemist: RV MEASUREMENT RESULTS: Intervals: Rate: 49 OK: 150 QRSD: 76 QT: 466 QTc: 420 [place]: P: 41 OK: 150 QRS: 57 T: 80 INTERPRETIVE STATEMENTS: Marked sinus bradycardia Abnormal ECG Compared to ECG 07/31/2022 19:25:34 Myocardial infarct finding no longer present Electronically Signed On 08-01-22 13:01:43 CDT by Jackson Verdugo
--- NOTE | 2022-08-12 17:03 | ER ---
Nurse's Notes [facility] Name: Rosangela Whaley Age: 67 yrs Sex: Female : 1955 Arrival Date: 07/31/2022 Time: 16:58 Bed 19 Private MD: Diagnosis: Headache;Essential (primary) hypertension Presentation: 07/31 17:28 Chief complaint: Patient states: I have this static pain this morning on the left side kr3 of my head, it comes and goes but its sharp. I have had a headache for 4 months and my doctor added another pill to my medication trying to help my BP but it doesn't work. Coronavirus screen: Vaccine status: Patient reports being unvaccinated. Ebola Screen: Patient denies travel to an Ebola-affected area in the 21 days before illness onset. Initial Sepsis Screen: Does the patient meet any 2 criteria? No. Patient's initial sepsis screen is negative. Does the patient have a suspected source of infection? No. Patient's initial sepsis screen is negative. 17:28 Method Of Arrival: Ambulatory kr3 17:32 Risk Assessment: Do you want to hurt yourself or someone else? Patient reports no kr3 desire to harm self or others. Onset of symptoms was April 30, 2022. 17:32 Acuity: ALBA 3 kr3 Triage Assessment: 17:35 Headache History: The patient has had previous headaches and this one is different than kr3 previous episodes. General: Appears in no apparent distress. comfortable, Behavior is calm, cooperative, appropriate for age. Pain: Complains of pain in face. EENT: No deficits noted. Neuro: Level of Consciousness is awake, alert, obeys commands, Oriented to person, place, time, situation. Cardiovascular: Patient's skin is warm and dry. Respiratory: Airway is patent Respiratory effort is even, unlabored, Respiratory pattern is regular, symmetrical. GI: No deficits noted. : No deficits noted. Derm: No deficits noted. Musculoskeletal: No deficits noted. Historical: - Allergies: 17:34 Cefazolin; kr3 17:34 Lyrica; kr3 - PMHx: 17:34 Diabetes - NIDDM; GERD; Glaucoma; Hypertension; OA; kr3 - PSHx: 17:34 Appendectomy; hysterectomy; cataract; rectocele; rhinoplasty; Tonsillectomy; tubal kr3 ligation; - Immunization history:: Adult Immunizations up to date. - Social history:: Smoking status: Patient denies any tobacco usage or history of. Screenin:09 [facility] ED Fall Risk Assessment (Adult) History of falling in the last 3 months, ll3 including since admission No falls in past 3 months (0 pts) Confusion or Disorientation No (0 pts) Intoxicated or Sedated No (0 pts) Impaired Gait No (0 pts) Mobility Assist Device Used No (0 pt) Altered Elimination No (0 pt) Score/Fall Risk Level 0 - 2 = Low Risk Oriented to surroundings, Maintained a safe environment, Educated pt \T\ family on fall prevention, incl call for assistance when getting out of bed. Abuse screen: Denies threats or abuse. Denies injuries from another. Nutritional screening: No deficits noted. Tuberculosis screening: No symptoms or risk factors identified. Assessment: 20:00 General: Appears uncomfortable, Behavior is calm, cooperative. Pain: Complains of pain ll3 in left jainism Pain does not radiate. Neuro: Level of Consciousness is awake, alert, obeys commands, Oriented to person, place, time, situation, Reports headache in left parietal area. Derm: Skin is pink, warm \T\ dry. Vital Signs: 17:28 BP 172 / 88; Pulse 61; Resp 17; Temp 97.1; Pulse Ox 100% ; Weight 97.98 kg; Height 5 kr3 ft. 4 in. ; Pain 8/10; 21:35 BP 140 / 55; Pulse 53; Resp 18; Pulse Ox 100% on R/A; ll3 17:28 Body Mass Index 37.08 (97.98 kg, 162.56 cm) kr3 17:28 Pain Scale: Adult kr3 Ronal Coma Score: 21:39 Eye Response: spontaneous(4). Motor Response: obeys commands(6). Verbal Response: snw oriented(5). Total: 15. ED Course: 16:58 Patient arrived in ED. am2 17:25 Ebony Angel FNP-C is PHCP. snw 17:25 Pranav Phillips MD is Attending Physician. snw 17:34 Triage completed. kr3 17:36 Arm band placed on left wrist. kr3 19:33 CT Head Brain wo Cont In Process Unspecified. EDMS 19:38 Attending Physician role handed off by Pranav Phillips MD cha 19:38 Larry Wilson MD is Attending Physician. shashi 21:41 XRAY Chest (1 view) In Process Unspecified. EDMS 22:09 Patient has correct armband on for positive identification. Bed in low position. Call ll3 light in reach. Side rails up X 1. 22:09 No provider procedures requiring assistance completed. Patient did not have IV access ll3 during this emergency room visit. Administered Medications: 20:27 Drug: Norvasc PO 5 mg Route: PO; ll3 22:10 Follow up: Response: No adverse reaction; Blood pressure is lowered ll3 Medication: 22:09 VIS not applicable for this client. ll3 Outcome: 21:55 Discharge ordered by . snw 22: Discharged to home ambulatory. ll3 22:09 Condition: stable 22:09 Discharge instructions given to patient, Instructed on discharge instructions, follow up and referral plans. medication usage, Demonstrated understanding of instructions, follow-up care, medications, Prescriptions given X 2. 22:10 Patient left the ED. ll3 Signatures: Dispatcher [employer] EDIA Larry Wilson MD MD cha Waters, Shelly, INTERNAL REVENUE SERVICE AGENT-C INTERNAL REVENUE SERVICE AGENT-Csnw Sandra Agee am2 Lisa Neal, RN RN ll3 Kimmy Kirkpatrick, RN RN kr3
--- NOTE | 2022-08-12 17:03 | EDPHYS ---
Physician Documentation [facility] Name: Rosangela Whaley Age: 67 yrs Sex: Female : 1955 Arrival Date: 07/31/2022 Time: 16:58 Bed 19 Private MD: ED Physician Larry Wilson HPI: 07/31 21:39 This 67 yrs old Female presents to ER via Ambulatory with complaints of snw Headache - pain to left side. 21:39 The patient complains of pain to the left orthodoxy, left temporal area and left occipital snw area. The patient describes the headache as "electrical". Onset: The symptoms/episode began/occurred 2 month(s) ago, and became persistent. Associated signs and symptoms: Pertinent positives: intermittent dizziness. Severity of symptoms: At its worst the pain was moderate. Headache History: Other same headache but patient is tired, forgot to mention it to new PCP. 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 The patient has experienced similar episodes in the past, chronically. The patient has been recently seen by a physician: the patient's primary care provider. Historical: - Allergies: 17:34 Cefazolin; kr3 17:34 Lyrica; kr3 - PMHx: 17:34 Diabetes - NIDDM; GERD; Glaucoma; Hypertension; OA; kr3 - PSHx: 17:34 Appendectomy; hysterectomy; cataract; rectocele; rhinoplasty; Tonsillectomy; tubal kr3 ligation; - Immunization history:: Adult Immunizations up to date. - Social history:: Smoking status: Patient denies any tobacco usage or history of. ROS: 20:13 Eyes: Negative for injury, pain, redness, and discharge, ENT: Negative for injury, snw pain, and discharge, Neck: Negative for injury, pain, and swelling, Cardiovascular: Negative for chest pain, palpitations, and edema, Respiratory: Negative for shortness of breath, cough, wheezing, and pleuritic chest pain, Abdomen/GI: Negative for abdominal pain, nausea, vomiting, diarrhea, and constipation, Back: Negative for injury and pain, : Negative for injury, bleeding, discharge, and swelling, MS/Extremity: Negative for injury and deformity, Skin: Negative for injury, rash, and discoloration. 20:13 Constitutional: Positive for malaise. 20:13 Neuro: Positive for dizziness, gait disturbance, headache, of the shocking pain to left orthodoxy, denies tenderness to touch, denies visual changes. Exam: 20:11 Constitutional: This is a well developed, well nourished patient who is awake, alert, snw and in no acute distress. Head/Face: Normocephalic, atraumatic. Eyes: Pupils equal round and reactive to light, extra-ocular motions intact. Lids and lashes normal. Conjunctiva and sclera are non-icteric and not injected. Cornea within normal limits. Periorbital areas with no swelling, redness, or edema. ENT: Nares patent. No nasal discharge, no septal abnormalities noted. Tympanic membranes are normal and external auditory canals are clear. Oropharynx with no redness, swelling, or masses, exudates, or evidence of obstruction, uvula midline. Mucous membranes moist. Neck: Trachea midline, no thyromegaly or masses palpated, and no cervical lymphadenopathy. Supple, full range of motion without nuchal rigidity, or vertebral point tenderness. No Meningismus. Chest/axilla: Normal chest wall appearance and motion. Nontender with no deformity. No lesions are appreciated. Respiratory: Lungs have equal breath sounds bilaterally, clear to auscultation and percussion. No rales, rhonchi or wheezes noted. No increased work of breathing, no retractions or nasal flaring. Abdomen/GI: Soft, non-tender, with normal bowel sounds. No distension or tympany. No guarding or rebound. No evidence of tenderness throughout. Back: No spinal tenderness. No costovertebral tenderness. Full range of motion. Skin: Warm, dry with normal turgor. Normal color with no rashes, no lesions, and no evidence of cellulitis. MS/ Extremity: Pulses equal, no cyanosis. Neurovascular intact. Full, normal range of motion. Psych: Awake, alert, with orientation to person, place and time. Behavior, mood, and affect are within normal limits. 20:11 Cardiovascular: Edema: is not appreciated, blood pressure stays high. 20:12 Neuro: Orientation: is normal, to person, place \\T\\ time. Memory: is normal, Cerebellar snw function: Romberg testing is negative, normal finger to nose testing, Motor: is normal, Gait: is unsteady, seizure activity, is not displayed by the patient. Vital Signs: 17:28 BP 172 / 88; Pulse 61; Resp 17; Temp 97.1; Pulse Ox 100% ; Weight 97.98 kg; Height 5 kr3 ft. 4 in. ; Pain 8/10; 21:35 BP 140 / 55; Pulse 53; Resp 18; Pulse Ox 100% on R/A; ll3 17:28 Body Mass Index 37.08 (97.98 kg, 162.56 cm) kr3 17:28 Pain Scale: Adult kr3 [place] Coma Score: 21:39 Eye Response: spontaneous(4). Motor Response: obeys commands(6). Verbal Response: snw oriented(5). Total: 15. MDM: 19:38 Patient medically screened. shashi 21:39 Differential diagnosis: cerebral vascular accident, hypertensive headache, migraine, snw trigeminal neuralgia. Data reviewed: vital signs, nurses notes, lab test result(s), EKG, radiologic studies, CT scan. Counseling: I had a detailed discussion with the patient and/or guardian regarding: the historical points, exam findings, and any diagnostic results supporting the discharge/admit diagnosis, the presence of at least one elevated blood pressure reading (>120/80) during this emergency department visit, lab results, radiology results, the need for outpatient follow up, for definitive care, to return to the emergency department if symptoms worsen or persist or if there are any questions or concerns that arise at home. Special discussion: I have referred the patient to see his PCP for further evaluation of high blood pressure. Based on the history and exam findings, there is no indication for further emergent testing or inpatient evaluation. I discussed with the patient/guardian the need to see the neurologist for further evaluation of the symptoms. I discussed with the patient/guardian the need to see the primary care provider for further evaluation of the symptoms. 07/31 20:10 Order name: Basic Metabolic Panel; Complete Time: 21:14 snw 07/31 20:10 Order name: CBC with Diff; Complete Time: 20:57 snw 07/31 20:10 Order name: LFT's; Complete Time: 21:14 snw 07/31 20:10 Order name: Magnesium; Complete Time: 21:14 snw 07/31 20:10 Order name: NT PRO-BNP; Complete Time: 21:14 snw 07/31 20:10 Order name: PT-INR; Complete Time: 20:55 snw 07/31 20:10 Order name: Troponin HS; Complete Time: 21:14 snw 07/31 18:45 Order name: CT Head Brain wo Cont; Complete Time: 19:38 snw 07/31 20:10 Order name: XRAY Chest (1 view); Complete Time: 21:54 snw 07/31 20:10 Order name: EKG; Complete Time: 20:11 snw 07/31 20:10 Order name: Cardiac monitoring; Complete Time: 20:16 snw 07/31 20:10 Order name: EKG - Nurse/Tech; Complete Time: 20:25 snw 07/31 20:10 Order name: Labs collected and sent; Complete Time: 20:42 snw 07/31 20:10 Order name: O2 Per Protocol; Complete Time: 20:16 snw 07/31 20:10 Order name: O2 Sat Monitoring; Complete Time: 20:16 snw EC:36 Rate is 49 beats/min. Rhythm is regular. QRS [place] is Normal. RI interval is normal. QRS snw interval is normal. Clinical impression: Sinus bradycardia. Administered Medications: 20:27 Drug: Norvasc PO 5 mg Route: PO; ll3 22:10 Follow up: Response: No adverse reaction; Blood pressure is lowered ll3 Disposition: 19:09 Co-signature as Attending Physician, Pranav Phillips MD I reviewed the patient's care rt provided by the Advanced Practice Provider and agree with the diagnosis and treatment plan. Disposition Summary: 07/31/22 21:55 Discharge Ordered Location: Home snw Condition: Stable snw Diagnosis - Headache snw - Essential (primary) hypertension snw Followup: snw - With: Emergency Department - When: As needed - Reason: Worsening of condition Followup: snw - With: Private Physician - When: 2 - 3 days - Reason: Recheck today's complaints, Continuance of care, Re-evaluation by your physician Discharge Instructions: - Discharge Summary Sheet snw - General Headache Without Cause snw - Hypertension, Adult snw - How to Take Your Blood Pressure, [id number] snw - DASH Eating Plan snw - Rehydration, Adult snw - Managing Your Hypertension snw Forms: - Medication Reconciliation Form snw - Thank You Letter snw - Antibiotic Education snw - Prescription Opioid Use snw Prescriptions: - amlodipine 5 mg Oral tablet - take 1 tablet by ORAL route once; 30 tablet; Refills: 0, Product Selection snw Permitted - orphenadrine citrate 100 mg Oral Tablet Sustained Release - take 1 tablet by ORAL route 2 times per day As needed; 20 tablet; Refills: 0, snw Product Selection Permitted Addendum: 08/05/2022 08:40 Co-signature as Attending Physician, Pranav Phillips MD I reviewed the patient's care r t provided by the Advanced Practice Provider and agree with the diagnosis and treatment plan. Signatures: Dispatcher [employer] EDLarry Romano MD MD cha Waters, Shelly, PRINCIPAL TECHNICAL ARCHITECT-C PRINCIPAL TECHNICAL ARCHITECT-Csnw Lisa Neal RN RN ll3 Kimmy Kirkpatrick RN RN kr3 Pranav Phillips MD MD rt Corrections: (The following items were deleted from the chart) 07/31 20:13 20:11 Constitutional: This is a well developed, well nourished patient who is awake, snw alert, and in no acute distress. Head/Face: Normocephalic, atraumatic. Eyes: Pupils equal round and reactive to light, extra-ocular motions intact. Lids and lashes normal. Conjunctiva and sclera are non-icteric and not injected. Cornea within normal limits. Periorbital areas with no swelling, redness, or edema. ENT: Nares patent. No nasal discharge, no septal abnormalities noted. Tympanic membranes are normal and external auditory canals are clear. Oropharynx with no redness, swelling, or masses, exudates, or evidence of obstruction, uvula midline. Mucous membranes moist. Neck: Trachea midline, no thyromegaly or masses palpated, and no cervical lymphadenopathy. Supple, full range of motion without nuchal rigidity, or vertebral point tenderness. No Meningismus. Chest/axilla: Normal chest wall appearance and motion. Nontender with no deformity. No lesions are appreciated. Respiratory: Lungs have equal breath sounds bilaterally, clear to auscultation and percussion. No rales, rhonchi or wheezes noted. No increased work of breathing, no retractions or nasal flaring. Abdomen/GI: Soft, non-tender, with normal bowel sounds. No distension or tympany. No guarding or rebound. No evidence of tenderness throughout. Back: No spinal tenderness. No costovertebral tenderness. Full range of motion. Skin: Warm, dry with normal turgor. Normal color with no rashes, no lesions, and no evidence of cellulitis. MS/ Extremity: Pulses equal, no cyanosis. Neurovascular intact. Full, normal range of motion. Psych: Awake, alert, with orientation to person, place and time. Behavior, mood, and affect are within normal limits. snw 22:10 20:10 IV Saline Lock ordered. snw ll3
== END 2022-07-31 22:10 | disposition home or self-care (01) ==
LOC: ER 16:57
DX: R51.9 Headache, unspecified (principal); I10 Essential (primary) hypertension; Z88.8 Allergy status to other drugs, medicaments and biological substances
CPT/HCPCS: 36415; 70450; 71045; 80048; 80076; 83735; 83880; 84484; 85025; 85610; 93005; 99283

== ENCOUNTER 2022-11-01 10:53 | Emergency (ER) | payer OTHER ==
--- OUTSIDE RECORDS SUMMARY | 2022-11-01 11:04 | XMS REPORT | Continuity of Care Document ---
:1955 Author Organization [facility] Address [address] [facility] [address] [place] [address] Care Team Providers Name Role Phone Harmony De La O Primary Care Physician Keily Simeon Attending Clinician Unavailable Leila Tucker Attending Clinician Unavailable Harmony De La O Attending Clinician Unavailable FOG_A_Provider Attending Clinician Unavailable Jackson Verdugo Attending Clinician Unavailable LAN TATE Attending Clinician Unavailable KWAME SIMEON Attending Clinician Unavailable Doctor Unassigned, [place] Attending Clinician Unavailable Jeff Baird Attending Clinician Unavailable FOG_A_Provider Admitting Clinician Unavailable Physician, No Primary or Family Admitting Clinician Unavaila ble Tucker, Na Ly Admitting Clinician Unavailable Payers Payer Name Policy Type Policy Number Effective Date Expiration Date Lucrecia rubio FORMERLY [facility] [id number] 2018 00:00:00 [facility] [id number] - [place] - [place] - [place] - [place] REPLACEMENT/ADVA NTAGE - HMO) [place] [id number] 2018 Common ng Medicare 00:00:00 [facility] Replace [place] [id number] 2018 Common ng Medicare 00:00:00 [facility] [place] [id number] 2018 Common ng Medicare 00:00:00 [facility] - [facility] Replace [place] [id number] 2018 Common ng Medicare 00:00:00 [facility] - [facility] Replace [facility] Problems Condition Condition Condition Status Onset Resolution Last Treating Co mments Source Name Details Category Date Date Treatment Clinician Date Sinus Sinus Problem Common problem problem [facility] [id number] Depression Problem Com mon with [facility] anxiety [facility] [id number] Other Problem Common chronic [facility] pain [facility] [id number] Pain in Problem Comm on left knee [facility] [id number] Pain in Problem Common right knee [facility] [id number] Primary Problem Comm on osteoarthr [facility] itis of [facility] left knee [facility] [id number] Asthma, Problem Commo n unspecifie Spirit d asthma - [facility]I severity, St unspecifie [facility] d whether Medical complicate Center d, unspecifie d whether persistent [id number] Non-intrac Problem Com mon table Spirit vomiting - [facility] with nausea, [facility] unspecifie Medica l d vomiting Center type [id number] Uncontroll Problem Co mmon ed type 2 Spirit diabetes - [facility] mellitus [facility] complicati Medica l on, Center without long-term current use of insulin [id number] Hyperchole Problem Com mon sterolemia [facility] [id number] Gastroesop Problem Co mmon hageal [facility] reflux - [facility] disease, [facility]ophagiti [facility] presence Medica [facility] not Center specified [id number] Hyperlipid Problem Com mon emia, Spirit unspecifie - CHI d hyperlipid [facility] emia [facility] History of Aftercare Problem Co mmon musculoske following Spi rit letal joint - CHI operation replacemen [facility] [id number] Presence Problem Comm on of left Spirit artificial - [facility]I knee joint [facility] [id number] Urinary Problem Commo n frequency Spirit [facility] [id number] Hematuria, Problem Com mon unspecifie Spirit d type [facility] Incontinen Incontinen Problem C ommon ce ce in Spirit female - CHI [facility] [id number] Ingrown Problem Commo n right Spirit greater - [facility]I toenail [facility] 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 [id number] Neuropathy Problem Co mmon Spirit [facility]I [facility] [id number] Essential Problem Comm on hypertensi Spirit on [facility] [id number] Allergic Problem Commo n rhinitis, Spirit unspecifie - [facility]I d [facility] y, Medical unspecifie Center d trigger [id number] Irritable Problem Com mon bowel Spirit syndrome - [facility] with [facility] [id number] Polyarthra Problem Com mon lgia Spirit [facility] [id number] Fibromyalg Problem Co mmon ia [facility] - [facility]I [facility] Vitamin D Vitamin D Problem Com mon deficiency deficiency Sp kamar [facility] [id number] Atheroscle Problem C ommon 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 rosis of Spirit left - CHI carotid [facility] Fibromyalg Problem Active 2021-08-28 M emoria ia Fibromyalg 02:45:37 l ia Active [place] Problem 08/28/2021 [facility] Encounter Encounter Problem Active 2021-08-28 Memoria for for 02:45:37 l immunizati immunizati He rmann on on Active Problem 08/28/2021 [facility] Benign Benign Problem Active 2021-08-28 Gordon alex essential essential 02:45:37 l hypertensi hypertensi He rmann on on Active Problem 08/28/2021 [facility] Osteopenia Problem Active 2021-08-28 M emoria Osteopenia 02:45:37 l Active Bruno Problem 08/28/2021 [facility] CRP CRP Problem Active 2021-08-28 Memor ia elevated elevated 02:45:37 l Active Bruno Problem 08/28/2021 [facility] Seronegati Seronegat Problem Active 2021-08-28 Memoria ve pham 02:45:37 l rheumatoid rheumatoid He rmann arthritis arthritis Active Problem 08/28/2021 [facility] residential Long Problem Active 2021-08-28 Me moria (current) term 02:45:37 l use of (current) Bruno systemic use of steroids systemic steroids Active Problem 08/28/2021 [facility] residential Long Diagnosis Active 2020-02-19 Memoria current term 02:45:31 l use of current Peggs immunosupp use of ressive immunosupp drug ressive drug Active Diagnosis 02/19/2020 [facility] [...] for for 02:45:37 l therapeuti therapeuti He rmximena c drug c drug level level monitoring monitoring Active Problem 08/28/2021 [facility] Vitamin D Vitamin D Problem Active 2021-08-28 Memoria deficiency deficiency 02:45:37 l Active Bruno Problem 08/28/2021 [facility] Allergies, Adverse Reactions, Alerts Allergy Allergy Status Severity Reaction(s) Onset Inactive Treating Comm ents Source Name Type Date Date Clinician cefazoli DA Active U UNKNOWN [facility] n 1-10 Clear 00:00: Maher [facility] latex DA Active U RASH [facility] 1-10 Clear 00:00: Maher [facility] pregabal DA Active U UNKNOWN [facility] in 1-10 Clear 00:00: Maher [facility] Pregabal Pregabal Active hives 0 Memori a in in 9-29 l 00:00: Lyrica Lyrica Active memory loss 2019- Memor ia 929 l 00:00: Cefazoli Cefazoli Active hives Memori a n Sodium n Sodium 929 l 00:00: Pregabal Propensi Active Hives 0 Univer s in ty to 5-03 ity of adverse 00:00: [place] reaction 00 Medical s Branch No Known DA Active U [facility] Allergie 3-14 Clear s 00:00: Maher 00 [facility] cefazoli cefazoli Active rash/itching Common n n Spirit [facility] Latex Latex Active rash Common [facility] pregabal pregabal Active rash/itching Common in in [facility] Social History Social Habit Start Date Stop Date Quantity Comments Source History of Tobacco Use Co mmon [facility] Sex Assigned At Com mon [facility] Smoking Status Start Date Stop Date Source Tobacco smoking consumption [facility] Never Smoker Common [facility] Medications Ordered Filled Start Stop Current Ordering Indication Dosage Frequency Signature Comments Components Source Medication Medication Date Date Medication? Clinician (SIG) Name Name Ergocalcife Ergocalcife 2021-05- No 1{capsu Ergocalcif rol 71390 rol 51734 06-05 le} osvaldo [id number] UNIT UNIT 00:00: 00:00 UNIT 00 :00 Ergocalcife Ergocalcife 2021-3- No 1{capsu Ergocalcif rol 93759 rol 58494 06-05 le} osvaldo 47509 UNIT UNIT 00:00: 00:00 UNIT 00 :00 Ergocalcife Ergocalcife 2021-3- No 1{capsu Ergocalcif rol 94379 rol 86637 06-05 le} osvaldo [id number] UNIT UNIT 00:00: 00:00 UNIT 00 :00 Ergocalcife Ergocalcife 2021-3- No 1{capsu Ergocalcif rol 92472 rol 87630 06-05 le} osvaldo [id number] UNIT UNIT 00:00: 00:00 UNIT 00 :00 Ergocalcife Ergocalcife 2021-3- No 1{capsu Ergocalcif rol 73822 rol 88003 06-05 le} osvaldo [id number] UNIT UNIT 00:00: 00:00 UNIT 00 :00 Ergocalcife Ergocalcife 2021-3- No 1{capsu Ergocalcif rol 95387 rol 90318 06-05 le} osvaldo 14115 UNIT UNIT 00:00: 00:00 UNIT 00 :00 Ergocalcife Ergocalcife 2021-3- No 1{capsu Ergocalcif rol 64553 rol 15970 06-05 le} osvaldo 11311 UNIT UNIT 00:00: 00:00 UNIT 00 :00 Mariano Citnroncinolo 2021-05 No 1{appli BID Triamcinol ne ne [...] Nystatin Nystatin 2021-05- No 1{appli BID Nystatin 939543 872037 1-11 11- cation_ [id number] UNIT/GM UNIT/GM 00:00: 00:00 to_affe UNIT/GM 00 :00 cted_ar ea} Nystatin Nystatin 2021-05- No 1{appli BID Nystatin 219539 931710 06-01 cation_ 968000 UNIT/GM UNIT/GM 00:00: 00:00 to_affe UNIT/GM 00 :00 cted_ar ea} Benzonatate Benzonatate 2021- No TID Benzonatat 200 MG 200 MG 01-11 e 200 MG 00:00: 00:00 00 :00 Benzonatate Benzonatate 2021- No TID Benzonatat 200 MG 200 MG 01-11 e 200 MG 00:00: 00:00 00 :00 Nystatin Nystatin 2021- No 1{appli BID Nystatin 322429 959344 06-28 cation_ [id number] UNIT/GM UNIT/GM 00:00: 00:00 to_affe UNIT/GM 00 :00 cted_ar ea} Nystatin Nystatin 2021- No 1{appli BID Nystatin 212337 149952 06-28 cation_ 857191 UNIT/GM UNIT/GM 00:00: 00:00 to_affe UNIT/GM 00 :00 cted_ar ea} Nystatin Nystatin 2021- No 1{appli BID Nystatin 683270 632059 06-28 cation_ 287013 UNIT/GM UNIT/GM 00:00: 00:00 to_affe UNIT/GM 00 :00 cted_ar ea} Janumet Yes [place] 1 tablet Me moria 02-18 Duran with meals l 02:45: Bruno 31 Xifaxan 0 Yes [place] 1 tablet Me moria 02-18 Duran l 02:45: Bruno 31 Vitamin D 2019-0 Yes [place] 1 capsule Memoria (Ergocalcif 02-18 Duran l osvaldo) 02:45: [place] 31 Remicade 0 Yes [place] DOCTOR Mem oria 02-18 Dur[place] WILL l 02:45: ADMINISTER Bruno 31 THROUGH IV INFUSION IN OFFICE AT WEEK 0, WEEK 2, WEEK 6, THEN EVERY 8 WEEKS. Lumigan 0 Yes [place] not Memori a 02-18 [place]an defined l 02:45: Quetiapine 2020-0 Yes [place] 1 tablet Memoria Fumarate 9-30 Duran at bedtime l 02:45: Ondansetron 2020-0 Yes [place] 1 tablet Memoria HCl 9-30 Duran l 02:45: Dicyclomine 2019-0 Yes [place] 1 tablet Memoria HCl 9-30 Duran l 02:45: Peggs 31 Restasis 2020-0 Yes [place] not Memor ia 9-30 Duran defined l 02:45: Diclofenac 2019-0 Yes [place] 1 Mem oria Sodium -30 Duran applicatio l 02:45: n Combigan 2019-0 Yes [place] 1 drop Mem oria -30 Duran into l 02:45: affected eye Myrbetriq 2019-0 Yes [place] 1 tablet Memoria -30 Duran l 02:45: Bruno 31 Pravastatin 2019-0 Yes [place] 1 tablet Memoria Sodium 30 Duran l 02:45: Peggs 31 Aspir-Low 2019-0 Yes [place] 1 tablet Memoria 9-30 Duran l 02:45: Atorvastati 2019-0 Yes [place] 1 tablet Memoria n Calcium 9-30 Duran l 02:45: Albuterol 2019-0 Yes [place] 1 puff as Memoria Sulfate HFA -30 Duran needed l 02:45: Solifenacin 2019-0 Yes [place] 1 tablet Memoria Succinate -30 Duran l 02:45: Multivitami 2020-0 Yes [place] not Me moria n 9-30 Duran defined l 02:45: Pantoprazol 2020-0 Yes [place] 1 tablet Memoria e Sodium 9-30 Duran l 02:45: Duloxetine 2019-0 Yes [place] 1 capsule Memoria HCl 9-30 Duran l 02:45: Azelastine 2020-0 Yes [place] 1 puff in Memoria HCl 9-30 Duran each l 02:45: nostril Gabapentin 2020-0 Yes [place] 1 tablet Memoria 9-30 Duran at bedtime l 02:45: Methocarbam 2020-0 Yes [place] 1 tablet Memoria ol -30 Duran l 02:45: Duloxetine 2019-0 Yes [place] 1 capsule Memoria HCl 30 Duran l 02:45: Vitamin D 2019-0 Yes [...] Remicade 2019-0 Yes [place] DOCTOR Mem oria 30 Duran WILL l 02:45: ADMINISTER THROUGH IV INFUSION IN OFFICE AT WEEK 0, WEEK 2, WEEK 6, THEN EVERY 8 WEEKS. Lumigan 0 Yes [place] not Memori a 30 Duran defined l 02:45: Quetiapine 2019-0 Yes [place] 1 tablet Memoria Fumarate 02-18 Duran at bedtime l 02:45: Ondansetron 2019-0 Yes [place] 1 tablet Memoria HCl -30 Duran l 02:45: Dicyclomine 2019-0 Yes [place] 1 tablet Memoria HCl -30 Duran l 02:45: Restasis 2019-0 Yes [place]rrael not Memor ia 30 Duran defined l 02:45: Diclofenac 2019-0 Yes Isrrael 1 Mem oria Sodium 30 Duran applicatio l 02:45: n Combigan 2019-0 Yes Isrrael 1 drop Mem oria 30 Duran into l 02:45: affected eye Myrbetriq 2019-0 Yes Isrrael 1 tablet Memoria 30 Duran l 02:45: Pravastatin 2019-0 Yes Isrrael 1 tablet Memoria Sodium 02-18 Duran l 02:45: Aspir-Low 2019-0 Yes Isrrael 1 tablet Memoria 02-18 Duran l 02:45: Atorvastati 2019-0 Yes Isrrael [...] Memoria HCl 02-18 Duran l 02:45: Azelastine 0 Yes Isrrael 1 puff in Memoria HCl 02-18 Duran each l 02:45: nostril Gabapentin 2019-0 Yes [place] 1 tablet Memoria 02-18 Duran at bedtime l 02:45: Methocarbam 2019-0 Yes [place]rrael 1 tablet Memoria ol 02-18 Duran l 02:45: Duloxetine 2019-0 Yes [place] 1 capsule Memoria HCl 02-18 Duran l 02:45: Losartan 2019-0 Yes [place]rrael 1 tablet M emoria Potassium-H 02-18 Duran l CTZ 02:45: Montelukast 2019-0 Yes [place]rrael 1 tablet Memoria Sodium 02-18 Duran l 02:45: Ventolin 2019-0 Yes [place] not Memor ia HFA 02-18 Duran defined l 02:45: Ibuprofen 2020-0 Yes [place] 4 tablet Memoria 01-18 Duran with food l 02:45: or milk in evening Ibuprofen 2020-0 Yes [place] 4 tablet Memoria 30 Duran with food l 02:45: or milk in 06 evening Methocarbam 2020-0 Yes [place]rrael 1 tablet Memoria ol 8-28 Duran l 00:00: Methocarbam 2020-0 Yes [place] 1 tablet Memoria ol 8-28 Duran l 00:00: Aspir-81 2020-0 Yes Josette not Mem oria 6-30 Vo defined l 02:45: Bruno Linzess 2020-0 Yes Josette 1 capsule Memoria 6-30 Vo on an l 02:45: empty Bruno 43 stomach Systane 2020-0 Yes Josette not Gordon alex 6-30 Vo defined l 02:45: Bruno Wu Breo 2020-0 Yes Josette 1 puff Memor ia Ellipta 6-30 Vo l 02:45: Bruno 43 Iron 2020-0 Yes Josette 1 tablet Mem oria 6-30 Vo l 02:45: Bruno Wu Ranitidine 2020-0 Yes Josette 1 capsule Memoria HCl 6-30 Vo at bedtime l 02:45: Bruno Wu Duloxetine 2020-0 Yes Josette 1 capsule Memoria HCl 6-30 Vo l 02:45: Bruno 43 Ranitidine [...] Mem oria 6-30 Vo l 02:45: Bruno Wu Systane 2020-0 Yes Josette not Gordon alex 6-30 Vo defined l 02:45: Bruno 43 Duloxetine 2020-0 Yes Josette 1 capsule Memoria HCl 6-30 Vo l 02:45: Bruno 43 Methotrexat Methotrexat 2020-0 Yes Harmony as Common e e 5-14 Millender directed Spirit 00:00: - [facility]I 00 [facility] PredniSONE PredniSONE 2020-0 Yes Harmony as Common 5-14 Mill[place] directed Spirit 00:00: - [facility]I 00 [facility] Multivitami 2020-0 Yes Nilanjana not M emoria n 4-14 Luda defined l 02:45: Bruno 39 Multivitami 2020-0 Yes Nilanjana not M emoria n 4-14 Luda defined l 02:45: Peggs 39 Pravastatin Pravastatin 2020-0 Yes Harmony 1 tablet Common Sodium Sodium 4-10 Millender in evening Spirit 00:00: - CHI 00 [facility] Bupivicaine Bupivicaine 2020-0 No 1mL Common [place] 4-10 Spirit 00:00: - CHI 00 [facility] Bupivicaine Bupivicaine 2020-0 No 1mL Common [place] 4-10 Spirit 00:00: - CHI 00 [facility] Bupivicaine Bupivicaine 2020-0 No 1mL Common [place] 4-10 Spirit 00:00: - CHI [facility] Bupivicaine Bupivicaine 2020-0 No 1mL Common [place] 4-10 Spirit 00:00: - CHI 00 [facility] Bupivicaine Bupivicaine 2020-0 No 1mL Common [place] 4-10 Spirit 00:00: - CHI 00 [facility] Bupivicaine Bupivicaine 2020-0 No 1mL Common [place] 4-10 Spirit 00:00: - CHI 00 [facility] Bupivicaine Bupivicaine 2020-0 No 1mL Common [place] 4-10 Spirit 00:00: - CHI 00 [facility] Bupivicaine Bupivicaine 2020-0 No 1mL Common [place] 4-10 Spirit 00:00: - [facility]I 00 [facility] Bupivicaine Bupivicaine 2020-0 No 1mL Common [place] 4-10 Spirit 00:00: - [facility]I 00 [facility] Bupivicaine Bupivicaine 2020-0 No 1mL Common [place] 4-10 Spirit 00:00: - [facility]I 00 [facility] Bupivicaine Bupivicaine 2020-0 No 1mL Common [place] 4-10 Spirit 00:00: - [facility]I 00 [facility] Bupivicaine Bupivicaine 2020-0 No 1mL Common [place] 4-10 Spirit 00:00: - CHI [facility] Bupivicaine Bupivicaine 2020-0 No 1mL Common [place] 4-10 Spirit 00:00: - CHI [facility] Bupivicaine Bupivicaine 2020-0 No 1mL Common [place] 4-10 Spirit 00:00: - CH[facility] Bupivicaine Bupivicaine 2020-0 No 1mL Common [place] 4-10 Spirit 00:00: - CH[facility] Bupivicaine Bupivicaine 2020-0 No 1mL Common [place] 4-10 Spirit 00:00: - CH[facility] Bupivicaine Bupivicaine 2020-0 No 1mL Common [place] 4-10 Spirit 00:00: - [facility] Bupivicaine Bupivicaine 2020-0 No 1mL Common [place] 4-10 Spirit 00:00: - [facility] Bupivicaine Bupivicaine 2020-0 No 1mL Common [place] 4-10 Spirit 00:00: - [facility] Ergocalcife 2020-0 Yes [place] 1 capsule Memoria rol 3-17 Duran l 00:00: Ergocalcife 2020-0 Yes Isrrael 1 capsule Memoria [...] medicine of the day with plain water Methotrexat 2020-0 Yes Isrrael 6 tablets Memoria [...] 1 tablet Memoria 2-03 Luda l 00:00: PredniSONE 2020-0 Yes Nilanjana 1 tablet Memoria 2-03 Luda l 00:00: Gabapentin Gabapentin 2019-0 Yes Harmony 1 tablet Common 1-06 [place] Spirit 00:00: - [facility] Estradiol Estradiol 2019- Yes Harmony as Co mmon 2- Mill[place] directed Spirit 00:00: - [facility] One Touch One Touch 2018- Yes Harmony one strip Common test strips test strips 0-28 Millender Spirit 00:00: - [facility] Plaquenil 2018-0 Yes [place]rrael 1 tablet Memoria 8-23 Duran with food l 00:00: or milk Plaquenil 2018-0 Yes [place] 1 tablet Memoria 8-23 Duran with food l 00:00: or milk Glucometer Glucometer 2019-0 2020- No Harmony Check BS Common Kit Kit 6-05 08-28 Millender once a day Spi rit 00:00: 00:00 - CHI 00 :00 [facility] eszopiclone 2018-0 Yes Take by Uni vers 1 mg tablet 5-03 mouth. ity of 09:52: [address] LORazepam 2019-0 Yes .5mg Take 0.5 Univ ers 0.5 mg 5-03 mg by ity of tablet 09:52: mouth. [address] aspirin 81 2019-0 Yes 81mg Take 81 mg U nivers mg chewable 5-03 by mouth. ity of tablet 09:52: [address] ranitidine 2018-0 Yes TAKE 1 Unive rs 150 mg 4-14 CAPSULE BY ity of capsule 00:00: MOUTH [place] EVERYDAY Medical AT BEDTIME Branch DULoxetine 2018-0 Yes TAKE 1 Unive rs 20 mg 4-12 CAPSULE BY ity of capsule 00:00: MOUTH [place] [address] EVERY DAY Medical IN THE Branch MORNING traMADOL 50 2018-0 Yes TAKE 1 Univ ers mg tablet 4-05 TABLET BY ity o f 00:00: MOUTH [place] 00 EVERY 6 Medical HOURS Branch NEEDED FOR PAIN DULoxetine 2018- Yes TAKE 1 Unive rs 60 mg 4-03 CAPSULE BY ity of capsule 00:00: MOUTH [place] 00 EVERY DAY Medical Branch LINZESS 72 2018-0 Yes TAKE 1 Unive rs mcg Cap 4-03 CAPSULE(S) ity of 00:00: DAILY ORAL [place] 00 Medical Branch VENTOLIN 2018- Yes INHALE 2 Unive rs HFA 90 4-03 PUFFS BY ity of mcg/actuati 00:00: MOUTH 4 Fan as on inhaler 00 TIMES A Medica l DAY Branch NEEDED BREO 2018- Yes USE ONE Univers ELLIPTA 3-21 PUFF ONCE ity of 200-25 00:00: A DAY [place] mcg/dose 00 Medical DsDv Branch pantoprazol 2018- Yes 40mg Take 40 mg Univers e 40 mg EC 3-09 by mouth ity o f tablet 00:00: daily. Medical Branch Xarelto Xarelto 2017- Yes Harmony 1 tablet Co mmon 2-11 [place] with food Spiri t 00:00: - CHI [facility] One Touch One Touch 2017- Yes Harmony as advised Common Glucose Glucose 0-29 Millender Spir it Monitor Monitor 00:00: - CH[facility] Solumedrol Solumedrol 2018-0 No 40mg C ommon 40mg/1ml 40mg/1ml 12-11 Spirit 00:00: - [facility] Solumedrol Solumedrol 2018-0 No 40mg C ommon 40mg/1ml 40mg/1ml 12-11 Spirit 00:00: - [facility] Solumedrol Solumedrol 2018-0 No 40mg C ommon 40mg/1ml 40mg/1ml 12-11 Spirit 00:00: - [facility] Solumedrol Solumedrol 2018-0 No 40mg C ommon 40mg/1ml 40mg/1ml 12-11 Spirit 00:00: - [facility] Solumedrol Solumedrol 2018-0 No 40mg C ommon 40mg/1ml 40mg/1ml 12-11 Spirit 00:00: - [facility]I 00 [facility] Solumedrol Solumedrol 2018-0 No 40mg C ommon 40mg/1ml 40mg/1ml 12-11 Spirit 00:00: - [facility] 00 [facility] Solumedrol Solumedrol 2018-0 No 40mg C ommon 40mg/1ml 40mg/1ml 12-11 Spirit 00:00: - [facility] 00 [facility] Solumedrol Solumedrol 2018-0 No 40mg C ommon 40mg/1ml 40mg/1ml 12-11 Spirit 00:00: - [facility] 00 [facility] Solumedrol Solumedrol 2018-0 No 40mg C ommon 40mg/1ml 40mg/1ml 12-11 Spirit 00:00: - [facility]I 00 [facility] Solumedrol Solumedrol 2018-0 No 40mg C ommon 40mg/1ml 40mg/1ml 12-11 Spirit 00:00: - [facility] Solumedrol Solumedrol 2018-0 No 40mg C ommon 40mg/1ml 40mg/1ml 12-11 Spirit 00:00: - [facility] 00 [facility] Solumedrol Solumedrol 2018-0 No 40mg C ommon 40mg/1ml 40mg/1ml 12-11 Spirit 00:00: - [facility] Solumedrol Solumedrol 2018-0 No 40mg C ommon 40mg/1ml 40mg/1ml 12-11 Spirit 00:00: - [facility] Solumedrol Solumedrol 2018-0 No 40mg C ommon 40mg/1ml 40mg/1ml 12-11 Spirit 00:00: - [facility] 00 [facility] Solumedrol Solumedrol 2018-0 No 40mg C ommon 40mg/1ml 40mg/1ml 12-11 Spirit 00:00: - [facility] 00 [facility] Solumedrol Solumedrol 2018-0 No 40mg C ommon 40mg/1ml 40mg/1ml 12-11 Spirit 00:00: - [facility] Solumedrol Solumedrol 2018-0 No 40mg C ommon 40mg/1ml 40mg/1ml 12-11 Spirit 00:00: - [facility] Solumedrol Solumedrol 2018-0 No 40mg C ommon 40mg/1ml 40mg/1ml 12-11 Spirit 00:00: - [facility] Solumedrol Solumedrol 2018-0 No 40mg C ommon 40mg/1ml 40mg/1ml 12-11 Spirit 00:00: - [facility] montelukast 20180 Yes TAKE 1 Univ ers 10 mg 5-31 TABLET BY ity of tablet 00:00: MOUTH [place] 00 EVERY DAY Medical Branch atorvastati Yes 40mg Take 40 mg Univers n 40 mg 1-12 by mouth. ity of tablet 00:00: [address] fluticasone Yes 2{spray 2 Sprays. Univers 50 1-30 } ity of mcg/actuati 00:00: [place] on nasal 00 Medical spray Branch Janumet Janumet No Janumet Ondansetron Ondansetron No 1{table TID Ondansetro HCl 4 MG HCl 4 MG t} n HCl 4 MG predniSONE predniSONE No predniSONE Dicyclomine Dicyclomine No 1{table BID Dicyclomin HCl 10 MG HCl 10 MG t} e HCl 10 [address] [employer] [place] [place] [place] [employer] [place] Folic Acid Folic Acid No 1{table QD [...] into_af 0.01 % fected_ eye_in_ the_eve shayna} Trelegy Trelegy No 1{puff} QD Trelegy Ellipta [...] e e te Sucralfate Sucralfate No Sucralfate [employer] [place] [place] [place] [employer] [place] Pravastatin Pravastatin No 1{table QD Pravastati Sodium [...] - Lite Test - Lite Test - [employer] [place] [place] [place] [employer] [place] Combigan Combigan No 1{drop_ BID Combigan 0.2-0.5 [...] - Lite Test - Lite Test - [employer] [place] [place] [place] [employer] [place] Combigan Combigan No 1{drop_ BID Combigan 0.2-0.5 [...] MG n 250 MG in 250 MG [employer] [place] [place] [employer] [place] Benzonatate Benzonatate No 1{capsu TID Benzonatat 200 [...] MG n 250 MG in 250 MG [employer] [place] [place] [employer] [place] Benzonatate Benzonatate No 1{capsu TID Benzonatat 200 [...] MG n 250 MG in 250 MG [employer] [place] [place] [place] [employer] [place] Benzonatate Benzonatate No 1{capsu TID Benzonatat 200 [...] MG n 250 MG in 250 MG [employer] [place] [place] [employer] [place] Benzonatate Benzonatate No 1{capsu TID Benzonatat 200 [...] Base) ded} (90 Base) MCG/ACT MCG/ACT MCG/ACT [employer] [place] [place] [place] [employer] [place] Gabapentin Gabapentin No 1{table Gabapentin 600 MG [...] t} n Sodium MG MG 40 MG [employer] [place] [employer] Losartan Losartan No 1{table QD Losartan Potassium-H [...] Base) Base) (90 Base) MCG/ACT MCG/ACT MCG/ACT [employer] [place] [place] [employer] [place] Losartan Losartan No 1{table QD Losartan Potassium-H [...] e e te Meloxicam Meloxicam No Meloxicam [employer] [place] [place] Azithromyci Azithromyci No QD Azithromyc n 250 [...] e e te Meloxicam Meloxicam No [place]oxic[place] Azithromyci Azithromyci No QD Azithromyc n 250 [...] CTZ 100-25 HCTZ MG MG 100-25 MG [place] Pantoprazol Pantoprazol No 1{table QD Pantoprazo e [...] 1 MG 1 MG t} 1 MG [place] Combigan Combigan No 1{drop_ BID Combigan 0.2-0.5 [...] as Common HFA HFA [facility] needed [facility] Lorazepam Lorazepam Yes Harmony 1 tablet Common [facility] Hydroxychlo Hydroxychlo Yes Harmony not Common roquine roquine [facility] defined S pirit Sulfate Sulfate - [facility] Xifaxan Xifaxan Yes Harmony not Common Millender defined Spirit - [facility] Aspirin Aspirin Yes Harmony 1 tablet Comm on Adult Low Adult Low [facility] Strength Strength - [facility] Myrbetriq Myrbetriq Yes Harmony 1 tablet Common [facility] Gabapentin Gabapentin Yes Harmony 1 capsule Common [facility] Lumigan Lumigan Yes Harmony 1 drop Common [facility] into Spirit affected - [facility] Cyclobenzap Cyclobenzap Yes Harmony TAKE 1 Common rine HCl rine HCl [place] TABLET BY Spirit MOUTH 3 - [facility] FreeStyle FreeStyle Yes Harmony not Comm on Lite Test Lite Test [facility] defined Spirit - [facility] Restasis Restasis Yes Harmony 1 drop Comm on [place] into Spirit affected - [facility] Lunesta Lunesta Yes Harmony 1 tablet Comm on Millender immediatel Spir it y before - [facility] bedtime [facility] Sulfamethox Sulfamethox Yes Harmony not Common azole-Trime azole-Trime [place] defined Spirit thoprim thoprim - [facility] Solifenacin Solifenacin Yes Harmony 1 tablet Common Succinate Succinate [facility] Breo Breo Yes Harmony 1 puff Common Ellipta Ellipta Millender Spir it [facility] FreeStyle FreeStyle Yes Harmony not Comm on Lancets Lancets Millender defined S pirit - [facility] Mirtazapine Mirtazapine Yes Harmony 1 tablet Common Millender at bedtime Spir it [facility] Ranitidine Ranitidine Yes Harmony 1 capsule Common HCl HCl Millender at bedtime Spir it [facility] Hydrocodone Hydrocodone Yes Harmony not Common -Acetaminop -Acetaminop [facility] defined Spirit hen hen - [facility] Fluticasone Fluticasone Yes Harmony 1 spray in Common Propionate Propionate Millender each Spirit nostril - [facility] Janumet Janumet Yes Harmony 1 tablet Comm on Millender with meals Spir it [facility] Amitriptyli Amitriptyli Yes Harmony not Common ne HCl ne HCl [facility] defined Spi rit - [facility] Azelastine Azelastine Yes Harmony 2 squirts Common HCl HCl [place]ender in each Spirit nostril - [facility] Chlorhexidi Chlorhexidi Yes Harmony not Common ne ne [facility] defined Spirit Gluconate Gluconate - [facility] Ciprofloxac Ciprofloxac Yes Harmony not Common in HCl in HCl [facility]ender defined Spi rit - [facility] Singulair Singulair Yes Harmony 1 tablet Common [facility] Losartan Losartan Yes Harmony 1 tablet Co mmon Potassium-H Potassium-H [facility] CTZ CTZ - [facility] Gabapentin Gabapentin Yes Harmony 1 tablet Common [facility] Diclofenac Diclofenac Yes Harmony not Co mmon Sodium Sodium [facility] defined Spi rit - [facility] Duloxetine Duloxetine Yes Harmony 1 capsule Common HCl HCl Millender (take with Spir it duloxetine - CHI 30 mg) [facility] Quetiapine Quetiapine Yes Harmony 1 tablet Common Fumarate Fumarate [facility] at bedtime Spirit [facility] Acetaminoph Acetaminoph Yes Harmony not Common en-Codeine en-Codeine [facility] defined Spirit #3 #3 - [facility] Denta 5000 Denta 5000 Yes Harmony not Co mmon Plus Plus [facility] defined Spirit - [facility] Combigan Combigan Yes Harmony 1 drop Comm on [place] into Spirit affected - [facility] Latanoprost Latanoprost Yes Harmony 1 drop Common [place] into Spirit affected - [facility] Duloxetine Duloxetine Yes Harmony 1 capsule Common HCl HCl Millender (take with Spir it duloxetine - [facility]I 60 mg) [facility] Trelegy Trelegy Yes Harmony 1 puff Common Ellipta Ellipta Mill[facility] Spir it - [facility] Dicyclomine Dicyclomine Yes Harmony not Common HCl HCl Millender defined [facility] Cholestyram Cholestyram No 1{packe QD Cholestyra ine [...] 1 MG 1 MG t} 1 MG [place] Combigan Combigan No 1{drop_ BID Combigan 0.2-0.5 [...] 1 MG 1 MG t} 1 MG [place] Combigan Combigan No 1{drop_ BID Combigan 0.2-0.5 [...] 1 MG 1 MG t} 1 MG [place] Combigan Combigan No 1{drop_ BID Combigan 0.2-0.5 [...] 1 MG 1 MG t} 1 MG [place] Combigan Combigan No 1{drop_ BID Combigan 0.2-0.5 [...] 1 MG 1 MG t} 1 MG [place] Combigan Combigan No 1{drop_ BID Combigan 0.2-0.5 [...] 10 MG t} e HCl 10 MG [place] Folic Acid Folic Acid No 1{table QD [...] 10 MG t} e HCl 10 MG [place] Folic Acid Folic Acid No 1{table QD [...] 10 MG t} e HCl 10 MG [place] Folic Acid Folic Acid No 1{table QD [...] 0.2-0.5 % into_af 0.2-0.5 % fected_ eye} Immunizations Ordered Immunization Filled Immunization Date Status Commen ts Source Name Name FluAD FluAD 2020-04-03 Completed [facility] 11:06:00 - [facility] FluAD FluAD 2020-04-03 Completed [facility] 11:06:00 - [facility] FluAD FluAD 2020-04-03 Completed [facility] 11:06:00 - [facility] FluAD FluAD 2020-04-03 Completed [facility] 11:06:00 - [facility] FluAD FluAD 2020-04-03 Completed [facility] 11:06:00 - [facility] FluAD FluAD 2020-04-03 Completed [facility] 11:06:00 - [facility] FluAD FluAD 2020-04-03 Completed [facility] 11:06:00 - [facility] FluAD FluAD 2020-04-03 Completed [facility] 11:06:00 - [facility] FluAD FluAD 2020-04-03 Completed [facility] 11:06:00 - [facility] FluAD FluAD 2020-04-03 Completed [facility] 11:06:00 - [facility] FluAD FluAD 2020-04-03 Completed [facility] 11:06:00 - [facility] FluAD FluAD 2020-04-03 Completed [facility] 11:06:00 - [facility] FluAD FluAD 2020-04-03 Completed [facility] 11:: - [facility] FluAD FluAD 2020-04-03 Completed [facility] 11:06: - [facility] FluAD FluAD 2020-04-03 Completed [facility] 11:06:00 - [facility] FluAD FluAD 2020-04-03 Completed [facility] 11:06:00 - [facility] FluAD FluAD 2020-04-03 Completed [facility] 11:06:00 - [facility] FluAD FluAD 2020-04-03 Completed [facility] 11::00 - [facility] FluAD FluAD 2020-04-03 Completed [facility] 11::00 - [facility] FluAD FluAD 2020-04-03 Completed [facility] 11:06:00 - [facility] FluAD FluAD 2020-04-03 Completed [facility] 11:06:00 - [facility] FluAD FluAD 2020-04-03 Completed [facility] 11:06:00 - [facility] FluAD FluAD 2020-04-03 Completed [facility] 11:06:00 - [facility] FluAD FluAD 2020-04-03 Completed [facility] 11:06:00 - [facility] Prevnar 13 (PCV13) Prevnar 13 (PCV13) 2020-04-03 Completed [facility] 11:05:00 - [facility] Prevnar 13 (PCV13) Prevnar 13 (PCV13) 2020-04-03 Completed [facility] 11:05:00 - [facility] Prevnar 13 (PCV13) Prevnar 13 (PCV13) 2020-04-03 Completed [facility] 11:05:00 - [facility] Prevnar 13 (PCV13) Prevnar 13 (PCV13) 2020-04-03 Completed [facility] 11[facility]05:00 [facility] Prevnar 13 (PCV13) Prevnar 13 (PCV13) 2020-04-03 Completed [facility] 11:05:00 - [facility] Prevnar 13 (PCV13) Prevnar 13 (PCV13) 2020-04-03 Completed [facility] 11:05:00 [facility] Prevnar 13 (PCV13) Prevnar 13 (PCV13) 2020-04-03 Completed [facility] 11:05:00 [facility] Prevnar 13 (PCV13) Prevnar 13 (PCV13) 2020-04-03 Completed [facility] 11:05:00 - [facility] Prevnar 13 (PCV13) Prevnar 13 (PCV13) 2020-04-03 Completed [facility] 11:05:00 - [facility] Prevnar 13 (PCV13) Prevnar 13 (PCV13) 2020-04-03 Completed [facility] 11:05:00 - [facility] Prevnar 13 (PCV13) Prevnar 13 (PCV13) 2020-04-03 Completed [facility] 11:05:00 [facility] Prevnar 13 (PCV13) Prevnar 13 (PCV13) 2020-04-03 Completed [facility] 11:05:00 - [facility] Prevnar 13 (PCV13) Prevnar 13 (PCV13) 2020-04-03 Completed [facility] 11:05:00 [facility] Prevnar 13 (PCV13) Prevnar 13 (PCV13) 2020-04-03 Completed [facility] 11:05:00 [facility] Prevnar 13 (PCV13) Prevnar 13 (PCV13) 2020-04-03 Completed [facility] 11:05:00 [facility] Prevnar 13 (PCV13) Prevnar 13 (PCV13) 2020-04-03 Completed [facility] 11:05:00 [facility] Prevnar 13 (PCV13) Prevnar 13 (PCV13) 2020-04-03 Completed [facility] 11:05:00 - [facility] Prevnar 13 (PCV13) Prevnar 13 (PCV13) 2020-04-03 Completed [facility] 11:05:00 - [facility] Prevnar 13 (PCV13) Prevnar 13 (PCV13) 2020-04-03 Completed [facility] 11:05:00 - [facility] Prevnar 13 (PCV13) Prevnar 13 (PCV13) 2020-04-03 Completed [facility] 11:05:00 - [facility] Prevnar 13 (PCV13) Prevnar 13 (PCV13) 2020-04-03 Completed [facility] 11:05:00 - [facility] Prevnar 13 (PCV13) Prevnar 13 (PCV13) 2020-04-03 Completed [facility] 11:05:00 - [facility] Prevnar 13 (PCV13) Prevnar 13 (PCV13) 2020-04-03 Completed [facility] 11:05:00 - [facility] Prevnar 13 (PCV13) Prevnar 13 (PCV13) 2020-04-03 Completed [facility] 11:05:00 - [facility] Bupivicaine Bagwell Bupivicaine Bagwell 2019-08-30 Completed [facility] 09:50:00 - [facility] Bupivicaine [place] Bupivicaine [place] 2019-08-30 Completed [facility] 09:50:00 - [facility] Bupivicaine [place] Bupivicaine [place] 2019-08-30 Completed [facility] 09:50:00 - [facility] Bupivicaine [place] Bupivicaine [place] 2019-08-30 Completed [facility] 09:50:00 - [facility] Flucelvax - single Flucelvax - single 2019-02-25 Completed [facility] dose syringe dose syringe 10:56:00 - [facility] Flucelvax - single Flucelvax - single 2019-02-25 Completed [facility] dose syringe dose syringe 10:56:00 - [facility] Flucelvax - single Flucelvax - single 2019-02-25 Completed [facility] dose syringe dose syringe 10:56:00 - [facility] Flucelvax - single Flucelvax - single 2019-02-25 Completed [facility] dose syringe dose syringe 10:56:00 - [facility] Flucelvax - single Flucelvax - single 2019-02-25 Completed [facility] dose syringe dose syringe 10:56:00 - [facility] Flucelvax - single Flucelvax - single 2019-02-25 Completed [facility] dose syringe dose syringe 10:56:00 - [facility] Flucelvax - single Flucelvax - single 2019-02-25 Completed [facility] dose syringe dose syringe 10:56:00 - [facility] Flucelvax - single Flucelvax - single 2019-02-25 Completed [facility] dose syringe dose syringe 10:56:00 - [facility] Flucelvax - single Flucelvax - single 2019-02-25 Completed [facility] dose syringe dose syringe 10:56:00 - [facility] Flucelvax - single Flucelvax - single 2019-02-25 Completed [facility] dose syringe dose syringe 10:56:00 - [facility] Flucelvax - single Flucelvax - single 2019-02-25 Completed [facility] dose syringe dose syringe 10:56:00 - [facility] Flucelvax - single Flucelvax - single 2019-02-25 Completed [facility] dose syringe dose syringe 10:56:00 - [facility] Flucelvax - single Flucelvax - single 2019-02-25 Completed [facility] dose syringe dose syringe 10:56:00 - [facility] Flucelvax - single Flucelvax - single 2019-02-25 Completed [facility] dose syringe dose syringe 10:56:00 - [facility] Flucelvax - single Flucelvax - single 2019-02-25 Completed [facility] dose syringe dose syringe 10:56:00 - [facility] Flucelvax - single Flucelvax - single 2019-02-25 Completed [facility] dose syringe dose syringe 10:56:00 - [facility] Flucelvax - single Flucelvax - single 2019-02-25 Completed [facility] dose syringe dose syringe 10:56:00 - [facility] Flucelvax - single Flucelvax - single 2019-02-25 Completed [facility] dose syringe dose syringe 10:56:00 - [facility] Flucelvax - single Flucelvax - single 2019-02-25 Completed [facility] dose syringe dose syringe 10:56:00 - [facility] Flucelvax - single Flucelvax - single 2019-02-25 Completed [facility] dose syringe dose syringe 10:56:00 - [facility] Flucelvax - single Flucelvax - single 2019-02-25 Completed [facility] dose syringe dose syringe 10:56:00 - [facility] Flucelvax - single Flucelvax - single 2019-02-25 Completed [facility] dose syringe dose syringe 10:56:00 - [facility] Flucelvax - single Flucelvax - single 2019-02-25 Completed [facility] dose syringe dose syringe 10:56:00 - [facility] Flucelvax - single Flucelvax - single 2019-02-25 Completed [facility] dose syringe dose syringe 10:56:00 - [facility] Flucelvax - single Flucelvax - single 2019-02-25 Completed [facility] dose syringe dose syringe 00:00:00 - [facility] Flucelvax - Flucelvax - 2018-03-09 Completed [facility] multidose vial multidose vial 09:28:00 - [facility] Flucelvax - Flucelvax - 2018-03-09 Completed [facility] multidose vial multidose vial 09:28:00 - [facility] Flucelvax - Flucelvax - 2018-03-09 Completed [facility] multidose vial multidose vial 09:28:00 - [facility] Flucelvax - Flucelvax - 2018-03-09 Completed [facility] multidose vial multidose vial 09:28:00 - [facility] Flucelvax - Flucelvax - 2018-03-09 Completed [facility] multidose vial multidose vial 09:28:00 - [facility] Flucelvax - Flucelvax - 2018-03-09 Completed [facility] multidose vial multidose vial 09:28:00 - [facility] Flucelvax - Flucelvax - 2018-03-09 Completed [facility] multidose vial multidose vial 09:28:00 - [facility] Flucelvax - Flucelvax - 2018-03-09 Completed [facility] multidose vial multidose vial 09:28:00 - [facility] Flucelvax - Flucelvax - 2018-03-09 Completed [facility] multidose vial multidose vial 09:28:00 - [facility] Flucelvax - Flucelvax - 2018-03-09 Completed [facility] multidose vial multidose vial 09:28:00 - [facility] Flucelvax - Flucelvax - 2018-03-09 Completed [facility] multidose vial multidose vial 09:28:00 - [facility] Flucelvax - Flucelvax - 2018-03-09 Completed [facility] multidose vial multidose vial 09:28:00 - [facility] Flucelvax - Flucelvax - 2018-03-09 Completed [facility] multidose vial multidose vial 09:28:00 - [facility] Flucelvax - Flucelvax - 2018-03-09 Completed [facility] multidose vial multidose vial 09:28:00 - [facility] Flucelvax - Flucelvax - 2018-03-09 Completed [facility] multidose vial multidose vial 09:28:00 - [facility] Flucelvax - Flucelvax - 2018-03-09 Completed [facility] multidose vial multidose vial 09:28:00 - [facility] Flucelvax - Flucelvax - 2018-03-09 Completed [facility] multidose vial multidose vial 09:28:00 - [facility] Flucelvax - Flucelvax - 2018-03-09 Completed [facility] multidose vial multidose vial 09:28:00 - [facility] Flucelvax - Flucelvax - 2018-03-09 Completed [facility] multidose vial multidose vial 09:28:00 - [facility] Flucelvax - Flucelvax - 2018-03-09 Completed [facility] multidose vial multidose vial 09:28:00 - [facility] Flucelvax - Flucelvax - 2018-03-09 Completed [facility] multidose vial multidose vial 09:28:00 - [facility] Flucelvax - Flucelvax - 2018-03-09 Completed [facility] multidose vial multidose vial 09:28:00 - [facility] Flucelvax - Flucelvax - 2018-03-09 Completed [facility] multidose vial multidose vial 09:28:00 - [facility] Flucelvax - Flucelvax - 2018-03-09 Completed [facility] multidose vial multidose vial 09:28:00 - [facility] Solumedrol 40mg/1ml Solumedrol 40mg/1ml 2017-12-11 Completed [facility] 12:01:00 - [facility] Solumedrol 40mg/1ml Solumedrol 40mg/1ml 2017-12-11 Completed [facility] 12:01:00 - [facility] Solumedrol 40mg/1ml Solumedrol 40mg/1ml 2017-12-11 Completed [facility] 12:01:00 - [facility] Solumedrol 40mg/1ml Solumedrol 40mg/1ml 2017-12-11 Completed [facility] 12:01:00 - [facility] Vital Signs Vital Name Observation Time Observation Value Comments Source height 2022-03-31 10:40:00 63.75 [in_i] [facility] weight 2022-03-31 10:40:00 207.2 [lb_av] [facility] temperature 2022-03-31 10:40:00 97.0 [degF] [facility] bmi 2022-03-31 10:40:00 35.84 kg/m2 [facility] oximetry 2022-03-31 10:40:00 99 % [facility] respiratory rate 2022-03-31 10:40:00 18 /min Comm on [facility] blood pressure 2022-03-31 10:40:00 130 mm[Hg] [facility] - systolic [facility] blood pressure 2022-03-31 10:40:00 82 mm[Hg] [facility] - diastolic [facility] height 2021-11-26 14:20:00 63.75 [in_i] [facility] weight 2021-11-26 14:20:00 210 [lb_av] [facility] bmi 2021-11-26 14:20:00 36.33 kg/m2 [facility] height 2021-11-26 14:00:00 63.75 [in_i] [facility] weight 2021-11-26 14:00:00 210 [lb_av] [facility] bmi 2021-11-26 14:00:00 36.33 kg/m2 [facility] height 2021-01-15 11:00:00 63.75 [in_i] [facility] weight 2021-01-15 11:00:00 211 [lb_av] [facility] temperature 2021-01-15 11:00:00 97.1 [degF] [facility] bmi 2021-01-15 11:00:00 36.5 kg/m2 [facility] oximetry 2021-01-15 11:00:00 98 % [facility] respiratory rate 2021-01-15 11:00:00 21 /min Comm on [facility] blood pressure 2021-01-15 11:00:00 138 mm[Hg] [facility] - systolic [facility] blood pressure 2021-01-15 11:00:00 84 mm[Hg] [facility] - diastolic [facility] Weight 2020-01-17 15:15:00 [facility] Height 2020-01-17 15:15:00 [facility] Temperature Oral (F) 2020-01-17 15:15:00 97.0 F [facility] Heart Rate 2020-01-17 15:15:00 [facility] Diastolic (mm Hg) 2020-01-17 15:15:00 Mem [facility] Systolic (mm Hg) 2020-01-17 15:15:00 [facility] Weight 2019-11-18 16:30:00 [facility] Height 2019-11-18 16:30:00 [facility] Temperature Oral (F) 2019-11-18 16:30:00 97.5 F [facility] Heart Rate 2019-11-18 16:30:00 [facility] Diastolic (mm Hg) 2019-11-18 16:30:00 Mem [facility] Systolic (mm Hg) 2019-11-18 16:30:00 [facility] Weight 2019-10-21 13:45:00 [facility] Height 2019-10-21 13:45:00 [facility] Temperature Oral (F) 2019-10-21 13:45:00 96.3 F [facility] Heart Rate 2019-10-21 13:45:00 [facility] Diastolic (mm Hg) 2019-10-21 13:45:00 Mem [facility] Systolic (mm Hg) 2019-10-21 13:45:00 [facility] Weight 2019-06-24 16:30:00 [facility] Height 2019-06-24 16:30:00 [facility] Heart Rate 2019-06-24 16:30:00 [facility] Diastolic (mm Hg) 2019-06-24 16:30:00 [facility] Systolic (mm Hg) 2019-06-24 16:30:00 [facility] Procedures Procedure Date / Time Performing Clinician Source Performed [employer] 2021-12-14 05:01:00 Doctor Unassigned, [facility] Encounters Start End Encounter Admission Attending Care Care Encounter Source Date/Time Date/Time Type Type Clinicians Facility Department ID 2022-11-01 Outpatient [id number] Memoria 10:56:27 [id number] 2022-07-31 Outpatient [id number] [facility] 16:59:01 [id number] [facility] [id number] 2022-07-19 Outpatient Simeon, STLMLC STLMLC [id number] Common 08:43:00 [facility] [id number] [facility] 2022-07-12 Outpatient Simeon, STLMLC STLMLC [id number] [facility] 14:50:02 [facility] [id number] [facility] 2022-06-15 Outpatient Simeon, STLMLC STLMLC [id number] [facility] 10:32:[address] [place] [id number] [facility] 2022-03-29 Outpatient Tucker, Na STLMLC STLMLC [id number] 2 [facility] 08:10:[id number] [facility] 2022-03-09 Outpatient Tucker, Na STLMLC STLMLC [id number] 2 [facility] 10:07:[address] [facility] 2022-01-10 Outpatient Tucker, Na STLMLC STLMLC [id number] 2 [facility] 15:50:[address] [facility] 2021-11-24 Outpatient Tucker, Na STLMLC STLMLC [id number] 2 [facility] 09:42:[address] [facility] 2021-06-24 Outpatient Tucker, Na STLMLC STLMLC [id number] 2 [facility] 10:27:[address] [facility] 2021-06-16 Outpatient Tucker, Na STLMLC STLMLC [id number] 2 [facility] 14:04:[address] [facility] 2021-06-16 Outpatient Tucker, Na STLMLC STLMLC [id number] 2 [facility] 13:43:[id number] [facility] 2021-06-16 Outpatient Tucker, Na STLMLC STLMLC [id number] 2 [facility] 13:37:[id number] [facility] 2021-06-16 Outpatient Tucker, Na STLMLC STLMLC [id number] 2 [facility] 13:24:[id number] [facility] 2021-06-16 Outpatient Tucker, Na STLMLC STLMLC [id number] 2 [facility] 13:04:[id number] [facility] 2021-06-16 Outpatient Tucker, Na STLMLC STLMLC [id number] 2 [facility] 12:56:[id number] [facility] 2021-06-16 Outpatient Tucker, Na STLMLC STLMLC [id number] 2 [facility] 12:56:[id number] [facility] 2021-06-16 Outpatient Tucker, Na STLMLC STLMLC [id number] 2 [facility] 12:50:[id number] [facility] 2021-06-16 Outpatient Tucker, Na STLMLC STLMLC [id number] 2 [facility] 12:36:[id number] [facility] 2021-06-16 Outpatient Tucker, Na STLMLC STLMLC [id number] 2 [facility] 12:31:[id number] [facility] 2021-06-16 Outpatient Tucker, Na STLMLC STLMLC [id number] 2 [facility] 12:31:[id number] [facility] 2021-06-16 Outpatient Tucker, Na STLMLC STLMLC [id number] 2 [facility] 12:05:[id number] [facility] 2021-06-16 Outpatient Tucker, Na STLMLC STLMLC [id number] 2 [facility] 12:04:[id number] [facility] 2021-06-16 Outpatient Tucker, Na STLMLC STLMLC [id number] 2 [facility] 12:04:[id number] [facility] 2021-06-16 Outpatient Tucker, Na STLMLC STLMLC [id number] Common 12:03:[id number] [facility] 2021-06-16 Outpatient Tucker, Na STLMLC STLMLC [id number] Common 11:59:[id number] [facility] 2021-06-16 Outpatient Millender, STLMLC STLMLC [id number] Common 11:33:[address] [place] [id number] [facility] 2021-06-16 Outpatient Millender, STLMLC STLMLC [id number] Common 11:27:[address] [place] [address] [facility] 2021-06-16 Outpatient Millender, STLMLC STLMLC [id number] Common 11:17:[address] [place] [address] [facility] 2021-06-16 Outpatient Millender, STLMLC STLC [id number] Common 11:17:[address] [place] [id number] [facility] 2021-06-16 Outpatient Millender, STLMLC STLC [id number] Common 11:16:[address] [place] [address] [facility] 2021-06-16 Outpatient Millender, STLMLC STLMLC [id number] Common 10:58:[address] [place] [address] [facility] 2021-06-16 Outpatient Millender, STLMLC STLMLC [id number] Common 10:57:[id number] [facility] 2022-09-16 2022-09-16 Outpatient [facility] [id number] Rafa 13:16:11 13:16:11 [id number] F Peterson 2022-08-02 2022-08-02 Outpatient FOG_A_Provi AOSM AOSM [id number] Leslie 00:00:00 00:00:00 mary [id number] [facility] 2022-08-02 2022-08-02 Outpatient FOG_A_Provi AOSM AOSM [id number] Leslie 00:00:00 00:00:00 mary [id number] [facility] 2022-06-20 2022-06-20 (TEL) STLMLC STLMLC [id number] Co mmon 00:00:00 00:00:[address] [facility] 2022-06-20 2022-06-20 (TEL) STLMLC STLMLC [id number] Co mmon 00:00:00 00:00:[address] [facility] 2022-06-15 2022-06-15 (TEL) STLMLC STLMLC [id number] Co mmon 00:00:00 00:00:[address] [facility] 2022-06-01 2022-06-01 Outpatient HAILEY Verdugo, HCACL OUTD [id number] [facility] 05:27:00 05:27:00 Jackson 84 [facility] 2022-04-20 2022-04-20 (WEB) STLMLC STLMLC [id number] Co mmon 00:00:00 00:00:[address] [facility] 2022-04-05 2022-04-05 (WEB) STLMLC STLMLC [id number] Co mmon 00:00:00 00:00:[address] [facility] 2022-04-01 2022-04-01 (WEB) STLMLC STLMLC [id number] Co mmon 00:00:00 00:00:[address] [facility] 2022-03-31 2022-03-31 OFFICE STLMLC STLMLC [id number] Co mmon 00:00:00 00:00:00 VISIT [facility] LEVEL 4 [facility] 2022-03-31 2022-03-31 (TEL) STLMLC STLMLC [id number] Co mmon 00:00:00 00:00:[address] [facility] 2022-03-06 2022-03-06 Outpatient SICKLER, MHSE MHSE [id number] MH 08:01:00 23:59:00 LAN chavez [facility] 2022-02-11 2022-02-11 Outpatient SIMEON, MHSE MHSE [id number] MH 09:56:00 23:59:00 KWAME French a [facility] 2022-01-11 2022-01-11 (TEL) STLMLC STLMLC [id number] Co mmon 00:00:00 00:00:[address] [facility] 2022-01-11 2022-01-11 OL DIG E/M STLMLC STLMLC [id number] Common 00:00:00 00:00:00 [facility] 04-10 Spir it [facility] 2022-01-10 2022-01-10 (TEL) STLMLC STLMLC [id number] Co mmon 00:00:00 00:00:[address] [facility] 2021-12-23 2021-12-23 OL DIG E/M STLMLC STLMLC [id number] Common 00:00:00 00:00:00 [facility] 04-10 Spir it [facility] 2021-12-14 2021-12-14 Orders Doctor RODERICK [id number] Univers 00:00:00 00:00:00 Only Unassigned, LUISITO [id number] [facility] [id number] Fan as [id number] [place] [id number] [place] 2021-12-08 2021-12-08 (TEL) STLMLC STLMLC [id number] Co mmon 00:00:00 00:00:[address] [facility] 2021-11-29 2021-11-29 (TEL) STLMLC STLMLC [id number] Co mmon 00:00:00 00:00:[address] [facility] 2021-11-26 2021-11-26 OL DIG E/M STLMLC STLMLC [id number] Common 00:00:00 00:00:00 [facility] 04-10 Spir it MIN [facility] 2021-11-26 2021-11-26 (TELEAUD) STLMLC STLMLC [id number] Common 00:00:00 00:00:00 AUDIO [facility] TELEMEDICI - [facility] NE [facility] 2021-11-25 2021-11-25 (TEL) STLMLC STLMLC [id number] Co mmon 00:00:00 00:00:[address] [facility] 2021-08-25 2021-08-25 (TEL) STLMLC STLMLC [id number] Co mmon 00:00:00 00:00:[address] [facility] 2021-08-03 2021-08-03 (TEL) STLMLC STLMLC [id number] Co mmon 00:00:00 00:00:[address] [facility] 2021-06-28 2021-06-28 OL DIG E/M STLMLC STLMLC [id number] Common 00:00:00 00:00:00 SVC 21+ [facility] 2021-06-27 2021-06-27 Outpatient RAHUL Salma KAY - [id number] eClinic 00:10:00 00:10:00 Rheumatol Rheumatolog alWorks ogy y [facility] 2021-05-31 2021-05-31 Outpatient Baird, [facility] HCAPM [id number] [facility] 09:00:00 09:00:00 Jeff Roth [facility] 2021-03-12 2021-03-12 (TEL) STLMLC STLMLC [id number] Co mmon 00:00:00 00:00:[address] [facility] 2021-03-04 2021-03-04 (TEL) STLMLC STLMLC [id number] Co mmon 00:00:00 00:00:[address] [facility] 2021-01-15 2021-01-15 Outpatient STLMLC STLMLC [id number] Common 00:00:00 00:00:[address] [facility] 2021-01-15 2021-01-15 (TEL) STLMLC STLMLC [id number] Co mmon 00:00:00 00:00:[address] [facility] 2021-01-15 2021-01-15 OFFICE STLMLC STLMLC [id number] Co mmon 00:00:00 00:00:00 VISIT [facility] LEVEL 4 [facility] 2021-01-05 2021-01-05 Outpatient STLMLC STLMLC [id number] Common 00:00:00 00:00:[address] [facility] 2020-12-24 2020-12-24 Outpatient STLMLC STLMLC [id number] Common 00:00:00 00:00:[address] [facility] 2020-12-07 2020-12-07 Outpatient STLMLC STLMLC [id number] Common 00:00:00 00:00:[address] [facility] 2020-12-07 2020-12-07 Outpatient STLMLC STLMLC [id number] Common 00:00:00 00:00:[address] [facility] 2020-10-09 2020-10-09 Outpatient STLMLC STLMLC [id number] Common 00:00:00 00:00:[address] [facility] 2020-10-05 2020-10-05 Outpatient STLMLC STLMLC [id number] Common 00:00:00 00:00:[address] [facility] 2020-09-14 2020-09-14 Outpatient STLMLC STLMLC [id number] Common 00:00:00 00:00:[address] [facility] 2020-08-28 2020-08-28 Outpatient STLMLC STLMLC [id number] Common 00:00:00 00:00:[address] [facility] 2020-08-26 2020-08-26 Outpatient STLMLC STLMLC [id number] Common 00:00:00 00:00:[address] [facility] 2020-08-17 2020-08-17 Outpatient STLMLC STLMLC [id number] Common 00:00:00 00:00:[address] [facility] 2020-08-17 2020-08-17 Outpatient STLMLC STLMLC [id number] Common 00:00:00 00:00:[address] [facility] 2020-08-14 2020-08-14 Outpatient STLMLC STLMLC [id number] Common 00:00:00 00:00:[address] [facility] 2020-08-10 2020-08-10 Outpatient STLMLC STLMLC [id number] Common 00:00:00 00:00:[address] [facility] 2020-08-03 2020-08-03 Outpatient STLMLC STLMLC [id number] Common 00:00:00 00:00:[address] [facility] 2020-07-21 2020-07-21 Outpatient STLMLC STLMLC [id number] Common 00:00:00 00:00:[address] [facility] 2020-07-14 2020-07-14 Outpatient STLMLC STLMLC [id number] Common 00:00:00 00:00:[address] [facility] 2020-07-13 2020-07-13 Outpatient STLMLC STLMLC [id number] Common 00:00:00 00:00:[address] [facility] 2020-07-01 2020-07-01 Outpatient STLMLC STLMLC [id number] Common 00:00:00 00:00:[address] [facility] 2020-06-12 2020-06-12 Outpatient STLMLC STLMLC [id number] Common 00:00:00 00:00:[address] [facility] 2020-04-03 2020-04-03 Outpatient STLMLC STLMLC [id number] Common 00:00:00 00:00:[address] [facility] 2020-04-03 2020-04-03 Outpatient STLMLC STLMLC [id number] Common 00:00:00 00:00:[address] [facility] 2020-03-26 2020-03-26 Outpatient SICKLER, MHSE MHSE [id number] MH 20:41:00 23:59:[address] [facility] 2020-03-20 2020-03-20 Outpatient SICKLER, MHSE MHSE [id number] MH 09:45:00 23:59:[address] [facility] 2020-03-16 2020-03-16 Outpatient STLMLC STLMLC [id number] Common 00:00:00 00:00:[address] [facility] 2020-03-13 2020-03-13 Outpatient STLMLC STLMLC [id number] Common 00:00:00 00:00:[address] [facility] 2020-03-06 2020-03-06 Outpatient STLMLC STLMLC [id number] Common 00:00:00 00:00:00 [facility] - [facility] 2020-02-18 2020-02-18 Outpatient RAHUL - RAHUL - [id number] eClinic 14:00:00 14:00:00 Rheumatol Rheumatolog alWorks ogy y [facility] 2020-01-28 2020-01-28 [facility] [id number] Common 08:47:00 08:47:00 t [facility] Bone [facility] Sp[facility] t [facility] 2020-01-24 2020-01-24 Out[facility] [id number] Common 08:11:00 08:11:00 t Bone Bone and Spiri t and Joint [facility] - [facility] 2020-01-21 2020-01-21 Out[facility] [id number] Common 12:02:00 12:02:00 t Bone Bone and Spiri t and Joint [facility] - [facility] 2020-01-21 2020-01-21 Out[facility] [id number] Common 11:22:00 11:22:00 t [facility] Spir [address] [facility] 2020-01-21 2020-01-21 Out[facility] [id number] Common 08:48:00 08:48:00 t Bone Bone and Spiri t and Joint [facility] - [facility] 2020-01-17 2020-01-17 Outpatient RAHUL SOLOMONU - [id number] eClinic 10:15:00 10:15:00 Rheumatol Rheumatolog alWorks ogy y [facility] 2020-01-17 2020-01-17 [facility] [id number] Common 09:06:00 09:06:[address] [facility] [address] [facility] 2020-01-03 2020-01-03 Out[facility] [id number] Common 13:40:00 13:40:[address] [facility] [address] [facility] 2020-01-03 2020-01-03 Outpatient RAHUL KAY - [id number] eClinic 11:19:00 11:19:00 Rheumatol Rheumatolog alWorks ogy y [facility] 2019-12-25 2019-12-25 Outpatient RAHUL - RAHUL - [id number] eClinic 14:27:00 14:27:00 Rheumatol Rheumatolog alWorks ogy y [facility] 2019-12-22 2019-12-22 Outpatient PRL - PRL - [id number] eClinic 23:19:00 23:19:00 Rheumatol Rheumatolog alWorks ogy y [facility] 2019-12-20 2019-12-20 [facility] [id number] Common 08:00:00 08:00:00 [facility] 2019-12-09 2019-12-09 Out[facility] [id number] Common 16:45:00 16:45:00 t Bone Bone and Spiri t and Joint [facility] - [facility] 2019-12-02 2019-12-02 Out[facility] [id number] Common 14:30:00 14:30:00 t Bone Bone and Spiri t and Joint Joint - [facility] 2019-11-18 2019-11-18 Outpatient RAHUL - RAHUL - [id number] eClinic 11:30:00 11:30:00 Rheumatol Rheumatolog alWorks ogy y [facility] 2019-11-15 2019-11-15 Out[facility] [id number] Common 09:48:00 09:48:00 [facility] 2019-11-14 2019-11-14 Outpatient RAHUL - RAHUL - [id number] eClinic 10:49:00 10:49:00 Rheumatol Rheumatolog alWorks ogy y [facility] 2019-10-21 2019-10-21 Outpatient Rheumatol Rheumatolog [id number] eClinic 08:45:00 08:45:00 ogy y [facility] 2019-10-20 2019-10-20 Outpatient RAHUL KAY - [id number] eClinic 10:18:00 10:18:00 Rheumatol Rheumatolog alWorks ogy y [facility] 2019-10-06 2019-10-06 Outpatient PRL - PRL - [id number] eClinic 15:17:00 15:17:00 Rheumatol Rheumatolog alWorks ogy y [facility] 2019-10-03 2019-10-03 Out[facility] [id number] Common 10:30:00 10:30:00 t Bone Bone and Spiri t and Joint [facility] 2019-09-25 2019-09-25 Outpatient RAHUL - RAHUL - [id number] eClinic 16:29:00 16:29:00 Rheumatol Rheumatolog alWorks ogy y [facility] 2019-09-09 2019-09-09 [facility] [id number] Common 09:42:00 09:42:00 [facility] it [facility] 2019-09-04 2019-09-04 Outpatient RAHUL - RAHUL - [id number] eClinic 08:51:00 08:51:00 Rheumatol Rheumatolog alWorks ogy y [facility] 2019-09-02 2019-09-02 Outpatient PRL - PRL - [id number] eClinic 08:30:00 08:30:00 Rheumatol Rheumatolog alWorks ogy y [facility] 2019-08-30 2019-08-30 Out[facility] [id number] Common 11:00:00 11:00:00 [facility] it [facility] 2019-08-30 2019-08-30 Out[facility] [id number] Common 09:15:00 09:15:00 t Bone Bone and Spiri t and Joint [facility] - [facility] 2019-08-13 2019-08-13 Out[facility] [id number] Common 08:38:00 08:38:00 t Bone Bone and Spiri t and Joint [facility] 2019-08-07 2019-08-07 Outpatient PRL - PRL - [id number] eClinic 10:47:00 10:47:00 Rheumatol Rheumatolog alWorks ogy y [facility] 2019-08-06 2019-08-06 Outpatient RAHUL KAY - [id number] eClinic 06:53:00 06:53:00 Rheumatol Rheumatolog alWorks ogy y [facility] 2019-08-05 2019-08-05 Outpatient PRL - PRL - [id number] eClinic 10:42:00 10:42:00 Rheumatol Rheumatolog alWorks ogy y [facility] 2019-07-22 2019-07-22 Out[facility] [id number] Common 09:01:00 09:01:00 t Bone Bone and Spiri t and Joint [facility] 2019-07-08 2019-07-08 Out[facility] [id number] Common 10:15:00 10:15:00 t Bone Bone and Spiri t and Joint [facility] 2019-06-24 2019-06-24 Outpatient PRL - PRL - [id number] eClinic 10:30:00 10:30:00 Rheumatol Rheumatolog alWorks ogy y [facility] 2019-06-04 2019-06-04 Out[facility] [id number] Common 10:52:00 10:52:00 t Bone Bone and Spiri t and Joint [facility] - [facility] 2019-05-27 2019-05-27 Out[facility] [id number] Common 11:15:00 11:15:[address] [facility] [address] Family - [facility] Family Medicine [facility] 2019-05-09 2019-05-09 Outpatient PRL - PRL - [id number] eClinic 22:10:00 22:10:00 Rheumatol Rheumatolog alWorks ogy y [facility] 2019-05-04 2019-05-04 Outpatient RAHUL SOLOMONU - [id number] eClinic 06:53:00 06:53:00 Rheumatol Rheumatolog alWorks ogy y [facility] 2019-04-22 2019-04-22 Out[facility] [id number] Common 13:00:00 13:00:00 t Specialty/U Sp kamar Specialty rology - [facility] 2019-04-17 2019-04-17 Outpatient PRL - PRL - [id number] eClinic 10:55:00 10:55:00 Rheumatol Rheumatolog alWorks ogy y [facility] 2019-03-21 2019-03-21 Out[facility] [id number] Common 12:11:00 12:11:00 t Bone Bone and Spiri t and Joint Joint - [facility] 2019-03-18 2019-03-18 Outpatient [facility] [id number] Common 10:01:00 10:01:[address] [facility] [address] [facility] 2019-03-08 2019-03-08 Outpatient [facility] [id number] Common 11:26:00 11:26:00 t Bone Bone and Spiri t and Joint Joint - [facility] 2019-03-07 2019-03-07 Out[facility] [id number] Common 09:10:00 09:10:[address] [facility] [address] [facility] 2019-03-04 2019-03-04 Outpatient [facility] [id number] Common 10:00:00 10:00:00 t Bone Bone and Spiri t and Joint Joint - [facility] 2019-02-25 2019-02-25 Outpatient [facility] [id number] Common 10:20:00 10:20:[address] [facility] [address] [facility] 2019-02-20 2019-02-20 Outpatient [facility] [id number] Common 08:57:00 08:57:[address] [facility] 2019-01-28 2019-01-28 Outpatient [facility] [id number] Common 11:10:00 11:10:[address] [facility] 2019-01-25 2019-01-25 Outpatient PRL - PRL - [id number] eClinic 17:14:00 17:14:00 Rheumatol Rheumatolog alWorks ogy y [facility] 2019-01-25 2019-01-25 Outpatient [facility] [id number] Common 11:00:00 11:00:00 t Specialty/U Sp kamar Specialty rology - [facility] 2019-01-14 2019-01-14 Outpatient PRL - PRL - [id number] eClinic 14:51:00 14:51:00 Rheumatol Rheumatolog alWorks ogy y [facility] 2019-01-02 2019-01-02 Outpatient RAHUL SOLOMONU - [id number] eClinic 11:50:00 11:50:00 Rheumatol Rheumatolog alWorks ogy y [facility] 2018-12-27 2018-12-27 Out[facility] [id number] Common 09:55:00 09:55:00 t Bone Bone and Spiri t and Joint Joint - [facility] 2018-12-24 2018-12-24 Outpatient [facility] [id number] Common 13:08:00 13:08:00 t Bone Bone and Spiri t and Joint Joint - [facility] 2018-12-20 2018-12-20 Outpatient [facility] [id number] Common 13:30:00 13:30:00 t Specialty/U Sp kamar Specialty rology - [facility] Clinic [facility] 2018-11-29 2018-11-29 Outpatient [facility] [id number] Common 08:00:00 08:00:00 t Bone Bone and Spiri t and Joint Joint - [facility] 2018-11-26 2018-11-26 Outpatient [facility] [id number] Common 14:14:00 14:14:00 t [facility] [address] [facility] 2018-11-23 2018-11-23 Outpatient [facility] [id number] Common 13:20:00 13:20:00 [facility] 2018-11-08 2018-11-08 Outpatient [facility] [id number] Common 10:10:00 10:10:00 t Bone Bone and Spiri t and Joint Joint - [facility] 2018-11-01 2018-11-01 Outpatient [facility] [id number] Common 10:23:00 10:23:00 t Bone Bone and Spiri t and Joint Joint - [facility] 2018-10-23 2018-10-23 Outpatient [facility] [id number] Common 15:48:00 15:48:00 [facility] 2018-10-01 2018-10-01 Outpatient [facility] [id number] Common 10:30:00 10:30:00 t Bone Bone and Spiri t and Joint Joint - [facility] 2018-08-31 2018-08-31 Outpatient [facility] [id number] Common 08:30:00 08:30:00 t Bone Bone and Spiri t and Joint Joint - [facility] 2018-08-23 2018-08-23 Outpatient [facility] [id number] Common 12:29:00 12:29:00 t Bone Bone and Spiri t and Joint Joint - [facility] 2018-08-21 2018-08-21 Outpatient [facility] [id number] Common 11:38:00 11:38:00 t Bone Bone and Spiri t and Joint Joint - [facility] 2018-08-17 2018-08-17 Outpatient [facility] [id number] Common 10:00:00 10:00:00 [facility] it [facility] 2018-08-09 2018-08-09 Out[facility] [id number] Common 14:30:00 14:30:00 t Bone Bone and Spiri t and Joint [facility] - [facility] 2018-07-30 2018-07-30 Out[facility] [id number] Common 07:19:00 07:19:00 t Bone Bone and Spiri t and Joint Joint - [facility] 2018-07-24 2018-07-24 Out[facility] [id number] Common 11:15:00 11:15:[address] Family [facility] Family Medicine [facility] 2018-07-19 2018-07-19 Out[facility] [id number] Common 14:35:00 14:35:00 t Bone Bone and Spiri t and Joint Joint - [facility] 2018-07-18 2018-07-18 Outpatient [facility] [id number] Common 11:30:00 11:30:00 t Bone Bone and Spiri t and Joint Joint - [facility] 2018-07-17 2018-07-17 Outpatient [facility] [id number] Common 10:45:00 10:45:00 t Bone Bone and Spiri t and Joint Joint - [facility] 2018-07-16 2018-07-16 Outpatient [facility] [id number] Common 14:54:00 14:54:00 t Bone Bone and Spiri t and Joint Joint - [facility] 2018-07-10 2018-07-10 Outpatient [facility] [id number] Common 10:17:00 10:17:00 t Bone Bone and Spiri t and Joint Joint - [facility] 2018-07-10 2018-07-10 Out[facility] [id number] Common 09:30:00 09:30:00 t Bone Bone and Spiri t and Joint Joint - [facility] 2018-07-09 2018-07-09 Outpatient [facility] [id number] Common 09:30:00 09:30:00 t Bone Bone and Spiri t and Joint Joint - [facility] 2018-06-26 2018-06-26 Outpatient [facility] [id number] Common 11:00:00 11:00:00 t Bone Bone and Spiri t and Joint Joint - [facility] 2018-06-07 2018-06-07 Outpatient [facility] [id number] Common 17:14:00 17:14:00 t Bone Bone and Spiri t and Joint Joint - [facility] 2018-06-07 2018-06-07 Outpatient [facility] [id number] Common 11:00:00 11:00:00 t Bone Bone and Spiri t and Joint Joint - [facility] 2018-05-31 2018-05-31 Outpatient [facility] [id number] Common 11:56:00 11:56:00 t Bone Bone and Spiri t and Joint Joint - [facility] 2018-05-30 2018-05-30 Outpatient [facility] [id number] Common 10:38:00 10:38:00 [facility] it Road [facility] 2018-05-28 2018-05-28 Outpatient [facility] [id number] Common 15:54:00 15:54:00 [facility] it Road [facility] 2018-05-24 2018-05-24 Outpatient [facility] [id number] Common 15:37:00 15:37:00 t Bone Bone and Spiri t and Joint Joint - [facility] 2018-05-24 2018-05-24 Out[facility] [id number] Common 10:30:00 10:30:00 t Bone Bone and Spiri t and Joint Joint - [facility] 2018-05-21 2018-05-21 Outpatient [facility] [id number] Common 11:30:00 11:30:00 t [facility] it Road [facility] 2018-05-21 2018-05-21 Outpatient [facility] [id number] Common 11:08:00 11:08:00 t Bone Bone and Spiri t and Joint Joint - [facility] 2018-05-16 2018-05-16 Out[facility] [id number] Common 08:47:00 08:47:00 t Bone Bone and Spiri t and Joint Joint - [facility] 2018-05-01 2018-05-01 Outpatient [facility] [id number] Common 15:00:00 15:00:00 t Bone Bone and Spiri t and Joint Joint - [facility] 2018-03-01 2018-03-01 Out[facility] [id number] Common 01:38:00 01:38:00 [facility] 2018-02-28 2018-02-28 [facility] [id number] Common 10:30:00 10:30:00 [facility] it [facility] 2018-02-26 2018-02-26 Out[facility] [id number] Common 17:15:00 17:15:00 t Bone Bone and Spiri t and Joint [facility] - [facility] 2018-02-26 2018-02-26 Out[facility] [id number] Common 09:09:00 09:09:00 t Bone Bone and [facility] - [facility] 2018-01-09 2018-01-09 [facility] [id number] Common 15:30:00 15:30:00 t [facility] - [facility] 2017-12-13 2017-12-13 [facility] [id number] Common 12:21:00 12:21:00 [facility] [address] [facility] 2017-12-11 2017-12-11 [facility] 14 [id number] Common 11:00:00 11:00:00 [facility] [address] [facility] 2017-10-27 2017-10-27 Outpatient Griscarli Larryt [id number] Common 14:19:00 14:19:[address] [facility] [address] [facility] 2017-10-25 2017-10-25 Outpatient Griscarli Larryt 14 [id number] Common 16:20:00 16:20:[address] [facility] [address] [facility] 2017-10-23 2017-10-23 Outpatient Larry Juarezt 14 [id number] Common 08:43:00 08:43:00 t [facility] [address] [facility] 2017-10-11 2017-10-11 Outpatient Larry Juarezt 14 [id number] Common 11:41:00 11:41:00 t [facility] it [address] [facility] 2017-10-04 2017-10-04 Outpatient Larry Juarezt 13 [id number] Common 10:30:00 10:30:00 [facility] it [address] [facility] Results Test Description Test Time Test Comments Results Result Comments Source COAGULATION TIME ACTIVATED 2022-06-01 15:13:00 Test Item Value Reference Range Interpretation Comme nts COAGULATION TIME ACTIVATED (test 203 SECONDS 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 BASIC METABOLIC [id number] 09:27:00 Test Item Value Reference Range Interpretation [...] the recommended for august for GFRby the [facility] for Adults.The GFR will not calculate if th e sex is unknown or if thepatient's ag e is <18 years. CREATININE (test 0.8 mg/dL 0.6-1.3 N code = CREAT) CALCIUM (test code = 9.5 mg/dL 8.0-10.5 N CA) CBC W/AUTO [id number] 09:12:00 Test Item Value Reference Range Interpretation [...] NO = MDIFF) - XR CHEST 2 [id number] 00:00:00 [facility] 1955 Sex: F FAX: Jackson Watson MD [phone] [place]: St: PRE Name: ROSANGELA WHALEY [facility] : 1955 Age/S: 67/F [address] [place] [address] Unit #: [id number] Loc: [place] [address] Phys: Jackson Verdugo MD Acct: [id number] Dis Date: Status: PRE [facility] PHONE #: [phone] Exam Date: 05/31/2022 1018 FAX #: [phone] Reason: PREOP EXAMS: CPT CODE: [id number] XR CHEST 2 V 31412 PROCEDURE INFORMATION: Exam: XR Chest Exam date and time: 05/31/2022 9:35 AM Age: 67 years old Clinical indication: Screening exam; Pre-operative exam; Cardiovascular screening; Additional info: Preop TECHNIQUE: Imaging protocol: Radiologic exam of the chest. Views: 2 views. PA and Lateral COMPARISON: CR XR CHEST 1V 08/02/2016 11:04 AM FINDINGS: Lungs: Appear free of acute disease. Pleural spaces: No pleural effusion. No pneumothorax. Heart/Mediastinum: Heart size is normal.Calcifications and tortuosity of the aorta is noted.. Bones/joints: Degenerative changes with bridging osteophytes noted in the thoracic spine. IMPRESSION: No acute cardiopulmonary findings. at 1044 Reported and signed by: Dorene Chavez M.D. CC: Jackson Verdugo MD Technologist: RT Parker(David) Trnscrd Date/Time/By: 05/31/2022 (104) : By: MayCER Orig Print D/T: S: 05/31/2022 (1043) PAGE 1 Signed [id number]),[id number] 00:00:00 Test Item Value Reference Range Interpretation Comments SARS-CoV-2 INTERPRETATION (test NEGATIVE SEE NOTE code = 91329-8) SOURCE (test code = 20583-5) NOT SPECIFIED STREP A+ RAPIDSTREP A+ RAPID Notes Date/Time Note Provider Source 2022-06-01 10:41:00-00:00 [id number] [place] [address] PATIENT NAME: ROSANGELA WHALEY ADMIT DATE: 06/01/22 ACCOUNT NO: [id number] ROOM NO: AGE: 67 REPORT TYPE: CARDIAC CATHETERIZATION REPORT SEX: F ADMITTING PHYSICIAN: ATTENDING PHYSICIAN:Jackson Verdugo MD PROCEDURE DATE: 06/01/2022 PROCEDURE PERFORMED: 1. Selective coronary angiogram. 2. Left heart catheterization. INDICATION: Unstable angina. ACCESS: 1. Right radial artery, 6-Romanian, closed with TR band. 2. Right femoral artery, 6-Romanian, closed with 6 -Romanian Angio-Seal. COMPLICATIONS: None. BLEEDING: Less than 10 mL. TOTAL SEDATION TIME: 35 minutes, used fentanyl a nd Versed. DESCRIPTION OF PROCEDURE: After risks, benefits and alternatives were explained, the patient agree d to the procedure and signed informed consent. The patient was brought into the cardiac catheteriza tion laboratory, prepped and draped in the usual sterile fashion, then I accessed to the right radial artery using a pediatric micropuncture kit and placed a 6-Romanian slender sheath and I took 5-Romanian [place] 4 catheter into the aortic r oot and engaged the left main and then a right coronary artery, took standard views, and the catheter was pushed over the wire into the LV and measured LV EDP and pullback not recorded any gradient. She had severe radial artery spasm and RCA appeared to be severely diseased, so as I took the catheters ou t and access to the right femoral artery using a micropuncture kit, fluoro scopy and ultrasound guidance and placed a 6-Romanian [place] sheath and took a 6-Romanian JR4 guide into the aortic root and then gave systemic heparin and l oaded with Plavix and then engaged the RCA. As I run th rough the RCA and then performing an angiogram, the RCA appeared to be totally n ormal, then removed the wire and repeated angiogram and confirmed normal proximal RCA. Conclusion is that it was a spasm that resolved. Then removed the g uide and sheath and placed a 6-Romanian Angio-Seal for closure with good hemostasis and removed the radial sheath and placed a TR band with good hemostasis. FINDINGS: 1. Left main: Large and normal. 2. LAD: Moderate sized vessel and normal, normal diagonal branches. 3. Left circumflex is a large vessel and normal. Normal OM branches. 4. RCA has a dominant circulation and normal. It is moderate in size. PATIENT NAME: ROSANGELA WHALEY 584 5. Elevated LVEDP between 15 and 20 mmHg. CONCLUSION: 1. Normal coronary arteries. 2. Elevated LVEDP. 3. Coronary artery spasm. PLAN: Medical management for coronary artery spa sm. Dictated By: Jackson Verdugo MD Date Dictated: 06/01/2022 10:41:00 Date Transcribed: 06/01/2022 14:31:42 /GISELE . Receipt ID: [id number] Authenticated by Jackson Verdugo MD On 08/24/2022 02:26:42 PM Electronically Signed by Jackson Verdugo MD on at 0226 PATIENT NAME: ROSANGELA WHALEY 83 2022-05-31 08:36:00-00:00 [id number], [place] [address] PATIENT NAME: ROSANGELA WHALEY ADMIT DATE: ACCOUNT NO: [id number] ROOM NO: AGE: 67 REPORT TYPE: eELECTROCARDIOGRAM REPORT SEX: F ADMITTING PHYSICIAN: ATTENDING PHYSICIAN:Jackson Verdugo MD Order: [id number] Test Reason : PREOP Test Date/Time Stamp: MonMay 31 2022 08:36:31 Blood Pressure : / mmHG Vent. Rate : 063 BPM Atrial Rate : 063 BPM P-R Int : 154 ms QRS Dur : 078 ms QT Int : 418 ms P-R-T Axes : 028 049 082 degree s QTc Int : 427 ms Normal sinus rhythm Low voltage QRS Cannot rule out Anterior infarct , age undetermi thomas Abnormal ECG No previous ECGs available Confirmed by GEO IYER MD ([id number]) on 05/31/19 12:47:39 PM Referred By: Jackson Verdugo Confirmed by:GEO FAJARDO MD Electronically Signed by Geo Iyer MD on at 1247 PATIENT NAME: ROSANGELA WHALEY 83
[2022-11-01] MEDS ORDERED: MORPHINE 4 MG/ML SYR ONE (11:15)
[2022-11-01] MEDS ORDERED: ONDANSETRON 4 MG (ODT) TAB ONE (11:15)
--- NOTE | 2022-11-01 12:09 | RAD REPORT ---
EXAM DESCRIPTION: RAD - Knee Right 3 View - 11/01/2022 11:50 am CLINICAL HISTORY: PAIN COMPARISON: Knee Right 3 View dated 12/12/2017 FINDINGS/IMPRESSION: No acute fracture. No malalignment. Mild medial compartment narrowing with spur ring. Patellofemoral compartment spurring.
--- NOTE | 2022-11-01 12:11 | RAD REPORT ---
EXAM DESCRIPTION: RAD - Lumbar Spine 3 Views - 11/01/2022 11:50 am CLINICAL HISTORY: back pain COMPARISON: Lumbar Spine 3 Views dated 01/17/2020; Abdomen Pelvis W/Wo Contrast dated 11/01/2022 FINDINGS/IMPRESSION: No acute fracture. Grade 1 anterolisthesis of L3 on L4. Disc height loss at is [id number] at L5-S1 but mild at the other levels. Contrast present within the bladder.
--- NOTE | 2022-11-01 12:43 | EDPHYS ---
Physician Documentation [facility] Name: Rosangela Whaley Age: 67 yrs Sex: Female : 1955 Arrival Date: 11/01/2022 Time: 10:53 Bed 10 Private MD: ED Physician Jose Angel Hough HPI: 11/01 11:05 This 67 yrs old Female presents to ER via Wheelchair with complaints of Back jmm Pain, Knee Pain. 11:05 The patient presents with pain that is acute. This is a 67/f with a history of dm, htn jmm that presents to the ED with complaints of worsening lower back pain. Right knee pain. Denies injury. patient does see pain management. . Historical: - Allergies: 11: Cefazolin; ph 11: Lyrica; ph - PMHx: 11: Diabetes - NIDDM; GERD; Glaucoma; Hypertension; OA; ph - PSHx: 11: Appendectomy; cataract; hysterectomy; Tonsillectomy; rectocele; rhinoplasty; tubal ph ligation; - Immunization history:: Adult Immunizations unknown. - Social history:: Smoking status: unknown. ROS: 11:05 Constitutional: Negative for fever, chills, and weight loss, Cardiovascular: Negative jmm for chest pain, palpitations, and edema, Respiratory: Negative for shortness of breath, cough, wheezing, and pleuritic chest pain. 11:05 MS/extremity: Positive for pain. 11:05 All other systems are negative. Exam: 11:05 Constitutional: This is a well developed, well nourished patient who is awake, alert, jmm and in no acute distress. Head/Face: atraumatic. Eyes: EOMI, no conjunctival erythema appreciated ENT: Moist Mucus Membranes Neck: Trachea midline, Supple Chest/axilla: Normal chest wall appearance and motion. Cardiovascular: Regular rate and rhythm. No edema appreciated Respiratory: Normal respirations, no respiratory distress appreciated Abdomen/GI: Non distended Back: Normal ROM Skin: General appearance color normal 11:05 Musculoskeletal/extremity: pain on palpation of the right knee, compartments are soft, NVI. 11:05 Neuro: Orientation: is normal, Mentation: is normal, Memory: is normal. 11:05 Psych: Behavior/mood is pleasant, cooperative. Vital Signs: 10:59 BP 139 / 70; Pulse 57; Resp 18; Temp 97.9; Pulse Ox 100% on R/A; Weight 98.43 kg; ph Height 5 ft. 4 in. ; Pain 10/10; 12:48 BP 128 / 74; Pulse 64; Resp 16; Pulse Ox 99% ; ko1 10:59 Body Mass Index 37.25 (98.43 kg, 162.56 cm) ph 10:59 Pain Scale: Adult ph MDM: 11:05 Patient medically screened. [facility] 12:40 Differential diagnosis: osteoarthritis, internal derangement, sciatica. Data reviewed: [facility] vital signs, nurses notes, radiologic studies, plain films. I considered the following discharge prescriptions or medication management in the emergency department Medications were administered in the Emergency Department. See MAR. Counseling: I had a detailed discussion with the patient and/or guardian regarding: the historical points, exam findings, and any diagnostic results supporting the discharge/admit diagnosis, the need for outpatient follow up, to return to the emergency department if symptoms worsen or persist or if there are any questions or concerns that arise at home. ED course: Xray negative for an acute process. patient advised to follow up with ortho/pain management. patient otherwise given strict return precautions. patient understood and agrees with the plan of care. . 11/01 11:05 Order name: Lumbar Spine (3 Views) XRAY; Complete Time: 12:13 [facility] 11/01 11:05 Order name: Knee Right 3 View XRAY; Complete Time: 12:13 [facility] 11/01 12:14 Order name: Kirk wrap-joint; Complete Time: 12:23 [facility] Administered Medications: 11:10 Drug: Ondansetron PO 4 mg Route: PO; ko1 12:05 Follow up: Response: No adverse reaction; Nausea is decreased ko1 11:18 Drug: morphine IM 4 mg Route: IM; Site: left deltoid; ko1 12:05 Follow up: Response: No adverse reaction; Pain is decreased ko1 Disposition: 16:54 Co-signature as Attending Physician, Jose Angel Hough DO I was immediately available on-site ms3 in the Emergency Department for consultation in the care of the patient. Disposition Summary: 11/01/22 12:42 Discharge Ordered Location: Home [facility] Condition: Stable [facility] Diagnosis - Pain in right knee m - Low back pain jmm Followup: [facility] - With: Private Physician - When: 2 - 3 days - Reason: Recheck today's complaints, Continuance of care, Re-evaluation by your physician Discharge Instructions: - Discharge Summary Sheet jmm - Acute Back Pain, Adult jm - Acute Knee Pain, Adult [facility] Forms: - Medication Reconciliation Form [facility] - Thank You Letter [place] - Antibiotic Education [facility] - Prescription Opioid Use [facility] Prescriptions: - diclofenac sodium 3 % Topical gel - apply 1 application by TOPICAL route every 4-6 hours As needed; 1 unit; [facility] Refills: 0, Product Selection Permitted - orphenadrine citrate 100 mg Oral Tablet Sustained Release - take 1 tablet by ORAL route 2 times per day As needed; 20 tablet; Refills: 0, [facility] Product Selection Permitted Signatures: Dispatcher [employer] William Christy PA PA jmm Hall, Patricia, SLIEM RN Jose Angel Weiner DO DO ms3 [place] RN RN ko1
--- NOTE | 2022-11-01 12:43 | ER ---
Nurse's Notes [facility] Name: Rosangela Whaley Age: 67 yrs Sex: Female : 1955 Arrival Date: 11/01/2022 Time: 10:53 Bed 10 Private MD: Diagnosis: Pain in right knee;Low back pain Presentation: 11/01 10:59 Chief complaint: Patient states: R mid back pain x 6 months, R knee pain x 1 week, ph denies injury. Denies urinary symptoms, also reports N/V. Came to ED from outpatient radiology, had CT done of L kidney. Coronavirus screen: Vaccine status: Patient reports being unvaccinated. Ebola Screen: No symptoms or risks identified at this time. Initial Sepsis Screen: Does the patient meet any 2 criteria? No. Patient's initial sepsis screen is negative. Does the patient have a suspected source of infection? No. Patient's initial sepsis screen is negative. Risk Assessment: Do you want to hurt yourself or someone else? Patient reports no desire to harm self or others. Onset of symptoms was November 01, 2022. 10:59 Method Of Arrival: Wheelchair ph 10:59 Acuity: ALBA 3 ph Historical: - Allergies: 11:01 Cefazolin; ph 11:01 Lyrica; ph - PMHx: 11:01 Diabetes - NIDDM; GERD; Glaucoma; Hypertension; OA; ph - PSHx: 11:01 Appendectomy; cataract; hysterectomy; Tonsillectomy; rectocele; rhinoplasty; tubal ph ligation; - Immunization history:: Adult Immunizations unknown. - Social history:: Smoking status: unknown. Screenin:24 [facility] ED Fall Risk Assessment (Adult) History of falling in the last 3 months, ko1 including since admission No falls in past 3 months (0 pts) Confusion or Disorientation No (0 pts) Intoxicated or Sedated No (0 pts) Impaired Gait No (0 pts) Mobility Assist Device Used No (0 pt) Altered Elimination No (0 pt) Score/Fall Risk Level 0 - 2 = Low Risk Oriented to surroundings, Maintained a safe environment, Educated pt \T\ family on fall prevention, incl call for assistance when getting out of bed, Assessed \T\ reinforced patient's understanding of fall precautions, Provided non-skid footwear, Hourly rounding (assess needs \T\ fall precautionary measures) done, Used ambulatory aids as needed (educated on \T\ assisted with), Used gait belt as appropriate. Abuse screen: Denies threats or abuse. Denies injuries from another. Nutritional screening: No deficits noted. Tuberculosis screening: No symptoms or risk factors identified. Assessment: 11:24 General: Appears in no apparent distress. uncomfortable, Behavior is calm, cooperative, ko1 appropriate for age. Pain: Complains of pain in back. Neuro: Level of Consciousness is awake, alert, obeys commands, Oriented to person, place, time, situation, Appropriate for age Revenue Field Agent are equal bilaterally Moves all extremities. Gait is steady, Speech is normal, Facial symmetry appears normal, Pupils are PERRLA, Pupil Size: 3mm Intact. Cardiovascular: No deficits noted. Respiratory: No deficits noted. GI: No deficits noted. : No deficits noted. EENT: No deficits noted. Derm: No deficits noted. Musculoskeletal: No deficits noted. Vital Signs: 10:59 BP 139 / 70; Pulse 57; Resp 18; Temp 97.9; Pulse Ox 100% on R/A; Weight 98.43 kg; ph Height 5 ft. 4 in. ; Pain 10/10; 12:48 BP 128 / 74; Pulse 64; Resp 16; Pulse Ox 99% ; ko1 10:59 Body Mass Index 37.25 (98.43 kg, 162.56 cm) ph 10:59 Pain Scale: Adult ph ED Course: 10:55 Patient arrived in ED. rg4 10:56 William Riley PA is PHCP. [facility] 10:56 Jose Angel Hough DO is Attending Physician. [facility] 11:01 Triage completed. ph 11:02 Arm band placed on. ph 11:06 [place], SLIME is Primary Nurse. ko1 11:24 Patient has correct armband on for positive identification. Bed in low position. Call ko1 light in reach. Side rails up X2. Pulse ox on. NIBP on. Door closed. Noise minimized. Lights dimmed. Warm blanket given. 11:24 No provider procedures requiring assistance completed. ko1 11:52 Lumbar Spine (3 Views) XRAY In Process Unspecified. EDMS 11:52 Knee Right 3 View XRAY In Process Unspecified. EDMS 12:48 Patient did not have IV access during this emergency room visit. ko1 Administered Medications: 11:10 Drug: Ondansetron PO 4 mg Route: PO; ko1 12:05 Follow up: Response: No adverse reaction; Nausea is decreased ko1 11:18 Drug: morphine IM 4 mg Route: IM; Site: left deltoid; ko1 12:05 Follow up: Response: No adverse reaction; Pain is decreased ko1 Medication: 11:24 VIS not applicable for this client. ko1 Outcome: 12:42 Discharge ordered by . jonh 12:48 Discharged to home ambulatory. ko1 12:48 Condition: stable 12:48 Discharge instructions given to patient, Instructed on discharge instructions, follow up and referral plans. medication usage, Demonstrated understanding of instructions, follow-up care, medications, Prescriptions given X 2. 12:51 Patient left the ED. ko1 Signatures: Dispatcher [employer] EDMS William Riley PA PA jmm Hall, Patricia, RN RN ph Garcia, Rubi 4 pOal Park RN RN ko1
[2022-11-01 13:42] VITALS: TEMP 97.9
[2022-11-01 13:44] VITALS: BP 128/74; O2SAT 99
== END 2022-11-01 12:51 | disposition home or self-care (01) ==
LOC: ER 10:53
DX: M25.561 Pain in right knee (principal); M54.50 Low back pain, unspecified; Z88.8 Allergy status to other drugs, medicaments and biological substances
CPT/HCPCS: 72100; 73562; 96372; 99284; Q0162

== ENCOUNTER 2024-09-19 19:19 | Inpatient (IN) | payer OTHER ==
[2024-09-19] MEDS ORDERED: FAMOTIDINE 20 MG/2 ML VIAL IV ONE (20:36)
[2024-09-19] MEDS ORDERED: FOLIC ACID 5 MG/ML VIAL ONE (20:36)
--- NOTE | 2024-09-19 20:36 | ER ---
Nurse's Notes [facility] Name: Rosangela Whaley Age: 69 yrs Sex: Female : 1955 Arrival Date: 09/19/2024 Time: 19:19 Bed 19 Private MD: Diagnosis: Unspecified disorder of binocular vision;Diplopia;Type 2 diabetes mellitus with hyperglycemia;Hyperkalemia;Hypercalcemia;Obesity, unspecified Presentation: 09/19 20:10 Chief complaint: Patient states: DOUBLE VISION ON THE RIGHT EYE, SAW EYE DOCTOR TODAY ha1 AND WAS TOLD I HAD EYE INFLAMMATION. ELEVATED BLOOD PRESSURE. Coronavirus screen: Client denies travel out of the [place] in the last 14 days. Ebola Screen: No symptoms or risks identified at this time. Initial Sepsis Screen: Does the patient meet any 2 criteria? No. Patient's initial sepsis screen is negative. Does the patient have a suspected source of infection? No. Patient's initial sepsis screen is negative. Risk Assessment: Do you want to hurt yourself or someone else? Patient reports no desire to harm self or others. Onset of symptoms was September 19, 2024. 20:10 Method Of Arrival: Ambulatory 1 20:10 Acuity: ALBA 3 ha1 Triage Assessment: 20:15 General: Appears comfortable, Behavior is calm, cooperative. Pain: Complains of pain in ha1 left eye Pain currently is 7 out of 10 on a pain scale. Quality of pain is described as pressure. Neuro: Level of Consciousness is awake, alert, obeys commands, Oriented to person, place, time, situation. Cardiovascular: Capillary refill < 3 seconds Patient's skin is warm and dry. Respiratory: Airway is patent Respiratory effort is even, unlabored, Respiratory pattern is regular, symmetrical. Historical: - Allergies: 20:15 Cefazolin; ha1 20:15 Lyrica; ha1 - Home Meds: 20:15 Lipitor 40 mg Oral tab 1 tab once daily [Active]; montelukast 10 mg Oral tab 1 tab once ha1 daily [Active]; duloxetine 60 mg Oral cpDR 1 cap once daily [Active]; pantoprazole 40 mg Oral TbEC 1 tab once daily [Active]; - PMHx: 20:15 Diabetes - NIDDM; GERD; Glaucoma; Hypertension; OA; ha1 - PSHx: 20:15 Appendectomy; cataract; hysterectomy; rectocele; rhinoplasty; Tonsillectomy; tubal ha1 ligation; - Immunization history:: Adult Immunizations up to date. - Infectious Disease History:: Denies. - Social history:: Smoking status: Patient denies any tobacco usage or history of. - Family history:: not pertinent. Screenin:03 [facility] ED Fall Risk Assessment (Adult) History of falling in the last 3 months, bm8 including since admission No falls in past 3 months (0 pts) Confusion or Disorientation No (0 pts) Intoxicated or Sedated No (0 pts) Impaired Gait No (0 pts) Mobility Assist Device Used No (0 pt) Altered Elimination No (0 pt) Score/Fall Risk Level 0 - 2 = Low Risk Oriented to surroundings, Maintained a safe environment, Educated pt \T\ family on fall prevention, incl call for assistance when getting out of bed, Assessed \T\ reinforced patient's understanding of fall precautions, Hourly rounding (assess needs \T\ fall precautionary measures) done, Used ambulatory aids as needed (educated on \T\ assisted with), Used gait belt as appropriate. Abuse screen: Denies threats or abuse. Nutritional screening: No deficits noted. Tuberculosis screening: No symptoms or risk factors identified. Assessment: 22:02 Reassessment: Patient appears in no apparent distress at this time. Patient and/or bm8 family updated on plan of care and expected duration. Pain level reassessed. Patient is alert, oriented x 3, equal unlabored respirations, skin warm/dry/pink. Neuro: No deficits noted. Level of Consciousness is awake, alert, obeys commands, Oriented to person, place, time, situation, Appropriate for age. Cardiovascular: Reports None Denies chest pain. Respiratory: Airway is patent Respiratory effort is even, unlabored, Respiratory pattern is regular, symmetrical, Breath sounds are clear bilaterally. EENT: Reports pain in right eye Pain is 8 out of 10 on a pain scale. 09/20 00:22 Reassessment: Patient appears in no apparent distress at this time. Patient and/or bm8 family updated on plan of care and expected duration. Pain level reassessed. Patient is alert, oriented x 3, equal unlabored respirations, skin warm/dry/pink. Patient states feeling better. Patient states symptoms have improved. Reassessment:. Pain: Pain currently is 2 out of 10 on a pain scale. Vital Signs: 09/19 20:10 BP 167 / 63; Pulse 66; Resp 17 S; Temp 97.8(O); Pulse Ox 99% on R/A; Weight 108.86 kg; ha1 Height 5 ft. 4 in. ; 22:02 BP 205 / 91; Pulse 66; Resp 18; Temp 97.8; Pulse Ox 99% ; Pain 8/10; bm8 09/20 00:22 BP 185 / 88; Pulse 91; Resp 20; Temp 97.8; Pulse Ox 99% ; Pain 2/10; bm8 09/19 20:10 Body Mass Index 41.20 (108.86 kg, 162.56 cm) ha1 22:02 Pain Scale: Adult bm8 09/20 00:22 Pain Scale: Adult bm8 [place] Coma Score: 09/19 20:29 Eye Response: spontaneous(4). Motor Response: obeys commands(6). Verbal Response: shashi oriented(5). Total: 15. 22:02 Eye Response: spontaneous(4). Motor Response: obeys commands(6). Verbal Response: bm8 oriented(5). Total: 15. 09/20 00:22 Eye Response: spontaneous(4). Motor Response: obeys commands(6). Verbal Response: bm8 oriented(5). Total: 15. ED Course: 09/19 19:22 Patient arrived in ED. im 19:54 Larry Wilson MD is Attending Physician. shashi 20:06 Attending Physician role handed off by Larry Wilson MD sp3 20:06 Mohsen Brown MD is Attending Physician. sp3 20:13 Larry Wilson MD is Attending Physician. shashi 20:15 Triage completed. ha1 20:34 Veto Blanc MD is Hospitalizing Provider. shashi 20:35 CT Head Brain wo Cont In Process Unspecified. EDMS 20:43 XRAY Chest (1 view) In Process Unspecified. EDMS 20:56 Inserted saline lock: 20 gauge in right forearm, using aseptic technique. Blood kl collected. Flushed with 10 mL NS. 22:01 Trey Junior, RN is Primary Nurse. bm8 22:03 No provider procedures requiring assistance completed. bm8 22:03 Patient has correct armband on for positive identification. Bed in low position. Call bm8 light in reach. Side rails up X 1. Client placed on continuous cardiac and pulse oximetry monitoring. NIBP monitoring applied. Pulse ox on. NIBP on. Door closed. Noise minimized. Warm blanket given. Pillow given. Verbal reassurance given. Head of bed elevated. 22:17 EKG done, by ED staff, reviewed by Veto Blanc MD. bm8 09/20 00:28 Patient admitted, IV remains in place. bm8 00:28 Provided Education on: need for admission. bm8 00:28 Arm band placed on right wrist. bm8 Administered Medications: 09/19 20:45 Drug: foLIC Acid IVPB 1 mg IVPB once Route: IVPB; Site: right forearm; kl 22:05 Follow up: Response: No adverse reaction; IV Status: Completed infusion bm8 20:48 Drug: Famotidine IVP 20 mg IVP once; dilute with 10 mL 0.9% NaCl; give over 2 minutes kl Route: IVP; Site: right forearm; 22:05 Follow up: Response: No adverse reaction bm8 20:56 Drug: NS 0.9% IV 500 ml IV at bolus once; to be given as a bolus over 30 minutes Route: kl IV; Rate: bolus; Site: right forearm; 22:05 Follow up: Response: No adverse reaction; IV Status: Completed infusion bm8 20:56 Drug: SOLU-MedroL 1g IVPB over 10 minutes; mix in 50 mL NS 1 grams IV at per protocol kl once Route: IV; Rate: per protocol; Site: right forearm; 22:05 Follow up: Response: No adverse reaction; IV Status: Completed infusion bm8 22:01 Drug: Kayexalate PO 15 grams PO once Route: PO; bm8 22:04 Follow up: Response: No adverse reaction bm8 22:01 Drug: Aspirin PO Chewable Tablet 81 mg PO once Route: PO; bm8 22:04 Follow up: Response: No adverse reaction bm8 09/20 00:00 Drug: NS 0.9% IV 1000 ml IV at 125 ml/hr once Route: IV; Rate: 125 ml/hr; Site: right bm8 forearm; 00:25 Follow up: Response: No adverse reaction; IV Status: Infusion continued upon admission bm8 Medication: 09/19 22:03 VIS not applicable for this client. bm8 Outcome: 20:35 Decision to Hospitalize by Provider. shashi 09/20 00:27 Admitted to ER Hold. Please see [facility] for further documentation. bm8 Condition: stable Instructed on the need for admit, Demonstrated understanding of follow-up care, medications, 06:08 Patient left the ED. ha1 Signatures: Dispatcher [employer] EDJessica Del Valle, SLIME RN Larry Curran MD MD cha Patel, Setul, MD MD sp3 Miriam Carvajal RN RN ha1 Sabrina Torres Brad RN RN bm8 Corrections: (The following items were deleted from the chart) 06:09 05 20:10 Chief complaint: Patient states: DOUBLE VISION ON THE RIGHT EYE, SAW EYE ha1 DOCTOR TODAY AND WAS TOLD I HAD EYE INFLAMMATION. ELEVATED BLOOD PRESSURE ha1
--- NOTE | 2024-09-19 20:36 | EDPHYS ---
Physician Documentation [facility] Name: Rosangela Whaley Age: 69 yrs Sex: Female : 1955 Arrival Date: 09/19/2024 Time: 19:19 Bed 19 Private MD: ED Physician Larry Wilson HPI: 09/19 20:29 This 69 yrs old Female presents to ER via Ambulatory with complaints of Eye shashi Problem. 20:29 The patient is experiencing blurred vision, decreased vision, double vision. Onset: The shashi symptoms/episode began/occurred 1 day(s) ago. Duration: the symptoms are intermittent. Aggravated by nothing. Alleviated by nothing. Associated signs and symptoms: Pertinent positives: None. Patient wears glasses. Severity of symptoms: At their worst the symptoms were moderate in the emergency department the symptoms are unchanged. The patient has not experienced similar symptoms in the past. Historical: - Allergies: 20:15 Cefazolin; ha1 20:15 Lyrica; ha1 - Home Meds: 20:15 Lipitor 40 mg Oral tab 1 tab once daily [Active]; montelukast 10 mg Oral tab 1 tab once ha1 daily [Active]; duloxetine 60 mg Oral cpDR 1 cap once daily [Active]; pantoprazole 40 mg Oral TbEC 1 tab once daily [Active]; - PMHx: 20:15 Diabetes - NIDDM; GERD; Glaucoma; Hypertension; OA; ha1 - PSHx: 20:15 Appendectomy; cataract; hysterectomy; rectocele; rhinoplasty; Tonsillectomy; tubal ha1 ligation; - Immunization history:: Adult Immunizations up to date. - Infectious Disease History:: Denies. - Social history:: Smoking status: Patient denies any tobacco usage or history of. - Family history:: not pertinent. ROS: 20:29 Constitutional: Negative for fever, chills, and weight loss, ENT: Negative for injury, shashi pain, and discharge, Neck: Negative for injury, pain, and swelling, Cardiovascular: Negative for chest pain, palpitations, and edema, Respiratory: Negative for shortness of breath, cough, wheezing, and pleuritic chest pain, Abdomen/GI: Negative for abdominal pain, nausea, vomiting, diarrhea, and constipation, Back: Negative for injury and pain, : Negative for injury, bleeding, discharge, and swelling, MS/Extremity: Negative for injury and deformity, Skin: Negative for injury, rash, and discoloration, Neuro: Negative for headache, weakness, numbness, tingling, and seizure, Psych: Negative for depression, anxiety, suicide ideation, homicidal ideation, and hallucinations, Allergy/Immunology: Negative for hives, rash, and allergies, Endocrine: Negative for neck swelling, polydipsia, polyuria, polyphagia, and marked weight changes, Hematologic/Lymphatic: Negative for swollen nodes, abnormal bleeding, and unusual bruising, 20:29 Eyes: Positive for blurry vision, pain, vision loss, 20:29 Neuro: Positive for visual changes, Negative for altered mental status, dizziness, gait disturbance, Exam: 20:29 Constitutional: This is a well developed, well nourished patient who is awake, alert, shashi and in no acute distress. Head/Face: Normocephalic, atraumatic. Eyes: Pupils equal round and reactive to light, extra-ocular motions intact. Lids and lashes normal. Conjunctiva and sclera are non-icteric and not injected. Cornea within normal limits. Periorbital areas with no swelling, redness, or edema. ENT: Nares patent. No nasal discharge, no septal abnormalities noted. Tympanic membranes are normal and external auditory canals are clear. Oropharynx with no redness, swelling, or masses, exudates, or evidence of obstruction, uvula midline. Mucous membranes moist. Neck: Trachea midline, no thyromegaly or masses palpated, and no cervical lymphadenopathy. Supple, full range of motion without nuchal rigidity, or vertebral point tenderness. No Meningismus. Chest/axilla: Normal chest wall appearance and motion. Nontender with no deformity. No lesions are appreciated. Cardiovascular: Regular rate and rhythm with a normal S1 and S2. No gallops, murmurs, or rubs. Normal PMI, no JVD. No pulse deficits. Respiratory: Lungs have equal breath sounds bilaterally, clear to auscultation and percussion. No rales, rhonchi or wheezes noted. No increased work of breathing, no retractions or nasal flaring. Abdomen/GI: Soft, non-tender, with normal bowel sounds. No distension or tympany. No guarding or rebound. No evidence of tenderness throughout. Back: No spinal tenderness. No costovertebral tenderness. Full range of motion. Female : Normal external genitalia. Skin: Warm, dry with normal turgor. Normal color with no rashes, no lesions, and no evidence of cellulitis. MS/ Extremity: Pulses equal, no cyanosis. Neurovascular intact. Full, normal range of motion., bilateral aka Neuro: Awake and alert, GCS 15, oriented to person, place, time, and situation. Cranial nerves II-XII grossly intact. Motor strength 5/5 in all extremities. Sensory grossly intact. Cerebellar exam normal. Normal gait. Psych: Awake, alert, with orientation to person, place and time. Behavior, mood, and affect are within normal limits. 20:29 ECG was reviewed by the Attending Physician. 20:29 Musculoskeletal/extremity: ROM: no acute changes, intact in all extremities, full active range of motion, full passive range of motion, Circulation is intact in all extremities. Sensation intact. Compartment Syndrome exam of affected extremity: is normal. Weight bearing: able to fully bear weight, DVT Exam: No signs of deep vein thrombosis. no pain, no swelling, no tenderness, negative Homans' sign noted on exam, no appreciated bluish discoloration, no erythema, no increased warmth, Calves: are non-tender, have equal circumference, Vital Signs: 20:10 BP 167 / 63; Pulse 66; Resp 17 S; Temp 97.8(O); Pulse Ox 99% on R/A; Weight 108.86 kg; ha1 Height 5 ft. 4 in. ; 22:02 BP 205 / 91; Pulse 66; Resp 18; Temp 97.8; Pulse Ox 99% ; Pain 8/10; bm8 09/20 00:22 BP 185 / 88; Pulse 91; Resp 20; Temp 97.8; Pulse Ox 99% ; Pain 2/10; bm8 09/19 20:10 Body Mass Index 41.20 (108.86 kg, 162.56 cm) [facility] 22:02 Pain Scale: Adult bm8 09/20 00:22 Pain Scale: Adult bm8 [place] Coma Score: 09/19 20:29 Eye Response: spontaneous(4). Motor Response: obeys commands(6). Verbal Response: shashi oriented(5). Total: 15. 22:02 Eye Response: spontaneous(4). Motor Response: obeys commands(6). Verbal Response: bm8 oriented(5). Total: 15. 09/20 00:22 Eye Response: spontaneous(4). Motor Response: obeys commands(6). Verbal Response: bm8 oriented(5). Total: 15. MDM: 09/19 20:13 Medical Screening Exam initiated [facility] 20:32 Data reviewed: vital signs, nurses notes, lab test result(s), EKG, radiologic studies, [facility] CT scan, plain films. Consideration of Admission/Observation Patient was admitted/placed on observation. Escalation of care including admission/observation considered. I considered the following discharge prescriptions or medication management in the emergency department Medications were administered in the Emergency Department. See MAR. Independent interpretation of the following test(s) in the Emergency Department EKG: See my EKG interpretation above. Test considered but Not performed: MRI: NO MRI. Historians other than the Patient: DR MCLEOD , ADMIT , CONSULT JOSEPH TRENT AND HIMSELF. Care significantly affected by the following chronic conditions: Diabetes, Hypertension, Obesity. Counseling: I had a detailed discussion with the patient and/or guardian regarding the historical points, exam findings, and any diagnostic results supporting the discharge/admit diagnosis, lab results, radiology results, the need for further work-up and treatment in the hospital. 20:36 ED course: DR MCLEOD CALLED WANTS PT ADMITTED TO HOSPITALIST, CONSULT JOSEPH MCLEOD AND shashi HIMSELF, 1 GM OF SOLU MEDROL DAILY. 09/19 19:56 Order name: Basic Metabolic Panel; Complete Time: 21:36 [facility] 09/19 19:56 Order name: CBC with Diff; Complete Time: 21:36 [facility] 09/19 19:56 Order name: LFT's; Complete Time: 21:36 [facility] 09/19 19:56 Order name: Magnesium; Complete Time: 21:36 [facility] 09/19 19:56 Order name: NT PRO-BNP; Complete Time: 21:36 [facility] 09/19 19:56 Order name: PT-INR; Complete Time: 21:36 [facility] 09/19 19:56 Order name: Troponin HS; Complete Time: 21:36 [facility] 09/19 19:56 Order name: UA Rfx [place] Cult if indicated; Complete Time: 20:52 [facility] 09/19 21:04 Order name: CBC with Automated Diff EDMS 09/19 21:04 Order name: CBC with Automated Diff EDMS 09/19 21:04 Order name: Comprehensive Metabolic Panel [facility] 09/19 21:04 Order name: Comprehensive Metabolic Panel [facility] 09/19 19:56 Order name: XRAY Chest (1 view); Complete Time: 20:52 [facility] 09/19 19:56 Order name: CT Head Brain wo Cont; Complete Time: 20:52 [facility] 09/19 19:56 Order name: EKG; Complete Time: 19:57 [facility] 09/19 21:04 Order name: CONS Physician Consult [facility] 09/19 21:05 Order name: CONS Physician Consult [facility] 09/19 19:56 Order name: Cardiac monitoring; Complete Time: 21:20 [facility] 09/19 19:56 Order name: EKG - Nurse/Tech; Complete Time: 22:17 [facility] 09/19 19:56 Order name: IV Saline Lock; Complete Time: 21:21 [facility] 09/19 19:56 Order name: Labs collected and sent; Complete Time: 21:21 [facility] 09/19 19:56 Order name: O2 Per Protocol; Complete Time: 21:21 [facility] 09/19 19:56 Order name: O2 Sat Monitoring; Complete Time: 21:21 [facility] Administered Medications: 20:45 Drug: foLIC Acid IVPB 1 mg IVPB once Route: IVPB; Site: right forearm; 22:05 Follow up: Response: No adverse reaction; IV Status: Completed infusion bm8 20:48 Drug: Famotidine IVP 20 mg IVP once; dilute with 10 mL 0.9% NaCl; give over 2 minutes kl Route: IVP; Site: right forearm; 22:05 Follow up: Response: No adverse reaction bm8 20:56 Drug: NS 0.9% IV 500 ml IV at bolus once; to be given as a bolus over 30 minutes Route: kl IV; Rate: bolus; Site: right forearm; 22:05 Follow up: Response: No adverse reaction; IV Status: Completed infusion bm8 20:56 Drug: SOLU-MedroL 1g IVPB over 10 minutes; mix in 50 mL NS 1 grams IV at per protocol kl once Route: IV; Rate: per protocol; Site: right forearm; 22:05 Follow up: Response: No adverse reaction; IV Status: Completed infusion bm8 22:01 Drug: Kayexalate PO 15 grams PO once Route: PO; bm8 22:04 Follow up: Response: No adverse reaction bm8 22:01 Drug: Aspirin PO Chewable Tablet 81 mg PO once Route: PO; bm8 22:04 Follow up: Response: No adverse reaction 8 09/20 00:00 Drug: NS 0.9% IV 1000 ml IV at 125 ml/hr once Route: IV; Rate: 125 ml/hr; Site: right bm8 forearm; 00:25 Follow up: Response: No adverse reaction; IV Status: Infusion continued upon admission bm8 Disposition Summary: 09/19/24 20:35 Hospitalization Ordered Notes: Hospitalization Status: Inpatient Admission shashi Provider: Veto Blanc cha Location: Telemetry/MedSurg (Inpatient) shashi Condition: Fair shashi Problem: new shashi Symptoms: have improved shashi Bed/Room Type: Standard [facility] Room Assignment: [facility](09/20/24 04:44) Diagnosis - Unspecified disorder of binocular vision shashi - Diplopia shashi - Type 2 diabetes mellitus with hyperglycemia shashi - Hyperkalemia shashi - Hypercalcemia shashi - Obesity, unspecified shashi Forms: - Medication Reconciliation Form shashi - SBAR form shashi - Leadership Thank You Letter shashi Signatures: Dispatcher [employer] EDJessica Del Valle, RN RN Larry Curran MD MD cha Ayala, Heidy RN RN ha1 Trey Junior RN RN bm8 Corrections: (The following items were deleted from the chart) 09/19 19:57 19:57 Head Brain Wo [id number].[id number] ordered. EDMT EDMS 09/20 04:44 09/19 20:35 shashi stevens
[2024-09-19] MEDS ORDERED: NA CHLORIDE 0.9% 500 ML ONE (20:37)
[2024-09-19] MEDS ORDERED: NA CHLORIDE 0.9% 50 ML ONE (20:37)
[2024-09-19 20:46] LABS: Specific Gravity > 1.030 (1.005-1.030); Sqamous Epithelial <5 /HPF (None Seen); Urine Bacteria <20 /HPF (<20); Urine Bilirubin NEGATIVE (Negative); Urine Blood Negative (Negative); Urine Clarity Clear (Clear); Urine Color Yellow (Yellow); Urine Crystals Unidentified Few /HPF (None Seen); Urine Culture Reflex Order NOT NEEDED; Urine Glucose NEGATIVE (Negative); Urine Ketones NEGATIVE (Negative); Urine Microscopic Reflex YN ORDER UMIC; Urine Mucus 1+ /HPF (None Seen); Urine Nitrite NEGATIVE (Negative); Urine Protein TRACE (Negative); Urine Urobilinogen Normal (Normal); Urine WBC <5 /HPF (<5)
--- NOTE | 2024-09-19 20:49 | RAD REPORT ---
EXAMINATION: ONE VIEW CHEST XR CLINICAL INDICATION: COUGH TECHNIQUE: Frontal chest projection is submitted. Examination is limited by patient positioning and t echnique. COMPARISON: 12/31/2022 FINDINGS: The lungs are well inflated and clear. The heart is upper limit of normal in size. No displaced fract ures identified. IMPRESSION: No acute intrathoracic abnormalities.
--- NOTE | 2024-09-19 20:50 | RAD REPORT ---
EXAM: CT brain without contrast HISTORY: HEADACHE COMPARISON: 07/31/2022 TECHNIQUE: Multiple contiguous axial images were obtained and a CT of the brain without contrast. Sag ittal and coronal reformats were performed. One or more of the following dose reduction techniques were used: Automated exposure control, adjust ment of the mA and/or kV according to patient size, and/or iterative reconstruction. FINDINGS: No evidence of hydrocephalus, intracranial hemorrhage, or extra-axial fluid collection. Mild brain atrophy with mild periventricular and deep white matter chronic microvascular ischemic ch anges present. No evidence of midline shift or areas of brain edema. The calvarium is intact. The visualized paranasal sinuses and mastoid air cells are essentially clear . IMPRESSION: No evidence of acute intracranial abnormality.
[2024-09-19 21:08] LABS: Absolute Basophils 0.1 K/uL (0-0.5); Absolute Eosinophils 0.2 K/uL (0-0.5); Absolute Lymphocytes (CBC) 2.2 K/uL (0.7-4.9); Absolute Monocytes 0.8 K/uL (0.1-1.3); Absolute Neutrophil 7.8 K/uL (1.8-8.0); Basophils % 0.7 % (0-1.3); Eosinophils % 1.8 % (0-4.4); Hematocrit 35.6 % (36.0-45.0); Hemoglobin 11.9 g/dL (12.0-15.0); Lymphocytes % 19.9 % (15.3-44.8); MCH 26.8 pg (27.0-35.0); MCHC 33.5 g/dL (32.0-36.0); MCV 79.9 fL (80-100); MPV 8.2 fL (7.6-11.3); Neutrophils % 70.6 % (41.7-73.7); Nucleated Red Blood Cells % 0.1 % (0-0); Platelets 320 thou/uL (152-406); RBC Red Blood Cell Count 4.45 M/uL (3.86-4.86); Red Cell Distribution Width 15.6 % (12.1-15.2)
--- NOTE | 2024-09-19 21:09 | P.HP ---
Certification for Inpatient Patient admitted to: Inpatient With expected LOS: >2 Midnights Practitioner: I am a practitioner with admitting privileges, knowledge of patient current condition, hospital course, and medical plan of care. Services: Services provided to patient in accordance with Admission requirements found in Title 42 Section 412.3 of the Code of Federal Regulations Patient History Date of Service: 09/20/24 Reason for admission: temporal arteritis History of Present Illness: 69 yrs old Female with past medical history of diabetes, hypertension, hyperlipidemia, GERD, glaucoma, who was sent to ER for admission by her communications coordinator Dr. Phoenix . Patient has been having complaints of eye changes with blurring of vision and decreased vision and double vision occasionally started 2 days ago and has been progressively worsening addressing with communications coordinator. She is sent here over here for further workup and management. Patient was assessed in the ER and had a CT of head which was negative. Patient to be admitted for further workup of temporal artery biopsy to rule out temporal arteritis Allergies cefazolin [From Ancef] Allergy (Intermediate, Verified 07/27/20 10:29) Hives/Rash pregabalin [From Lyrica] Adverse Reaction (Verified 07/27/20 10:29) memory problems Home medications list reviewed: Yes Home Medications: Albuterol Sulfate [Ventolin Hfa] 18 gm IH QID 05/03/18 Aspirin [Aspirin EC 81 MG] 81 mg PO DAILY 05/03/18 Atorvastatin Calcium [Lipitor] 40 mg PO BEDTIME 05/03/18 Azelastine HCl [Astepro] 2 sprays NS DAILY 05/03/18 Bimatoprost [Lumigan Opthalmic Drops*] 1 gtt EACH EYE BEDTIME 05/03/18 Brimonidine Tartrate/Timolol [Combigan 0.2%-0.5% Eye Drops] 1 gtt EACH EYE DAILY 05/03/18 Fluticasone Propionate [Flovent Hfa] 2 sprays IH DAILY 05/03/18 Montelukast [Singulair*] 10 mg PO DAILY 05/03/18 Cetirizine HCl [Zyrtec] 10 mg PO BEDTIME 07/27/20 Cholestyramine (with Sugar) [Cholestyramine Packet] 4 gm PO BID 07/27/20 Diclofenac Sodium 1% Gel 1 gm TD TID 07/27/20 Dicyclomine [Bentyl] 10 mg PO BID 07/27/20 Duloxetine HCl [Cymbalta] 60 mg PO BID 07/27/20 Ergocalciferol (Vitamin D2) [Vitamin D2] 50,000 unit PO SEECOM 07/27/20 Famotidine 40 mg PO DAILY 07/27/20 Fluticasone/Umeclidin/Vilanter [Trelegy Ellipta 100-62.5-25] 1 each IH DAILY 07/27/20 Folic Acid 1 mg PO DAILY 07/27/20 Gabapentin 600 mg PO BID 07/27/20 Losartan/Hydrochlorothiazide [Losartan-Hctz 100-25 mg Tab] 1 each PO DAILY 07/27/20 Ondansetron [Zofran] 4 mg PO BID 07/27/20 Pantoprazole [Protonix Tab] 40 mg PO DAILY 07/27/20 Sitagliptin Phos/Metformin HCl [Janumet 50-1,000 mg Tablet] 1 each PO BID 07/27/20 Sucralfate 1 gm PO BEDTIME 07/27/20 cycloSPORINE [Restasis] 1 drop EACH EYE BID 07/27/20 methocarbamoL [Methocarbamol] 500 mg PO BID 07/27/20 - Past Medical/Surgical History Diabetic: Yes Past Medical History: Reviewed- Non-Contributory -: diabetes -: hypertension -: asthma Past Surgical History: Reviewed- Non-Contributory -: tonsillectomy 1974 -: appy 1992 -: vein stripping right leg -: hysterectomy 1990 -: tubal ligation 1981 -: reversal of tubal 1987 -: vag repair 1991 -: cateract left 1996, right 1997 - Family History Mother -: Heart disease, Hypertension, Diabetes - Social History Smoking Status: Never smoker Alcohol use: No CD- Drugs: No Caffeine use: Yes Review of Systems 10-point ROS is otherwise unremarkable Physical Examination - Vital Signs Temperature: 97.5 F Blood Pressure: 185/88 Pulse: 92 Respirations: 20 Pulse Ox (%): 94 - Physical Exam General: Alert, Oriented x3, Mild distress HEENT: Atraumatic, Normocephalic Neck: Supple Respiratory: Clear to auscultation bilaterally, Normal air movement Cardiovascular: Regular rate/rhythm, Normal S1 S2 Capillary refill: <2 Seconds Gastrointestinal: Soft and benign, W/out hepatosplenomegaly Musculoskeletal: No clubbing, No swelling Integumentary: No rashes, No breakdown Neurological: Normal speech, Normal strength at 5/5 x4 extr, Cranial nerves 3-12 intact, Normal reflexes 2+ Lymphatics: No axilla or inguinal lymphadenopathy Assessment and Plan - Plan Temporal arteritis To rule out giant cell arteritis ENT consulted for possible biopsy Started on pain control Steroids and high-dose Ophthalmology consult following (Dr Eagle ) Hypertension Antihypertensives titrated Continue home medications and titrate as needed Hyperlipidemia Continue statin Hyperkalemia Kayexalate IV hydration Monitor closely under telemetry Hypercalcemia IV hydration Diabetes Insulin sliding scale Accu-Chek before every meal and at bedtime GI/DVT prophylaxis Advanced directive full code Discharge Plan: Home Plan to discharge in: 48 Hours - Advance Directives Does patient have a Living Will: No Does patient have a Durable POA for Healthcare: No - Code Status/Comfort Care Code Status: Full Code Time Spent Managing Pts Care (In Minutes): 48
[2024-09-19 21:27] LABS: PT Prothrombin Time 11.7 SECONDS (10-13.0); Protime INR 1.03
[2024-09-19 21:33] LABS: ALT/SGPT 25 U/L (13-56); Albumin 3.5 g/dL (3.4-5.0); Albumin/Globulin Ratio 0.7 (1.1-1.8); Alkaline Phosphatase 106 U/L (45-117); Anion Gap 9.6 mEq/L (5.0-15.0); BUN Blood Urea Nitrogen 16 mg/dL (7-18); Bicarbonate 29 mEq/L (21-32); Bilirubin Total 0.7 mg/dL (0.2-1.0); Globulin 5.1 g/dL (2.3-3.5); Glomerular Filtration Rate 76 ml/min (=/>90); Glucose Level 119 mg/dL (74-106); NT PRO-BNP 108 pg/mL (<125); Potassium 5.6 mEq/L (3.5-5.1); Protein, Total 8.6 g/dL (6.4-8.2); Sodium Level 137 mEq/L (136-145); Troponin High Sensitivity 8.2 pg/mL (<58.9)
[2024-09-19 21:34] LABS: AST/SGOT 49 U/L (15-37); Bilirubin Direct < 0.2 mg/dL (0-0.2); Bilirubin Indirect, Calculated 0.5 mg/dL (0.2-0.8)
[2024-09-19] MEDS ORDERED: ASPIRIN 81 MG CHEWABLE TABLET ONE (21:48)
[2024-09-19] MEDS ORDERED: SOD POLYSTYREN SUL 15 GM/60 ML UCUP ONE (21:48)
[2024-09-19] MEDS ORDERED: METHYLPRED NA SUC 1,000 MG in NA CHLORIDE 0.9% 100 ML IV ONE (23:43)
[2024-09-19] MEDS ORDERED: GLUCAGON 1 MG/VIAL IM PRN (23:44)
[2024-09-19] MEDS ORDERED: D10W 125 ML IV PRN (23:44)
[2024-09-20] MEDS: INSULIN REGULAR (HUMAN) 100 UNIT/ML SQ SCH
[2024-09-20] MEDS ORDERED: ONDANSETRON 4 MG/2 ML VIAL ONE ×3 (00:01→12:14)
[2024-09-20] MEDS ORDERED: HYDRALAZINE HCL 20 MG/ML VIAL ONE (00:01)
[2024-09-20] MEDS ORDERED: MORPHINE 2 MG/ML SYR ONE (00:01)
[2024-09-20] MEDS: MORPHINE 2 MG/ML SYR IV PRN (00:08)
[2024-09-20] MEDS: HYDRALAZINE HCL 20 MG/ML VIAL IV PRN (00:08)
[2024-09-20] MEDS: ONDANSETRON 4 MG/2 ML VIAL IV PRN (00:09)
[2024-09-20 00:39] VITALS: BMI 41.1
[2024-09-20] MEDS: SOD POLYSTYREN SUL 15 GM/60 ML UCUP PO ONE (03:42)
[2024-09-20] MEDS ORDERED: LANO/MINERAL OIL/PETRO 3.5 GM EACH EYE PRN (03:42)
[2024-09-20 09:26] LABS: Albumin 3.3 g/dL (3.4-5.0); Albumin/Globulin Ratio 0.8 (1.1-1.8); Bilirubin Total 0.5 mg/dL (0.2-1.0); Globulin 4.3 g/dL (2.3-3.5); Protein, Total 7.6 g/dL (6.4-8.2)
--- NOTE | 2024-09-20 09:46 | P.CNS ---
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 She was admitted for administration of high-dose steroids and monitoring of blood sugars as well as treatment of hypertension. Consultation from Dr. Eagle was requested via telephone including urgent diagnostic temporal artery biopsy. The patient continues to have significant headache and double vision this morning. Her last meal was yesterday. She has had some sips of water and ice chips this morning. Allergies cefazolin [From Ancef] Allergy (Intermediate, Verified 07/27/20 10:29) Hives/Rash pregabalin [From Lyrica] Adverse Reaction (Verified 07/27/20 10:29) memory problems Home medications list reviewed: Yes Home Medications: Albuterol Sulfate [Ventolin Hfa] 18 gm IH QID 05/03/18 Aspirin [Aspirin EC 81 MG] 81 mg PO DAILY 05/03/18 Atorvastatin Calcium [Lipitor] 40 mg PO BEDTIME 05/03/18 Azelastine HCl [Astepro] 2 sprays NS DAILY 05/03/18 Bimatoprost [Lumigan Opthalmic Drops*] 1 gtt EACH EYE BEDTIME 05/03/18 Brimonidine Tartrate/Timolol [Combigan 0.2%-0.5% Eye Drops] 1 gtt EACH EYE DAILY 05/03/18 Fluticasone Propionate [Flovent Hfa] 2 sprays IH DAILY 05/03/18 Montelukast [Singulair*] 10 mg PO DAILY 05/03/18 Cetirizine HCl [Zyrtec] 10 mg PO BEDTIME 07/27/20 Cholestyramine (with Sugar) [Cholestyramine Packet] 4 gm PO BID 07/27/20 Diclofenac Sodium 1% Gel 1 gm TD TID 07/27/20 Dicyclomine [Bentyl] 10 mg PO BID 07/27/20 Duloxetine HCl [Cymbalta] 60 mg PO BID 07/27/20 Ergocalciferol (Vitamin D2) [Vitamin D2] 50,000 unit PO SEECOM 07/27/20 Famotidine 40 mg PO DAILY 07/27/20 Fluticasone/Umeclidin/Vilanter [Trelegy Ellipta 100-62.5-25] 1 each IH DAILY 07/27/20 Folic Acid 1 mg PO DAILY 07/27/20 Gabapentin 600 mg PO BID 07/27/20 Losartan/Hydrochlorothiazide [Losartan-Hctz 100-25 mg Tab] 1 each PO DAILY 07/27/20 Ondansetron [Zofran] 4 mg PO BID 07/27/20 Pantoprazole [Protonix Tab] 40 mg PO DAILY 07/27/20 Sitagliptin Phos/Metformin HCl [Janumet 50-1,000 mg Tablet] 1 each PO BID 07/27/20 Sucralfate 1 gm PO BEDTIME 07/27/20 cycloSPORINE [Restasis] 1 drop EACH EYE BID 07/27/20 methocarbamoL [Methocarbamol] 500 mg PO BID 07/27/20 - Past Medical/Surgical History Diabetic: Yes -: diabetes -: hypertension -: asthma Past Surgical History: Reviewed- Non-Contributory -: tonsillectomy 1974 -: appy 1992 -: vein stripping right leg -: hysterectomy 1990 -: tubal ligation 1981 -: reversal of tubal 1987 -: vag repair 1991 -: cateract left 1996, right 1997 - Family History Mother Medical History: Heart disease, Hypertension, Diabetes - Social History Alcohol use: No CD- Drugs: No Caffeine use: Yes Physical Examination Temp Pulse Resp BP Pulse Ox 97.8 F 76 18 163/72 H 96 09/20/24 08:00 09/20/24 08:00 09/20/24 08:00 09/20/24 08:00 09/20/24 08:00 General: Alert, Oriented x3 HEENT: Atraumatic, Normocephalic, Mucous membr. moist/pink Neck: No LAD Respiratory: Other (Quiet respirations without increased effort) Laboratory Data (last 24 hrs) 09/19/24 09/19/24 09/19/24 20:50 20:50 20:50 WBC 11.00 H Hgb 11.9 L Hct 35.6 L Plt Count 320 PT 11.7 INR 1.03 Sodium 137 Potassium 5.6 H BUN 16 Creatinine 0.83 Glucose 119 H Magnesium 2.0 Total Bilirubin 0.7 AST 49 H ALT 25 Alkaline Phosphatase 106 Conclusions/Impression: Headache and visual change with elevated CRP, clinically concerning for giant cell arteritis I discussed the risks benefits and alternatives for temporal artery biopsy including pain, bleeding, scarring, infection, failure to obtain diagnosis, forehead weakness, and need for further treatment. We discussed that typical treatment for giant cell arteritis includes high-dose steroids. In the setting of underlying diabetes she is at increased risk of complication including hyperglycemia. The patient is agreeable for biopsy which will be performed later this morning. The patient is instructed to stop ingestion of water and ice chips until after her procedure. I reviewed the plan of care with the patient's nurse including completion of the surgical consent. Of note, this procedure is being done on an inpatient and emergency basis due to the urgency of her condition. The decision for surgery was made on the day of initial consultation. Delay of treatment and diagnosis could result in blindness or other significant disability. Of note, the patient was recently evaluated as an outpatient for thyroid nodule and states she is scheduled for an ultrasound of the thyroid on Monday, September 23. The patient inquires as to whether this will be performed if she remains hospitalized. I will defer to the primary team and nursing staff for that issue.
[2024-09-20] MEDS ORDERED: FENTANYL CITR 100 MCG/2 ML ONE ×2 (10:09→12:12)
[2024-09-20] MEDS ORDERED: SUCCINYLCHOLINE 20 MG/ML (10 ML) IV ONE (10:09)
[2024-09-20] MEDS ORDERED: propofoL 200 MG/20 ML VIAL IV ONE (10:09)
[2024-09-20] MEDS ORDERED: LIDOCAINE 2% MPF 5 ML VIAL ONE (10:09)
[2024-09-20] MEDS: LIDOCAINE HCL/EPINEPHRINE 20 ML MDV ONE (10:36)
[2024-09-20 10:45] LABS: Absolute Lymphocytes (CBC) 0.7 K/uL (0.7-4.9); Absolute Neutrophil 9.2 K/uL (1.8-8.0); Basophils % 0.2 % (0-1.3); Hemoglobin 11.5 g/dL (12.0-15.0); Lymphocytes % 6.9 % (15.3-44.8); MCH 26.6 pg (27.0-35.0); MCV 80.6 fL (80-100); MPV 8.1 fL (7.6-11.3); Monocytes % 0.4 % (3.3-12.3); Neutrophils % 92.5 % (41.7-73.7); Platelets 305 thou/uL (152-406); RBC Red Blood Cell Count 4.35 M/uL (3.86-4.86); Red Cell Distribution Width 15.9 % (12.1-15.2)
[2024-09-20] MEDS ORDERED: dexAMETHasone 4 MG/ML VIAL ONE (12:14)
[2024-09-20] MEDS: LIDOCAINE 1% MPF 5 ML VIAL ONE (12:16)
[2024-09-20] MEDS ORDERED: EPHEDRINE SULF 50 MG/ML VIAL ONE (12:24)
[2024-09-20 12:47] LABS: Platelet Estimate ADEQ; White Blood Cell Scan OK (OK)
[2024-09-20 12:48] LABS: Blood Morphology Comment NOT SEEN (NOT SEEN)
[2024-09-20] MEDS: NA CHLORIDE 0.9% 1,000 ML ONE (13:00)
--- NOTE | 2024-09-20 13:17 | P.OP ---
District Director: NONE,NONE Preoperative diagnosis: Vision changes and headache, evaluate for giant cell arteritis Postoperative diagnosis: Same Primary procedure: Left temporal artery biopsy Anesthesia: General Via LMA Estimated blood loss: 5 mL Specimen: Left temporal artery Findings: Very small arterial diameter Operative Technique: Patient was brought to the operating room placed under general anesthesia via laryngeal mask airway. Due to the patient's bilateral symptomology, the patient's temporal's were examined and palpated. The right side was difficult to palpate any vascular pulsations. The left side had palpable pulsations and strong Doppler signal. An incision was made over the area of the strongest signal and the surrounding tissues were injected with 1% plain lidocaine around the planned incision site. The left protestant was cleaned with Betadine and draped in a sterile fashion. A 2-1/2 cm incision was made through the skin and subcutaneous tissues. The subcutaneous tissues were judiciously divided and using a Zelaya dissector. The Doppler was used intraoperatively to confirm the Doppler signal which was noted in the inferior aspect of the incision. Just this dissection was carried out through the superficial layer of the temporalis fascia. A very small fragment of vessel was noted to have been cut and cauterized during the initial dissection. The Zelaya dissectors were used to dissecte in an inferior to superior direction along the direction of the vessel. The vessel was approximately 1 mm in diameter. The incision was extended on its superior aspect about 5 mm to allow for further dissection in order to obtain an adequate length of vessel. Small scissors were used to release the vessel from surrounding tissue though small amount of fatty subcutaneous tissue was included in the specimen. The vessel was then clamped at the superior aspect and severed using a scalpel. The cut end of the artery was tied using silk suture. The wound was inspected and there was no significant bleeding. The wound was closed using 4-0 Vicryl sutures and 5-0 fast absorbing gut suture. At the conclusion of the closure there was visible swelling with concern for superficial hematoma. Therefore the sutures were removed and the clot was evacuated. The area was inspected and there was oozing along the midportion of the superior skin flap which was cauterized. The surgical cavity was then thoroughly irrigated and inspected and there is no evidence of additional bleeding. The wound was then closed using 4-0 Vicryl deep sutures and 5-0 fast absorbing running sutures. A small amount of antibiotic ointment was applied to the skin surface after cleaning and a small pressure dressing was applied to the incision. The procedure was concluded and the patient was returned to care of anesthesia for awakening extubation in the operating room which proceeded without difficulty. Disposition: The patient will be turned to the floor to continue care with the hospitalist and ophthalmology services. The patient can follow-up with Dr. Ruiz's office in 1 to 2 weeks for suture removal and wound check. Complications: None Implants: None Fluids & blood products: See anesthesia record Transferred to: Recovery Room Condition: Good
--- NOTE | 2024-09-20 14:47 | P.CNS ---
Date of Consult: 09/20/24 Chief Complaint: temporal arteritis History of Present Illness: Patient with PMH of HTN, Cartoid artery disease, presented with concerns for Temporal arteritis, patient has been complaining of blurry vision, headache and eye pain, denies chest pain, no palpitations, no syncope, report chronic VILLALOBOS. Allergies cefazolin [From Ancef] Allergy (Intermediate, Verified 07/27/20 10:29) Hives/Rash pregabalin [From Lyrica] Adverse Reaction (Verified 07/27/20 10:29) memory problems Home medications list reviewed: Yes Home Medications: Albuterol Sulfate [Ventolin Hfa] 18 gm IH QID 05/03/18 Aspirin [Aspirin EC 81 MG] 81 mg PO DAILY 05/03/18 Atorvastatin Calcium [Lipitor] 40 mg PO BEDTIME 05/03/18 Azelastine HCl [Astepro] 2 sprays NS DAILY 05/03/18 Bimatoprost [Lumigan Opthalmic Drops*] 1 gtt EACH EYE BEDTIME 05/03/18 Brimonidine Tartrate/Timolol [Combigan 0.2%-0.5% Eye Drops] 1 gtt EACH EYE DAILY 05/03/18 Fluticasone Propionate [Flovent Hfa] 2 sprays IH DAILY 05/03/18 Montelukast [Singulair*] 10 mg PO DAILY 05/03/18 Cetirizine HCl [Zyrtec] 10 mg PO BEDTIME 07/27/20 Cholestyramine (with Sugar) [Cholestyramine Packet] 4 gm PO BID 07/27/20 Diclofenac Sodium 1% Gel 1 gm TD TID 07/27/20 Dicyclomine [Bentyl] 10 mg PO BID 07/27/20 Duloxetine HCl [Cymbalta] 60 mg PO BID 07/27/20 Ergocalciferol (Vitamin D2) [Vitamin D2] 50,000 unit PO SEECOM 07/27/20 Famotidine 40 mg PO DAILY 07/27/20 Fluticasone/Umeclidin/Vilanter [Trelegy Ellipta 100-62.5-25] 1 each IH DAILY 07/27/20 Folic Acid 1 mg PO DAILY 07/27/20 Gabapentin 600 mg PO BID 07/27/20 Losartan/Hydrochlorothiazide [Losartan-Hctz 100-25 mg Tab] 1 each PO DAILY 07/27/20 Ondansetron [Zofran] 4 mg PO BID 07/27/20 Pantoprazole [Protonix Tab] 40 mg PO DAILY 07/27/20 Sitagliptin Phos/Metformin HCl [Janumet 50-1,000 mg Tablet] 1 each PO BID 07/27/20 Sucralfate 1 gm PO BEDTIME 07/27/20 cycloSPORINE [Restasis] 1 drop EACH EYE BID 07/27/20 methocarbamoL [Methocarbamol] 500 mg PO BID 07/27/20 - Past Medical/Surgical History Diabetic: Yes -: diabetes -: hypertension -: asthma -: tonsillectomy 1974 -: appy 1992 -: vein stripping right leg -: hysterectomy 1990 -: tubal ligation 1981 -: reversal of tubal 1987 -: vag repair 1991 -: cateract left 1996, right 1997 - Family History Mother Medical History: Heart disease, Hypertension, Diabetes - Social History Alcohol use: No CD- Drugs: No Caffeine use: Yes Review of Systems 10-point ROS is otherwise unremarkable Physical Examination Temp Pulse Resp BP Pulse Ox 97.6 F 101 H 17 147/57 H 96 09/20/24 13:41 09/20/24 13:41 09/20/24 13:41 09/20/24 13:41 09/20/24 08:00 General: Alert, In no apparent distress HEENT: Atraumatic, PERRLA, Mucous membr. moist/pink, EOMI, Sclerae nonicteric Neck: Supple, 2+ carotid pulse no bruit, No LAD, Without JVD or thyroid ab normality Respiratory: Clear to auscultation bilaterally, Normal air movement Cardiovascular: Regular rate/rhythm, Normal S1 S2 Gastrointestinal: Normal bowel sounds, No tenderness Musculoskeletal: No tenderness Integumentary: No rashes Neurological: Normal gait, Normal speech, Normal tone, Normal affect Lymphatics: No axilla or inguinal lymphadenopathy Laboratory Data (last 24 hrs) 09/19/24 09/19/24 09/19/24 20:50 20:50 20:50 WBC 11.00 H Hgb 11.9 L Hct 35.6 L Plt Count 320 PT 11.7 INR 1.03 Sodium 137 Potassium 5.6 H BUN 16 Creatinine 0.83 Glucose 119 H Magnesium 2.0 Total Bilirubin 0.7 AST 49 H ALT 25 Alkaline Phosphatase 106 - Problems (1) Carotid artery disease Current Visit: Yes Status: Acute Plan: continue ASA 81 mg daily patient is scheduled for carotid artery duplex in office next week continue to follow up as outpatient with cardiology (2) HLD (hyperlipidemia) Current Visit: Yes Status: Acute Plan: continue lipitor (3) Hypertension Current Visit: No Status: Acute Plan: reconcile and resume patient home medications.
[2024-09-20] MEDS: HYDROCODONE/APAP 5/325 MG TAB PO PRN (15:39)
[2024-09-20] MEDS: METHYLPRED NA SUC 1,000 MG in NA CHLORIDE 0.9% 100 ML IV ONE (17:20)
[2024-09-20] MEDS: ACETAMINOPHEN 325 MG TABLET PO PRN (20:38)
[2024-09-20 21:16] VITALS: O2SAT 99
[2024-09-21] MEDS: carvediloL 6.25 MG TAB PO SCH (08:34)
[2024-09-21] MEDS: ALOGLIPTIN BENZOATE 12.5 MG TABLET PO SCH (08:35)
[2024-09-21] MEDS: PANTOPRAZOLE 40MG TABLET PO SCH (08:35)
[2024-09-21] MEDS: ASPIRIN EC 81 MG TAB PO SCH (08:35)
[2024-09-21] MEDS: INSULIN REGULAR (HUMAN) 100 UNIT/ML SQ SCH (08:36)
[2024-09-21] MEDS: glipiZIDE 5 MG TAB PO SCH (08:36)
[2024-09-21] MEDS: FERROUS SULFATE 325 MG TAB PO SCH (08:46)
[2024-09-21] MEDS: AMLODIPINE 2.5 MG TAB PO SCH (08:46)
[2024-09-21] MEDS ORDERED: HOME MED 1 EA UNK (Glipizide [Glipizide] 10 MG Tablet) PO SCH (09:00)
[2024-09-21] MEDS ORDERED: HOME MED 1 EA UNK (Sitagliptin Phosphate [Januvia] 50 MG Tablet) PO SCH (09:00)
[2024-09-21 12:57] LABS: Albumin 3.3 g/dL (3.4-5.0); Albumin/Globulin Ratio 0.8 (1.1-1.8); Anion Gap 9.5 mEq/L (5.0-15.0); Bilirubin Total 0.4 mg/dL (0.2-1.0); C-Reactive Protein 6.85 mg/L (<3.00); Globulin 4.1 g/dL (2.3-3.5); Potassium 3.5 mEq/L (3.5-5.1); Protein, Total 7.4 g/dL (6.4-8.2)
[2024-09-21] MEDS: METHYLPRED NA SUC 1,000 MG in NA CHLORIDE 0.9% 100 ML IV ONE (17:28)
[2024-09-21] MEDS: ATORVASTATIN 40 MG TAB PO SCH (21:38)
[2024-09-21] MEDS: DULOXETINE 30 MG CAP PO SCH (21:38)
--- NOTE | 2024-09-22 05:44 | P.PN ---
Subjective Date of Service: 09/20/24 Patient admitted for temporal arteritis and patient was taken to the OR for biopsy today. Biopsy is pending. Continue with IV steroids x 3 days and switch over to oral steroids at discharge. Review of Systems 10-point ROS is otherwise unremarkable Physical Examination - Vital Signs Temperature: 97.9 F Blood Pressure: 168/76 Pulse: 74 Respirations: 18 Pulse Ox (%): 96 - Physical Exam General: Alert, In no apparent distress, Oriented x3 Respiratory: Clear to auscultation bilaterally, Normal air movement Cardiovascular: Regular rate/rhythm, Normal S1 S2, No murmurs Gastrointestinal: Normal bowel sounds, Soft and benign, Non-distended, No tenderness Musculoskeletal: No clubbing, No swelling, No tenderness Integumentary: No rashes Neurological: Sensation intact, Cranial nerves 3-12 intact - Studies Medications List Reviewed: Yes Assessment & Plan - Problems (Diagnosis) (1) Temporal arteritis Current Visit: Yes Status: Acute (2) HLD (hyperlipidemia) Current Visit: Yes Status: Acute (3) Hx of total knee arthroplasty Current Visit: No Status: Acute (4) Hypertension Current Visit: No Status: Acute (5) Hyponatremia Current Visit: No Status: Acute - Plan Plan: 1. Temporal arteritis; continue with IV steroids and will do tapering dose of steroids once 3 doses of IV steroids were completed. Ophthalmology follow-up as well. 2. History of hypertension; resume antihypertensives 3. History of hyperlipidemia; continue with statin therapy 4. GI DVT prophylaxis Discharge Plan: Home Plan to discharge in: Greater than 2 days - Advance Directives Does patient have a Living Will: No Does patient have a Durable POA for Healthcare: No - Code Status/Comfort Care Code Status: Full Code Critical Care: No
--- NOTE | 2024-09-22 05:46 | P.PN ---
Date of Service: 09/21/24 Subjective Patient is doing well with no new complaints. Clinical symptoms are stable. Working on discharge planning. Pathology results pending. Follow-up with ophthalmology. Physical Examination - Vital Signs Reviewed - Physical Exam General: Alert, In no apparent distress, Oriented x3 Respiratory: Clear to auscultation bilaterally, Normal air movement Cardiovascular: Regular rate/rhythm, Normal S1 S2, No murmurs Gastrointestinal: Normal bowel sounds, Soft and benign, Non-distended, No tenderness Musculoskeletal: No clubbing, No swelling, No tenderness Integumentary: No rashes Neurological: Sensation intact, Cranial nerves 3-12 intact - Studies Medications List Reviewed: Yes Assessment & Plan - Problems (Diagnosis) (1) Temporal arteritis Current Visit: Yes Status: Acute (2) HLD (hyperlipidemia) Current Visit: Yes Status: Acute (3) Hx of total knee arthroplasty Current Visit: No Status: Acute (4) Hypertension Current Visit: No Status: Acute (5) Hyponatremia Current Visit: No Status: Acute - Plan Continue with plan of care as mentioned below: 1. Temporal arteritis; continue with IV steroids and will do tapering dose of steroids once 3 doses of IV steroids were completed. Ophthalmology follow-up as well. 2. History of hypertension; resume antihypertensives 3. History of hyperlipidemia; continue with statin therapy 4. GI DVT prophylaxis Discharge Plan: Home Plan to discharge in: Greater than 2 days - Advance Directives Does patient have a Living Will: No Does patient have a Durable POA for Healthcare: No - Code Status/Comfort Care Code Status: Full Code Critical Care: No
[2024-09-22] MEDS: carvediloL 12.5 MG TAB PO SCH (06:26)
[2024-09-22] MEDS: AMLODIPINE 10 MG TAB PO SCH (10:08)
[2024-09-22] MEDS: METOPROLOL TARTRATE 5 MG/5 ML INJ IV PRN (13:07)
[2024-09-22] MEDS: METHYLPRED NA SUC 250 MG in NA CHLORIDE 0.9% 100 ML IV ONE ×2 (18:00→18:55)
[2024-09-22] MEDS: NA CHLORIDE 0.9% 100 ML ONE (18:40)
[2024-09-22] MEDS ORDERED: METHYLPREDNISOLONE 125 MG INJ IV ONE (19:00)
--- NOTE | 2024-09-22 19:54 | RAD REPORT ---
EXAM DESCRIPTION: Thyroid Para Parotid Gland CLINICAL HISTORY: thyromegaly COMPARISON: TECHNIQUE: Sonographic grayscale and color flow images of the thyroid gland were obtained. FINDINGS: Thyroid parenchyma is homogeneous. The isthmus measures 4 mm in thickness. Right thyroid lobe measure s 3.9 x 2.3 x 1.5 cm. Left thyroid lobe measures 3.5 x 1.7 x 1.1 cm. No nodules are seen. IMPRESSION: Diffuse thyroid goiter without nodule seen.. TR 1 TR 2 TR 3 TR 4 TR 5 Benign Not suspicious Mildly suspicious Moderately suspicious Highly stefany picious No FNA No FNA FNA if >/= 2.5 cm FNA if >/= 1.5 cm FNA if >/= 1 cm - Follow if >/= 1.5 cm Follow if >/= 1 c m Follow if >/= 0.5 cm
--- NOTE | 2024-09-23 08:19 | RAD REPORT ---
EXAMINATION: COMPLETE ABDOMINAL ULTRASOUND CLINICAL INDICATION: abd pain TECHNIQUE: Grayscale ultrasonography of the abdomen was performed. COMPARISON: Multiple prior ultrasounds reviewed. FINDINGS: LIVER: Increased echogenicity with reduced sonographic penetration and without focal mass. GALLBLADDER: No gallstones, gall bladder wall thickening or pericholecystic fluid. BILE DUCTS: Intrahepatic and extrahepatic bile ducts appear normal. Measured near the colette hepatis , the common bile duct is 4 mm. RIGHT KIDNEY: Normal in echogenicity and size. No calculus, solid mass or hydronephrosis. LEFT KIDNEY:. Normal in echogenicity and size. No calculus, solid mass or hydronephrosis. SPLEEN: Normal in echogenicity, with length of 8 cm. PANCREAS/AORTA: Partially obscured by bowel gas without abnormality grossly appreciated. IMPRESSION: Mild diffuse fatty liver.
[2024-09-23 09:19] VITALS: TEMP 97.9
--- NOTE | 2024-09-23 11:32 | RAD REPORT ---
EXAM: MRA head without contrast HISTORY: Stroke persistent headache COMPARISON: None TECHNIQUE: MRA of the head was performed without contrast using 3-D [id number] imaging. 3-D rotational refor mats were performed. FINDINGS: There is no evidence of large vessel occlusion. No aneurysm is identified. There is origin of t he left posterior communicating artery with hypoplasia of the left P1 segment, normal variant anatomy. The right vertebral artery appears diminutive however does appear patent distally. The left V4 segmen t is dominant. Basilar artery shows normal opacification. IMPRESSION: No significant flow abnormality is detected.
--- NOTE | 2024-09-23 11:47 | RAD REPORT ---
EXAMINATION: MRI BRAIN WITHOUT AND WITH CONTRAST CLINICAL INDICATION: persistent headache TECHNIQUE: Multiplanar multisequence MR images of the brain were obtained without and with intravenou s contrast. Unless otherwise specified, incidental findings do not require dedicated imaging follow-up. COMPARISON: 09/19/2009 CT head more remote studies FINDINGS: INTRACRANIAL: Diffusion-weighted images show no acute or early subacute infarction. Minimal periventr icular and deep white matter chronic microvascular ischemic changes. No significant abnormal brain parenchymal signal. The ventricles are normal in size and morphology. No augmented susceptibility. Th ere is no mass effect or midline shift. No abnormal extraaxial fluid collection. VASCULATURE: Normal signal voids in the larger intracranial arteries and dural venous sinuses. SINUSES: The paranasal sinuses and mastoid air cells are predominantly clear. BONE: The marrow signal pattern is within normal limits. CONTRAST: No pathologic postcontrast enhancement to indicate tumor or infection. OTHER FINDINGS: IMPRESSION: No significant intracranial abnormalities.
[2024-09-23] MEDS: NA CHLORIDE 0.9% 500 ML IV ONE (15:22)
[2024-09-23] MEDS: METHYLPRED NA SUC 250 MG in NA CHLORIDE 0.9% 100 ML IV ONE (15:22)
[2024-09-23 17:17] VITALS: BP 140/64
--- NOTE | 2024-09-26 11:58 | EKG ---
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
== END 2024-09-23 19:45 | disposition home or self-care (01) | DRG 516 ==
LOC: ER 19:19 → ERHOLD 20:59 → 2ND 09-20 05:32
PROVIDERS: ADMIT Family Medicine; ATTEND Hospitalist
PROC: 03BT0ZX Excision of Left Temporal Artery, Open Approach, Diagnostic (ICD-10-PCS; principal; 2024-09-20 13:15)
DX: M31.6 Other giant cell arteritis (principal); E87.1 Hypo-osmolality and hyponatremia; Z68.41 Body mass index [BMI] 40.0-44.9, adult; E66.9 Obesity, unspecified; E83.52 Hypercalcemia; E87.5 Hyperkalemia; I10 Essential (primary) hypertension; E11.65 Type 2 diabetes mellitus with hyperglycemia; I77.9 Disorder of arteries and arterioles, unspecified; K21.9 Gastro-esophageal reflux disease without esophagitis; M19.90 Unspecified osteoarthritis, unspecified site; Z88.8 Allergy status to other drugs, medicaments and biological substances; Z79.82 Long term (current) use of aspirin; Z90.49 Acquired absence of other specified parts of digestive tract; Z79.899 Other long term (current) drug therapy; Z90.710 Acquired absence of both cervix and uterus
CPT/HCPCS: 36415; 70450; 70544; 70553; 71045; 76536; 76700; 80048; 80053; 80076; 81001; 82947; 83735; 83880; 84145; 84484; 85025; 85610; 86140; 88305; 93005; 96365; 96375; 99285; A9577; J0360; J1100; J1815; J2003; J2270; J2405; J2704; J2919; J3010; J7030; J7040